=== PATIENT | male | born 1960 | race Caucasian/White ===

== ENCOUNTER → 2019-04-27 09:02 | Outpatient (CLI) | payer BC, SELFPAY ==
[2019-04-27 10:05] LABS: Absolute Lymphocyte Count 2.47 X10^3/uL (0.83-4.51); Basophil# 0.06 X10^3/uL; Basophil% 0.8 % (0-1); Eosinophil# 0.19 X10^3/uL; Eosinophils% 2.6 % (0-5); Hematocrit 49.2 % (40-54); Hemoglobin 15.8 g/dL (13.0-16.5); Lymphocyte # 2.47 X10^3/ul (4.0); Lymphocyte % 33.8 % (19-41); Mean Corp Hgb Conc 32.1 g/dL (32-36); Mean Corpuscular Hgb 26.6 pg (27.0-32.0); Mean Corpuscular Volume 82.8 fL (80-94); Mean Platelet Vol. 10.4 fl (6.2-12.0); Monocyte# 0.57 X10^3/uL; Monocyte% 7.8 % (0-10); NRBC Flagged by Analyzer 0 % (0-5); Neutrophil # 3.97 X10^3/uL (2.7-7.7); Neutrophil % 54.5 % (47-70); Platelet Count 234 K/mm3 (150-450); RBC Distribution Width CV 12.1 % (11.6-14.6); RBC Distribution Width SD 36.7 fl (35.1-43.9); Red Blood Count 5.94 M/mm3 (4.6-6.2); White Blood Count 7.3 K/mm3 (4.4-11.0)
[2019-04-27 10:27] LABS: Hemoglobin A1c 6.3 % (4.2-6.3)
[2019-04-27 10:40] LABS: ALB/GLOB Ratio 1.2 RATIO (0.9-2.4); AST(SGOT) 15 U/L (15-37); Alanine Aminotransfer ALT/SGPT 26 U/L (16-61); Albumin, Serum 4.6 g/dL (3.2-5.0); Alkaline Phosphatase 61 U/L (45-117); Anion Gap 4 (5-15); BUN 34 mg/dL (7-18); BUN/Creat Ratio 28.3 RATIO (10-20); Bilirubin, Direct 0.15 mg/dL (0.00-0.30); Calcium,Total 9.4 mg/dL (8.5-10.1); Chloride 101 mmol/L (98-107); Cholesterol 145 mg/dL (200); EST Glomerular Filtration Rate 66 mL/min (>60); Est Glom Filt Rate - Afr Amer 80 mL/min (>60); Globulin 3.8 g/dL (2.2-4.2); Glucose 130 mg/dL (74-106); High Density Lipoprotein 38 mg/dL; Magnesium 2.3 mg/dL (1.6-2.6); PSA,Total - Annual Screen 0.49 ng/mL (0.00-4.00); Protein, Total 8.4 g/dL (6.4-8.2); Sodium Level 137 mmol/L (136-145); Triglycerides 157 mg/dL; Very Low Density Lipoprotein 31 mg/dL (5-40)
[2019-04-30 09:36] LABS: Testosterone, Free 14.14 ng/dL (5.00-21.00)
[2019-04-30 16:07] LABS: Testosterone, % Free 4.22 % (1.50-4.20); Testosterone, Total 335 ng/dL (264-916)
== END ==
PROVIDERS: Family Provider Internal Medicine; PCP Internal Medicine; Referring Provider Internal Medicine; Visit Provider Internal Medicine
DX: E11.9 Type 2 diabetes mellitus without complications (principal); E78.00 Pure hypercholesterolemia, unspecified; E34.9 Endocrine disorder, unspecified; Z12.5 Encounter for screening for malignant neoplasm of prostate
CPT/HCPCS: 36415; 80053; 80061; 82248; 83036; 83735; 84153; 84402; 84403; 85025; G0103

== ENCOUNTER → 2019-05-28 08:17 | Outpatient (CLI) | payer BC, SELFPAY ==
[2019-05-28 10:31] LABS: Anion Gap 5 (5-15); BUN 34 mg/dL (7-18); BUN/Creat Ratio 27.2 RATIO (10-20); Calcium,Total 9.8 mg/dL (8.5-10.1); Chloride 103 mmol/L (98-107); Creatinine, Serum 1.25 mg/dL (0.70-1.30); EST Glomerular Filtration Rate 63 mL/min (>60); Est Glom Filt Rate - Afr Amer 77 mL/min (>60); Glucose 176 mg/dL (74-106); Potassium 3.6 mmol/L (3.5-5.1); Sodium Level 140 mmol/L (136-145)
[2019-05-28 10:33] LABS: Vitamin B12 725 pg/mL (211-911); Vitamin D,25 Hydroxy 21.2 ng/mL (29.95-100.01)
== END ==
PROVIDERS: Family Provider Internal Medicine; PCP Internal Medicine; Referring Provider Internal Medicine; Visit Provider Internal Medicine
DX: E55.9 Vitamin D deficiency, unspecified (principal); Z51.81 Encounter for therapeutic drug level monitoring
CPT/HCPCS: 36415; 80048; 82306; 82607

== ENCOUNTER → 2019-06-23 08:18 | Outpatient (CLI) | payer BC, SELFPAY ==
[2019-06-23 08:33] LABS: Bacteria 0 SEEN /hpf (None Seen); Mucous, Urine 0 SEEN /hpf (<or=2+); White Blood Cells 0 SEEN /hpf (0-5)
[2019-06-23 10:19] LABS: Color, Urine Yellow (Yellow); Glucose, Dipstick Normal (Normal); Ketone-Dipstick Negative (Negative); Leukocyte Esterase-Dipstick Negative /ul (Negative); Nitrite-Dipstick Negative (Negative); Occult Blood-Urine 10 /ul (Negative); Protein-Dipstick Negative (Negative); Urine Bilirubin Dipstick Negative (Negative); Urine Clarity Sl. Cloudy (Clear); Urine Urobilinogen Normal (Normal)
[2019-06-23 10:21] LABS: Anion Gap 6 (5-15); BUN 20 mg/dL (7-18); BUN/Creat Ratio 16.9 RATIO (10-20); Calcium,Total 9.5 mg/dL (8.5-10.1); Chloride 102 mmol/L (98-107); Creatinine, Serum 1.18 mg/dL (0.70-1.30); EST Glomerular Filtration Rate 68 mL/min (>60); Est Glom Filt Rate - Afr Amer 82 mL/min (>60); Glucose 132 mg/dL (74-106); Potassium 3.9 mmol/L (3.5-5.1); Sodium Level 139 mmol/L (136-145)
[2019-06-23 10:40] LABS: Red Blood Cells-Urine 0-5 SEEN /hpf (0-5); Squamous Epithelial Cells - UA 0-5 SEEN /hpf (0-5)
== END ==
PROVIDERS: Family Provider Internal Medicine; PCP Internal Medicine; Referring Provider Internal Medicine; Visit Provider Internal Medicine
DX: I10 Essential (primary) hypertension (principal)
CPT/HCPCS: 36415; 80048; 81001

== ENCOUNTER → 2019-11-19 07:01 | Outpatient (CLI) | payer BC, SELFPAY ==
[2019-11-19 09:55] LABS: Absolute Lymphocyte Count 2.62 X10^3/uL (0.83-4.51); Absolute Neutrophil Count 3.9 X10^3/uL (2.0-7.7); Basophil# 0.06 X10^3/uL; Basophil% 0.8 % (0-1); Eosinophil# 0.15 X10^3/uL; Eosinophils% 2.1 % (0-5); Hematocrit 47.6 % (40-54); Hemoglobin 15.5 g/dL (13.0-16.5); Lymphocyte # 2.62 X10^3/ul (4.0); Lymphocyte % 36.1 % (19-41); Mean Corp Hgb Conc 32.6 g/dL (32-36); Mean Corpuscular Volume 82.9 fL (80-94); Mean Platelet Vol. 10.4 fl (6.2-12.0); Monocyte# 0.55 X10^3/uL; Monocyte% 7.6 % (0-10); NRBC Flagged by Analyzer 0 % (0-5); Neutrophil # 3.85 X10^3/uL (2.7-7.7); Platelet Count 254 K/mm3 (150-450); RBC Distribution Width CV 13.1 % (11.6-14.6); RBC Distribution Width SD 38.1 fl (35.1-43.9); Red Blood Count 5.74 M/mm3 (4.6-6.2); White Blood Count 7.3 K/mm3 (4.4-11.0)
[2019-11-19 10:18] LABS: AST(SGOT) 17 U/L (15-37); Alanine Aminotransfer ALT/SGPT 29 U/L (16-61); Albumin, Serum 4.1 g/dL (3.2-5.0); Alkaline Phosphatase 58 U/L (45-117); Anion Gap 5 (5-15); BUN 29 mg/dL (7-18); BUN/Creat Ratio 25.9 RATIO (10-20); Calcium,Total 9.3 mg/dL (8.5-10.1); Chloride 101 mmol/L (98-107); Cholesterol 128 mg/dL (200); Creatinine, Serum 1.12 mg/dL (0.70-1.30); EST Glomerular Filtration Rate 72 mL/min (>60); Est Glom Filt Rate - Afr Amer 87 mL/min (>60); Glucose 138 mg/dL (74-106); High Density Lipoprotein 32 mg/dL; Magnesium 2.2 mg/dL (1.6-2.6); PSA,Total- Diagnostic 0.48 ng/mL (0.0-4.0); Potassium 3.8 mmol/L (3.5-5.1); Protein, Total 8.1 g/dL (6.4-8.2); Sodium Level 136 mmol/L (136-145); T4 Free Direct 0.99 ng/dL (0.76-1.46); Thyroid Stim Hormone (TSH) 2.59 uIU/mL (0.358-3.74); Triglycerides 142 mg/dL; Uric Acid 8.8 mg/dL (3.5-7.2); Very Low Density Lipoprotein 28 mg/dL (5-40)
[2019-11-19 10:29] LABS: Hemoglobin A1c 6.8 % (4.2-6.3)
[2019-11-23 09:07] LABS: Testosterone, Free 15.55 ng/dL (5.00-21.00)
[2019-11-23 19:59] LABS: Testosterone, % Free 3.38 % (1.50-4.20); Testosterone, Total 460 ng/dL (264-916)
== END ==
PROVIDERS: PCP Internal Medicine; Referring Provider Internal Medicine; Visit Provider Internal Medicine
DX: M10.9 Gout, unspecified (principal); E55.9 Vitamin D deficiency, unspecified; E34.9 Endocrine disorder, unspecified; I49.3 Ventricular premature depolarization; E11.9 Type 2 diabetes mellitus without complications; Z51.81 Encounter for therapeutic drug level monitoring
CPT/HCPCS: 36415; 80053; 80061; 82306; 83036; 83735; 84153; 84402; 84403; 84439; 84443; 84550; 85025

== ENCOUNTER → 2020-01-18 | Outpatient (CLI) | payer BC, SELFPAY | END | disposition home or self-care (01) | LOC: LABSPEC 01-19 07:35 | PROVIDERS: PCP Internal Medicine; Visit Provider Family Medicine Hospice and Palliative Medicine | DX: Z11.59 Encounter for screening for other viral diseases (principal) | CPT/HCPCS: 87635; G2023; U0003 ==

== ENCOUNTER → 2020-04-25 09:47 | Outpatient (CLI) | payer BC, SELFPAY ==
[2020-04-25 12:43] LABS: Absolute Lymphocyte Count 2.34 X10^3/uL (0.83-4.51); Absolute Neutrophil Count 3.4 X10^3/uL (2.0-7.7); Basophil# 0.05 X10^3/uL; Basophil% 0.8 % (0-1); Eosinophil# 0.12 X10^3/uL; Eosinophils% 1.9 % (0-5); Hematocrit 47.3 % (40-54); Lymphocyte # 2.34 X10^3/ul (4.0); Lymphocyte % 36.1 % (19-41); Mean Corp Hgb Conc 31.7 g/dL (32-36); Mean Corpuscular Hgb 26.5 pg (27.0-32.0); Mean Corpuscular Volume 83.6 fL (80-94); Mean Platelet Vol. 10.2 fl (6.2-12.0); Monocyte# 0.48 X10^3/uL; Monocyte% 7.4 % (0-10); NRBC Flagged by Analyzer 0 % (0-5); Neutrophil # 3.44 X10^3/uL (2.7-7.7); Platelet Count 289 K/mm3 (150-450); RBC Distribution Width CV 11.9 % (11.6-14.6); RBC Distribution Width SD 36.4 fl (35.1-43.9); Red Blood Count 5.66 M/mm3 (4.6-6.2); White Blood Count 6.5 K/mm3 (4.4-11.0)
[2020-04-25 13:06] LABS: Hemoglobin A1c 6.4 % (3.8-5.6)
[2020-04-25 13:12] LABS: AST(SGOT) 16 U/L (15-37); Alanine Aminotransfer ALT/SGPT 27 U/L (16-61); Albumin, Serum 4.1 g/dL (3.2-5.0); Alkaline Phosphatase 59 U/L (45-117); Anion Gap 5 (5-15); BUN 19 mg/dL (7-18); BUN/Creat Ratio 18.3 RATIO (10-20); Bilirubin, Direct 0.15 mg/dL (0.00-0.30); Calcium,Total 9.4 mg/dL (8.5-10.1); Chloride 104 mmol/L (98-107); Cholesterol 156 mg/dL (200); Creatinine, Serum 1.04 mg/dL (0.70-1.30); EST Glomerular Filtration Rate 78 mL/min (>60); Est Glom Filt Rate - Afr Amer 95 mL/min (>60); Globulin 4.2 g/dL (2.2-4.2); Glucose 123 mg/dL (74-106); High Density Lipoprotein 37 mg/dL; Potassium 3.8 mmol/L (3.5-5.1); Protein, Total 8.3 g/dL (6.4-8.2); Sodium Level 139 mmol/L (136-145); Triglycerides 139 mg/dL; Very Low Density Lipoprotein 28 mg/dL (5-40)
[2020-04-30 03:06] LABS: Testosterone, Free 19.38 ng/dL (5.00-21.00)
[2020-05-01 11:32] LABS: Testosterone, % Free 4.97 % (1.50-4.20); Testosterone, Total 390 ng/dL (264-916)
[2020-05-01 15:17] LABS: CPK Total, Creatine Kinase 189 U/L (39-308)
== END ==
PROVIDERS: PCP Internal Medicine; Referring Provider Internal Medicine; Visit Provider Internal Medicine
DX: E11.9 Type 2 diabetes mellitus without complications (principal); E34.9 Endocrine disorder, unspecified; E78.00 Pure hypercholesterolemia, unspecified; I10 Essential (primary) hypertension
CPT/HCPCS: 36415; 80048; 80061; 80076; 82550; 83036; 84402; 84403; 85025

== ENCOUNTER → 2020-09-07 14:43 | Outpatient (CLI) | payer BC, SELFPAY ==
[2020-09-07 17:42] LABS: Uric Acid 5.6 mg/dL (3.5-7.2)
== END ==
PROVIDERS: PCP Internal Medicine; Referring Provider Internal Medicine; Visit Provider Internal Medicine
DX: Z51.81 Encounter for therapeutic drug level monitoring (principal); Z12.5 Encounter for screening for malignant neoplasm of prostate; I49.3 Ventricular premature depolarization; E11.9 Type 2 diabetes mellitus without complications
CPT/HCPCS: 36415; 84550

== ENCOUNTER → 2020-12-14 11:34 | Outpatient (CLI) | payer BC, SELFPAY ==
[2020-12-14 15:06] LABS: Absolute Lymphocyte Count 2.16 X10^3/uL (0.83-4.51); Absolute Neutrophil Count 3.5 X10^3/uL (2.0-7.7); Basophil# 0.05 X10^3/uL; Basophil% 0.8 % (0-1); Eosinophils% 1.6 % (0-5); Hematocrit 47.4 % (40-54); Hemoglobin 15.2 g/dL (13.0-16.5); Lymphocyte # 2.16 X10^3/ul (0.83-4.51); Lymphocyte % 33.6 % (19-41); Mean Corp Hgb Conc 32.1 g/dL (32-36); Mean Corpuscular Hgb 26.8 pg (27.0-32.0); Mean Corpuscular Volume 83.5 fL (80-94); Mean Platelet Vol. 9.8 fl (6.2-12.0); Monocyte# 0.53 X10^3/uL; Monocyte% 8.2 % (0-10); NRBC Flagged by Analyzer 0 % (0-5); Neutrophil # 3.53 X10^3/uL (2.7-7.7); Neutrophil % 54.9 % (47-70); Platelet Count 344 K/mm3 (150-450); RBC Distribution Width CV 12.3 % (11.6-14.6); RBC Distribution Width SD 37.2 fl (35.1-43.9); Red Blood Count 5.68 M/mm3 (4.6-6.2); White Blood Count 6.4 K/mm3 (4.4-11.0)
[2020-12-14 15:20] LABS: ALB/GLOB Ratio 1.1 RATIO (0.9-2.4); AST(SGOT) 44 U/L (15-37); Alanine Aminotransfer ALT/SGPT 62 U/L (16-61); Albumin, Serum 4.2 g/dL (3.2-5.0); Alkaline Phosphatase 54 U/L (45-117); Anion Gap 4 (5-15); BUN 17 mg/dL (7-18); BUN/Creat Ratio 15.5 RATIO (10-20); Calcium,Total 9.1 mg/dL (8.5-10.1); Chloride 100 mmol/L (98-107); Cholesterol 119 mg/dL (200); EST Glomerular Filtration Rate 73 mL/min (>60); Est Glom Filt Rate - Afr Amer 88 mL/min (>60); Globulin 3.8 g/dL (2.2-4.2); Glucose 138 mg/dL (74-106); High Density Lipoprotein 37 mg/dL; PSA,Total - Annual Screen 5.03 ng/mL (0.00-4.00); Potassium 4.1 mmol/L (3.5-5.1); Sodium Level 137 mmol/L (136-145); Triglycerides 99 mg/dL; Uric Acid 7.2 mg/dL (3.5-7.2); Very Low Density Lipoprotein 20 mg/dL (5-40); Vitamin B12 438 pg/mL (211-911)
[2020-12-14 16:14] LABS: Hemoglobin A1c 6.4 % (3.8-5.6)
== END ==
PROVIDERS: PCP Internal Medicine; Referring Provider Internal Medicine; Visit Provider Internal Medicine
DX: Z51.81 Encounter for therapeutic drug level monitoring (principal); I49.3 Ventricular premature depolarization; Z12.5 Encounter for screening for malignant neoplasm of prostate; E11.9 Type 2 diabetes mellitus without complications
CPT/HCPCS: 36415; 80053; 80061; 82607; 83036; 83735; 84153; 84550; 85025; G0103

== ENCOUNTER → 2021-02-12 13:26 | Outpatient (CLI) | payer BC, SELFPAY ==
[2021-02-12 15:35] LABS: AST(SGOT) 16 U/L (15-37); Alanine Aminotransfer ALT/SGPT 28 U/L (16-61); Alkaline Phosphatase 57 U/L (45-117); Bilirubin, Direct 0.09 mg/dL (0.00-0.30); Globulin 3.8 g/dL (2.2-4.2); Protein, Total 7.8 g/dL (6.4-8.2); Uric Acid 7.2 mg/dL (3.5-7.2)
[2021-02-14 13:56] LABS: PSA, Free 0.12 ng/mL; PSA, Free % 10.9 % (.); PSA, Total Ultrasensitive 1.1 ng/mL (0.0-4.0)
== END ==
PROVIDERS: PCP Internal Medicine; Referring Provider Internal Medicine; Visit Provider Internal Medicine
DX: R97.20 Elevated prostate specific antigen [PSA] (principal); R79.89 Other specified abnormal findings of blood chemistry
CPT/HCPCS: 36415; 80076; 84153; 84154; 84550

== ENCOUNTER → 2021-03-22 09:20 | Outpatient (REF) | payer BC, SELFPAY ==
[2021-03-24 13:14] LABS: Probe Check PASS; Specimen Processing Control PASS
== END ==
LOC: OLS.HOSPIC 09:20
PROVIDERS: PCP Internal Medicine
DX: Z20.822 Contact with and (suspected) exposure to COVID-19 (principal)
CPT/HCPCS: 87635; U0005; U0003

== ENCOUNTER → 2021-05-28 12:53 | Outpatient (CLI) | payer BC, SELFPAY ==
[2021-05-28 14:54] LABS: Hematocrit 46.6 % (40-54); Hemoglobin 15.3 g/dL (13.0-16.5); Mean Corp Hgb Conc 32.8 g/dL (32-36); Mean Corpuscular Hgb 26.7 pg (27.0-32.0); Mean Corpuscular Volume 81.2 fL (80-94); Mean Platelet Vol. 10.1 fl (6.2-12.0); Platelet Count 253 K/mm3 (150-450); RBC Distribution Width CV 12.1 % (11.6-14.6); RBC Distribution Width SD 35.5 fl (35.1-43.9); Red Blood Count 5.74 M/mm3 (4.6-6.2); White Blood Count 6.4 K/mm3 (4.4-11.0)
[2021-05-28 15:13] LABS: Hemoglobin A1c 6.3 % (3.8-5.6)
[2021-05-28 15:24] LABS: AST(SGOT) 18 U/L (15-37); Alanine Aminotransfer ALT/SGPT 31 U/L (16-61); Albumin, Serum 4.4 g/dL (3.2-5.0); Alkaline Phosphatase 62 U/L (45-117); Anion Gap 8 (5-15); BUN 17 mg/dL (7-18); BUN/Creat Ratio 16.5 RATIO (10-20); Calcium,Total 9.5 mg/dL (8.5-10.1); Chloride 102 mmol/L (98-107); Cholesterol 123 mg/dL (200); Creatinine, Serum 1.03 mg/dL (0.70-1.30); EST Glomerular Filtration Rate 79 mL/min (>60); Est Glom Filt Rate - Afr Amer 95 mL/min (>60); Globulin 4.2 g/dL (2.2-4.2); Glucose 127 mg/dL (74-106); High Density Lipoprotein 35 mg/dL; Potassium 3.5 mmol/L (3.5-5.1); Protein, Total 8.6 g/dL (6.4-8.2); Sodium Level 138 mmol/L (136-145); Thyroid Stim Hormone (TSH) 1.48 uIU/mL (0.358-3.74); Triglycerides 114 mg/dL; Uric Acid 6.4 mg/dL (3.5-7.2); Very Low Density Lipoprotein 23 mg/dL (5-40)
== END ==
PROVIDERS: PCP Internal Medicine; Referring Provider Internal Medicine; Visit Provider Internal Medicine
DX: E78.00 Pure hypercholesterolemia, unspecified (principal); E11.69 Type 2 diabetes mellitus with other specified complication; E78.2 Mixed hyperlipidemia; D50.8 Other iron deficiency anemias; E03.8 Other specified hypothyroidism; E06.3 Autoimmune thyroiditis; M1A.0790 Idiopathic chronic gout, unspecified ankle and foot, without tophus (tophi)
CPT/HCPCS: 36415; 80053; 80061; 83036; 84443; 84550; 85027

== ENCOUNTER → 2021-07-13 | Outpatient (CLI) | payer BC, SELFPAY | END | disposition home or self-care (01) | PROVIDERS: PCP Internal Medicine; Visit Provider Family Medicine | DX: Z20.822 Contact with and (suspected) exposure to COVID-19 (principal) | CPT/HCPCS: 87635; U0005; U0003 ==

== ENCOUNTER → 2022-03-11 | Outpatient (CLI) | payer OTHER, SELFPAY ==
[2022-03-11 15:09] LABS: ALB/GLOB Ratio 1.1 RATIO (0.9-2.4); AST(SGOT) 18 U/L (15-37); Alanine Aminotransfer ALT/SGPT 30 U/L (16-61); Albumin, Serum 4.6 g/dL (3.2-5.0); Alkaline Phosphatase 55 U/L (45-117); Anion Gap 8 (5-15); BUN 20 mg/dL (7-18); BUN/Creat Ratio 18.7 RATIO (10-20); Calcium,Total 9.6 mg/dL (8.5-10.1); Chloride 103 mmol/L (98-107); Creatinine, Serum 1.07 mg/dL (0.70-1.30); EST Glomerular Filtration Rate 75 mL/min (>60); Est Glom Filt Rate - Afr Amer 91 mL/min (>60); Globulin 4.2 g/dL (2.2-4.2); Glucose 96 mg/dL (74-106); Potassium 3.7 mmol/L (3.5-5.1); Protein, Total 8.8 g/dL (6.4-8.2); Sodium Level 141 mmol/L (136-145)
[2022-03-11 15:14] LABS: Hemoglobin A1c 5.9 % (3.8-5.6)
[2022-03-11 15:28] LABS: Creatinine, Urine (random) < 13.00 mg/dL (NO RANGE EST.); Microalbumin,Random Urine 7.4 mg/L (NO RANGE EST.)
[2022-03-14 10:08] LABS: CHOLESTEROL TOTAL 161 mg/dL (100-199); HDL-C 41 mg/dL (>39); HDL-P TOTAL 27.4 umol/L (>=30.5); SMALL LDL-P 549 nmol/L (<=527); TRIGLYCERIDES 103 mg/dL (0-149)
[2022-03-14 17:31] LABS: INSULIN RESISTANCE SCORE 67 (<=45); LDL SIZE 20.6 nm (>20.5); LDL-C (NIH CALC) 101 mg/dL (0-99); LDL-P 1221 nmol/L (<1000)
== END | disposition home or self-care (01) ==
PROVIDERS: PCP Internal Medicine; Referring Provider Internal Medicine; Visit Provider Internal Medicine
DX: E78.00 Pure hypercholesterolemia, unspecified (principal); E11.9 Type 2 diabetes mellitus without complications; M10.9 Gout, unspecified
CPT/HCPCS: 36415; 80053; 80061; 82043; 82570; 83036; 83704; 84550

== ENCOUNTER → 2022-06-03 | Outpatient (CLI) | payer OTHER, SELFPAY ==
[2022-06-03 15:38] LABS: AST(SGOT) 19 U/L (15-37); Alanine Aminotransfer ALT/SGPT 30 U/L (16-61); Albumin, Serum 4.4 g/dL (3.2-5.0); Alkaline Phosphatase 53 U/L (45-117); Bilirubin, Direct 0.14 mg/dL (0.00-0.30); Cholesterol 129 mg/dL (200); Globulin 3.7 g/dL (2.2-4.2); High Density Lipoprotein 40 mg/dL; Protein, Total 8.1 g/dL (6.4-8.2); Triglycerides 78 mg/dL; Very Low Density Lipoprotein 16 mg/dL (5-40)
[2022-06-06 00:07] LABS: Free Kappa Light Chains 28.5 mg/L (3.3-19.4); Free Lambda Light Chains 18.9 mg/L (5.7-26.3); PROEL- A/G Ratio 1.2 (0.7-1.7); PROEL- Albumin 4.1 g/dL (2.9-4.4); PROEL- Alpha-1 Globulin 0.2 g/dL (0.0-0.4); PROEL- Alpha-2 Globulin 0.6 g/dL (0.4-1.0); PROEL- Beta Globulin 1.1 g/dL (0.7-1.3); PROEL- Gamma Globulin 1.5 g/dL (0.4-1.8); PROEL- Globulin, Total 3.4 g/dL (2.2-3.9); PROEL- TOTAL PROTEIN 7.5 g/dL (6.0-8.5)
== END | disposition home or self-care (01) ==
PROVIDERS: PCP Internal Medicine; Referring Provider Internal Medicine; Visit Provider Internal Medicine
DX: R79.89 Other specified abnormal findings of blood chemistry (principal); E78.00 Pure hypercholesterolemia, unspecified
CPT/HCPCS: 36415; 80061; 80076; 83883; 84165

== ENCOUNTER → 2022-09-03 | Outpatient (CLI) | payer OTHER, SELFPAY ==
[2022-09-03 12:26] LABS: Absolute Lymphocyte Count 1.82 X10^3/uL (0.83-4.51); Absolute Neutrophil Count 3.1 X10^3/uL (2.0-7.7); Basophil# 0.05 X10^3/uL; Basophil% 0.9 % (0-1); Eosinophil# 0.05 X10^3/uL; Eosinophils% 0.9 % (0-5); Hematocrit 51.1 % (40-54); Hemoglobin 16.3 g/dL (13.0-16.5); Lymphocyte # 1.82 X10^3/ul (0.83-4.51); Mean Corp Hgb Conc 31.9 g/dL (32-36); Mean Corpuscular Hgb 26.7 pg (27.0-32.0); Mean Corpuscular Volume 83.8 fL (80-94); Mean Platelet Vol. 9.9 fl (6.2-12.0); Monocyte# 0.44 X10^3/uL; NRBC Flagged by Analyzer 0 % (0-5); Neutrophil # 3.12 X10^3/uL (2.7-7.7); Neutrophil % 56.5 % (47-70); Platelet Count 279 K/mm3 (150-450); RBC Distribution Width CV 13.1 % (11.6-14.6); White Blood Count 5.5 K/mm3 (4.4-11.0)
[2022-09-03 12:32] LABS: ALB/GLOB Ratio 1.1 RATIO (0.9-2.4); AST(SGOT) 26 U/L (15-37); Alanine Aminotransfer ALT/SGPT 40 U/L (16-61); Albumin, Serum 4.2 g/dL (3.2-5.0); Alkaline Phosphatase 55 U/L (45-117); Anion Gap 8 (5-15); BUN 20 mg/dL (7-18); BUN/Creat Ratio 21.2 RATIO (10-20); Bilirubin, Direct 0.17 mg/dL (0.00-0.30); Calcium,Total 9.2 mg/dL (8.5-10.1); Chloride 103 mmol/L (98-107); Cholesterol 160 mg/dL (200); Creatinine, Serum 0.94 mg/dL (0.70-1.30); EST Glomerular Filtration Rate 87 mL/min (>60); Est Glom Filt Rate - Afr Amer 105 mL/min (>60); Globulin 3.8 g/dL (2.2-4.2); Glucose 110 mg/dL (74-106); High Density Lipoprotein 45 mg/dL; Potassium 3.8 mmol/L (3.5-5.1); Sodium Level 139 mmol/L (136-145); Triglycerides 101 mg/dL; Uric Acid 5.2 mg/dL (3.5-7.2); Very Low Density Lipoprotein 20 mg/dL (5-40)
[2022-09-03 12:50] LABS: Hemoglobin A1c 5.9 % (3.8-5.6)
[2022-09-04 17:07] LABS: Free Kappa Light Chains 24.8 mg/L (3.3-19.4); Free Lambda Light Chains 19.2 mg/L (5.7-26.3); Immunoglobulin A 250 mg/dL (90-386); Immunoglobulin G 1323 mg/dL (603-1613); Immunoglobulin M 114 mg/dL (20-172)
== END | disposition home or self-care (01) ==
LOC: MTLAB 10:52
PROVIDERS: PCP Internal Medicine; Referring Provider Internal Medicine; Visit Provider Internal Medicine
DX: R94.5 Abnormal results of liver function studies (principal); E11.9 Type 2 diabetes mellitus without complications; R77.9 Abnormality of plasma protein, unspecified; E78.00 Pure hypercholesterolemia, unspecified; M10.9 Gout, unspecified; Z12.5 Encounter for screening for malignant neoplasm of prostate
CPT/HCPCS: 36415; 80053; 80061; 82248; 82784; 83036; 83883; 84153; 84550; 85025; 86334; G0103

== ENCOUNTER → 2022-09-09 | Outpatient (CLI) | payer OTHER, SELFPAY ==
[2022-09-09 14:17] VITALS: BP 139/92; PULSE 67; RESP 16; TEMP 36.1; O2SAT 98; BMI 23.2
[2022-09-09] MEDS: Rabies Immune Globulin/PF 300 UNIT/ML, 5 ML VIAL 3000 UNIT IM (16:08)
[2022-09-09] MEDS: Rabies Vaccine,Human Diploid 2.5 UNITS Vial IM (16:08)
== END | disposition home or self-care (01) ==
LOC: MEDOUTP 13:52
PROVIDERS: PCP Internal Medicine; Referring Provider Internal Medicine; Visit Provider Internal Medicine
DX: Z23 Encounter for immunization (principal)
CPT/HCPCS: 90675; 96372; 90375

== ENCOUNTER → 2023-08-02 | Outpatient (CLI) | payer BC, SELFPAY ==
--- OUTSIDE RECORDS SUMMARY | 2023-08-02 09:48 | XMS RPT_ITS | CCD ---
Author Name Unknown Address [address] [place] [address] Organization [facility] Care Team Providers Care Die Cast Operator Name Role Phone Mel Esquivel Unavailable Venice Cordon Unavailable Rohini Dill Unavailable Unavailable Gravius, Sindhu Unavailable Unavailable Unavailable Unavailable Serge Castanoa Unavailable Unavailable Mel Esquivel K Primary Care Provider [phone] Lilia Vitale Unavailable Unavailable Unavailable Primary Care Provider Unavailabl e Oumou Hamiltonsea Unavailable Unavailable Thang Jimenez Unavailable Unavailable Zuleima Herrera Unavailable Unavailable ROBERTO RAO Attending Unavailable MAIRAROBERTO SHOEMAKER Primary Care Unavailable MAIRAROBERTO SHOEMAKER Admitting Unavailable MAIRAROBERTO SHOEMAKER Attending Unavailable MAIRAROBERTO SHOEMAKER Primary Care Unavailable MAIRAROBERTO TAVAREZ Admitting Unavailable Messenger, Lilia Unavailable Unavailable Tate, Sarah L Unavailable Unavailable Alvin DO Mel Unavailable Venice Cordon MD Unavailable [phone] Zuleima Herrera LPN Unavailable Unavailable Thang Jimenez LPN Unavailable Unavailable Rohini Dill Unavailable Unavailable Unavailable Unavailable Box, Antonio Unavailable oumou Lawler Unavailable Unavailable ERNA Garsia LPN Unavailable Unavailable ALVINMEL Primary Care Unavailable BOX, ANTONIO N Attending Unavailable ALVIN, MEL K Referring Unavailable ALVIN, MEL K Referring Unavailable ALVIN, MEL K Primary Care Unavailable BOX, ANTONIO N Attending Unavailable ALVIN, MEL K Primary Care Unavailable BOX, ANTONIO N Attending Unavailable WILLIAM CABALLERO Referring Unavailable Alvin DO, Mel Unavailable Venice Cordon MD Unavailable Valery Kna LPN Unavailable Unavailable Alfonso BLOSSOM Jumana Unavailable Unavailable Venice Cordon MD Unavailable Venice Cordon MD Unavailable Venice Cordon MD Referring Unavailable Venice Cordon MD Attending Unavailable Venice Cordon MD Consulting Unavailable WILLIAM CABALLERO Attending [facility]available [facility]available Allergies Allergy Classification Reported Allergen(s) Allergy Type Date of Onset Reaction(s) Facility Penicillins (antibiotic) (5 sources) Penicillins; Translations: [Penicillins] Drug Allergy [facility] Work Phone: Quinolones (antibiotic) (5 sources) Ciprofloxacin; Translations: [Cipro *FLUOROQUINOLONE S*] Drug Allergy [facility] Work Phone: Sulfonamides (antibiotic) (5 sources) Sulfonamides (Antibiotic); Translations: [Sulfa Drugs] Drug Allergy [facility] Work Phone: (20 sources) Ciprofloxacin; Translations: [Cipro *FLUOROQUINOLONE S*] Drug Allergy 9 [facility] Work Phone: (20 sources) Penicillins; Translations: [Penicillins] allergy to substance 5 [facility] Work Phone: (20 sources) Sulfonamides (Antibiotic); Translations: [Sulfa Drugs] allergy to substance [facility] Work Phone: (2 sources) Sulfonamides (Antibiotic) Propensity to adverse reactions to drug 5 [facility] [place] Medications Completed/Discontinued Medications Medication Drug Class(es) Dates Sig (Normalized) Sig (Original) allopurinol 100 mg oral tablet (20 sources) Xanthine Oxidase Inhibitor take 1 tablet by mouth once daily Allopurinol 100 MG Oral Tablet 1 tablet daily (100 MG) Active amLODIPine 5 mg oral tablet (20 sources) Dihydropyridine Calcium Channel Balbir Start: 12-11-2021 take 1 tablet by mouth once daily amLODIPine Besylate 5 MG Oral Tablet 1 (one) Tablet qd for 0 days Quantity: 30 {Tablet} Refills: 0 Ordered: 11-Dec-2021 Bravo DUNN, Venice Cordon MD, Venice Cordon MD, Venice Mix Start : 11-Dec-2021 Active Problems Active Problems Problem Classification Problem Date Documented Da te Episodic/Chronic Biliary tract disease (20 sources) Chronic cholecystitis; Translations: [Cholecystitis, chronic] Resolved: 04-16-2017 04-16-2017 Episodic Cardiac dysrhythmias (20 sources) Ventricular premature beats; Translations: [PVC (premature ventricular contraction)] 11-17-2019 Chronic Past or Other Problems Problem Classification Problem Date Documented Da te Episodic/Chronic Headache; including migraine (14 sources) Tension-type headache; Translations: [Tension headache] Resolved: 04-16-2017 04-16-2017 Episodic Other and unspecified benign neoplasm (13 sources) Papillary fibroelastoma; 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 Results Test Name Value Interpretation Reference Range Facil ity Vital Signs Date Time Vital Sign Value Performing Clinician Facility 03-11-2023 15:40-0400 Body height 182.88 cm Venice Cordon MD Work Phone: [facility] Work Phone: 03-11-2023 15:40-0400 Body mass index (BMI) [Ratio] 22.92 kg/m2 Venice Cordon MD Work Phone: [facility] Work Phone: 03-11-2023 15:40-0400 Body surface area Derived from formula 1.98 m2 Venice Cordon MD Work Phone: [facility] Work Phone: 03-11-2023 15:40-0400 Body temperature 97 [degF] Venice Cordon MD Work Phone: [facility] Work Phone: Encounters Encounter Date Encounter Type Care Provider Facility Start: 03-11-2023 Review Venice Ayala Work Phone: [facility] Start: 03-11-2023 End: 03-27-2023 Patient encounter procedure Venice Cordon MD Work Phone: [facility] Start: 03-11-2023 End: 03-27-2023 Patient encounter status Venice Cordon MD Work Phone: [facility] Start: 11-20-2022 ambulatory Venice Cordon MD [facility] Start: 09-10-2022 End: 09-10-2022 Office outpatient visit 25 minutes Venice Cordon MD Work Phone: [facility] Start: 09-10-2022 End: 09-10-2022 Patient encounter status Venice Cordon MD Work Phone: [facility] Work Phone: Procedures Date Procedure Procedure Detail Performing Clinician Start: 04-04-2021 PSA screening MEL ESQUIVEL Plan of Treatment Date Care Activity Detail Author Start: 11-01-2024 DTaP/Tdap/Td vaccine (2 - Td) DTaP/Tdap/Td vaccine (2 - Td) [place], [place] Start: 03-11-2023 Urine albumin quantitative MICROALBUMIN: CREATININE RATIO (37595) AND (93805) [facility] Work Phone: Start: 03-11-2023 Comprehensive metabolic panel METABOLIC PANEL, COMPREHENSIVE (36192) [facility] Work Phone: Start: 03-11-2023 Lipid panel LIPID PANEL (38595) [facility] Work Phone: Start: 03-11-2023 Blood count manual cell count each CBC with auto diff (03896) [facility] Work Phone: Start: 03-11-2023 Blood count manual cell count each CBC with auto diff (39912) [facility] Work Phone: Start: 03-11-2023 Comprehensive metabolic panel METABOLIC PANEL, COMPREHENSIVE (79348) [facility] Work Phone: Start: 03-11-2023 Lipid panel LIPID PANEL (00457) [facility] Work Phone: Start: 03-11-2023 Urine albumin quantitative MICROALBUMIN: CREATININE RATIO (44941) AND (05771) [facility] Work Phone: Start: 03-11-2023 Procedure Education Eprescribed prescriptions (G8553) [facility] Work Phone: Start: 09-10-2022 Procedure Education Eprescribed prescriptions (G8553) [facility] Work Phone: Start: 09-03-2022 Assay of blood/uric acid URIC ACID BLOOD (49495) [facility] Work Phone: Start: 09-03-2022 Assay of prostate specific antigen total PSA (PROSTATE SPECIFIC ANTIGEN) (41495) [facility]; [facility] Work Phone: Start: 09-03-2022 Blood count complete auto&auto difrntl wbc CBC W/AUTO DIFF WBC (07386) [facility]; [facility] Work Phone: Start: 09-03-2022 Comprehensive metabolic panel METABOLIC PANEL, COMPREHENSIVE (60844) [facility]; [facility] Work Phone: Start: 09-03-2022 Hemoglobin glycosylated a1c HGB A1C (53287) [facility]; [facility] Work Phone: Start: 09-03-2022 Hepatic function panel HEPATIC FUNCTION PANEL (81402) [facility]; [facility] Work Phone: Start: 09-03-2022 Lipid panel LIPID PANEL (56032) [facility] Work Phone: Start: 06-17-2022 Assay of gammaglobulin iga igd igg igm each IMMUNOFIXATION, SERUM (25444) [facility]; [facility] Work Phone: Start: 06-17-2022 Assay of nephelometry each analyte ananth Serum Free Light Chains (77676) [facility] Work Phone: Start: 06-10-2022 Assay of nephelometry each analyte ananth Serum Free Light Chains (99036) [facility]; [facility] Work Phone: Immunizations Immunization Date Immunization Notes Care Provider Ata art 10-12-2022 zoster vaccine, live Venice Ned harvey MD Work Phone: [facility] Work Phone: Payers Date Payer Category Payer Private Health Insurance [id number] 2019 Unknown [id number] 2018 Unknown BCBS [place] P PO xxxxxxxxxxxx 2018-Present [address] [place] [address] xxxxxxxxxxxx [id number] 2018 Unknown [id number] 2016 Unknown [id number] 2015 Unknown [id number] 2013 Unknown [id number] 1962 Unknown [id number] 1962 Unknown [id number] 1962 Unknown [id number] 1962 Unknown [id number] 1962 Unknown [id number] 1962 Unknown [id number] Unknown Unknown [id number] Unknown [id number] Social History Date Type Detail Facility Alcohol Use Unknown if ever smoked [facility] Work Phone: Clinical Notes Note Date & Type Note Facility [facility] Work Phone: Instructions* Name Dates Details How to Access Health Informa tion Online using Patient Portal and [email or web address] Apps Indication:Nonsmoker Start:22-Dec-2020 Instruction Type:Patient Education Patient Instructions Indication:Nonsmoker Start:22-Dec-2020 Instruction Type:Provider Instructions for Treatment How to access health informa tion online Indication:Nonsmoker Start:14-Jun-2020 Instruction Type:Patient Education How to access health informa tion online - Detail Indication:Nonsmoker Start:14-Jun-2020 Instruction Type:Patient Education Patient Instructions Indication:Nonsmoker Start:14-Jun-2020 Instruction Type:Provider Instructions for Treatment How to access health informa tion online Indication:Elevated blood pressure reading Start:05-May-2019 Instruction Type:Patient Education How to access health informa tion online - Detail Indication:Elevated blood pressure reading Start:05-May-2019 Instruction Type:Patient Education Patient Instructions Indication:Elevated blood pressure reading Start:05-May-2019 Instruction Type:Provider Instructions for Treatment How to access health informa tion online - Detail Indication:Hypercholesterolemia Start:06-Mar-2018 Instruction Type:Patient Education How to access health informa tion online Indication:Hypercholesterolemia Start:06-Mar-2018 Instruction Type:Patient Education Patient Instructions Indication:Hypercholesterolemia Start:06-Mar-2018 Instruction Type:Provider Instructions for Treatment How to access health informa tion online Indication:Nonsmoker Start:16-Apr-2017 Instruction Type:Patient Education How to access health informa tion online - Detail Indication:Nonsmoker Start:16-Apr-2017 Instruction Type:Patient Education Patient Instructions Indication:Nonsmoker Start:16-Apr-2017 Instruction Type:Provider Instructions for Treatment How to access health informa tion online Indication:Body mass index (BMI) 22.0-22.9, adult Start:04-Dec-2016 Instruction Type:Patient Education How to access health informa tion online - Detail Indication:Body mass index (BMI) 22.0-22.9, adult Start:04-Dec-2016 Instruction Type:Patient Education Patient Instructions Indication:Body mass index (BMI) 22.0-22.9, adult Start:04-Dec-2016 Instruction Type:Provider Instructions for Treatment How to access health informa tion online Indication:Uncontrolled type 2 diabetes mellitus Start:03-Jul-2016 Instruction Type:Patient Education How to access health informa tion online - Detail Indication:Uncontrolled type 2 diabetes mellitus Start:03-Jul-2016 Instruction Type:Patient Education Patient Instructions Indication:Uncontrolled type 2 diabetes mellitus Start:03-Jul-2016 Instruction Type:Provider Instructions for Treatment How to access health informa tion online Indication:Impaired fasting glucose Start:13-Nov-2015 Instruction Type:Patient Education How to access health informa tion online - Detail Indication:Impaired fasting glucose Start:13-Nov-2015 Instruction Type:Patient Education Patient Instructions Indication:Impaired fasting glucose Start:13-Nov-2015 Instruction Type:Provider Instructions for Treatment Patient Instructions Indication:Impaired fasting glucose Start:07-Sep-2013 Instruction Type:Provider Instructions for Treatment [facility] Work Phone: Instructions* Name Dates Details How to Access Health Informa tion Online using Patient Portal and [email or web address] Apps Indication:Nonsmoker Start:22-Dec-2020 Instruction Type:Patient Education Patient Instructions Indication:Nonsmoker Start:22-Dec-2020 Instruction Type:Provider Instructions for Treatment How to access health informa tion online Indication:Nonsmoker Start:14-Jun-2020 Instruction Type:Patient Education How to access health informa tion online - Detail Indication:Nonsmoker Start:14-Jun-2020 Instruction Type:Patient Education Patient Instructions Indication:Nonsmoker Start:14-Jun-2020 Instruction Type:Provider Instructions for Treatment How to access health informa tion online Indication:Elevated blood pressure reading Start:05-May-2019 Instruction Type:Patient Education How to access health informa tion online - Detail Indication:Elevated blood pressure reading Start:05-May-2019 Instruction Type:Patient Education Patient Instructions Indication:Elevated blood pressure reading Start:05-May-2019 Instruction Type:Provider Instructions for Treatment How to access health informa tion online - Detail Indication:Hypercholesterolemia Start:06-Mar-2018 Instruction Type:Patient Education How to access health informa tion online Indication:Hypercholesterolemia Start:06-Mar-2018 Instruction Type:Patient Education Patient Instructions Indication:Hypercholesterolemia Start:06-Mar-2018 Instruction Type:Provider Instructions for Treatment How to access health informa tion online Indication:Nonsmoker Start:16-Apr-2017 Instruction Type:Patient Education How to access health informa tion online - Detail Indication:Nonsmoker Start:16-Apr-2017 Instruction Type:Patient Education Patient Instructions Indication:Nonsmoker Start:16-Apr-2017 Instruction Type:Provider Instructions for Treatment How to access health informa tion online Indication:Body mass index (BMI) 22.0-22.9, adult Start:04-Dec-2016 Instruction Type:Patient Education How to access health informa tion online - Detail Indication:Body mass index (BMI) 22.0-22.9, adult Start:04-Dec-2016 Instruction Type:Patient Education Patient Instructions Indication:Body mass index (BMI) 22.0-22.9, adult Start:04-Dec-2016 Instruction Type:Provider Instructions for Treatment How to access health informa tion online Indication:Uncontrolled type 2 diabetes mellitus Start:03-Jul-2016 Instruction Type:Patient Education How to access health informa tion online - Detail Indication:Uncontrolled type 2 diabetes mellitus Start:03-Jul-2016 Instruction Type:Patient Education Patient Instructions Indication:Uncontrolled type 2 diabetes mellitus Start:03-Jul-2016 Instruction Type:Provider Instructions for Treatment How to access health informa tion online Indication:Impaired fasting glucose Start:13-Nov-2015 Instruction Type:Patient Education How to access health informa tion online - Detail Indication:Impaired fasting glucose Start:13-Nov-2015 Instruction Type:Patient Education Patient Instructions Indication:Impaired fasting glucose Start:13-Nov-2015 Instruction Type:Provider Instructions for Treatment Patient Instructions Indication:Impaired fasting glucose Start:07-Sep-2013 Instruction Type:Provider Instructions for Treatment [facility] Work Phone: Instructions* Name Dates Details How to Access Health Informa tion Online using Patient Portal and [email or web address] Apps Indication:Nonsmoker Start:22-Dec-2020 Instruction Type:Patient Education Patient Instructions Indication:Nonsmoker Start:22-Dec-2020 Instruction Type:Provider Instructions for Treatment How to access health informa tion online Indication:Nonsmoker Start:14-Jun-2020 Instruction Type:Patient Education How to access health informa tion online - Detail Indication:Nonsmoker Start:14-Jun-2020 Instruction Type:Patient Education Patient Instructions Indication:Nonsmoker Start:14-Jun-2020 Instruction Type:Provider Instructions for Treatment How to access health informa tion online Indication:Elevated blood pressure reading Start:05-May-2019 Instruction Type:Patient Education How to access health informa tion online - Detail Indication:Elevated blood pressure reading Start:05-May-2019 Instruction Type:Patient Education Patient Instructions Indication:Elevated blood pressure reading Start:05-May-2019 Instruction Type:Provider Instructions for Treatment How to access health informa tion online - Detail Indication:Hypercholesterolemia Start:06-Mar-2018 Instruction Type:Patient Education How to access health informa tion online Indication:Hypercholesterolemia Start:06-Mar-2018 Instruction Type:Patient Education Patient Instructions Indication:Hypercholesterolemia Start:06-Mar-2018 Instruction Type:Provider Instructions for Treatment How to access health informa tion online Indication:Nonsmoker Start:16-Apr-2017 Instruction Type:Patient Education How to access health informa tion online - Detail Indication:Nonsmoker Start:16-Apr-2017 Instruction Type:Patient Education Patient Instructions Indication:Nonsmoker Start:16-Apr-2017 Instruction Type:Provider Instructions for Treatment How to access health informa tion online Indication:Body mass index (BMI) 22.0-22.9, adult Start:04-Dec-2016 Instruction Type:Patient Education How to access health informa tion online - Detail Indication:Body mass index (BMI) 22.0-22.9, adult Start:04-Dec-2016 Instruction Type:Patient Education Patient Instructions Indication:Body mass index (BMI) 22.0-22.9, adult Start:04-Dec-2016 Instruction Type:Provider Instructions for Treatment How to access health informa tion online Indication:Uncontrolled type 2 diabetes mellitus Start:03-Jul-2016 Instruction Type:Patient Education How to access health informa tion online - Detail Indication:Uncontrolled type 2 diabetes mellitus Start:03-Jul-2016 Instruction Type:Patient Education Patient Instructions Indication:Uncontrolled type 2 diabetes mellitus Start:03-Jul-2016 Instruction Type:Provider Instructions for Treatment How to access health informa tion online Indication:Impaired fasting glucose Start:13-Nov-2015 Instruction Type:Patient Education How to access health informa tion online - Detail Indication:Impaired fasting glucose Start:13-Nov-2015 Instruction Type:Patient Education Patient Instructions Indication:Impaired fasting glucose Start:13-Nov-2015 Instruction Type:Provider Instructions for Treatment Patient Instructions Indication:Impaired fasting glucose Start:07-Sep-2013 Instruction Type:Provider Instructions for Treatment [facility]; [facility] Work Phone: Instructions* Name Dates Details How to Access Health Informa tion Online using Patient Portal and [employer] Apps Indication:Nonsmoker Start:22-Dec-2020 Instruction Type:Patient Education Patient Instructions Indication:Nonsmoker Start:22-Dec-2020 Instruction Type:Provider Instructions for Treatment How to access health informa tion online Indication:Nonsmoker Start:14-Jun-2020 Instruction Type:Patient Education How to access health informa tion online - Detail Indication:Nonsmoker Start:14-Jun-2020 Instruction Type:Patient Education Patient Instructions Indication:Nonsmoker Start:14-Jun-2020 Instruction Type:Provider Instructions for Treatment How to access health informa tion online Indication:Elevated blood pressure reading Start:05-May-2019 Instruction Type:Patient Education How to access health informa tion online - Detail Indication:Elevated blood pressure reading Start:05-May-2019 Instruction Type:Patient Education Patient Instructions Indication:Elevated blood pressure reading Start:05-May-2019 Instruction Type:Provider Instructions for Treatment How to access health informa tion online - Detail Indication:Hypercholesterolemia Start:06-Mar-2018 Instruction Type:Patient Education How to access health informa tion online Indication:Hypercholesterolemia Start:06-Mar-2018 Instruction Type:Patient Education Patient Instructions Indication:Hypercholesterolemia Start:06-Mar-2018 Instruction Type:Provider Instructions for Treatment How to access health informa tion online Indication:Nonsmoker Start:16-Apr-2017 Instruction Type:Patient Education How to access health informa tion online - Detail Indication:Nonsmoker Start:16-Apr-2017 Instruction Type:Patient Education Patient Instructions Indication:Nonsmoker Start:16-Apr-2017 Instruction Type:Provider Instructions for Treatment How to access health informa tion online Indication:Body mass index (BMI) 22.0-22.9, adult Start:04-Dec-2016 Instruction Type:Patient Education How to access health informa tion online - Detail Indication:Body mass index (BMI) 22.0-22.9, adult Start:04-Dec-2016 Instruction Type:Patient Education Patient Instructions Indication:Body mass index (BMI) 22.0-22.9, adult Start:04-Dec-2016 Instruction Type:Provider Instructions for Treatment How to access health informa tion online Indication:Uncontrolled type 2 diabetes mellitus Start:03-Jul-2016 Instruction Type:Patient Education How to access health informa tion online - Detail Indication:Uncontrolled type 2 diabetes mellitus Start:03-Jul-2016 Instruction Type:Patient Education Patient Instructions Indication:Uncontrolled type 2 diabetes mellitus Start:03-Jul-2016 Instruction Type:Provider Instructions for Treatment How to access health informa tion online Indication:Impaired fasting glucose Start:13-Nov-2015 Instruction Type:Patient Education How to access health informa tion online - Detail Indication:Impaired fasting glucose Start:13-Nov-2015 Instruction Type:Patient Education Patient Instructions Indication:Impaired fasting glucose Start:13-Nov-2015 Instruction Type:Provider Instructions for Treatment Patient Instructions Indication:Impaired fasting glucose Start:07-Sep-2013 Instruction Type:Provider Instructions for Treatment [facility] Work Phone: Instructions* Name Dates Details Patient Instructions Indication:Encounter for well adult exam with abnormal findings (Renamed from Encounter for general adult medical examination with abnormal findings) Start:11-Dec-2021 Instruction Type:Provider Instructions for Treatment How to Access Health Informa tion Online using Patient Portal and [email or web address] Apps Indication:Encounter for well adult exam with abnormal findings (Renamed from Encounter for general adult medical examination with abnormal findings) Start:11-Dec-2021 Instruction Type:Patient Education How to Access Health Informa tion Online using Patient Portal and [email or web address] Apps Indication:Nonsmoker Start:22-Dec-2020 Instruction Type:Patient Education Patient Instructions Indication:Nonsmoker Start:22-Dec-2020 Instruction Type:Provider Instructions for Treatment How to access health informa tion online Indication:Nonsmoker Start:14-Jun-2020 Instruction Type:Patient Education How to access health informa tion online - Detail Indication:Nonsmoker Start:14-Jun-2020 Instruction Type:Patient Education Patient Instructions Indication:Nonsmoker Start:14-Jun-2020 Instruction Type:Provider Instructions for Treatment How to access health informa tion online Indication:Elevated blood pressure reading Start:05-May-2019 Instruction Type:Patient Education How to access health informa tion online - Detail Indication:Elevated blood pressure reading Start:05-May-2019 Instruction Type:Patient Education Patient Instructions Indication:Elevated blood pressure reading Start:05-May-2019 Instruction Type:Provider Instructions for Treatment How to access health informa tion online - Detail Indication:Hypercholesterolemia Start:06-Mar-2018 Instruction Type:Patient Education How to access health informa tion online Indication:Hypercholesterolemia Start:06-Mar-2018 Instruction Type:Patient Education Patient Instructions Indication:Hypercholesterolemia Start:06-Mar-2018 Instruction Type:Provider Instructions for Treatment How to access health informa tion online Indication:Nonsmoker Start:16-Apr-2017 Instruction Type:Patient Education How to access health informa tion online - Detail Indication:Nonsmoker Start:16-Apr-2017 Instruction Type:Patient Education Patient Instructions Indication:Nonsmoker Start:16-Apr-2017 Instruction Type:Provider Instructions for Treatment How to access health informa tion online Indication:Body mass index (BMI) 22.0-22.9, adult Start:04-Dec-2016 Instruction Type:Patient Education How to access health informa tion online - Detail Indication:Body mass index (BMI) 22.0-22.9, adult Start:04-Dec-2016 Instruction Type:Patient Education Patient Instructions Indication:Body mass index (BMI) 22.0-22.9, adult Start:04-Dec-2016 Instruction Type:Provider Instructions for Treatment How to access health informa tion online Indication:Uncontrolled type 2 diabetes mellitus Start:03-Jul-2016 Instruction Type:Patient Education How to access health informa tion online - Detail Indication:Uncontrolled type 2 diabetes mellitus Start:03-Jul-2016 Instruction Type:Patient Education Patient Instructions Indication:Uncontrolled type 2 diabetes mellitus Start:03-Jul-2016 Instruction Type:Provider Instructions for Treatment How to access health informa tion online Indication:Impaired fasting glucose Start:13-Nov-2015 Instruction Type:Patient Education How to access health informa tion online - Detail Indication:Impaired fasting glucose Start:13-Nov-2015 Instruction Type:Patient Education Patient Instructions Indication:Impaired fasting glucose Start:13-Nov-2015 Instruction Type:Provider Instructions for Treatment Patient Instructions Indication:Impaired fasting glucose Start:07-Sep-2013 Instruction Type:Provider Instructions for Treatment [facility]; [facility] Work Phone: Instructions* Name Dates Details Patient Instructions Indication:Encounter for well adult exam with abnormal findings (Renamed from Encounter for general adult medical examination with abnormal findings) Start:11-Dec-2021 Instruction Type:Provider Instructions for Treatment How to Access Health Informa tion Online using Patient Portal and [employer] Apps Indication:Encounter for well adult exam with abnormal findings (Renamed from Encounter for general adult medical examination with abnormal findings) Start:11-Dec-2021 Instruction Type:Patient Education How to Access Health Informa tion Online using Patient Portal and [email or web address] Apps Indication:Nonsmoker Start:22-Dec-2020 Instruction Type:Patient Education Patient Instructions Indication:Nonsmoker Start:22-Dec-2020 Instruction Type:Provider Instructions for Treatment How to access health informa tion online Indication:Nonsmoker Start:14-Jun-2020 Instruction Type:Patient Education How to access health informa tion online - Detail Indication:Nonsmoker Start:14-Jun-2020 Instruction Type:Patient Education Patient Instructions Indication:Nonsmoker Start:14-Jun-2020 Instruction Type:Provider Instructions for Treatment How to access health informa tion online Indication:Elevated blood pressure reading Start:05-May-2019 Instruction Type:Patient Education How to access health informa tion online - Detail Indication:Elevated blood pressure reading Start:05-May-2019 Instruction Type:Patient Education Patient Instructions Indication:Elevated blood pressure reading Start:05-May-2019 Instruction Type:Provider Instructions for Treatment How to access health informa tion online - Detail Indication:Hypercholesterolemia Start:06-Mar-2018 Instruction Type:Patient Education How to access health informa tion online Indication:Hypercholesterolemia Start:06-Mar-2018 Instruction Type:Patient Education Patient Instructions Indication:Hypercholesterolemia Start:06-Mar-2018 Instruction Type:Provider Instructions for Treatment How to access health informa tion online Indication:Nonsmoker Start:16-Apr-2017 Instruction Type:Patient Education How to access health informa tion online - Detail Indication:Nonsmoker Start:16-Apr-2017 Instruction Type:Patient Education Patient Instructions Indication:Nonsmoker Start:16-Apr-2017 Instruction Type:Provider Instructions for Treatment How to access health informa tion online Indication:Body mass index (BMI) 22.0-22.9, adult Start:04-Dec-2016 Instruction Type:Patient Education How to access health informa tion online - Detail Indication:Body mass index (BMI) 22.0-22.9, adult Start:04-Dec-2016 Instruction Type:Patient Education Patient Instructions Indication:Body mass index (BMI) 22.0-22.9, adult Start:04-Dec-2016 Instruction Type:Provider Instructions for Treatment How to access health informa tion online Indication:Uncontrolled type 2 diabetes mellitus Start:03-Jul-2016 Instruction Type:Patient Education How to access health informa tion online - Detail Indication:Uncontrolled type 2 diabetes mellitus Start:03-Jul-2016 Instruction Type:Patient Education Patient Instructions Indication:Uncontrolled type 2 diabetes mellitus Start:03-Jul-2016 Instruction Type:Provider Instructions for Treatment How to access health informa tion online Indication:Impaired fasting glucose Start:13-Nov-2015 Instruction Type:Patient Education How to access health informa tion online - Detail Indication:Impaired fasting glucose Start:13-Nov-2015 Instruction Type:Patient Education Patient Instructions Indication:Impaired fasting glucose Start:13-Nov-2015 Instruction Type:Provider Instructions for Treatment Patient Instructions Indication:Impaired fasting glucose Start:07-Sep-2013 Instruction Type:Provider Instructions for Treatment [facility]; [facility] Work Phone: Instructions* Name Dates Details Patient Instructions Indication:Encounter for well adult exam with abnormal findings (Renamed from Encounter for general adult medical examination with abnormal findings) Start:11-Dec-2021 Instruction Type:Provider Instructions for Treatment How to Access Health Informa tion Online using Patient Portal and [email or web address] Apps Indication:Encounter for well adult exam with abnormal findings (Renamed from Encounter for general adult medical examination with abnormal findings) Start:11-Dec-2021 Instruction Type:Patient Education How to Access Health Informa tion Online using Patient Portal and [email or web address] Apps Indication:Nonsmoker Start:22-Dec-2020 Instruction Type:Patient Education Patient Instructions Indication:Nonsmoker Start:22-Dec-2020 Instruction Type:Provider Instructions for Treatment How to access health informa tion online Indication:Nonsmoker Start:14-Jun-2020 Instruction Type:Patient Education How to access health informa tion online - Detail Indication:Nonsmoker Start:14-Jun-2020 Instruction Type:Patient Education Patient Instructions Indication:Nonsmoker Start:14-Jun-2020 Instruction Type:Provider Instructions for Treatment How to access health informa tion online Indication:Elevated blood pressure reading Start:05-May-2019 Instruction Type:Patient Education How to access health informa tion online - Detail Indication:Elevated blood pressure reading Start:05-May-2019 Instruction Type:Patient Education Patient Instructions Indication:Elevated blood pressure reading Start:05-May-2019 Instruction Type:Provider Instructions for Treatment How to access health informa tion online - Detail Indication:Hypercholesterolemia Start:06-Mar-2018 Instruction Type:Patient Education How to access health informa tion online Indication:Hypercholesterolemia Start:06-Mar-2018 Instruction Type:Patient Education Patient Instructions Indication:Hypercholesterolemia Start:06-Mar-2018 Instruction Type:Provider Instructions for Treatment How to access health informa tion online Indication:Nonsmoker Start:16-Apr-2017 Instruction Type:Patient Education How to access health informa tion online - Detail Indication:Nonsmoker Start:16-Apr-2017 Instruction Type:Patient Education Patient Instructions Indication:Nonsmoker Start:16-Apr-2017 Instruction Type:Provider Instructions for Treatment How to access health informa tion online Indication:Body mass index (BMI) 22.0-22.9, adult Start:04-Dec-2016 Instruction Type:Patient Education How to access health informa tion online - Detail Indication:Body mass index (BMI) 22.0-22.9, adult Start:04-Dec-2016 Instruction Type:Patient Education Patient Instructions Indication:Body mass index (BMI) 22.0-22.9, adult Start:04-Dec-2016 Instruction Type:Provider Instructions for Treatment How to access health informa tion online Indication:Uncontrolled type 2 diabetes mellitus Start:03-Jul-2016 Instruction Type:Patient Education How to access health informa tion online - Detail Indication:Uncontrolled type 2 diabetes mellitus Start:03-Jul-2016 Instruction Type:Patient Education Patient Instructions Indication:Uncontrolled type 2 diabetes mellitus Start:03-Jul-2016 Instruction Type:Provider Instructions for Treatment How to access health informa tion online Indication:Impaired fasting glucose Start:13-Nov-2015 Instruction Type:Patient Education How to access health informa tion online - Detail Indication:Impaired fasting glucose Start:13-Nov-2015 Instruction Type:Patient Education Patient Instructions Indication:Impaired fasting glucose Start:13-Nov-2015 Instruction Type:Provider Instructions for Treatment Patient Instructions Indication:Impaired fasting glucose Start:07-Sep-2013 Instruction Type:Provider Instructions for Treatment [facility]; [facility] Work Phone: Instructions* Name Dates Details Patient Instructions Indication:Nonsmoker Start:12-Mar-2022 Instruction Type:Provider Instructions for Treatment How to Access Health Informa tion Online using Patient Portal and [employer] Apps Indication:Nonsmoker Start:12-Mar-2022 Instruction Type:Patient Education Patient Instructions Indication:Encounter for well adult exam with abnormal findings (Renamed from Encounter for general adult medical examination with abnormal findings) Start:11-Dec-2021 Instruction Type:Provider Instructions for Treatment How to Access Health Informa tion Online using Patient Portal and [email or web address] Apps Indication:Encounter for well adult exam with abnormal findings (Renamed from Encounter for general adult medical examination with abnormal findings) Start:11-Dec-2021 Instruction Type:Patient Education How to Access Health Informa tion Online using Patient Portal and [email or web address] Apps Indication:Nonsmoker Start:22-Dec-2020 Instruction Type:Patient Education Patient Instructions Indication:Nonsmoker Start:22-Dec-2020 Instruction Type:Provider Instructions for Treatment How to access health informa tion online Indication:Nonsmoker Start:14-Jun-2020 Instruction Type:Patient Education How to access health informa tion online - Detail Indication:Nonsmoker Start:14-Jun-2020 Instruction Type:Patient Education Patient Instructions Indication:Nonsmoker Start:14-Jun-2020 Instruction Type:Provider Instructions for Treatment How to access health informa tion online Indication:Elevated blood pressure reading Start:05-May-2019 Instruction Type:Patient Education How to access health informa tion online - Detail Indication:Elevated blood pressure reading Start:05-May-2019 Instruction Type:Patient Education Patient Instructions Indication:Elevated blood pressure reading Start:05-May-2019 Instruction Type:Provider Instructions for Treatment How to access health informa tion online - Detail Indication:Hypercholesterolemia Start:06-Mar-2018 Instruction Type:Patient Education How to access health informa tion online Indication:Hypercholesterolemia Start:06-Mar-2018 Instruction Type:Patient Education Patient Instructions Indication:Hypercholesterolemia Start:06-Mar-2018 Instruction Type:Provider Instructions for Treatment How to access health informa tion online Indication:Nonsmoker Start:16-Apr-2017 Instruction Type:Patient Education How to access health informa tion online - Detail Indication:Nonsmoker Start:16-Apr-2017 Instruction Type:Patient Education Patient Instructions Indication:Nonsmoker Start:16-Apr-2017 Instruction Type:Provider Instructions for Treatment How to access health informa tion online Indication:Body mass index (BMI) 22.0-22.9, adult Start:04-Dec-2016 Instruction Type:Patient Education How to access health informa tion online - Detail Indication:Body mass index (BMI) 22.0-22.9, adult Start:04-Dec-2016 Instruction Type:Patient Education Patient Instructions Indication:Body mass index (BMI) 22.0-22.9, adult Start:04-Dec-2016 Instruction Type:Provider Instructions for Treatment How to access health informa tion online Indication:Uncontrolled type 2 diabetes mellitus Start:03-Jul-2016 Instruction Type:Patient Education How to access health informa tion online - Detail Indication:Uncontrolled type 2 diabetes mellitus Start:03-Jul-2016 Instruction Type:Patient Education Patient Instructions Indication:Uncontrolled type 2 diabetes mellitus Start:03-Jul-2016 Instruction Type:Provider Instructions for Treatment How to access health informa tion online Indication:Impaired fasting glucose Start:13-Nov-2015 Instruction Type:Patient Education How to access health informa tion online - Detail Indication:Impaired fasting glucose Start:13-Nov-2015 Instruction Type:Patient Education Patient Instructions Indication:Impaired fasting glucose Start:13-Nov-2015 Instruction Type:Provider Instructions for Treatment Patient Instructions Indication:Impaired fasting glucose Start:07-Sep-2013 Instruction Type:Provider Instructions for Treatment [facility]; [facility] Work Phone: Instructions* Name Dates Details Patient Instructions Indication:Nonsmoker Start:12-Mar-2022 Instruction Type:Provider Instructions for Treatment How to Access Health Informa tion Online using Patient Portal and [email or web address] Apps Indication:Nonsmoker Start:12-Mar-2022 Instruction Type:Patient Education Patient Instructions Indication:Encounter for well adult exam with abnormal findings (Renamed from Encounter for general adult medical examination with abnormal findings) Start:11-Dec-2021 Instruction Type:Provider Instructions for Treatment How to Access Health Informa tion Online using Patient Portal and [email or web address] Apps Indication:Encounter for well adult exam with abnormal findings (Renamed from Encounter for general adult medical examination with abnormal findings) Start:11-Dec-2021 Instruction Type:Patient Education How to Access Health Informa tion Online using Patient Portal and [email or web address] Apps Indication:Nonsmoker Start:22-Dec-2020 Instruction Type:Patient Education Patient Instructions Indication:Nonsmoker Start:22-Dec-2020 Instruction Type:Provider Instructions for Treatment How to access health informa tion online Indication:Nonsmoker Start:14-Jun-2020 Instruction Type:Patient Education How to access health informa tion online - Detail Indication:Nonsmoker Start:14-Jun-2020 Instruction Type:Patient Education Patient Instructions Indication:Nonsmoker Start:14-Jun-2020 Instruction Type:Provider Instructions for Treatment How to access health informa tion online Indication:Elevated blood pressure reading Start:05-May-2019 Instruction Type:Patient Education How to access health informa tion online - Detail Indication:Elevated blood pressure reading Start:05-May-2019 Instruction Type:Patient Education Patient Instructions Indication:Elevated blood pressure reading Start:05-May-2019 Instruction Type:Provider Instructions for Treatment How to access health informa tion online - Detail Indication:Hypercholesterolemia Start:06-Mar-2018 Instruction Type:Patient Education How to access health informa tion online Indication:Hypercholesterolemia Start:06-Mar-2018 Instruction Type:Patient Education Patient Instructions Indication:Hypercholesterolemia Start:06-Mar-2018 Instruction Type:Provider Instructions for Treatment How to access health informa tion online Indication:Nonsmoker Start:16-Apr-2017 Instruction Type:Patient Education How to access health informa tion online - Detail Indication:Nonsmoker Start:16-Apr-2017 Instruction Type:Patient Education Patient Instructions Indication:Nonsmoker Start:16-Apr-2017 Instruction Type:Provider Instructions for Treatment How to access health informa tion online Indication:Body mass index (BMI) 22.0-22.9, adult Start:04-Dec-2016 Instruction Type:Patient Education How to access health informa tion online - Detail Indication:Body mass index (BMI) 22.0-22.9, adult Start:04-Dec-2016 Instruction Type:Patient Education Patient Instructions Indication:Body mass index (BMI) 22.0-22.9, adult Start:04-Dec-2016 Instruction Type:Provider Instructions for Treatment How to access health informa tion online Indication:Uncontrolled type 2 diabetes mellitus Start:03-Jul-2016 Instruction Type:Patient Education How to access health informa tion online - Detail Indication:Uncontrolled type 2 diabetes mellitus Start:03-Jul-2016 Instruction Type:Patient Education Patient Instructions Indication:Uncontrolled type 2 diabetes mellitus Start:03-Jul-2016 Instruction Type:Provider Instructions for Treatment How to access health informa tion online Indication:Impaired fasting glucose Start:13-Nov-2015 Instruction Type:Patient Education How to access health informa tion online - Detail Indication:Impaired fasting glucose Start:13-Nov-2015 Instruction Type:Patient Education Patient Instructions Indication:Impaired fasting glucose Start:13-Nov-2015 Instruction Type:Provider Instructions for Treatment Patient Instructions Indication:Impaired fasting glucose Start:07-Sep-2013 Instruction Type:Provider Instructions for Treatment [facility]; [facility] Work Phone: Instructions* Name Dates Details Patient Instructions Indication:Nonsmoker Start:12-Mar-2022 Instruction Type:Provider Instructions for Treatment How to Access Health Informa tion Online using Patient Portal and [email or web address] Apps Indication:Nonsmoker Start:12-Mar-2022 Instruction Type:Patient Education Patient Instructions Indication:Encounter for well adult exam with abnormal findings (Renamed from Encounter for general adult medical examination with abnormal findings) Start:11-Dec-2021 Instruction Type:Provider Instructions for Treatment How to Access Health Informa tion Online using Patient Portal and [email or web address] Apps Indication:Encounter for well adult exam with abnormal findings (Renamed from Encounter for general adult medical examination with abnormal findings) Start:11-Dec-2021 Instruction Type:Patient Education How to Access Health Informa tion Online using Patient Portal and [email or web address] Apps Indication:Nonsmoker Start:22-Dec-2020 Instruction Type:Patient Education Patient Instructions Indication:Nonsmoker Start:22-Dec-2020 Instruction Type:Provider Instructions for Treatment How to access health informa tion online Indication:Nonsmoker Start:14-Jun-2020 Instruction Type:Patient Education How to access health informa tion online - Detail Indication:Nonsmoker Start:14-Jun-2020 Instruction Type:Patient Education Patient Instructions Indication:Nonsmoker Start:14-Jun-2020 Instruction Type:Provider Instructions for Treatment How to access health informa tion online Indication:Elevated blood pressure reading Start:05-May-2019 Instruction Type:Patient Education How to access health informa tion online - Detail Indication:Elevated blood pressure reading Start:05-May-2019 Instruction Type:Patient Education Patient Instructions Indication:Elevated blood pressure reading Start:05-May-2019 Instruction Type:Provider Instructions for Treatment How to access health informa tion online - Detail Indication:Hypercholesterolemia Start:06-Mar-2018 Instruction Type:Patient Education How to access health informa tion online Indication:Hypercholesterolemia Start:06-Mar-2018 Instruction Type:Patient Education Patient Instructions Indication:Hypercholesterolemia Start:06-Mar-2018 Instruction Type:Provider Instructions for Treatment How to access health informa tion online Indication:Nonsmoker Start:16-Apr-2017 Instruction Type:Patient Education How to access health informa tion online - Detail Indication:Nonsmoker Start:16-Apr-2017 Instruction Type:Patient Education Patient Instructions Indication:Nonsmoker Start:16-Apr-2017 Instruction Type:Provider Instructions for Treatment How to access health informa tion online Indication:Body mass index (BMI) 22.0-22.9, adult Start:04-Dec-2016 Instruction Type:Patient Education How to access health informa tion online - Detail Indication:Body mass index (BMI) 22.0-22.9, adult Start:04-Dec-2016 Instruction Type:Patient Education Patient Instructions Indication:Body mass index (BMI) 22.0-22.9, adult Start:04-Dec-2016 Instruction Type:Provider Instructions for Treatment How to access health informa tion online Indication:Uncontrolled type 2 diabetes mellitus Start:03-Jul-2016 Instruction Type:Patient Education How to access health informa tion online - Detail Indication:Uncontrolled type 2 diabetes mellitus Start:03-Jul-2016 Instruction Type:Patient Education Patient Instructions Indication:Uncontrolled type 2 diabetes mellitus Start:03-Jul-2016 Instruction Type:Provider Instructions for Treatment How to access health informa tion online Indication:Impaired fasting glucose Start:13-Nov-2015 Instruction Type:Patient Education How to access health informa tion online - Detail Indication:Impaired fasting glucose Start:13-Nov-2015 Instruction Type:Patient Education Patient Instructions Indication:Impaired fasting glucose Start:13-Nov-2015 Instruction Type:Provider Instructions for Treatment Patient Instructions Indication:Impaired fasting glucose Start:07-Sep-2013 Instruction Type:Provider Instructions for Treatment [facility]; [facility] Work Phone: Instructions* Name Dates Details Patient Instructions Indication:Nonsmoker Start:12-Mar-2022 Instruction Type:Provider Instructions for Treatment How to Access Health Informa tion Online using Patient Portal and [email or web address] Apps Indication:Nonsmoker Start:12-Mar-2022 Instruction Type:Patient Education Patient Instructions Indication:Encounter for well adult exam with abnormal findings (Renamed from Encounter for general adult medical examination with abnormal findings) Start:11-Dec-2021 Instruction Type:Provider Instructions for Treatment How to Access Health Informa tion Online using Patient Portal and [email or web address] Apps Indication:Encounter for well adult exam with abnormal findings (Renamed from Encounter for general adult medical examination with abnormal findings) Start:11-Dec-2021 Instruction Type:Patient Education How to Access Health Informa tion Online using Patient Portal and [employer] Apps Indication:Nonsmoker Start:22-Dec-2020 Instruction Type:Patient Education Patient Instructions Indication:Nonsmoker Start:22-Dec-2020 Instruction Type:Provider Instructions for Treatment How to access health informa tion online Indication:Nonsmoker Start:14-Jun-2020 Instruction Type:Patient Education How to access health informa tion online - Detail Indication:Nonsmoker Start:14-Jun-2020 Instruction Type:Patient Education Patient Instructions Indication:Nonsmoker Start:14-Jun-2020 Instruction Type:Provider Instructions for Treatment How to access health informa tion online Indication:Elevated blood pressure reading Start:05-May-2019 Instruction Type:Patient Education How to access health informa tion online - Detail Indication:Elevated blood pressure reading Start:05-May-2019 Instruction Type:Patient Education Patient Instructions Indication:Elevated blood pressure reading Start:05-May-2019 Instruction Type:Provider Instructions for Treatment How to access health informa tion online - Detail Indication:Hypercholesterolemia Start:06-Mar-2018 Instruction Type:Patient Education How to access health informa tion online Indication:Hypercholesterolemia Start:06-Mar-2018 Instruction Type:Patient Education Patient Instructions Indication:Hypercholesterolemia Start:06-Mar-2018 Instruction Type:Provider Instructions for Treatment How to access health informa tion online Indication:Nonsmoker Start:16-Apr-2017 Instruction Type:Patient Education How to access health informa tion online - Detail Indication:Nonsmoker Start:16-Apr-2017 Instruction Type:Patient Education Patient Instructions Indication:Nonsmoker Start:16-Apr-2017 Instruction Type:Provider Instructions for Treatment How to access health informa tion online Indication:Body mass index (BMI) 22.0-22.9, adult Start:04-Dec-2016 Instruction Type:Patient Education How to access health informa tion online - Detail Indication:Body mass index (BMI) 22.0-22.9, adult Start:04-Dec-2016 Instruction Type:Patient Education Patient Instructions Indication:Body mass index (BMI) 22.0-22.9, adult Start:04-Dec-2016 Instruction Type:Provider Instructions for Treatment How to access health informa tion online Indication:Uncontrolled type 2 diabetes mellitus Start:03-Jul-2016 Instruction Type:Patient Education How to access health informa tion online - Detail Indication:Uncontrolled type 2 diabetes mellitus Start:03-Jul-2016 Instruction Type:Patient Education Patient Instructions Indication:Uncontrolled type 2 diabetes mellitus Start:03-Jul-2016 Instruction Type:Provider Instructions for Treatment How to access health informa tion online Indication:Impaired fasting glucose Start:13-Nov-2015 Instruction Type:Patient Education How to access health informa tion online - Detail Indication:Impaired fasting glucose Start:13-Nov-2015 Instruction Type:Patient Education Patient Instructions Indication:Impaired fasting glucose Start:13-Nov-2015 Instruction Type:Provider Instructions for Treatment Patient Instructions Indication:Impaired fasting glucose Start:07-Sep-2013 Instruction Type:Provider Instructions for Treatment [facility]; [facility] Work Phone: Instructions* Name Dates Details Patient Instructions Indication:Nonsmoker Start:12-Mar-2022 Instruction Type:Provider Instructions for Treatment How to Access Health Informa tion Online using Patient Portal and [employer] Apps Indication:Nonsmoker Start:12-Mar-2022 Instruction Type:Patient Education Patient Instructions Indication:Encounter for well adult exam with abnormal findings (Renamed from Encounter for general adult medical examination with abnormal findings) Start:11-Dec-2021 Instruction Type:Provider Instructions for Treatment How to Access Health Informa tion Online using Patient Portal and [employer] Apps Indication:Encounter for well adult exam with abnormal findings (Renamed from Encounter for general adult medical examination with abnormal findings) Start:11-Dec-2021 Instruction Type:Patient Education How to Access Health Informa tion Online using Patient Portal and [employer] Apps Indication:Nonsmoker Start:22-Dec-2020 Instruction Type:Patient Education Patient Instructions Indication:Nonsmoker Start:22-Dec-2020 Instruction Type:Provider Instructions for Treatment How to access health informa tion online Indication:Nonsmoker Start:14-Jun-2020 Instruction Type:Patient Education How to access health informa tion online - Detail Indication:Nonsmoker Start:14-Jun-2020 Instruction Type:Patient Education Patient Instructions Indication:Nonsmoker Start:14-Jun-2020 Instruction Type:Provider Instructions for Treatment How to access health informa tion online Indication:Elevated blood pressure reading Start:05-May-2019 Instruction Type:Patient Education How to access health informa tion online - Detail Indication:Elevated blood pressure reading Start:05-May-2019 Instruction Type:Patient Education Patient Instructions Indication:Elevated blood pressure reading Start:05-May-2019 Instruction Type:Provider Instructions for Treatment How to access health informa tion online - Detail Indication:Hypercholesterolemia Start:06-Mar-2018 Instruction Type:Patient Education How to access health informa tion online Indication:Hypercholesterolemia Start:06-Mar-2018 Instruction Type:Patient Education Patient Instructions Indication:Hypercholesterolemia Start:06-Mar-2018 Instruction Type:Provider Instructions for Treatment How to access health informa tion online Indication:Nonsmoker Start:16-Apr-2017 Instruction Type:Patient Education How to access health informa tion online - Detail Indication:Nonsmoker Start:16-Apr-2017 Instruction Type:Patient Education Patient Instructions Indication:Nonsmoker Start:16-Apr-2017 Instruction Type:Provider Instructions for Treatment How to access health informa tion online Indication:Body mass index (BMI) 22.0-22.9, adult Start:04-Dec-2016 Instruction Type:Patient Education How to access health informa tion online - Detail Indication:Body mass index (BMI) 22.0-22.9, adult Start:04-Dec-2016 Instruction Type:Patient Education Patient Instructions Indication:Body mass index (BMI) 22.0-22.9, adult Start:04-Dec-2016 Instruction Type:Provider Instructions for Treatment How to access health informa tion online Indication:Uncontrolled type 2 diabetes mellitus Start:03-Jul-2016 Instruction Type:Patient Education How to access health informa tion online - Detail Indication:Uncontrolled type 2 diabetes mellitus Start:03-Jul-2016 Instruction Type:Patient Education Patient Instructions Indication:Uncontrolled type 2 diabetes mellitus Start:03-Jul-2016 Instruction Type:Provider Instructions for Treatment How to access health informa tion online Indication:Impaired fasting glucose Start:13-Nov-2015 Instruction Type:Patient Education How to access health informa tion online - Detail Indication:Impaired fasting glucose Start:13-Nov-2015 Instruction Type:Patient Education Patient Instructions Indication:Impaired fasting glucose Start:13-Nov-2015 Instruction Type:Provider Instructions for Treatment Patient Instructions Indication:Impaired fasting glucose Start:07-Sep-2013 Instruction Type:Provider Instructions for Treatment [facility]; [facility] Work Phone: Instructions* Name Dates Details Patient Instructions Indication:BMI 22.0-22.9, adult Start:10-Sep-2022 Instruction Type:Provider Instructions for Treatment How to Access Health Informa tion Online using Patient Portal and [employer] Indication:BMI 22.0-22.9, adult Start:10-Sep-2022 Instruction Type:Patient Education Patient Instructions Indication:Nonsmoker Start:12-Mar-2022 Instruction Type:Provider Instructions for Treatment How to Access Health Informa tion Online using Patient Portal and [employer] Apps Indication:Nonsmoker Start:12-Mar-2022 Instruction Type:Patient Education Patient Instructions Indication:Encounter for well adult exam with abnormal findings (Renamed from Encounter for general adult medical examination with abnormal findings) Start:11-Dec-2021 Instruction Type:Provider Instructions for Treatment How to Access Health Informa tion Online using Patient Portal and [employer] Apps Indication:Encounter for well adult exam with abnormal findings (Renamed from Encounter for general adult medical examination with abnormal findings) Start:11-Dec-2021 Instruction Type:Patient Education How to Access Health Informa tion Online using Patient Portal and [employer] Apps Indication:Nonsmoker Start:22-Dec-2020 Instruction Type:Patient Education Patient Instructions Indication:Nonsmoker Start:22-Dec-2020 Instruction Type:Provider Instructions for Treatment How to access health informa tion online Indication:Nonsmoker Start:14-Jun-2020 Instruction Type:Patient Education How to access health informa tion online - Detail Indication:Nonsmoker Start:14-Jun-2020 Instruction Type:Patient Education Patient Instructions Indication:Nonsmoker Start:14-Jun-2020 Instruction Type:Provider Instructions for Treatment How to access health informa tion online Indication:Elevated blood pressure reading Start:05-May-2019 Instruction Type:Patient Education How to access health informa tion online - Detail Indication:Elevated blood pressure reading Start:05-May-2019 Instruction Type:Patient Education Patient Instructions Indication:Elevated blood pressure reading Start:05-May-2019 Instruction Type:Provider Instructions for Treatment How to access health informa tion online - Detail Indication:Hypercholesterolemia Start:06-Mar-2018 Instruction Type:Patient Education How to access health informa tion online Indication:Hypercholesterolemia Start:06-Mar-2018 Instruction Type:Patient Education Patient Instructions Indication:Hypercholesterolemia Start:06-Mar-2018 Instruction Type:Provider Instructions for Treatment How to access health informa tion online Indication:Nonsmoker Start:16-Apr-2017 Instruction Type:Patient Education How to access health informa tion online - Detail Indication:Nonsmoker Start:16-Apr-2017 Instruction Type:Patient Education Patient Instructions Indication:Nonsmoker Start:16-Apr-2017 Instruction Type:Provider Instructions for Treatment How to access health informa tion online Indication:Body mass index (BMI) 22.0-22.9, adult Start:04-Dec-2016 Instruction Type:Patient Education How to access health informa tion online - Detail Indication:Body mass index (BMI) 22.0-22.9, adult Start:04-Dec-2016 Instruction Type:Patient Education Patient Instructions Indication:Body mass index (BMI) 22.0-22.9, adult Start:04-Dec-2016 Instruction Type:Provider Instructions for Treatment How to access health informa tion online Indication:Uncontrolled type 2 diabetes mellitus Start:03-Jul-2016 Instruction Type:Patient Education How to access health informa tion online - Detail Indication:Uncontrolled type 2 diabetes mellitus Start:03-Jul-2016 Instruction Type:Patient Education Patient Instructions Indication:Uncontrolled type 2 diabetes mellitus Start:03-Jul-2016 Instruction Type:Provider Instructions for Treatment How to access health informa tion online Indication:Impaired fasting glucose Start:13-Nov-2015 Instruction Type:Patient Education How to access health informa tion online - Detail Indication:Impaired fasting glucose Start:13-Nov-2015 Instruction Type:Patient Education Patient Instructions Indication:Impaired fasting glucose Start:13-Nov-2015 Instruction Type:Provider Instructions for Treatment Patient Instructions Indication:Impaired fasting glucose Start:07-Sep-2013 Instruction Type:Provider Instructions for Treatment [facility]; [facility] Work Phone: Instructions* Name Dates Details Patient Instructions Indication:BMI 22.0-22.9, adult Start:10-Sep-2022 Instruction Type:Provider Instructions for Treatment How to Access Health Informa tion Online using Patient Portal and [employer] Apps Indication:BMI 22.0-22.9, adult Start:10-Sep-2022 Instruction Type:Patient Education Patient Instructions Indication:Nonsmoker Start:12-Mar-2022 Instruction Type:Provider Instructions for Treatment How to Access Health Informa tion Online using Patient Portal and [employer] Indication:Nonsmoker Start:12-Mar-2022 Instruction Type:Patient Education Patient Instructions Indication:Encounter for well adult exam with abnormal findings (Renamed from Encounter for general adult medical examination with abnormal findings) Start:11-Dec-2021 Instruction Type:Provider Instructions for Treatment How to Access Health Informa tion Online using Patient Portal and [employer] Apps Indication:Encounter for well adult exam with abnormal findings (Renamed from Encounter for general adult medical examination with abnormal findings) Start:11-Dec-2021 Instruction Type:Patient Education How to Access Health Informa tion Online using Patient Portal and [employer] Apps Indication:Nonsmoker Start:22-Dec-2020 Instruction Type:Patient Education Patient Instructions Indication:Nonsmoker Start:22-Dec-2020 Instruction Type:Provider Instructions for Treatment How to access health informa tion online Indication:Nonsmoker Start:14-Jun-2020 Instruction Type:Patient Education How to access health informa tion online - Detail Indication:Nonsmoker Start:14-Jun-2020 Instruction Type:Patient Education Patient Instructions Indication:Nonsmoker Start:14-Jun-2020 Instruction Type:Provider Instructions for Treatment How to access health informa tion online Indication:Elevated blood pressure reading Start:05-May-2019 Instruction Type:Patient Education How to access health informa tion online - Detail Indication:Elevated blood pressure reading Start:05-May-2019 Instruction Type:Patient Education Patient Instructions Indication:Elevated blood pressure reading Start:05-May-2019 Instruction Type:Provider Instructions for Treatment How to access health informa tion online - Detail Indication:Hypercholesterolemia Start:06-Mar-2018 Instruction Type:Patient Education How to access health informa tion online Indication:Hypercholesterolemia Start:06-Mar-2018 Instruction Type:Patient Education Patient Instructions Indication:Hypercholesterolemia Start:06-Mar-2018 Instruction Type:Provider Instructions for Treatment How to access health informa tion online Indication:Nonsmoker Start:16-Apr-2017 Instruction Type:Patient Education How to access health informa tion online - Detail Indication:Nonsmoker Start:16-Apr-2017 Instruction Type:Patient Education Patient Instructions Indication:Nonsmoker Start:16-Apr-2017 Instruction Type:Provider Instructions for Treatment How to access health informa tion online Indication:Body mass index (BMI) 22.0-22.9, adult Start:04-Dec-2016 Instruction Type:Patient Education How to access health informa tion online - Detail Indication:Body mass index (BMI) 22.0-22.9, adult Start:04-Dec-2016 Instruction Type:Patient Education Patient Instructions Indication:Body mass index (BMI) 22.0-22.9, adult Start:04-Dec-2016 Instruction Type:Provider Instructions for Treatment How to access health informa tion online Indication:Uncontrolled type 2 diabetes mellitus Start:03-Jul-2016 Instruction Type:Patient Education How to access health informa tion online - Detail Indication:Uncontrolled type 2 diabetes mellitus Start:03-Jul-2016 Instruction Type:Patient Education Patient Instructions Indication:Uncontrolled type 2 diabetes mellitus Start:03-Jul-2016 Instruction Type:Provider Instructions for Treatment How to access health informa tion online Indication:Impaired fasting glucose Start:13-Nov-2015 Instruction Type:Patient Education How to access health informa tion online - Detail Indication:Impaired fasting glucose Start:13-Nov-2015 Instruction Type:Patient Education Patient Instructions Indication:Impaired fasting glucose Start:13-Nov-2015 Instruction Type:Provider Instructions for Treatment Patient Instructions Indication:Impaired fasting glucose Start:07-Sep-2013 Instruction Type:Provider Instructions for Treatment [facility]; [facility] Work Phone: Instructions* Name Dates Details Patient Instructions Indication:Nonsmoker Start:11-Mar-2023 Instruction Type:Provider Instructions for Treatment How to Access Health Informa tion Online using Patient Portal and [employer] Apps Indication:Nonsmoker Start:11-Mar-2023 Instruction Type:Patient Education Patient Instructions Indication:BMI 22.0-22.9, adult Start:10-Sep-2022 Instruction Type:Provider Instructions for Treatment How to Access Health Informa tion Online using Patient Portal and [employer] Apps Indication:BMI 22.0-22.9, adult Start:10-Sep-2022 Instruction Type:Patient Education Patient Instructions Indication:Nonsmoker Start:12-Mar-2022 Instruction Type:Provider Instructions for Treatment How to Access Health Informa tion Online using Patient Portal and [employer] Apps Indication:Nonsmoker Start:12-Mar-2022 Instruction Type:Patient Education Patient Instructions Indication:Encounter for well adult exam with abnormal findings (Renamed from Encounter for general adult medical examination with abnormal findings) Start:11-Dec-2021 Instruction Type:Provider Instructions for Treatment How to Access Health Informa tion Online using Patient Portal and [employer] Apps Indication:Encounter for well adult exam with abnormal findings (Renamed from Encounter for general adult medical examination with abnormal findings) Start:11-Dec-2021 Instruction Type:Patient Education How to Access Health Informa tion Online using Patient Portal and [employer] Apps Indication:Nonsmoker Start:22-Dec-2020 Instruction Type:Patient Education Patient Instructions Indication:Nonsmoker Start:22-Dec-2020 Instruction Type:Provider Instructions for Treatment How to access health informa tion online Indication:Nonsmoker Start:14-Jun-2020 Instruction Type:Patient Education How to access health informa tion online - Detail Indication:Nonsmoker Start:14-Jun-2020 Instruction Type:Patient Education Patient Instructions Indication:Nonsmoker Start:14-Jun-2020 Instruction Type:Provider Instructions for Treatment How to access health informa tion online Indication:Elevated blood pressure reading Start:05-May-2019 Instruction Type:Patient Education How to access health informa tion online - Detail Indication:Elevated blood pressure reading Start:05-May-2019 Instruction Type:Patient Education Patient Instructions Indication:Elevated blood pressure reading Start:05-May-2019 Instruction Type:Provider Instructions for Treatment How to access health informa tion online - Detail Indication:Hypercholesterolemia Start:06-Mar-2018 Instruction Type:Patient Education How to access health informa tion online Indication:Hypercholesterolemia Start:06-Mar-2018 Instruction Type:Patient Education Patient Instructions Indication:Hypercholesterolemia Start:06-Mar-2018 Instruction Type:Provider Instructions for Treatment How to access health informa tion online Indication:Nonsmoker Start:16-Apr-2017 Instruction Type:Patient Education How to access health informa tion online - Detail Indication:Nonsmoker Start:16-Apr-2017 Instruction Type:Patient Education Patient Instructions Indication:Nonsmoker Start:16-Apr-2017 Instruction Type:Provider Instructions for Treatment How to access health informa tion online Indication:Body mass index (BMI) 22.0-22.9, adult Start:04-Dec-2016 Instruction Type:Patient Education How to access health informa tion online - Detail Indication:Body mass index (BMI) 22.0-22.9, adult Start:04-Dec-2016 Instruction Type:Patient Education Patient Instructions Indication:Body mass index (BMI) 22.0-22.9, adult Start:04-Dec-2016 Instruction Type:Provider Instructions for Treatment How to access health informa tion online Indication:Uncontrolled type 2 diabetes mellitus Start:03-Jul-2016 Instruction Type:Patient Education How to access health informa tion online - Detail Indication:Uncontrolled type 2 diabetes mellitus Start:03-Jul-2016 Instruction Type:Patient Education Patient Instructions Indication:Uncontrolled type 2 diabetes mellitus Start:03-Jul-2016 Instruction Type:Provider Instructions for Treatment How to access health informa tion online Indication:Impaired fasting glucose Start:13-Nov-2015 Instruction Type:Patient Education How to access health informa tion online - Detail Indication:Impaired fasting glucose Start:13-Nov-2015 Instruction Type:Patient Education Patient Instructions Indication:Impaired fasting glucose Start:13-Nov-2015 Instruction Type:Provider Instructions for Treatment Patient Instructions Indication:Impaired fasting glucose Start:07-Sep-2013 Instruction Type:Provider Instructions for Treatment [facility]; [facility] Work Phone: Instructions* Name Dates Details Patient Instructions Indication:Nonsmoker Start:11-Mar-2023 Instruction Type:Provider Instructions for Treatment How to Access Health Informa tion Online using Patient Portal and [employer] Indication:Nonsmoker Start:11-Mar-2023 Instruction Type:Patient Education Patient Instructions Indication:BMI 22.0-22.9, adult Start:10-Sep-2022 Instruction Type:Provider Instructions for Treatment How to Access Health Informa tion Online using Patient Portal and [employer] Apps Indication:BMI 22.0-22.9, adult Start:10-Sep-2022 Instruction Type:Patient Education Patient Instructions Indication:Nonsmoker Start:12-Mar-2022 Instruction Type:Provider Instructions for Treatment How to Access Health Informa tion Online using Patient Portal and [employer] Apps Indication:Nonsmoker Start:12-Mar-2022 Instruction Type:Patient Education Patient Instructions Indication:Encounter for well adult exam with abnormal findings (Renamed from Encounter for general adult medical examination with abnormal findings) Start:11-Dec-2021 Instruction Type:Provider Instructions for Treatment How to Access Health Informa tion Online using Patient Portal and [employer] Apps Indication:Encounter for well adult exam with abnormal findings (Renamed from Encounter for general adult medical examination with abnormal findings) Start:11-Dec-2021 Instruction Type:Patient Education How to Access Health Informa tion Online using Patient Portal and [employer] Apps Indication:Nonsmoker Start:22-Dec-2020 Instruction Type:Patient Education Patient Instructions Indication:Nonsmoker Start:22-Dec-2020 Instruction Type:Provider Instructions for Treatment How to access health informa tion online Indication:Nonsmoker Start:14-Jun-2020 Instruction Type:Patient Education How to access health informa tion online - Detail Indication:Nonsmoker Start:14-Jun-2020 Instruction Type:Patient Education Patient Instructions Indication:Nonsmoker Start:14-Jun-2020 Instruction Type:Provider Instructions for Treatment How to access health informa tion online Indication:Elevated blood pressure reading Start:05-May-2019 Instruction Type:Patient Education How to access health informa tion online - Detail Indication:Elevated blood pressure reading Start:05-May-2019 Instruction Type:Patient Education Patient Instructions Indication:Elevated blood pressure reading Start:05-May-2019 Instruction Type:Provider Instructions for Treatment How to access health informa tion online - Detail Indication:Hypercholesterolemia Start:06-Mar-2018 Instruction Type:Patient Education How to access health informa tion online Indication:Hypercholesterolemia Start:06-Mar-2018 Instruction Type:Patient Education Patient Instructions Indication:Hypercholesterolemia Start:06-Mar-2018 Instruction Type:Provider Instructions for Treatment How to access health informa tion online Indication:Nonsmoker Start:16-Apr-2017 Instruction Type:Patient Education How to access health informa tion online - Detail Indication:Nonsmoker Start:16-Apr-2017 Instruction Type:Patient Education Patient Instructions Indication:Nonsmoker Start:16-Apr-2017 Instruction Type:Provider Instructions for Treatment How to access health informa tion online Indication:Body mass index (BMI) 22.0-22.9, adult Start:04-Dec-2016 Instruction Type:Patient Education How to access health informa tion online - Detail Indication:Body mass index (BMI) 22.0-22.9, adult Start:04-Dec-2016 Instruction Type:Patient Education Patient Instructions Indication:Body mass index (BMI) 22.0-22.9, adult Start:04-Dec-2016 Instruction Type:Provider Instructions for Treatment How to access health informa tion online Indication:Uncontrolled type 2 diabetes mellitus Start:03-Jul-2016 Instruction Type:Patient Education How to access health informa tion online - Detail Indication:Uncontrolled type 2 diabetes mellitus Start:03-Jul-2016 Instruction Type:Patient Education Patient Instructions Indication:Uncontrolled type 2 diabetes mellitus Start:03-Jul-2016 Instruction Type:Provider Instructions for Treatment How to access health informa tion online Indication:Impaired fasting glucose Start:13-Nov-2015 Instruction Type:Patient Education How to access health informa tion online - Detail Indication:Impaired fasting glucose Start:13-Nov-2015 Instruction Type:Patient Education Patient Instructions Indication:Impaired fasting glucose Start:13-Nov-2015 Instruction Type:Provider Instructions for Treatment Patient Instructions Indication:Impaired fasting glucose Start:07-Sep-2013 Instruction Type:Provider Instructions for Treatment [facility]; [facility] Work Phone: Instructions* Name Dates Details Patient Instructions Indication:Nonsmoker Start:11-Mar-2023 Instruction Type:Provider Instructions for Treatment How to Access Health Informa tion Online using Patient Portal and 3rd [employer] Apps Indication:Nonsmoker Start:11-Mar-2023 Instruction Type:Patient Education Patient Instructions Indication:BMI 22.0-22.9, adult Start:10-Sep-2022 Instruction Type:Provider Instructions for Treatment How to Access Health Informa tion Online using Patient Portal and [employer]rd [employer] Apps Indication:BMI 22.0-22.9, adult Start:10-Sep-2022 Instruction Type:Patient Education Patient Instructions Indication:Nonsmoker Start:12-Mar-2022 Instruction Type:Provider Instructions for Treatment How to Access Health Informa tion Online using Patient Portal and [employer]rd [employer] Apps Indication:Nonsmoker Start:12-Mar-2022 Instruction Type:Patient Education Patient Instructions Indication:Encounter for well adult exam with abnormal findings (Renamed from Encounter for general adult medical examination with abnormal findings) Start:11-Dec-2021 Instruction Type:Provider Instructions for Treatment How to Access Health Informa tion Online using Patient Portal and [employer]rd [employer] Apps Indication:Encounter for well adult exam with abnormal findings (Renamed from Encounter for general adult medical examination with abnormal findings) Start:11-Dec-2021 Instruction Type:Patient Education How to Access Health Informa tion Online using Patient Portal and 3rd [employer] Apps Indication:Nonsmoker Start:22-Dec-2020 Instruction Type:Patient Education Patient Instructions Indication:Nonsmoker Start:22-Dec-2020 Instruction Type:Provider Instructions for Treatment How to access health informa tion online Indication:Nonsmoker Start:14-Jun-2020 Instruction Type:Patient Education How to access health informa tion online - Detail Indication:Nonsmoker Start:14-Jun-2020 Instruction Type:Patient Education Patient Instructions Indication:Nonsmoker Start:14-Jun-2020 Instruction Type:Provider Instructions for Treatment How to access health informa tion online Indication:Elevated blood pressure reading Start:05-May-2019 Instruction Type:Patient Education How to access health informa tion online - Detail Indication:Elevated blood pressure reading Start:05-May-2019 Instruction Type:Patient Education Patient Instructions Indication:Elevated blood pressure reading Start:05-May-2019 Instruction Type:Provider Instructions for Treatment How to access health informa tion online - Detail Indication:Hypercholesterolemia Start:06-Mar-2018 Instruction Type:Patient Education How to access health informa tion online Indication:Hypercholesterolemia Start:06-Mar-2018 Instruction Type:Patient Education Patient Instructions Indication:Hypercholesterolemia Start:06-Mar-2018 Instruction Type:Provider Instructions for Treatment How to access health informa tion online Indication:Nonsmoker Start:16-Apr-2017 Instruction Type:Patient Education How to access health informa tion online - Detail Indication:Nonsmoker Start:16-Apr-2017 Instruction Type:Patient Education Patient Instructions Indication:Nonsmoker Start:16-Apr-2017 Instruction Type:Provider Instructions for Treatment How to access health informa tion online Indication:Body mass index (BMI) 22.0-22.9, adult Start:04-Dec-2016 Instruction Type:Patient Education How to access health informa tion online - Detail Indication:Body mass index (BMI) 22.0-22.9, adult Start:04-Dec-2016 Instruction Type:Patient Education Patient Instructions Indication:Body mass index (BMI) 22.0-22.9, adult Start:04-Dec-2016 Instruction Type:Provider Instructions for Treatment How to access health informa tion online Indication:Uncontrolled type 2 diabetes mellitus Start:03-Jul-2016 Instruction Type:Patient Education How to access health informa tion online - Detail Indication:Uncontrolled type 2 diabetes mellitus Start:03-Jul-2016 Instruction Type:Patient Education Patient Instructions Indication:Uncontrolled type 2 diabetes mellitus Start:03-Jul-2016 Instruction Type:Provider Instructions for Treatment How to access health informa tion online Indication:Impaired fasting glucose Start:13-Nov-2015 Instruction Type:Patient Education How to access health informa tion online - Detail Indication:Impaired fasting glucose Start:13-Nov-2015 Instruction Type:Patient Education Patient Instructions Indication:Impaired fasting glucose Start:13-Nov-2015 Instruction Type:Provider Instructions for Treatment Patient Instructions Indication:Impaired fasting glucose Start:07-Sep-2013 Instruction Type:Provider Instructions for Treatment [facility] Work Phone: Family History Unknown Family Member Name Dates Details Brother 1 Comments:healthy Status:Active Father Comments:real--cancer, not k now well. Status:Active Maternal Grandfather Comments:DM Status:Active Mother Comments:alzheimer's, border line DM at 70 Status:Active Unknown Family Member Name Dates Details Brother 1 Comments:healthy Status:Active Father Comments:real--cancer, not k now well. Status:Active Maternal Grandfather Comments:DM Status:Active Mother Comments:alzheimer's, border line DM at 70 Status:Active Unknown Family Member Name Dates Details Brother 1 Comments:healthy Status:Active Father Comments:real--cancer, not k now well. Status:Active Maternal Grandfather Comments:DM Status:Active Mother Comments:alzheimer's, border line DM at 70 Status:Active Unknown Family Member Name Dates Details Brother 1 Comments:healthy Status:Active Father Comments:real--cancer, not k now well. Status:Active Maternal Grandfather Comments:DM Status:Active Mother Comments:alzheimer's, border line DM at 70 Status:Active Unknown Family Member Name Dates Details Brother 1 Comments:healthy Status:Active Father Comments:real--cancer, not k now well. Status:Active Maternal Grandfather Comments:DM Status:Active Mother Comments:alzheimer's, border line DM at 70 Status:Active Unknown Family Member Name Dates Details Brother 1 Comments:healthy Status:Active Father Comments:real--cancer, not k now well. Status:Active Maternal Grandfather Comments:DM Status:Active Mother Comments:alzheimer's, border line DM at 70 Status:Active Unknown Family Member Name Dates Details Brother 1 Comments:healthy Status:Active Father Comments:real--cancer, not k now well. Status:Active Maternal Grandfather Comments:DM Status:Active Mother Comments:alzheimer's, border line DM at 70 Status:Active Unknown Family Member Name Dates Details Brother 1 Comments:healthy Status:Active Father Comments:real--cancer, not k now well. Status:Active Maternal Grandfather Comments:DM Status:Active Mother Comments:alzheimer's, border line DM at 70 Status:Active Unknown Family Member Name Dates Details Brother 1 Comments:healthy Status:Active Father Comments:real--cancer, not k now well. Status:Active Maternal Grandfather Comments:DM Status:Active Mother Comments:alzheimer's, border line DM at 70 Status:Active Unknown Family Member Name Dates Details Brother 1 Comments:healthy Status:Active Father Comments:real--cancer, not k now well. Status:Active Maternal Grandfather Comments:DM Status:Active Mother Comments:alzheimer's, border line DM at 70 Status:Active Unknown Family Member Name Dates Details Brother 1 Comments:healthy Status:Active Father Comments:real--cancer, not k now well. Status:Active Maternal Grandfather Comments:DM Status:Active Mother Comments:alzheimer's, border line DM at 70 Status:Active Unknown Family Member Name Dates Details Brother 1 Comments:healthy Status:Active Father Comments:real--cancer, not k now well. Status:Active Maternal Grandfather Comments:DM Status:Active Mother Comments:alzheimer's, border line DM at 70 Status:Active Unknown Family Member Name Dates Details Brother 1 Comments:healthy Status:Active Father Comments:real--cancer, not k now well. Status:Active Maternal Grandfather Comments:DM Status:Active Mother Comments:alzheimer's, border line DM at 70 Status:Active Unknown Family Member Name Dates Details Brother 1 Comments:healthy Status:Active Father Comments:real--cancer, not k now well. Status:Active Maternal Grandfather Comments:DM Status:Active Mother Comments:alzheimer's, border line DM at 70 Status:Active Unknown Family Member Name Dates Details Brother 1 Comments:diabetes Status:Active Father Comments:real--cancer, not k now well. Status:Active Maternal Grandfather Comments:DM Status:Active Mother Comments:Alzheimer's, border line DM at 70, schizoaffective disorder Status:Active Unknown Family Member Name Dates Details Brother 1 Comments:diabetes Status:Active Father Comments:real--cancer, not k now well. Status:Active Maternal Grandfather Comments:DM urogenital cance r Status:Active Mother Comments:Alzheimer's, border line DM at 70, schizoaffective disorder Status:Active Son 1 Status:Active Son 2 Status:Active Unknown Family Member Name Dates Details Brother 1 Comments:diabetes Status:Active Father Comments:real--cancer, not k now well. Status:Active Maternal Grandfather Comments:DM urogenital cance r Status:Active Mother Comments:Alzheimer's, border line DM at 70, schizoaffective disorder Status:Active Son 1 Status:Active Son 2 Status:Active Unknown Family Member Name Dates Details Brother 1 Comments:diabetes Status:Active Father Comments:real--cancer, not k now well. Status:Active Maternal Grandfather Comments:DM urogenital cance r Status:Active Mother Comments:Alzheimer's, border line DM at 70, schizoaffective disorder Status:Active Son 1 Status:Active Son 2 Status:Active Unknown Family Member Name Dates Details Brother 1 Comments:diabetes Status:Active Father Comments:real--cancer, not k now well. Status:Active Maternal Grandfather Comments:DM urogenital cance r Status:Active Mother Comments:Alzheimer's, border line DM at 70, schizoaffective disorder Status:Active Son 1 Status:Active Son 2 Status:Active Unknown Family Member Name Dates Details Brother 1 Comments:diabetes Status:Active Father Comments:real--cancer, not k now well. Status:Active Maternal Grandfather Comments:DM urogenital cance r Status:Active Mother Comments:Alzheimer's, border line DM at 70, schizoaffective disorder Status:Active Son 1 Status:Active Son 2 Status:Active Unknown Family Member Name Dates Details Brother 1 Comments:diabetes Status:Active Father Comments:real--cancer, not k now well. Status:Active Maternal Grandfather Comments:DM urogenital cance r Status:Active Mother Comments:Alzheimer's, border line DM at 70, schizoaffective disorder Status:Active Son 1 Status:Active Son 2 Status:Active Unknown Family Member Name Dates Details Brother 1 Comments:diabetes Status:Active Father Comments:real--cancer, not k now well. Status:Active Maternal Grandfather Comments:DM urogenital cance r Status:Active Mother Comments:Alzheimer's, border line DM at 70, schizoaffective disorder Status:Active Son 1 Status:Active Son 2 Status:Active Unknown Family Member Name Dates Details Brother 1 Comments:diabetes Status:Active Father Comments:real--cancer, not k now well. Status:Active Maternal Grandfather Comments:DM urogenital cance r Status:Active Mother Comments:Alzheimer's, border line DM at 70, schizoaffective disorder Status:Active Son 1 Status:Active Son 2 Status:Active Unknown Family Member Name Dates Details Brother 1 Comments:diabetes Status:Active Father Comments:real--cancer, not k now well. Status:Active Maternal Grandfather Comments:DM urogenital cance r Status:Active Mother Comments:Alzheimer's, border line DM at 70, schizoaffective disorder Status:Active Son 1 Status:Active Son 2 Status:Active Unknown Family Member Name Dates Details Brother 1 Comments:diabetes Status:Active Father Comments:real--cancer, not k now well. Status:Active Maternal Grandfather Comments:DM urogenital cance r Status:Active Mother Comments:Alzheimer's, border line DM at 70, schizoaffective disorder Status:Active Son 1 Status:Active Son 2 Status:Active Unknown Family Member Name Dates Details Brother 1 Comments:diabetes Status:Active Father Comments:real--cancer, not k now well. Status:Active Maternal Grandfather Comments:DM urogenital cance r Status:Active Mother Comments:Alzheimer's, border line DM at 70, schizoaffective disorder Status:Active Son 1 Status:Active Son 2 Status:Active Unknown Family Member Name Dates Details Brother 1 Comments:diabetes Status:Active Father Comments:real--cancer, not k now well. Status:Active Maternal Grandfather Comments:DM urogenital cance r Status:Active Mother Comments:Alzheimer's, border line DM at 70, schizoaffective disorder Status:Active Son 1 Status:Active Son 2 Status:Active Instructions Name Dates Details Hypercholesterolemia : How t o access health information online - Detail Indication:Hypercholesterolemia Hypercholesterolemia : How t o access health information online Indication:Hypercholesterolemia Hypercholesterolemia : Patie nt Instructions Indication:Hypercholesterolemia Nonsmoker : How to access he alth information online Indication:Nonsmoker Nonsmoker : How to access he alth information online - Detail Indication:Nonsmoker Nonsmoker : Patient Instruct ions Indication:Nonsmoker Body mass index (BMI) 22.0-2 2.9, adult : How to access health information online Indication:Body mass index (BMI) 22.0-22.9, adult Body mass index (BMI) 22.0-2 2.9, adult : How to access health information online - Detail Indication:Body mass index (BMI) 22.0-22.9, adult Body mass index (BMI) 22.0-2 2.9, adult : Patient Instructions Indication:Body mass index (BMI) 22.0-22.9, adult Uncontrolled type 2 diabetes mellitus : How to access health information online Indication:Uncontrolled type 2 diabetes mellitus Uncontrolled type 2 diabetes mellitus : How to access health information online - Detail Indication:Uncontrolled type 2 diabetes mellitus Uncontrolled type 2 diabetes mellitus : Patient Instructions Indication:Uncontrolled type 2 diabetes mellitus Impaired fasting glucose : H ow to access health information online Indication:Impaired fasting glucose Impaired fasting glucose : H ow to access health information online - Detail Indication:Impaired fasting glucose Impaired fasting glucose : P atient Instructions Indication:Impaired fasting glucose Name Dates Details How to access health informa tion online Indication:Elevated blood pressure reading Start:05-May-2019 Instruction Type:Patient Education How to access health informa tion online - Detail Indication:Elevated blood pressure reading Start:05-May-2019 Instruction Type:Patient Education Patient Instructions Indication:Elevated blood pressure reading Start:05-May-2019 Instruction Type:Provider Instructions for Treatment How to access health informa tion online - Detail Indication:Hypercholesterolemia Start:06-Mar-2018 Instruction Type:Patient Education How to access health informa tion online Indication:Hypercholesterolemia Start:06-Mar-2018 Instruction Type:Patient Education Patient Instructions Indication:Hypercholesterolemia Start:06-Mar-2018 Instruction Type:Provider Instructions for Treatment How to access health informa tion online Indication:Nonsmoker Start:16-Apr-2017 Instruction Type:Patient Education How to access health informa tion online - Detail Indication:Nonsmoker Start:16-Apr-2017 Instruction Type:Patient Education Patient Instructions Indication:Nonsmoker Start:16-Apr-2017 Instruction Type:Provider Instructions for Treatment How to access health informa tion online Indication:Body mass index (BMI) 22.0-22.9, adult Start:04-Dec-2016 Instruction Type:Patient Education How to access health informa tion online - Detail Indication:Body mass index (BMI) 22.0-22.9, adult Start:04-Dec-2016 Instruction Type:Patient Education Patient Instructions Indication:Body mass index (BMI) 22.0-22.9, adult Start:04-Dec-2016 Instruction Type:Provider Instructions for Treatment How to access health informa tion online Indication:Uncontrolled type 2 diabetes mellitus Start:03-Jul-2016 Instruction Type:Patient Education How to access health informa tion online - Detail Indication:Uncontrolled type 2 diabetes mellitus Start:03-Jul-2016 Instruction Type:Patient Education Patient Instructions Indication:Uncontrolled type 2 diabetes mellitus Start:03-Jul-2016 Instruction Type:Provider Instructions for Treatment How to access health informa tion online Indication:Impaired fasting glucose Start:13-Nov-2015 Instruction Type:Patient Education How to access health informa tion online - Detail Indication:Impaired fasting glucose Start:13-Nov-2015 Instruction Type:Patient Education Patient Instructions Indication:Impaired fasting glucose Start:13-Nov-2015 Instruction Type:Provider Instructions for Treatment Patient Instructions Indication:Impaired fasting glucose Start:07-Sep-2013 Instruction Type:Provider Instructions for Treatment Name Dates Details How to access health informa tion online Indication:Elevated blood pressure reading Start:05-May-2019 Instruction Type:Patient Education How to access health informa tion online - Detail Indication:Elevated blood pressure reading Start:05-May-2019 Instruction Type:Patient Education Patient Instructions Indication:Elevated blood pressure reading Start:05-May-2019 Instruction Type:Provider Instructions for Treatment How to access health informa tion online - Detail Indication:Hypercholesterolemia Start:06-Mar-2018 Instruction Type:Patient Education How to access health informa tion online Indication:Hypercholesterolemia Start:06-Mar-2018 Instruction Type:Patient Education Patient Instructions Indication:Hypercholesterolemia Start:06-Mar-2018 Instruction Type:Provider Instructions for Treatment How to access health informa tion online Indication:Nonsmoker Start:16-Apr-2017 Instruction Type:Patient Education How to access health informa tion online - Detail Indication:Nonsmoker Start:16-Apr-2017 Instruction Type:Patient Education Patient Instructions Indication:Nonsmoker Start:16-Apr-2017 Instruction Type:Provider Instructions for Treatment How to access health informa tion online Indication:Body mass index (BMI) 22.0-22.9, adult Start:04-Dec-2016 Instruction Type:Patient Education How to access health informa tion online - Detail Indication:Body mass index (BMI) 22.0-22.9, adult Start:04-Dec-2016 Instruction Type:Patient Education Patient Instructions Indication:Body mass index (BMI) 22.0-22.9, adult Start:04-Dec-2016 Instruction Type:Provider Instructions for Treatment How to access health informa tion online Indication:Uncontrolled type 2 diabetes mellitus Start:03-Jul-2016 Instruction Type:Patient Education How to access health informa tion online - Detail Indication:Uncontrolled type 2 diabetes mellitus Start:03-Jul-2016 Instruction Type:Patient Education Patient Instructions Indication:Uncontrolled type 2 diabetes mellitus Start:03-Jul-2016 Instruction Type:Provider Instructions for Treatment How to access health informa tion online Indication:Impaired fasting glucose Start:13-Nov-2015 Instruction Type:Patient Education How to access health informa tion online - Detail Indication:Impaired fasting glucose Start:13-Nov-2015 Instruction Type:Patient Education Patient Instructions Indication:Impaired fasting glucose Start:13-Nov-2015 Instruction Type:Provider Instructions for Treatment Patient Instructions Indication:Impaired fasting glucose Start:07-Sep-2013 Instruction Type:Provider Instructions for Treatment Name Dates Details How to access health informa tion online Indication:Elevated blood pressure reading Start:05-May-2019 Instruction Type:Patient Education How to access health informa tion online - Detail Indication:Elevated blood pressure reading Start:05-May-2019 Instruction Type:Patient Education Patient Instructions Indication:Elevated blood pressure reading Start:05-May-2019 Instruction Type:Provider Instructions for Treatment How to access health informa tion online - Detail Indication:Hypercholesterolemia Start:06-Mar-2018 Instruction Type:Patient Education How to access health informa tion online Indication:Hypercholesterolemia Start:06-Mar-2018 Instruction Type:Patient Education Patient Instructions Indication:Hypercholesterolemia Start:06-Mar-2018 Instruction Type:Provider Instructions for Treatment How to access health informa tion online Indication:Nonsmoker Start:16-Apr-2017 Instruction Type:Patient Education How to access health informa tion online - Detail Indication:Nonsmoker Start:16-Apr-2017 Instruction Type:Patient Education Patient Instructions Indication:Nonsmoker Start:16-Apr-2017 Instruction Type:Provider Instructions for Treatment How to access health informa tion online Indication:Body mass index (BMI) 22.0-22.9, adult Start:04-Dec-2016 Instruction Type:Patient Education How to access health informa tion online - Detail Indication:Body mass index (BMI) 22.0-22.9, adult Start:04-Dec-2016 Instruction Type:Patient Education Patient Instructions Indication:Body mass index (BMI) 22.0-22.9, adult Start:04-Dec-2016 Instruction Type:Provider Instructions for Treatment How to access health informa tion online Indication:Uncontrolled type 2 diabetes mellitus Start:03-Jul-2016 Instruction Type:Patient Education How to access health informa tion online - Detail Indication:Uncontrolled type 2 diabetes mellitus Start:03-Jul-2016 Instruction Type:Patient Education Patient Instructions Indication:Uncontrolled type 2 diabetes mellitus Start:03-Jul-2016 Instruction Type:Provider Instructions for Treatment How to access health informa tion online Indication:Impaired fasting glucose Start:13-Nov-2015 Instruction Type:Patient Education How to access health informa tion online - Detail Indication:Impaired fasting glucose Start:13-Nov-2015 Instruction Type:Patient Education Patient Instructions Indication:Impaired fasting glucose Start:13-Nov-2015 Instruction Type:Provider Instructions for Treatment Patient Instructions Indication:Impaired fasting glucose Start:07-Sep-2013 Instruction Type:Provider Instructions for Treatment Name Dates Details How to access health informa tion online Indication:Elevated blood pressure reading Start:05-May-2019 Instruction Type:Patient Education How to access health informa tion online - Detail Indication:Elevated blood pressure reading Start:05-May-2019 Instruction Type:Patient Education Patient Instructions Indication:Elevated blood pressure reading Start:05-May-2019 Instruction Type:Provider Instructions for Treatment How to access health informa tion online - Detail Indication:Hypercholesterolemia Start:06-Mar-2018 Instruction Type:Patient Education How to access health informa tion online Indication:Hypercholesterolemia Start:06-Mar-2018 Instruction Type:Patient Education Patient Instructions Indication:Hypercholesterolemia Start:06-Mar-2018 Instruction Type:Provider Instructions for Treatment How to access health informa tion online Indication:Nonsmoker Start:16-Apr-2017 Instruction Type:Patient Education How to access health informa tion online - Detail Indication:Nonsmoker Start:16-Apr-2017 Instruction Type:Patient Education Patient Instructions Indication:Nonsmoker Start:16-Apr-2017 Instruction Type:Provider Instructions for Treatment How to access health informa tion online Indication:Body mass index (BMI) 22.0-22.9, adult Start:04-Dec-2016 Instruction Type:Patient Education How to access health informa tion online - Detail Indication:Body mass index (BMI) 22.0-22.9, adult Start:04-Dec-2016 Instruction Type:Patient Education Patient Instructions Indication:Body mass index (BMI) 22.0-22.9, adult Start:04-Dec-2016 Instruction Type:Provider Instructions for Treatment How to access health informa tion online Indication:Uncontrolled type 2 diabetes mellitus Start:03-Jul-2016 Instruction Type:Patient Education How to access health informa tion online - Detail Indication:Uncontrolled type 2 diabetes mellitus Start:03-Jul-2016 Instruction Type:Patient Education Patient Instructions Indication:Uncontrolled type 2 diabetes mellitus Start:03-Jul-2016 Instruction Type:Provider Instructions for Treatment How to access health informa tion online Indication:Impaired fasting glucose Start:13-Nov-2015 Instruction Type:Patient Education How to access health informa tion online - Detail Indication:Impaired fasting glucose Start:13-Nov-2015 Instruction Type:Patient Education Patient Instructions Indication:Impaired fasting glucose Start:13-Nov-2015 Instruction Type:Provider Instructions for Treatment Patient Instructions Indication:Impaired fasting glucose Start:07-Sep-2013 Instruction Type:Provider Instructions for Treatment Name Dates Details How to access health informa tion online Indication:Nonsmoker Start:14-Jun-2020 Instruction Type:Patient Education How to access health informa tion online - Detail Indication:Nonsmoker Start:14-Jun-2020 Instruction Type:Patient Education Patient Instructions Indication:Nonsmoker Start:14-Jun-2020 Instruction Type:Provider Instructions for Treatment How to access health informa tion online Indication:Elevated blood pressure reading Start:05-May-2019 Instruction Type:Patient Education How to access health informa tion online - Detail Indication:Elevated blood pressure reading Start:05-May-2019 Instruction Type:Patient Education Patient Instructions Indication:Elevated blood pressure reading Start:05-May-2019 Instruction Type:Provider Instructions for Treatment How to access health informa tion online - Detail Indication:Hypercholesterolemia Start:06-Mar-2018 Instruction Type:Patient Education How to access health informa tion online Indication:Hypercholesterolemia Start:06-Mar-2018 Instruction Type:Patient Education Patient Instructions Indication:Hypercholesterolemia Start:06-Mar-2018 Instruction Type:Provider Instructions for Treatment How to access health informa tion online Indication:Nonsmoker Start:16-Apr-2017 Instruction Type:Patient Education How to access health informa tion online - Detail Indication:Nonsmoker Start:16-Apr-2017 Instruction Type:Patient Education Patient Instructions Indication:Nonsmoker Start:16-Apr-2017 Instruction Type:Provider Instructions for Treatment How to access health informa tion online Indication:Body mass index (BMI) 22.0-22.9, adult Start:04-Dec-2016 Instruction Type:Patient Education How to access health informa tion online - Detail Indication:Body mass index (BMI) 22.0-22.9, adult Start:04-Dec-2016 Instruction Type:Patient Education Patient Instructions Indication:Body mass index (BMI) 22.0-22.9, adult Start:04-Dec-2016 Instruction Type:Provider Instructions for Treatment How to access health informa tion online Indication:Uncontrolled type 2 diabetes mellitus Start:03-Jul-2016 Instruction Type:Patient Education How to access health informa tion online - Detail Indication:Uncontrolled type 2 diabetes mellitus Start:03-Jul-2016 Instruction Type:Patient Education Patient Instructions Indication:Uncontrolled type 2 diabetes mellitus Start:03-Jul-2016 Instruction Type:Provider Instructions for Treatment How to access health informa tion online Indication:Impaired fasting glucose Start:13-Nov-2015 Instruction Type:Patient Education How to access health informa tion online - Detail Indication:Impaired fasting glucose Start:13-Nov-2015 Instruction Type:Patient Education Patient Instructions Indication:Impaired fasting glucose Start:13-Nov-2015 Instruction Type:Provider Instructions for Treatment Patient Instructions Indication:Impaired fasting glucose Start:07-Sep-2013 Instruction Type:Provider Instructions for Treatment Name Dates Details How to access health informa tion online Indication:Elevated blood pressure reading Start:05-May-2019 Instruction Type:Patient Education How to access health informa tion online - Detail Indication:Elevated blood pressure reading Start:05-May-2019 Instruction Type:Patient Education Patient Instructions Indication:Elevated blood pressure reading Start:05-May-2019 Instruction Type:Provider Instructions for Treatment How to access health informa tion online - Detail Indication:Hypercholesterolemia Start:06-Mar-2018 Instruction Type:Patient Education How to access health informa tion online Indication:Hypercholesterolemia Start:06-Mar-2018 Instruction Type:Patient Education Patient Instructions Indication:Hypercholesterolemia Start:06-Mar-2018 Instruction Type:Provider Instructions for Treatment How to access health informa tion online Indication:Nonsmoker Start:16-Apr-2017 Instruction Type:Patient Education How to access health informa tion online - Detail Indication:Nonsmoker Start:16-Apr-2017 Instruction Type:Patient Education Patient Instructions Indication:Nonsmoker Start:16-Apr-2017 Instruction Type:Provider Instructions for Treatment How to access health informa tion online Indication:Body mass index (BMI) 22.0-22.9, adult Start:04-Dec-2016 Instruction Type:Patient Education How to access health informa tion online - Detail Indication:Body mass index (BMI) 22.0-22.9, adult Start:04-Dec-2016 Instruction Type:Patient Education Patient Instructions Indication:Body mass index (BMI) 22.0-22.9, adult Start:04-Dec-2016 Instruction Type:Provider Instructions for Treatment How to access health informa tion online Indication:Uncontrolled type 2 diabetes mellitus Start:03-Jul-2016 Instruction Type:Patient Education How to access health informa tion online - Detail Indication:Uncontrolled type 2 diabetes mellitus Start:03-Jul-2016 Instruction Type:Patient Education Patient Instructions Indication:Uncontrolled type 2 diabetes mellitus Start:03-Jul-2016 Instruction Type:Provider Instructions for Treatment How to access health informa tion online Indication:Impaired fasting glucose Start:13-Nov-2015 Instruction Type:Patient Education How to access health informa tion online - Detail Indication:Impaired fasting glucose Start:13-Nov-2015 Instruction Type:Patient Education Patient Instructions Indication:Impaired fasting glucose Start:13-Nov-2015 Instruction Type:Provider Instructions for Treatment Patient Instructions Indication:Impaired fasting glucose Start:07-Sep-2013 Instruction Type:Provider Instructions for Treatment Name Dates Details How to access health informa tion online - Detail Indication:Hypercholesterolemia Start:06-Mar-2018 Instruction Type:Patient Education How to access health informa tion online Indication:Hypercholesterolemia Start:06-Mar-2018 Instruction Type:Patient Education Patient Instructions Indication:Hypercholesterolemia Start:06-Mar-2018 Instruction Type:Provider Instructions for Treatment How to access health informa tion online Indication:Nonsmoker Start:16-Apr-2017 Instruction Type:Patient Education How to access health informa tion online - Detail Indication:Nonsmoker Start:16-Apr-2017 Instruction Type:Patient Education Patient Instructions Indication:Nonsmoker Start:16-Apr-2017 Instruction Type:Provider Instructions for Treatment How to access health informa tion online Indication:Body mass index (BMI) 22.0-22.9, adult Start:04-Dec-2016 Instruction Type:Patient Education How to access health informa tion online - Detail Indication:Body mass index (BMI) 22.0-22.9, adult Start:04-Dec-2016 Instruction Type:Patient Education Patient Instructions Indication:Body mass index (BMI) 22.0-22.9, adult Start:04-Dec-2016 Instruction Type:Provider Instructions for Treatment How to access health informa tion online Indication:Uncontrolled type 2 diabetes mellitus Start:03-Jul-2016 Instruction Type:Patient Education How to access health informa tion online - Detail Indication:Uncontrolled type 2 diabetes mellitus Start:03-Jul-2016 Instruction Type:Patient Education Patient Instructions Indication:Uncontrolled type 2 diabetes mellitus Start:03-Jul-2016 Instruction Type:Provider Instructions for Treatment How to access health informa tion online Indication:Impaired fasting glucose Start:13-Nov-2015 Instruction Type:Patient Education How to access health informa tion online - Detail Indication:Impaired fasting glucose Start:13-Nov-2015 Instruction Type:Patient Education Patient Instructions Indication:Impaired fasting glucose Start:13-Nov-2015 Instruction Type:Provider Instructions for Treatment Patient Instructions Indication:Impaired fasting glucose Start:07-Sep-2013 Instruction Type:Provider Instructions for Treatment Name Dates Details How to access health informa tion online - Detail Indication:Hypercholesterolemia Start:06-Mar-2018 Instruction Type:Patient Education How to access health informa tion online Indication:Hypercholesterolemia Start:06-Mar-2018 Instruction Type:Patient Education Patient Instructions Indication:Hypercholesterolemia Start:06-Mar-2018 Instruction Type:Provider Instructions for Treatment How to access health informa tion online Indication:Nonsmoker Start:16-Apr-2017 Instruction Type:Patient Education How to access health informa tion online - Detail Indication:Nonsmoker Start:16-Apr-2017 Instruction Type:Patient Education Patient Instructions Indication:Nonsmoker Start:16-Apr-2017 Instruction Type:Provider Instructions for Treatment How to access health informa tion online Indication:Body mass index (BMI) 22.0-22.9, adult Start:04-Dec-2016 Instruction Type:Patient Education How to access health informa tion online - Detail Indication:Body mass index (BMI) 22.0-22.9, adult Start:04-Dec-2016 Instruction Type:Patient Education Patient Instructions Indication:Body mass index (BMI) 22.0-22.9, adult Start:04-Dec-2016 Instruction Type:Provider Instructions for Treatment How to access health informa tion online Indication:Uncontrolled type 2 diabetes mellitus Start:03-Jul-2016 Instruction Type:Patient Education How to access health informa tion online - Detail Indication:Uncontrolled type 2 diabetes mellitus Start:03-Jul-2016 Instruction Type:Patient Education Patient Instructions Indication:Uncontrolled type 2 diabetes mellitus Start:03-Jul-2016 Instruction Type:Provider Instructions for Treatment How to access health informa tion online Indication:Impaired fasting glucose Start:13-Nov-2015 Instruction Type:Patient Education How to access health informa tion online - Detail Indication:Impaired fasting glucose Start:13-Nov-2015 Instruction Type:Patient Education Patient Instructions Indication:Impaired fasting glucose Start:13-Nov-2015 Instruction Type:Provider Instructions for Treatment Patient Instructions Indication:Impaired fasting glucose Start:07-Sep-2013 Instruction Type:Provider Instructions for Treatment Advance Directives Documents on File Type Date Recorded Patient Production Graphic Designer Expl anation Advance Directives and Living Will Power of Case Briefer Name Dates Details Immunization Registry Mobile - Effective on 03/11/2023. Expiration date unspecified Effective:11-Mar-2023 Name Dates Details Immunization Registry Mobile - Effective on 03/11/2023. Expiration date unspecified Effective:11-Mar-2023 Summary Purpose Additional Source Comments (unrecognized sect ion and content) No Status Records FoundNo Status Records FoundNo Status Records FoundNo Status Records FoundNo Status Records FoundNo Status Records Found INFORMATION SOURCE (unrecogn ized section and content) DATE CREATED AUTHOR AUTHOR'S ORGANIZ ATION 01/04/2020 [facility] DATE CREATED AUTHOR AUTHOR'S ORGANIZ ATION 08/17/2020 [facility] DATE CREATED AUTHOR AUTHOR'S ORGANIZ ATION 08/07/2021 [facility] DATE CREATED AUTHOR AUTHOR'S ORGANIZ ATION 11/21/2022 [facility] DATE CREATED AUTHOR AUTHOR'S ORGANIZ ATION 12/23/2022 [facility] [employer] [facility] Source Comments (unrecognize d section and content) In the event this informatio n is protected by the Federal Confidentiality of Alcohol and Drug Abuse Patient Records regulations: The Federal rules restrict any use of the information to criminally investigate or prosecute any alcohol or drug abuse patient.[facility] FOR RECORDS PERTAINING TO PATIENTS WHO ARE OR HAVE BEEN ENROLLED IN A CHEMICAL DEPENDENCY/SUBSTANCEABUSE PROGRAM, SOME INFORMATION MAY BE OMITTED. This clinical summary was aggregated from multiple sources. Caution should be exercised in using it in the provision of clinical care. This summary normalizes information from multiple sources, and as a consequence, information in this document may materially change the coding, format and clinical context of patient data. In addition, data may be omitted in some cases. CLINICAL DECISIONS SHOULD BE BASED ON THE PRIMARY CLINICAL RECORDS. [facility] [employer] [facility]. provides no warranty or guarantee of the accuracy or completeness of information in this document.
[2023-08-02 10:20] LABS: Absolute Lymphocyte Count 1.69 X10^3/uL (0.83-4.51); Absolute Neutrophil Count 2.4 X10^3/uL (2.0-7.7); Basophil# 0.03 X10^3/uL; Basophil% 0.6 % (0-1); Eosinophil# 0.08 X10^3/uL; Eosinophils% 1.7 % (0-5); Hematocrit 50.7 % (40-54); Hemoglobin 16.7 g/dL (13.0-16.5); Lymphocyte # 1.69 X10^3/ul (0.83-4.51); Lymphocyte % 36.4 % (19-41); Mean Corp Hgb Conc 32.9 g/dL (32-36); Mean Corpuscular Hgb 27.1 pg (27.0-32.0); Mean Corpuscular Volume 82.3 fL (80-94); Mean Platelet Vol. 9.9 fl (6.2-12.0); Monocyte# 0.41 X10^3/uL; Monocyte% 8.8 % (0-10); NRBC Flagged by Analyzer 0 % (0-5); Neutrophil # 2.41 X10^3/uL (2.7-7.7); Neutrophil % 52.1 % (47-70); Platelet Count 220 K/mm3 (150-450); RBC Distribution Width CV 12.7 % (11.6-14.6); RBC Distribution Width SD 37.8 fl (35.1-43.9); Red Blood Count 6.16 M/mm3 (4.6-6.2); White Blood Count 4.6 K/mm3 (4.4-11.0)
[2023-08-02 10:52] LABS: Vitamin D,25 Hydroxy 47.1 ng/mL
[2023-08-02 10:56] LABS: Hemoglobin A1c 6.1 % (3.8-5.6)
[2023-08-02 11:11] LABS: ALB/GLOB Ratio 1.1 RATIO (0.9-2.4); AST(SGOT) 21 U/L (15-37); Alanine Aminotransfer ALT/SGPT 28 U/L (16-61); Albumin, Serum 4.3 g/dL (3.2-5.0); Alkaline Phosphatase 57 U/L (45-117); Anion Gap 6 (5-15); BUN 22 mg/dL (7-18); BUN/Creat Ratio 20.8 RATIO (10-20); Calcium,Total 9.1 mg/dL (8.5-10.1); Chloride 105 mmol/L (98-107); Cholesterol 145 mg/dL (200); Creatinine, Serum 1.06 mg/dL (0.70-1.30); EST Glomerular Filtration Rate 76 mL/min (>60); Est Glom Filt Rate - Afr Amer 91 mL/min (>60); Globulin 3.8 g/dL (2.2-4.2); Glucose 97 mg/dL (74-106); High Density Lipoprotein 39 mg/dL; Potassium 4.2 mmol/L (3.5-5.1); Protein, Total 8.1 g/dL (6.4-8.2); Sodium Level 139 mmol/L (136-145); Thyroid Stim Hormone (TSH) 1.87 uIU/mL (0.358-3.74); Triglycerides 85 mg/dL; Uric Acid 5.9 mg/dL (3.5-7.2); Very Low Density Lipoprotein 17 mg/dL (5-40)
== END | disposition home or self-care (01) ==
LOC: MTLAB 09:45 → LAB 09:47
PROVIDERS: PCP Internal Medicine; Referring Provider Internal Medicine; Visit Provider Internal Medicine
DX: E11.9 Type 2 diabetes mellitus without complications (principal); E55.9 Vitamin D deficiency, unspecified; R89.9 Unspecified abnormal finding in specimens from other organs, systems and tissues
CPT/HCPCS: 36415; 80053; 80061; 82306; 83036; 84443; 84550; 85025

== ENCOUNTER → 2023-10-24 | Outpatient (CLI) | payer BC, SELFPAY ==
[2023-10-24 11:08] LABS: AST(SGOT) 21 U/L (15-37); Alanine Aminotransfer ALT/SGPT 38 U/L (16-61); Albumin, Serum 4.1 g/dL (3.2-5.0); Alkaline Phosphatase 58 U/L (45-117); Bilirubin, Direct 0.15 mg/dL (0.00-0.30); Cholesterol 127 mg/dL (200); Globulin 3.6 g/dL (2.2-4.2); High Density Lipoprotein 39 mg/dL; Protein, Total 7.7 g/dL (6.4-8.2); Triglycerides 104 mg/dL; Very Low Density Lipoprotein 21 mg/dL (5-40)
== END | disposition home or self-care (01) ==
LOC: MTLAB 07:37
PROVIDERS: PCP Internal Medicine; Referring Provider Internal Medicine Endocrinology, Diabetes & Metabolism; Visit Provider Internal Medicine Endocrinology, Diabetes & Metabolism
DX: E78.2 Mixed hyperlipidemia (principal); E11.65 Type 2 diabetes mellitus with hyperglycemia
CPT/HCPCS: 36415; 80061; 80076

== ENCOUNTER → 2024-06-23 | Outpatient (CLI) | payer BC, SELFPAY ==
[2024-06-23 15:43] LABS: Hemoglobin A1c 6.1 % (3.8-5.6)
[2024-06-23 15:47] LABS: ALB/GLOB Ratio 1.2 RATIO (0.9-2.4); AST(SGOT) 37 U/L (15-37); Alanine Aminotransfer ALT/SGPT 57 U/L (16-61); Albumin, Serum 4.5 g/dL (3.2-5.0); Alkaline Phosphatase 60 U/L (45-117); Anion Gap 7 (5-15); BUN 15 mg/dL (7-18); BUN/Creat Ratio 16.3 RATIO (10-20); Bilirubin, Direct 0.16 mg/dL (0.00-0.30); Chloride 104 mmol/L (98-107); Cholesterol 149 mg/dL (200); Creatinine, Serum 0.92 mg/dL (0.70-1.30); EST Glomerular Filtration Rate 88 mL/min (>60); Est Glom Filt Rate - Afr Amer 107 mL/min (>60); Globulin 3.8 g/dL (2.2-4.2); Glucose 106 mg/dL (74-106); High Density Lipoprotein 45 mg/dL; Potassium 3.9 mmol/L (3.5-5.1); Protein, Total 8.3 g/dL (6.4-8.2); Sodium Level 140 mmol/L (136-145); Triglycerides 97 mg/dL; Very Low Density Lipoprotein 19 mg/dL (5-40)
== END | disposition home or self-care (01) ==
PROVIDERS: PCP Internal Medicine; Referring Provider Internal Medicine; Visit Provider Internal Medicine
DX: R79.89 Other specified abnormal findings of blood chemistry (principal); R94.5 Abnormal results of liver function studies
CPT/HCPCS: 36415; 80053; 80061; 82248; 83036

== ENCOUNTER → 2024-11-02 | Outpatient (CLI) | payer BC, SELFPAY ==
[2024-11-02 11:00] LABS: Microalbumin,Random Urine 26.2 mg/L (NO RANGE EST.); Microalbumin:Creatinine Ratio 372.2 mg/g CRE
[2024-11-02 11:07] LABS: ALB/GLOB Ratio 1.6 RATIO (0.9-2.4); AST(SGOT) 23 U/L (<=37); Alanine Aminotransfer ALT/SGPT 21 U/L (<=46); Albumin, Serum 4.5 g/dL (3.4-4.8); Alkaline Phosphatase 59 U/L (40-129); Anion Gap 13 (5-15); BUN 28 mg/dL (4-19); BUN/Creat Ratio 25.3 RATIO (10-20); Calcium,Total 9.4 mg/dL (7.6-11.0); Carbon Dioxide 24.6 mmol/L (21.0-32.0); Chloride 103 mmol/L (98-108); Cholesterol 128 mg/dL (<=200); EST Glomerular Filtration Rate 76 (>60); Globulin 2.8 g/dL (2.2-4.2); Glucose 150 mg/dL (70-99); High Density Lipoprotein 36 mg/dL; Low Density Lipoprotein Calc. 57 mg/dL; Potassium 3.9 mmol/L (3.3-5.1); Protein, Total 7.4 g/dL (5.9-8.4); Sodium Level 140 mmol/L (133-145); Total Bilirubin 0.43 mg/dL (0.00-1.30); Triglycerides 171 mg/dL; Very Low Density Lipoprotein 34 mg/dL (5-40); cholesterol:hdl ratio screen 3.52
== END | disposition home or self-care (01) ==
LOC: MTLAB 07:06
PROVIDERS: PCP Internal Medicine; Referring Provider Internal Medicine; Visit Provider Internal Medicine
DX: I10 Essential (primary) hypertension (principal); E11.9 Type 2 diabetes mellitus without complications; E78.00 Pure hypercholesterolemia, unspecified
CPT/HCPCS: 36415; 80053; 80061; 82043; 82570; 83036

== ENCOUNTER 2025-03-19 07:28 | Outpatient (CLI) | payer BC, SELFPAY ==
--- OUTSIDE RECORDS SUMMARY | 2025-03-19 07:42 | XMS RPT_ITS | CCD ---
Author Organization [facility] Care Team Providers Care Quality Coordinator Name Role Phone Mel Esquivel Unavailable Yoko Hammonds Unavailable Rohini Dill Unavailable Unavailable Gravius, Sindhu Unavailable Unavailable Unavailable Unavailable Leann Castano Unavailable Unavailable Mel Esquivel Primary Care Provider [phone] Lilai Vitale Unavailable Unavailable Unavailable Primary Care Provider Unavailabl e Alfonso, Jumana Unavailable Unavailable Thang Jimenez Unavailable Unavailable Zuleima Herrera Unavailable Unavailable Messenger, Lilia Unavailable Unavailable Long, Sarah L Unavailable Unavailable Mel Esquivel DO Unavailable Yoko Hammonds MD Unavailable Zuleima Herrera LPN Unavailable Unavailable Thang Jimenez LPN Unavailable Unavailable Rohini Dill Unavailable Unavailable Unavailable Unavailable See Brown Unavailable Bucky, oumou Unavailable Unavailable Ady ROSE, ERNA Unavailable Unavailable Alvin SLAUGHTER Mel Unavailable Yoko Hammonds MD Unavailable Valery Kan LPN Unavailable Unavailable Manchak BLOSSOM, Jumana Unavailable Unavailable Yoko Hammonds MD Unavailable Yoko Hammonds MD Unavailable Yoko Hammonds MD Referring Unavailable Yoko Hammonds MD Attending Unavailable Yoko Hammonds MD Consulting Unavailable Jean Claude ROSE, Porfirio Unavailable Unavailable Mel Esquivel DO Primary Care Provider [phone] Unavailable Primary Care Provider Unavailabl e YOKO HAMMONDS Referring Unavailable BONEZZI, YOKO Attending Unavailable BONEZZI, YOKO Primary Care Unavailable BONEZZI, YOKO Admitting Unavailable Mel Esquivel DO Primary Care Provider Yovanny DUNN, Richi Unavailable Duong DUNN, Carlos Fuentes Unavailable MEL ESQUIVEL Primary Care Unavailable BONEZZI, YOKO M Attending Unavailable BONEZZI, YOKO M Referring Unavailable Bonezzi , Dr. Millard Primary Care Provider Bravo DUNN, Dr. Millard Attending Provider [phone] Bravo DUNN, Dr. Millard Referring Provider Bonekurtis, Yoko Referring Unavailable Bonezzi, Yoko Attending Unavailable Bonezzi, Yoko Primary Care Unavailable Bonezzi, Yoko Referring Unavailable Bonezzi, Yoko Attending Unavailable Bonezzi, Yoko Primary Care Unavailable MEL ESQUIVEL Primary Care Unavailable ZULEIMA GAMBLE Attending Unavailable Allergies Allergy Classification Reported Allergen(s) Allergy Type Date of Onset Reaction(s) Facility Penicillins (antibiotic) (5 sources) Penicillins; Translations: [Penicillins] Drug Allergy [facility] Work Phone: Quinolones (antibiotic) (5 sources) Ciprofloxacin; Translations: [Cipro *FLUOROQUINOLONES *] Drug Allergy [facility] Work Phone: Sulfonamides (antibiotic) (5 sources) Sulfonamides (Antibiotic); Translations: [Sulfa Drugs] Drug Allergy [facility] Work Phone: (20 sources) Ciprofloxacin; Translations: [Cipro *FLUOROQUINOLONES *] Drug Allergy 06-17-20 16 [facility] Work Phone: (20 sources) Penicillins; Translations: [Penicillins] allergy to substance 05-16-20 15 [facility] Work Phone: (20 sources) Sulfonamides (Antibiotic); Translations: [Sulfa Drugs] allergy to substance [facility] Work Phone: (2 sources) Sulfonamides (Antibiotic) Propensity to adverse reactions to drug 05-16-20 [place], [place] (3 sources) Sulfonamides (Antibiotic) Allergy to substance 09-09-19 [facility] (10 sources) Sulfonamides (Antibiotic) Drug Intolerance 05-16-20 [facility] (1 source) ALLERGIES NOT ON FILE; Translations: [ALLERGIES NOT ON FILE] Propensity to adverse reactions (disorder) [place] [id number] Repository (1 source) Ciprofloxacin Drug Allergy 09-09-19 [facility] Repository (1 source) Sulfonamides (Antibiotic) Drug allergy (disorder) 09-09-19 [facility] Repository Medications Current Medications Medication Drug Class(es) Dates Sig (Normalized) Sig (Original) acetaZOLAMIDE 250 mg oral tablet (9 sources) Carbonic Anhydrase Inhibitor Start: 09-05-2021 take 0.5 tablet by mouth twice daily as needed acetaZOLAMIDE (Diamox) 250 MG tablet TAKE 1/2 TABLET BY MOUTH TWICE DAILY NEEDED FOR hundsfescht lasting longer THAN FOUR hours 09/05/2021 Active allopurinol 100 mg oral tablet (20 sources) Xanthine Oxidase Inhibitor Start: 09-09-2022 take 1 tablet by mouth once daily Allopurinol 100 mg Tablet Active 100 mg PO DAILY September 09, 2022 1:00am amLODIPine 5 mg oral tablet (20 sources) Dihydropyridine Calcium Channel Balbir Start: 12-11-2021 take 1 tablet by mouth once daily Amlodipine (Norvasc) 5 mg Tablet Active 5 mg PO DAILY September 09, 2022 1:00am Start: 07-20-2019 End: 11-29-2019 take 1 tablet by mouth once daily Norvasc 2.5 MG Oral Tablet 1 (one) Tablet qd for 90 days Quantity: 90 {Tablet} Refills: 1 Ordered: 29-Nov-2019 Sindhu Sexton CMA Start : 20-Jul-2019 End : 29-Nov-2019 Discontinued take 2 tablets by mo [facility] once daily amLODIPine (Norvasc) 5 MG tablet Take 10 mg by mouth daily. Active aspirin 81 mg delayed release oral tablet (20 sources) Platelet Aggregation Inhibitor, Nonsteroidal Anti-inflammatory Drug Start: 09-09-2022 take 1 tablet by mouth once daily Aspirin (Enteric Coated Aspirin) 81 mg Tablet,Delayed Release (Dr/Ec) Active 81 mg PO DAILY September 09, 2022 1:00am Start: 12-11-2021 take 1 tablet by triston th once daily Aspirin 325 MG Oral Tablet Delayed Release 1 Tablet qd for 0 days Quantity: 30 {Tablet} Refills: 0 Ordered: 11-Dec-2021 Bravo DUNN, Yoko Hammonds MD, Yoko Hammonds MD, Yoko Bazan Start : 11-Dec-2021 Active aspirin 325 MG T ab take 325 mg by mouth daily.. Active aspirin 81 MG ta blet Take 325 mg by mouth daily 0 Active Continuous Glucose Sensor (FreeStyle Demetrice 2 Sensor) misc (8 sources) Start: 01-04-2025 Continuous Glucose Sensor (FreeStyle Demetrice 2 Sensor) misc As directed 01/04/2025 Active empagliflozin 25 mg oral tablet (20 sources) Sodium-Glucose Cotransporter 2 Inhibitor Start: 12-11-2021 take 1 tablet by mouth once daily empagliflozin (Jardiance) 25 MG Indications: Type 2 diabetes mellitus with hyperglycemia, without long-term current use of insulin (HCC) Take 1 tablet (25 mg) by mouth daily. 90 tablet 3 12/31/2023 Active esomeprazole 40 mg delayed release oral capsule (20 sources) Proton Pump Inhibitor Start: 09-09-2022 take 1 capsule by mouth once daily Esomeprazole Magnesium 40 mg Capsule,Delayed Release(Dr/Ec) Active 40 mg PO DAILY September 09, 2022 1:00am Start: 06-27-2017 End: 08-06-2017 NexIUM 40 MG Oral Capsule De layed Release [address] bid for 365 days Quantity: 730 {Capsule} Refills: 0 Ordered: 06-Aug-2017 Lilia Vitale RN Start : 27-Jun-2017 End : 06-Aug-2017 Inactive glimepiride 1 mg oral tablet (20 sources) Sulfonylurea Start: 12-11-2021 take 1 tablet by mouth once daily Glimepiride 1 mg Tablet Active 1 mg PO DAILY September 09, 2022 1:00am lisinopril 40 mg oral tablet (20 sources) Angiotensin Converting Enzyme Inhibitor Start: 12-11-2021 take 1 tablet by mouth once daily lisinopril 40 MG tablet Take 40 mg by mouth daily. 04/10/2022 Active Start: 06-14-2020 End: 09-12-2020 take 1 tablet by mouth once daily Lisinopril 40 MG Oral Tablet 1 Tablet daily as directed for 90 days Quantity: 90 {Tablet} Refills: 0 Ordered: 14-Jun-2020 Mel Esquivel DO, DO, Kathleen Start : 14-Jun-2020 End : 12-Sep-2020 Inactive Start: 04-09-2019 End: 04-08-2020 take 1 tablet by mouth twice daily Lisinopril 20 MG Oral Tablet 1 Tablet bid for 365 days Quantity: 730 {Tablet} Refills: 0 Ordered: 09-Apr-2019 Mel Esquivel DO, DO, Kathleen Start : 09-Apr-2019 End : 08-Apr-2020 Inactive Start: 06-27-2017 End: 06-27-2018 take 1 tablet by mouth twice daily Lisinopril 20 MG Oral Tablet 1 Tablet bid for 365 days Quantity: 730 {Tablet} Refills: 0 Ordered: 27-Jun-2017 Mel Esquivel DO, DO, Kathleen Start : 27-Jun-2017 End : 27-Jun-2018 Inactive 24 hr metoprolol succinate 100 mg extended release oral capsule (20 sources) beta-Adrenergic Balbir Start: 09-09-2022 take 1 capsule by mouth once daily Metoprolol Succinate 100 mg Capsule,Sprinkle,Er 24hr Active 100 mg PO DAILY September 09, 2022 1:00am Start: 12-11-2021 take 1 tablet by triston th once daily metoprolol succinate XL (Toprol-XL) 100 MG 24 hr tablet Take 100 mg by mouth daily. 02/25/2022 Active Start: 06-14-2020 take 1 tablet by triston th twice daily Metoprolol Succinate ER 100 MG Oral Tablet Extended Release 24 Hour 1 Tablet bid for 30 days Quantity: 60 {Tablet} Refills: 2 Ordered: 14-Jun-2020 Mel Esquivel DO, DO, Kathleen Start : 14-Jun-2020 Active take 1 tablet by triston th every twenty-four hours Metoprolol Succinate ER 100 MG Oral Tablet Extended Release 24 Hour 1 daily (100 MG) Active metroNIDAZOLE 500 mg oral tablet (20 sources) Nitroimidazole Antimicrobial Start: 12-11-2021 metroNIDAZOLE (Flagyl) 500 MG tablet Take 500 mg by mouth. PRN 02/13/2022 Active End: 09-03-2010 take 1 tablet by mouth twice daily FLAGYL, 500MG (Oral Tablet) 1 bid for 0 days Refills: 0 Ordered: 03-Sep-2010 ERNA Garsia LPN End : 03-Sep-2010 Inactive Comments: for 1 week Comment on above: for 1 week Multiple Vitamins-Minerals ( CENTRUM MINIS ADULTS 50+ PO) (9 sources) Multiple Vitamin s-Minerals (CENTRUM MINIS ADULTS 50+ PO) Take by mouth. Active Multiple Vitamin s-Minerals (CENTRUM MINIS ADULTS 50+ PO) Take by mouth. 0 Active Multivitamin preparation (2 sources) Start: 09-09-2022 take 1 tablet by mouth once daily Multivitamin Active 1 TABLET PO DAILY September 09, 2022 1:00am Start: 09-09-2022 take 1 tablet by triston th once daily Multivitamin Active 1 TABLET PO DAILY September 09, 2022 12:00am Multivitamin Tablet (1 source) Start: 09-09-2022 Multivitamin T ablet Active 1 {tbl} PO DAILY September 09, 2022 1:00am pantoprazole 40 mg delayed release oral tablet (20 sources) Proton Pump Inhibitor Start: 08-06-2017 take 1 tablet by mouth in the morning pantoprazole (ProtoNix) 40 MG EC tablet Take 40 mg by mouth in the morning and 40 mg in the evening. 03/26/2019 Active take 1 tablet by mouth once hussain y pantoprazole (PROTONIX) 40 MG tablet Take 40 mg by mouth daily 0 Active rosuvastatin calcium 10 mg oral tablet (20 sources) HMG-CoA Reductase Inhibitor Start: 03-21-2022 take 1 tablet by mouth once daily Rosuvastatin (Crestor) 10 mg Tablet Active 10 mg PO DAILY September 09, 2022 1:00am Start: 12-11-2021 take 1 tablet by triston th once daily at bedtime Rosuvastatin Calcium 5 MG Oral Tablet 1 (one) Tablet qhs for 0 days Quantity: 30 {Tablet} Refills: 0 Ordered: 11-Dec-2021 Yoko Hammonds MD Start : 11-Dec-2021 Active Start: 04-09-2019 End: 05-09-2019 take 1 tablet by mouth once daily Crestor 5 MG Oral Tablet 1 (one) Tablet qd for 30 days Refills: 0 Ordered: 31-May-2019 Mel Esquivel DO Start : 09-Apr-2019 End : 09-May-2019 Inactive Comments: done by heart doc Start: 03-26-2019 rosuvastatin ( Crestor) 5 MG tablet Take 40 mg by mouth daily. 03/26/2019 Active Start: 03-26-2019 take 2 tablets by mo uth once daily rosuvastatin (Crestor) 5 MG tablet Take 10 mg by mouth daily. 0 03/26/2019 Active Comment on above: done by heart doc Completed/Discontinued Medications Medication Drug Class(es) Dates Sig (Normalized) Sig (Original) atorvastatin 40 mg oral tablet (20 sources) HMG-CoA Reductase Inhibitor Start: 12-04-2016 End: 12-04-2016 take 1 tablet by mouth once daily at bedtime Atorvastatin Calcium 40 MG Oral Tablet 1 (one) Tablet qhs for 60 days Quantity: 62 {Tablet} Refills: 5 Ordered: 04-Dec-2016 Bravo DUNN, Yoko Hammonds MD, Yoko Hammonds MD, Yoko Bazan Start : 04-Dec-2016 End : 04-Dec-2016 Inactive Comments: myalgias Comment on above: myalgias cefprozil 500 mg oral tablet (20 sources) Cephalosporin Antibacterial Start: 12-11-2021 take 1 tablet by mouth twice daily as needed Cefprozil 500 MG Oral Tablet 1 (one) Tablet bid prn diverticulitis flare for 0 days Quantity: 20 {Tablet} Refills: 0 Ordered: 11-Dec-2021 Bravo DUNN, Yoko Hammonds MD, Yoko Hammonds MD, Yoko Bazan Start : 11-Dec-2021 Active End: 09-03-2010 take 1 tablet by mouth twice daily CEFZIL, 500MG (Oral Tablet) 1 bid for 0 days Refills: 0 Ordered: 03-Sep-2010 ERNA Garisa LPN End : 03-Sep-2010 Discontinued Comments: This order discontinued per [facility]. Comment on above: This order discontin ued per [facility]. celecoxib 200 mg oral capsule (20 sources) Nonsteroidal Anti-inflammatory Drug Start: 12-09-19 15 End: 11-13-19 16 take 1 capsule by mouth once daily CELEBREX, 200MG (Oral Capsule) 1 Capsule qd for 0 days Quantity: 14 {Capsule} Refills: 0 Ordered: 13-Nov-2015 Sarah Ybarra RN Start : 08-Dec-2014 End : 13-Nov-2015 Inactive chlorthalidone 25 mg oral tablet (20 sources) Thiazide-like Diuretic Start: 07-20-19 20 End: 07-20-19 20 take 1 tablet by mouth once daily Chlorthalidone 25 MG Oral Tablet 1 (one) Tablet qd for 0 days Quantity: 30 {Tablet} Refills: 3 Ordered: 20-Jul-2019 Mel Esquivel DO Start : 20-Jul-2019 End : 20-Jul-2019 Inactive Comments: renal insufficiency Start: 05-05-2019 take 1 tablet by triston th once daily Chlorthalidone 25 MG Oral Tablet 1 (one) Tablet qd for 0 days Quantity: 30 {Tablet} Refills: 3 Ordered: 05-May-2019 Mel Esquivel DO, DO, Kathleen Start : 05-May-2019 Active Comment on above: renal insufficiency colchicine 0.6 mg oral capsule (16 sources) Start: 2 take 1 capsule by mouth once daily as needed Colchicine 0.6 MG Oral Capsule 1 (one) Capsule qd as directed prn for 0 days Quantity: 30 {Capsule} Refills: 0 Ordered: 11-Dec-2021 Bravo DUNN, Yoko Hammonds MD, Yoko Hammonds MD, Yoko Bazan Start : 11-Dec-2021 Active doxycycline hyclate 100 mg oral tablet (20 sources) Tetracycline-class Drug Start: End: 1 take 1 tablet by mouth twice daily Doxycycline Hyclate 100 MG Oral Tablet 1 (one) Tablet bid for 14 days Quantity: 28 {Tablet} Refills: 0 Ordered: 04-Jan-2021 Mel Esquivel DO Start : 04-Jan-2021 End : 18-Jan-2021 Inactive Start: 12-22-2020 take 1 tablet by triston th twice daily Doxycycline Hyclate 100 MG Oral Tablet 1 (one) Tablet bid for 14 days Quantity: 28 {Tablet} Refills: 0 Ordered: 22-Dec-2020 Mel Esquivel DO, DO, Kathleen Start : 22-Dec-2020 Active take 1 capsule by mo uth twice daily doxycycline hyclate 100 MG capsule Take 100 mg by mouth 2 times daily. Active EPINEPHrine 0.01 mg/ml / lidocaine hydrochloride 10 mg/ml injectable solution (10 sources) Antiarrhythmic, alpha-Adrenergic Agonist, beta-Adrenergic Agonist, Catecholamine, Amide Local Anesthetic Start: 03-01-2025 End: 03-01-2025 lidocaine-EPINEPHrine (Xylocaine W/EPI) 1 %-[id number] injection 2 mL Start: 03-01-2025 End: 03-01-2025 2 mL, Injection, Once, On 03/01/25 at 1130, For 1 dose FreeStyle Demetrice 14 Day Reade r Device (13 sources) Start: 12-11-2021 End: 03-12-2022 FreeStyle Demetrice 14 Day Reade r Device 1 (one) Device as directed qd monitoring for 0 days Quantity: 1 {Each} Refills: 0 Ordered: 12-Mar-2022 Bravo DUNN, Yoko Hammonds MD, Yoko Swanson MD Start : 11-Dec-2021 End : 12-Mar-2022 Inactive Start: 12-11-2021 End: 03-12-2022 FreeStyle Demetrice 14 Day Reade r Device 1 (one) Device as directed qd monitoring for 0 days Quantity: 1 {Each} Refills: 0 Ordered: 12-Mar-2022 Yoko Hammonds MD Start : 11-Dec-2021 End : 12-Mar-2022 Inactive Start: 12-11-2021 FreeStyle Libr e 14 Day [place] Device 1 (one) Device as directed qd monitoring for 0 days Quantity: 1 {Each} Refills: 0 Ordered: 11-Dec-2021 Yoko Hammonds MD Start : 11-Dec-2021 Active FreeStyle Demetrice 14 Day Senso r Miscellaneous (13 sources) Start: 12-11-2021 End: 03-12-2022 FreeStyle Demetrice 14 Day Senso r Miscellaneous 1` Actuation qd as directed for 0 days Quantity: 2 {Each} Refills: 0 Ordered: 12-Mar-2022 Yoko Hammonds MD, MD, Yoko Swanson MD Start : 11-Dec-2021 End : 12-Mar-2022 Inactive Start: 12-11-2021 End: 03-12-2022 FreeStyle Demetrice 14 Day Senso r Miscellaneous 1` Actuation qd as directed for 0 days Quantity: 2 {Each} Refills: 0 Ordered: 12-Mar-2022 Yoko Hammonds MD Start : 11-Dec-2021 End : 12-Mar-2022 Inactive Start: 12-11-2021 FreeStyle Libr e 14 Day Sensor Miscellaneous 1` Actuation qd as directed for 0 days Quantity: 2 {Each} Refills: 0 Ordered: 11-Dec-2021 Yoko Hammonds MD Start : 11-Dec-2021 Active hydroCHLOROthiazide 25 mg / triamterene 37.5 mg oral capsule (20 sources) Potassium-sparing Diuretic, Thiazide Diuretic Start: 05-05-2019 End: 05-05-2019 take 1 capsule by mouth once daily Triamterene-HCTZ 37.5-25 MG Oral Capsule 1 (one) Capsule qd for 90 days Quantity: 90 {Capsule} Refills: 1 Ordered: 05-May-2019 Mel Esquivel DO Start : 05-May-2019 End : 05-May-2019 Discontinued Comments: azotmeia Start: 04-09-2019 take 1 capsule by mo uth once daily Triamterene-HCTZ 37.5-25 MG Oral Capsule 1 (one) Capsule qd for 90 days Quantity: 90 {Capsule} Refills: 1 Ordered: 09-Apr-2019 Lilia Vitale LPN Start : 09-Apr-2019 Active Comment on above: azotmeia ibuprofen 400 mg oral tablet (20 sources) Nonsteroidal Anti-inflammatory Drug End: 09-03-19 11 take 1 tablet by mouth every eight hours as needed MOTRIN, 400MG (Oral Tablet) 1 q 8 hours prn for 0 days Refills: 0 Ordered: 03-Sep-2010 ERNA Garsia LPN End : 03-Sep-2010 Discontinued Comments: This order discontinued per [facility]. Comment on above: This order discontin ued per [facility]. indomethacin 25 mg oral capsule (16 sources) Nonsteroidal Anti-inflammatory Drug Start: 12-12-19 22 Indomethacin 25 MG Oral Capsule 1 or 2 Capsule q 8-12 hrs prn gout flare for 0 days Quantity: 30 {Capsule} Refills: 0 Ordered: 11-Dec-2021 Yoko Hammonds MD, MD, Dana M Bonezzi MD, Yoko Bazan Start : 11-Dec-2021 Active iopamidol (ISOVUE-370) 76 % injection 75 mL (1 source) Start: 12-15-19 End: 12-15-19 20 iopamidol (ISOVUE-370) 76 % injection 75 mL lansoprazole 15 mg delayed release oral capsule (20 sources) Proton Pump Inhibitor End: 09-03-19 11 take 1 capsule by mouth once daily PREVACID, 15MG (Oral Capsule Delayed Release) 1 qd for 0 days Refills: 0 Ordered: 03-Sep-2010 ERNA Garsia LPN End : 03-Sep-2010 Inactive 24 hr lovastatin 20 mg / niacin 500 mg extended release oral tablet (20 sources) HMG-CoA Reductase Inhibitor, Nicotinic Acid End: 08-23-19 09 ADVICOR, 500-20MG (PO Tab CR) for 0 days Refills: 0 Ordered: 23-Aug-2008 ERNA Garsia LPN End : 23-Aug-2008 Inactive End: 08-23-2008 ADVICOR, 500-20MG (PO Tab CR ) for 0 days Refills: 0 Ordered: 23-Aug-2008 ERNA Garsia LPN End : 23-Aug-2008 Inactive End: 08-23-2008 ADVICOR, 500-20MG (PO Tab CR ) for 0 days Refills: 0 Ordered: 23-Aug-2008 ERNA Garsia End : 23-Aug-2008 Inactive modified 24 hr metFORMIN hydrochloride 500 mg extended release oral tablet (20 sources) Biguanide Start: 06-14-2020 End: 07-14-2020 metFORMIN HCl ER (MOD) 500 MG Oral Tablet Extended Release 24 Hour 1 (one) Tablet 1 tablet in the evening, 2 tabelts in the morning for 30 days Refills: 0 Ordered: 14-Jun-2020 Mel Esquivel DO Start : 14-Jun-2020 End : 14-Jul-2020 Inactive Comments: dr Hairston Start: 06-27-2017 End: 06-27-2018 take 1 tablet by mouth every twenty-four hours MetFORMIN HCl ER (MOD) 500 MG Oral Tablet Extended Release 24 Hour 1 (one) Tablet ER 24HR bid for 365 days Quantity: 730 {Tablet} Refills: 0 Ordered: 27-Jun-2017 Mel Esquivel DO, DO, Kathleen Start : 27-Jun-2017 End : 27-Jun-2018 Inactive take 2 tablets by mo uth twice daily, then take 1 tablet by mouth once in the morning MetFORMIN HCl 500 MG (MOD) Tab SR 24 HR Take by mouth 2 times daily. 2 tabs q am and 1 tab q PM Active take 1 tablet by mouth twice jonny ly metFORMIN (GLUCOPHAGE-XR) 500 MG extended release tablet Take 500 mg by mouth 2 times daily 0 Active Comment on above: dr Hairston multivitamin oral tablet (7 sources) multivitamin ora l tablet Once a day. Active niacin 500 mg extended release oral capsule (20 sources) Nicotinic Acid take 1 mg by mouth once daily NIACIN CR, 500MG (Oral Capsule Extended Release) daily (500 MG) Inactive 24 hr niacin 500 mg / simvastatin 20 mg extended release oral tablet (20 sources) HMG-CoA Reductase Inhibitor, Nicotinic Acid Start: 10-08-19 14 End: 10-08-19 14 take 1 tablet by mouth once daily SIMCOR, 500-20MG (Oral Tablet Extended Release 24 Hour) 1 Tablet ER 24HR daily for 0 days Quantity: 3 {Tablet} Refills: 3 Ordered: 07-Oct-2013 Bravo DUNN, Yoko Hammonds MD, Yoko Swanson MD Start : 07-Oct-2013 End : 07-Oct-2013 Discontinued pravastatin sodium 40 mg oral tablet (20 sources) HMG-CoA Reductase Inhibitor Start: 06-27-20 17 End: 06-27-20 18 take 1 tablet by mouth once daily at bedtime Pravachol 40 MG Oral Tablet 1 (one) Tablet qhs for 365 days Quantity: 365 {Tablet} Refills: 0 Ordered: 27-Jun-2017 Mel Esquivel DO Start : 27-Jun-2017 End : 27-Jun-2018 Inactive 2 ml rabies immune globulin, human 150 unt/ml injection (7 sources) Start: 09-07-19 23 Imogam Rabies-HT (PF) 150 unit/mL intramuscular solution 1500 mL IM times one for 0 days Quantity: 1500 {Milliliter} Refills: 0 Ordered: 07-Sep-2022 Bravo DUNN, Yoko Hammonds MD, Yoko Swanson MD Start : 07-Sep-2022 Active Comments: does of 20 units per kg which pt is 75 kg making it 1500 units Comment on above: does of 20 units per kg which pt is 75 kg making it 1500 units ramipril 5 mg oral tablet (20 sources) Angiotensin Converting Enzyme Inhibitor Start: 01-26-20 10 take 1 tablet by mouth twice daily ALTACE, 5MG (Oral Tablet) 1 Tablet bid for 0 days Quantity: 180 {Tablet} Refills: 3 Ordered: 22-Mar-2010 ERNA Garsia LPN Start : 25-Jan-2010 Inactive rifAXIMin 200 mg oral tablet (20 sources) Rifamycin Antibacterial Start: 11-15-19 15 End: 11-18-19 15 take 1 tablet by mouth three times daily XIFAXAN, 200MG (Oral Tablet) 1 (one) Tablet tid for 3 days Quantity: 9 {Tablet} Refills: 0 Ordered: 14-Nov-2014 Jumana Hamilton CMA Start : 14-Nov-2014 End : 17-Nov-2014 Inactive simvastatin 20 mg oral tablet (20 sources) HMG-CoA Reductase Inhibitor Start: 11-13-19 16 End: 05-22-20 16 take 1 tablet by mouth once daily Simvastatin 20 MG Oral Tablet 1 (one) Tablet daily for 0 days Quantity: 30 {Tablet} Refills: 11 Ordered: 22-May-2016 Lilia Vitale RN Start : 13-Nov-2015 End : 22-May-2016 Inactive Technetium tc 99m sestamibi (SESTAMIBI) 7.2-38.5 millicurie (1 source) Start: 06-25-20 End: 06-25-20 24 7.2-38.5 millicurie, Intravenous, ONCE, 1 dose, On Fri06/25/24 at 0830 Technetium tc 99m sestamibi (SESTAMIBI) 7.2-49.5 millicurie (1 source) Start: 06-25-20 End: 06-25-20 24 7.2-49.5 millicurie, Intravenous, ONCE, 1 dose, On Fri06/25/24 at 1000 terbinafine 250 mg oral tablet (20 sources) Allylamine Antifungal End: 09-03-19 11 take 1 tablet by mouth once daily LAMISIL, 250MG (Oral Tablet) 1 qd for 0 days Refills: 0 Ordered: 03-Sep-2010 ERNA Garsia LPN End : 03-Sep-2010 Inactive Comments: for 3 months Comment on above: for 3 months 60 actuat testosterone 20.25 mg/actuat topical gel (20 sources) Androgen Start: 11-29-19 20 End: 12-12-19 22 AndroGel Pump 20.25 MG/ACT (1.62%) Transdermal Gel 1 (one) pumps qd for 90 days Refills: 3 Ordered: 11-Dec-2021 ERNA Garsia LPN Start : 29-Nov-2019 End : 11-Dec-2021 Inactive Comments: Mail order. Start: 08-20-2018 Testosterone 1 2.5 MG/ACT (1%) GEL Indications: Hypogonadism male Use 3 pumps daily. 6 Bottle 3 08/20/2018 Active Start: 12-04-2016 AndroGel Pump 20.25 MG/ACT (1.62%) Transdermal Gel 2 (two) pumps qd for 90 days Refills: 3 Ordered: 04-Dec-2016 Yoko Hammonds MD Start : 04-Dec-2016 Active Comments: Mail order. Comment on above: Mail order. 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 on [facility]. Dr Castillo MRI adenosine cardiac stress Conditions associated with dizziness or vertigo (20 sources) Meniere's disease; Translations: [Meniere's disease, unspecified ear] Resolved: 7 04-16-2017 Chronic Diabetes mellitus with complications (20 sources) Type II diabetes mellitus uncontrolled; Translations: [Uncontrolled type 2 diabetes mellitus] Resolved: 2 05-05-2019 Chronic Comment on above: new start [facility] Diabetes mellitus without complication (20 sources) Type 2 diabetes mellitus; Translations: [Type II diabetes mellitus, well controlled] Resolved: 2 08-10-2018 Chronic Comment on above: dr Radha KOEHLER 6 .2 09/28 and repeating soon new start of metform in in decemeber from radha yovanny KOEHLER 6 .2 09/28 and repeating soon-- does diet controlled dr Radha KOEHLER 6 .2 09/28 and repeating soon-- does diet controlledHaic 6.4 fall 2019 7.8 now see what emp agliflozin and amaryldr Radha MASON 6.2 09/28 and repeating soon-- does diet controlledHaic 6.4 fall 2019 doing better on amar yl and hga1c came down at goaldr Radha MASON 6.2 09/28 and repeating soon-- does diet controlledHaic 6.4 fall 2019 on jaridance and gli pizide. it did go up some with introduce back some carbs and sweets. changing dietdr Radha Hairston- he cannot increase statins without aching. not yet want to do repathae close to LDL goal. Diabetes mellitus without complication (20 sources) Impaired fasting glucose; Translations: [Impaired fasting glycaemia] Resolved: 6 07-03-2016 Episodic Comment on above: pt off all high GI. ? statin off niacin. eating better. weight good. try off statin and stillup. senia about metformin not want to do yet. he wants to to go another 120 days if keeps going up on metforminfamilial Diabetes mellitus without complication (20 sources) Diabetes mellitus without complication Disorders of lipid metabolism (20 sources) Hypercholesterolemia; Translations: [Hypercholesterolemia] Onset: 4 05-07-2018 Chronic Comment on above: willrecheck LDL will see if better like lower in past better willrecheck LDL will see if better like lower in past betterLDL was 90 see with better hga1c if better await NMRCTA done good 2009 Diverticulosis and diverticulitis (20 sources) Diverticular disease of colon; Translations: [Diverticulosis of both small and large intestine without bleeding] 03-06-2018 Chronic Esophageal disorders (20 sources) Michael's esophagus; Translations: [Michael's esophagus] 03-06-2018 Chronic Comment on above: EGD 11/16 showed mil d gastritis and h/o barretts but min that biospsy were clear this timesees at [facility] on PPI bid. EGD 2019 bx negative every 3 years.EGD 05/29 showed mild gastritis and h/o barretts but min that biospsy were clear this timesees at [facility] Essential hypertension (20 sources) Benign hypertension; Translations: [HTN (hypertension), benign] Onset: 5 05-05-2019 Chronic Gout and other crystal arthropathies (20 sources) Gout; Translations: [Gout] 11-17-2019 Chronic Comment on above: original level 8.8 now 5.0 in flare nee d to check at steady state.original level 8.8 right now no signs a nd symptoms uric acid goodoriginal level 8.8 Headache; including migraine (20 sources) Migraine; Translations: [Migraine] Resolved: 7 04-16-2017 Chronic Comment on above: felt for tension not migraine Headache; including migraine (20 sources) Headache; including migraine Hyperplasia of prostate (11 sources) Benign prostatic hyperplasia; Translations: [Benign prostatic hyperplasia without lower urinary tract symptoms] Onset: 5 05-16-2015 Chronic Immunizations and screening for infectious disease (20 sources) Exposure to Rabies virus; Translations: [Rabies exposure] 09-10-2022 Episodic Intestinal infection (20 sources) Traveler's diarrhea; Translations: [Travelers' diarrhea] Resolved: 6 07-03-2016 Episodic Nutritional deficiencies (20 sources) Vitamin D deficiency; Translations: [Vitamin D deficiency] 05-05-2019 Chronic Comment on above: better on vitam D Other aftercare (20 sources) Patient encounter status; Translations: [Therapeutic drug monitoring] Resolved: 2 06-14-2020 Episodic Other and unspecified benign neoplasm (20 sources) Benign neoplasm of heart; 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 richi norwood ( in [facility] now) Other and unspecified benign neoplasm (1 source) Benign neoplasm of trunk; Translations: [Benign neoplasm of other specified sites] 03-17-2025 Episodic Other circulatory disease (20 sources) Elevated blood pressure; Translations: [Elevated blood pressure reading] 05-07-2018 Episodic Comment on above: prehtn. 130/80. pt t reated wtih low dose acei to get lower Other connective tissue disease (20 sources) Pain in forearm; Translations: [Pain in forearm, unspecified laterality] Resolved: 7 04-16-2017 Episodic Other connective tissue disease (20 sources) Pain in toe; Translations: [Toe pain] Resolved: 2 08-09-2019 Episodic Other endocrine disorders (11 sources) Deficiency of testosterone biosynthesis; Translations: [Testicular hypofunction] Onset: 5 05-16-2015 Chronic Other endocrine disorders (20 sources) Endocrine disorder, unspecified; Translations: [Hypotestosteronism] Resolved: 3 05-07-2018 Episodic Comment on above: testosterone 298- 3 18 good nowtestosterone 298- 318 Other gastrointestinal disorders (20 sources) Irritable bowel syndrome; Translations: [Irritable bowel syndrome] 03-06-2018 Chronic Comment on above: still present but ma portia Other gastrointestinal disorders (20 sources) Personal history of other diseases of the digestive system; Translations: [History of diverticulitis] 03-06-2018 Episodic Other gastrointestinal disorders (20 sources) Heartburn; Translations: [SYMPTOMS INVOLVING DIGESTIVE SYSTEM; HEARTBURN] Resolved: 7 04-16-2017 Episodic Other hematologic conditions (20 sources) Increased serum protein level; Translations: [Elevated serum protein level] 03-12-2022 Episodic Other injuries and conditions due to external causes (20 sources) Other nonspecific findings on examination of urine; Translations: [Abnormal urine findings] Resolved: 7 04-16-2017 Episodic Other liver diseases (20 sources) Increased creatine kinase level; Translations: [Elevated CPK] Resolved: 7 04-16-2017 Episodic Comment on above: muslce aches from st atins intermittently Other lower respiratory disease (1 source) Dyspnea; Translations: [Shortness of breath] 06-25-2024 Episodic Other lower respiratory disease (2 sources) Shortness of breath; Translations: [Shortness of breath] Onset: 4 Episodic Other male genital disorders (20 sources) Prostate tender; Translations: [Tender prostate] Resolved: 2 12-22-2020 Episodic Other non-traumatic joint disorders (20 sources) Knee pain; Translations: [Knee pain] Resolved: 6 07-03-2016 Episodic Other non-traumatic joint disorders (20 sources) Pain in unspecified knee; Translations: [Knee pain] Resolved: 6 07-03-2016 Episodic Other nutritional; endocrine; and metabolic disorders (11 sources) Hypercalcemia; Translations: [Hypercalcemia] Onset: 5 05-16-2015 Chronic Other nutritional; endocrine; and metabolic disorders (20 sources) Cholesterol level - finding; Translations: [Low HDL (under 40)] 12-22-2020 Chronic Comment on above: genetic - walks 3-4 mi daily most of time Other nutritional; endocrine; and metabolic disorders (20 sources) Blood urate raised; Translations: [Elevated uric acid in blood] 12-22-2020 Episodic Comment on above: no gouty flare-- bef ore increase meds when normal in past --r/o inflmmatroy elevelation Other nutritional; endocrine; and metabolic disorders (20 sources) History of clinical finding in subject; Translations: [History of hypotestosteronemia] 12-11-2021 Episodic Comment on above: in past on low testo sterone. now good. Other screening for suspected conditions (not mental disorders or infectious disease) (13 sources) Hypotestosteronism; Translations: [Testosterone deficiency] 05-05-2019 Chronic Comment on above: testosterone 298- Other skin disorders (5 sources) Change in skin lesion; Translations: [Disorder of pigmentation, unspecified] 03-01-2025 Episodic Other upper respiratory disease (20 sources) Allergic rhinitis; Translations: [Allergic rhinitis] Resolved: 7 04-16-2017 Chronic Residual codes; unclassified (20 sources) Body mass index (BMI) 23.0-23.9, adult; Translations: [Body mass index (BMI) 22.0-22.9, adult] Resolved: 7 12-04-2016 Episodic Comment on above: 22.78 Residual codes; unclassified (20 sources) Non-smoker; Translations: [Nonsmoker] 06-14-2020 Episodic Spondylosis; intervertebral disc disorders; other back problems (20 sources) Degeneration of lumbar intervertebral disc; Translations: [Other intervertebral disc degeneration, lumbar region] Resolved: 7 04-16-2017 Chronic Unclassified (20 sources) WWV Resolved: 4 09-07-2013 Unclassified (20 sources) Hypertension 401.1 (Renamed from Hypertension (401.0)) Unclassified (20 sources) SYMPTOMS INVOLVING DIGESTIVE SYSTEM; HEARTBURN (787.1) Unclassified (20 sources) Cholecystitis, chronic (575.11) Unclassified (20 sources) Unclassified (20 sources) ABNORMAL BLOOD CHEMISTRY NEC (790.6) Unclassified (20 sources) Non-smoker; Translations: [Nonsmoker] 03-06-2018 Unclassified (20 sources) Screening status; Translations: [Screening PSA (prostate specific antigen)] 03-06-2018 Unclassified (20 sources) Testosterone deficiency (257.2) Unclassified (20 sources) Abnormal urine findings (791.9) Unclassified (20 sources) Degenerative Disc Disease - Lumbar (722.52) Unclassified (20 sources) Well Male Exam (V70.0) Unclassified (20 sources) Forearm Pain (719.43) Unclassified (20 sources) lucas Resolved: 7 04-16-2017 Comment on above: will take [employer] and [employer] call if not work. 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) History of diverticulitis Unclassified (20 sources) Diverticulosis of both small and large intestine without bleeding Unclassified (20 sources) Body mass index (BMI) 23.0-23.9, adult; Translations: [Body mass index 20-24 - normal] Resolved: 7 12-04-2016 Unclassified (20 sources) HTN (hypertension), benign Unclassified (20 sources) BMI 22.0-22.9, adult; Translations: [Body mass index 20-24 - normal] 06-14-2020 Unclassified (20 sources) PVC (premature ventricular contraction) Unclassified (2 sources) New Patient; Translations: [New Patient] Onset: 5 Past or Other Problems Problem Classification Problem Date Documented Date Episodic/Chronic Headache; including migraine (14 sources) Tension-type headache; Translations: [Tension headache] Resolved: 7 04-16-2017 Episodic Mood disorders (1 source) Mood disorders Onset: 1 04-04-2021 Other and unspecified benign neoplasm (13 sources) Papillary fibroelastoma; 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 Dr. richi norwood ( now at [facility]) echo 2019 due 5 year came down last two t imes Unclassified (20 sources) Patient encounter status; Translations: [Encounter for routine history and physical exam for male] Resolved: 7 03-06-2018 Comment on above: bd 4-15 good. on ppi . psa good 4-15, colonscopy 9-16 Unclassified (20 sources) rotator cuff strain 03-06-2018 Comment on above: 2006 Unclassified (20 sources) Elevated uric acid in blood Unclassified (11 sources) Low HDL (under 40) Unclassified (11 sources) Elevated liver function tests Unclassified (15 sources) Elevated PSA Unclassified (9 sources) Tender prostate Unclassified (4 sources) Encounter for hepatitis C virus screening test for high risk patient Unclassified (3 sources) Encounter for well adult exam with abnormal findings (Renamed from Encounter for general adult medical examination with abnormal findings) Unclassified (2 sources) History of hypotestosteronemia Unclassified (2 sources) Abnormal laboratory test Unclassified (2 sources) Abnormal echocardiogram Results Test Name Value Interpretation Reference Range Facility 36on 03-09-2025 36 ----- Message from Zuleima Gamble PA-C sent at 03/09/2025 1:32 PM EDT ----- Antonia Jeong, This is a friend of Dr. Ruvalcaba's who I performed a couple of biopsies for. Left low back biopsy resulted with high grade dysplastic compound nevus with need for surgical excision. Jordon has asked if you would take this case. Fay, Please work on scheduling this patient for excision biopsy proven high-grade dysplastic compound nevus of the left low back with layered versus complex closure under local anesthesia as an outpatient at [facility]. 1 hour. Outpatient. Zuleima Gamble PA-C [facility] 36 Called and spoke wit h patient regarding biopsy results. He had already reached out to our retired partner, Dr. Ruvalcaba, who advised excision with Dr. Gerard in April when he returns from travel. Results can be found below. Our office to coordinate surgery. Final Diagnosis A. SKIN, RIGHT SUPRACLAVICULAR, PUNCH: - CONSISTENT WITH PORTION OF SEBORRHEIC KERATOSIS B. SKIN, LEFT MID LOW BACK, PUNCH: - MODERATE TO SEVERELY (HIGH-GRADE) DYSPLASTIC COMPOUND NEVUS Comment: An excision is needed to ensure complete removal. Ancillary studies: SOX10: Positive PRAME: Positive Zuleima Gamble PA-C [facility] Office Visiton 03-01-2025 Follow-up visit [id number] Marcella Yanes 1960 M Date Provider Department Center 03/01/2025 61-ZULEIMA GAMBLE [facility] None No family history on file Level of Service:68112 [place] OFFICE/OUTPATIENT NEW LOW MDM 30 MINUTES Reason for Visit and Comments: New Patient [[id number]] [facility] Microalb:Creat Ratio,Random URon 12-31-2024 MALB:CREAT 37.2 mg/g CRE Normal [facility] Comment on above: Result Comment: AMENDED REPORT 12/31/24 0749 MALB:CREAT previously reported as: 372.2 mg/g CRE Performed By: #### L [id number], L502.0250, L500.4050, L500.4100 #### [facility] [address] [place], [address] Albumin DL <= 20 mg/L (U) [M ass/Vol]Ordered By: Yoko Hammonds on 11-02-2024 Urine Random Microalbumin 26.2 mg/L NO RANGE EST. [facility] Anion gap in Serum or Plasma Ordered By: Yoko Hammonds on 11-02-2024 Anion gap [Moles/Vol] 13 mmol/L 5-15 [facility] BUN/creatinine ratioOrdered By: Yoko Hammonds on 11-02-2024 Urea nitrogen/Creatinine [Mass ratio] 25.3 mg/mg High 10-20 [facility] Bilirubin, totalOrdered By: Yoko Hammonds on 11-02-2024 Bilirubin [Mass/Vol] 0.43 mg/dL 0.00-1.30 [facility] Calculated very low density lipoprotein (VLDL) cholesterol measurementOrdered By: Yoko Hammonds on 11-02-2024 VLDL Cholesterol 34 mg/dL 5-40 [facility] Carbon dioxide, total [Moles /volume] in Central venous bloodOrdered By: Yoko Hammonds on 11-02-2024 CO2 [Moles/Vol] 24.6 mmol/L 21.0-32.0 [facility] Chloride assayOrdered By: Royer Hammonds on 11-02-2024 Chloride [Moles/Vol] 103 mmol/L 98-108 [facility] Comprehensive Metabolic Prof ilon 11-02-2024 Albumin [Mass/Vol] 4.5 g/dL Normal 3.4-4.8 [facility] Comment on above: Performed By: #### L [id number], L502.0250, L500.4050, L500.4100 #### [facility] [address] [place], [address] Albumin/Globulin [Mass ratio] 1.6 {ratio} Normal 0.9-2.4 [facility] Comment on above: Performed By: #### L [id number], L502.0250, L500.4050, L500.4100 #### [facility] [address] [place], [address] ALK PHOS 59 U/L Normal 40-129 [facility] Comment on above: Performed By: #### L [id number], L502.0250, L500.4050, L500.4100 #### [facility] [address] [place], [address] ALT [Catalytic activity/Vol] 21 U/L Normal <=46 [facility] Comment on above: Performed By: #### L [id number], L502.0250, L500.4050, L500.4100 #### [facility] [address] [place], [address] AST [Catalytic activity/Vol] 23 U/L Normal <=37 [facility] Comment on above: Performed By: #### L [id number], [id number], L500.4050, L500.4100 #### [facility] [address] [place], [address] Bilirubin [Mass/Vol] 0.43 mg/dL Normal 0.00-1.30 [facility] Comment on above: Performed By: #### L [id number], L502.0250, L500.4050, L500.4100 #### [facility] [address] [place], [address] BUN/CRE 25.3 RATIO High 10-20 [facility] Comment on above: Performed By: #### L [id number], [id number], L500.4050, L500.4100 #### [facility] [address] [place], [address] Calcium [Mass/Vol] 9.4 mg/dL Normal 7.6-11.0 [facility] Comment on above: Performed By: #### L [id number], L502.0250, L500.4050, L500.4100 #### [facility] [address] [place], [address] Chloride [Moles/Vol] 103 mmol/L Normal 98-108 [facility] Comment on above: Performed By: #### L [id number], L502.0250, L500.4050, L500.4100 #### [facility] [address] [place], [address] CO2 [Moles/Vol] 24.6 mmol/L Normal 21.0-32.0 [facility] Comment on above: Performed By: #### L [id number], L502.0250, L500.4050, L500.4100 #### [facility] [address] [place], [address] Creatinine [Mass/Vol] 1.10 mg/dL Normal 0.70-1.20 [facility] Comment on above: Performed By: #### L [id number], L502.0250, L500.4050, L500.4100 #### [facility] [address] [place], [address] GAP 13 Normal 5-15 [facility] Comment on above: Performed By: #### L [id number], L502.0250, L500.4050, L500.4100 #### [facility] [address] [place], [address] GFR/1.73 sq M.predicted among non-blacks MDRD (S/P/Bld) [Vol rate/Area] 76 mL/min/{1.73_m2} Normal >60 [facility] Comment on above: Result Comment: mL/m in/1.73m2 CKD-EPI Creatinine Equation (2020) Performed By: #### L [id number], L502.0250, L500.4050, L500.4100 #### [facility] [address] [place], [address] Globulin (S) [Mass/Vol] 2.8 g/dL Normal 2.2-4.2 [facility] Comment on above: Performed By: #### L [id number], L502.0250, L500.4050, L500.4100 #### [facility] [address] [place], [address] Glucose [Mass/Vol] 150 mg/dL High 70-99 [facility] Comment on above: Performed By: #### L [id number], L502.0250, L500.4050, L500.4100 #### [facility] [address] [place], [address] Potassium [Moles/Vol] 3.9 mmol/L Normal 3.3-5.1 [facility] Comment on above: Performed By: #### L 501.9985, L502.0250, L500.4050, L500.4100 #### [facility] [address] [place], [address] Sodium [Moles/Vol] 140 mmol/L Normal 133-145 [facility] Comment on above: Performed By: #### L [id number], L502.0250, L500.4050, L500.4100 #### [facility] [address] [place], [address] T PROT 7.4 g/dL Normal 5.9-8.4 [facility] Comment on above: Performed By: #### L [id number], L502.0250, L500.4050, L500.4100 #### [facility] [address] [place], [address] Urea nitrogen [Mass/Vol] 28 mg/dL High 4-19 [facility] Comment on above: Performed By: #### L [id number], L502.0250, L500.4050, L500.4100 #### [facility] [address] [place], [address] Creatinine Unsp time (U) [Ma ss/Vol]Ordered By: Yoko Hammonds on 11-02-2024 Creatinine (U) [Mass/Vol] 70.40 mg/dL 39.00-259. 00 [facility] GFR/1.73 sq M.predicted santos g non-blacks MDRD (S/P/Bld) [Vol rate/Area]Ordered By: Yoko Hammonds on 11-02-2024 Estimated GFR (MDRD) Non-Af Amer 76 >60 [facility] Comment on above: mL/min/1.73m2 CKD-EP I Creatinine Equation (2020) Hemoglobin A1con 11-02-2024 HbA1c (Bld) [Mass fraction] 7.0 % High <=5.6 [facility] Comment on above: Result Comment: Norm al < 5.7 % Prediabetic 5.7 - 6.4 % Diabetic >or= 6.5 % Please note range changes. Performed By: #### L [id number], L502.0250, L500.4050, L500.4100 #### [facility] [address] [place], [address] Hemoglobin A1c percentageOrd ered By: Yoko Hammonds on 11-02-2024 HbA1c (Bld) [Mass fraction] 7.0 % High <5.7 [facility] Comment on above: Normal < 5.7 % Predi abetic 5.7 - 6.4 % Diabetic >or= 6.5 % Please note range changes. LDL calc ser/plasOrdered By: Yoko Hammonds on 11-02-2024 LDL Cholesterol, Calculated 57 mg/dL [facility] Comment on above: Qfjzpcqehq=938-238 m g/dL & Higher Utgy=630 mg/dL or greater Laboratory - Chemistry and C hemistry - challengeOrdered By: Yoko Hammonds on 11-02-2024 AST [Catalytic activity/Vol] 23 U/L <38 [facility] Lipid Profileon 11-02-2024 CHOL:HDL 3.52 Normal [facility] Comment on above: Performed By: #### L [id number], L502.0250, L500.4050, L500.4100 #### [facility] [address] [place], [address] Cholesterol [Mass/Vol] 128 mg/dL Normal <=200 [facility] Comment on above: Result Comment: Chol esterol level, Desirable <200 mg/dL Borderline high cholesterol 200-239 mg/dL High cholesterol >=240 mg/dL Recommendations of the NCEP Adult Treatment Panel for the following risk-cutoff thresholds for the [place] population. Performed By: #### L [id number], L502.0250, L500.4050, L500.4100 #### [facility] [address] [place], [address] Cholesterol in HDL [Mass/Vol] 36 mg/dL Low [facility] Comment on above: Result Comment: Melanie onal Cholesterol Education Program (NCEP) guidelines: <40 mg/dL: Low HDL-cholesterol (major risk factor for CHD) >= 60 mg/dL: High HDL-cholesterol (negative risk factor for CHD) HDL-cholesterol is affected by a number of factors, e.g. smoking, exercise, hormones, sex and age. Performed By: #### L [id number], L502.0250, L500.4050, L500.4100 #### [facility] [address] [place], [address] Cholesterol in LDL [Mass/Vol] 57 mg/dL Normal [facility] Comment on above: Result Comment: Bord kspbwi=654-955 mg/dL Higher Kxxn=044 mg/dL or greater Performed By: #### L [id number], L502.0250, L500.4050, L500.4100 #### [facility] [address] [place], [address] Cholesterol in VLDL [Mass/Vol] 34 mg/dL Normal 5-40 [facility] Comment on above: Performed By: #### L [id number], L502.0250, L500.4050, L500.4100 #### [facility] [address] [place], [address] Triglyceride [Mass/Vol] 171 mg/dL Normal [facility] Comment on above: Result Comment: The drugs N-Acetylcysteine and Metamizole may falsely depress this assay. Normal range: <150 mg/dL Borderline High: 150-199 mg/dL High: 200-499 mg/dL Very High: >500 mg/dL Performed By: #### L 501.9985, L502.0250, L500.4050, L500.4100 #### [facility] [address] [place], [address] Microalbumin/creat ratio urO rdered By: Yoko Hammonds on 11-02-2024 Urine Microalbumin/Creatinine Ratio 372.2 mg/g CRE [facility] Potassium (Unsp spec) [Mass/ Vol]Ordered By: Yoko Hammonds on 11-02-2024 Potassium [Moles/Vol] 3.9 mmol/L 3.3-5.1 [facility] Screening total cholesterol/ high density lipoprotein (HDL) cholesterol ratioOrdered By: Yoko Hammonds on 11-02-2024 Cholesterol.total/Choles terol in HDL [Mass ratio] 3.52 {ratio} [facility] Serum creatinine measurement (mass/volume)Ordered By: Yoko Hammonds on 11-02-2024 Creatinine [Mass/Vol] 1.10 mg/dL 0.70-1.20 [facility] Serum globulin measurementOr dered By: Yoko Hammonds on 11-02-2024 Globulin (S) [Mass/Vol] 2.8 g/dL 2.2-4.2 [facility] Serum glucose measurement (m ass/volume)Ordered By: Yoko Hammonds on 11-02-2024 Glucose [Mass/Vol] 150 mg/dL High 70-99 [facility] Serum or plasma alanine fraga otransferase (ALT) measurementOrdered By: Yoko Hammonds on 11-02-2024 ALT [Catalytic activity/Vol] 21 U/L <47 [facility] Serum or plasma albumin anna urement (mass/volume)Ordered By: Yoko Hammonds on 11-02-2024 Albumin [Mass/Vol] 4.5 g/dL 3.4-4.8 [facility] Serum or plasma albumin/glob ulin mass ratioOrdered By: Yoko Hammonds on 11-02-2024 Albumin/Globulin [Mass ratio] 1.6 {ratio} 0.9-2.4 [facility] Serum or plasma alkaline shaneka sphatase measurementOrdered By: Yoko Hammonds 11-02-2024 ALP [Catalytic activity/Vol] 59 U/L 40-129 [facility] Serum or plasma calcium anna urement (mass/volume)Ordered By: Yoko Hammonds 11-02-2024 Calcium [Mass/Vol] 9.4 mg/dL 7.6-11.0 [facility] Serum or plasma cholesterol in HDL measurement (mass/volume)Ordered By: Yoko Hammonds on 11-02-2024 Cholesterol in HDL [Mass/Vol] 36 mg/dL Low >40 [facility] Comment on above: National Cholesterol Education Program (NCEP) guidelines:<40 mg/dL: Low HDL-cholesterol (major risk factor for CHD)>= 60 mg/dL: High HDL-cholesterol (negative risk factor for CHD)HDL-cholesterol is affected by a number of factors, e.g. smoking, exercise, hormones, sex and age. Serum or plasma cholesterol measurement (mass/volume)Ordered By: Yoko Hammonds on 11-02-2024 Cholesterol [Mass/Vol] 128 mg/dL <201 [facility] Comment on above: Cholesterol level, D esirable <200 mg/dLBorderline high cholesterol 200-239 mg/dLHigh cholesterol >=240 mg/dLRecommendations of the NCEP Adult Treatment Panel for the following risk-cutoff thresholds for the [place] population. Serum or plasma urea nitroge n measurement (mass/volume)Ordered By: Yoko Hammonds on 11-02-2024 Urea nitrogen [Mass/Vol] 28 mg/dL High 4-19 [facility] Sodium levelOrdered By: Yoko Hammonds on 11-02-2024 Sodium [Moles/Vol] 140 mmol/L 133-145 [facility] Total proteinOrdered By: Fernie Hammonds on 11-02-2024 Protein [Mass/Vol] 7.4 g/dL 5.9-8.4 [facility] Triglycerides measurementOrd ered By: Yoko Hammonds on 11-02-2024 Triglyceride [Mass/Vol] 171 mg/dL <199 [facility] Comment on above: The drugs N-Acetylcy steine and Metamizole may falsely depress this assay. Normal range: <150 mg/dLBorderline High: 150-199 mg/dLHigh: 200-499 mg/dLVery High: >500 mg/dL NUC MYOCARD PERF STRESS MIBI EXERCISEon 06-25-2024 NUC MYOCARD PERF STRESS MIBI EXERCISE Overall: This exercise stress nuclear perfusion scan is NORMAL and negative for ischemia. Nuclear portion of the exam: No evidence of ischemia. No evidence of infarction. Normal left ventricular systolic function (LVEF 70%). TID is normal at 0.80. ECG portion of the exam: Baseline ECG: Normal sinus rhythm with [address] depressions in inferior leads. He exercised for 13:00 minutes on the Miguel protocol. He reached 119% age-predicted maximum heart rate. He achieved 15.3 METs, which represents excellent exercise capacity (191% predicted for age). Hypertensive at baseline (164/88), normal blood pressure response to exercise. Chronotropic index is normal at 1.45. He denied chest pain. There were no diagnostic ST segment changes to indicate ischemia. Rare PVC couplets at peak stress. CT portion of the scan: CT images were obtained for attenuation correction purposes only. Diagnostic quality of the images is limited. No obvious coronary calcification (CAC) is seen, although the study is not optimized for CAC detection or quantification. Table formatting from the original result was not included. Images from the original result were not included. Facility [facility] Patient Information Patient Name Marcella Yanes Legal Sex Male Indication for Exam Priority: Routine Dx: SOB (shortness of breath) [R06.02 (ICD-10-CM)] Comments: Outside Order Nuclear Stress Test Treadmill SOB (shortness of breath) R06.02 Dyspnea, heart failure suspected, Ischemia not excluded Done at [facility] Order Question Reason for Exam shortness of breath Interpretation Summary Result History is available. Overall: This exercise stress nuclear perfusion scan is NORMAL and negative for ischemia. Nuclear portion of the exam: No evidence of ischemia. No evidence of infarction. Normal left ventricular systolic function (LVEF 70%). TID is normal at 0.80. ECG portion of the exam: Baseline ECG: Normal sinus rhythm with [address] depressions in inferior leads. He exercised for 13:00 minutes on the Miguel protocol. He reached 119% age-predicted maximum heart rate. He achieved 15.3 METs, which represents excellent exercise capacity (191% predicted for age). Hypertensive at baseline (164/88), normal blood pressure response to exercise. Chronotropic index is normal at 1.45. He denied chest pain. There were no diagnostic ST segment changes to indicate ischemia. Rare PVC couplets at peak stress. CT portion of the scan: CT images were obtained for attenuation correction purposes only. Diagnostic quality of the images is limited. No obvious coronary calcification (CAC) is seen, although the study is not optimized for CAC detection or quantification. Stress Findings ECG Baseline ECG is normal with normal sinus rhythm. QRS duration is normal (80-100ms). No stress ECG changes for ischemia. There was no ST segment deviation noted during stress. Arrhythmias during stress: rare premature ventricular contractions.Stress QRS duration is normal (80-100ms). Recovery ECG returned to baseline. There were no arrhythmias during recovery. Recovery QRS duration is normal (80-100ms). Negative ECG stress test with adequate stress. Stress Findings A stress test was performed using the Miguel protocol, with the patient reaching stage 5. The patient reported no symptoms prior to the stress test. The patient reported no symptoms during the stress test. The patient's response to exercise was adequate for diagnosis. Blood pressure demonstrated a normal response to exercise. Heart rate demonstrated a normal response to exercise. Overall, the patient's exercise capacity was normal. The test was stopped due to fatigue. Isotope circulation time was greater than or equal to 1.5 minutes. Reading Providers Reading Role Read Date Katharine Brock MD Fellow - Reading 06/25/2024 Edwin Pierson MD Fellow - Reading 06/25/2024 Maite Rodriguez MD ECG [place], SPECT [place], Test Professor Of Geography 06/25/2024 Stress Measurements Baseline Vitals-Supine Baseline HR 82 bpm Baseline SBP 169 mmHg Baseline DBP 97 mmHg Baseline Vitals-Standing Baseline HR 88 bpm Baseline SBP 146 mmHg Baseline DBP 84 mmHg Peak Stress Vitals Peak HR 187 bpm Peak SBP 206 mmHg Peak DBP 80 mmHg Rate Pressure Product 38,522 Exercise Data APHRMAX 159 bpm % APHRMAX 118 % Exercise duration (min) 13 min Estimated workload 15.3 METS Nuclear Stress Findings Isotope Admin The isotope used for nuclear imaging was technetium sestamibi.No radiopharmaceutical dose was extravasated. Nuclear Study Quality Overall image quality is good. Diaphragmatic attenuation artifact was visualized. Nuclear Stress Gating Stress perfusion cavity size was 58 mL. Resting perfusion cavity size was 73 mL. The stress/rest perfusion ratio is 0.79. There is no evidence of transient ischem (more content not included)... Normal [facility] SPECT Heart perfusion at res t and W stress and W radionuclide IVOrdered By: Maite Rodriguez on 06-25-2024 % APHRMAX 118 % [facility] Work Phone: APHRMAX 159 bpm [facility] Work Phone: Baseline DBP 97 mmHg [facility] Work Phone: Baseline DBP 84 mmHg [facility] Work Phone: Baseline HR 82 bpm [facility] Work Phone: Baseline HR 88 bpm [facility] Work Phone: Baseline SBP 169 mmHg [facility] Work Phone: Baseline SBP 146 mmHg [facility] Work Phone: Body surface area Derived from formula 1.96 m2 [facility] Work Phone: Estimated workload 15.3 [facility]S [facility] Work [facility]: Exercise duration (min) 13 min [facility] Work Phone: NM ED vol idx 39.70 mL/m2 [facility] Work Phone: NM ES vol idx 11.70 mL/m2 [facility] Work Phone: Nuc Stress EF 70.00 % [facility] Work Phone: Peak DBP 80 mmHg [facility] Work Phone: Peak HR 187 bpm [facility] Work Phone: Peak SBP 206 mmHg [facility] Work Phone: Rate Pressure Product [id number] [facility] Work Phone: [facility] Work Phone: SPECT Heart perfusion at res t and W stress and W radionuclide Amelia 06-25-2024 Overall: This exerci se stress nuclear perfusion scan is NORMAL and negative for ischemia. Nuclear portion of the exam: No evidence of ischemia. No evidence of infarction. Normal left ventricular systolic function (LVEF 70%). TID is normal at 0.80. ECG portion of the exam: Baseline ECG: Normal sinus rhythm with [address] depressions in inferior leads. He exercised for 13:00 minutes on the Miguel protocol. He reached 119% age-predicted maximum heart rate. He achieved 15.3 METs, which represents excellent exercise capacity (191% predicted for age). Hypertensive at baseline (164/88), normal blood pressure response to exercise. Chronotropic index is normal at 1.45. He denied chest pain. There were no diagnostic ST segment changes to indicate ischemia. Rare PVC couplets at peak stress. CT portion of the scan: CT images were obtained for attenuation correction purposes only. Diagnostic quality of the images is limited. No obvious coronary calcification (CAC) is seen, although the study is not optimized for CAC detection or quantification. Study Details Exercise nuclear stress test performed using 1-day rest/stress protocol. Resting Single-Photon Emission Computed Tomography (SPECT) three axis myocardial perfusion images of the heart were acquired with an acquisition time of 08:47 EST. Post-stress Single-Photon Emission Computed Tomography (SPECT) three axis myocardial perfusion images of the heart were acquired with an acquisition time of 10:11 EST. Gated SPECT images obtained. Frame rate: 8 frames/sec. Stress SPECT CT images were obtained. Imaging system used: [facility]. Stress Findings A stress test was performed using the Miguel protocol, with the patient reaching stage 5. The patient reported no symptoms prior to the stress test. The patient reported no symptoms during the stress test. The patient's response to exercise was adequate for diagnosis. Blood pressure demonstrated a normal response to exercise. Heart rate demonstrated a normal response to exercise. Overall, the patient's exercise capacity was normal. The test was stopped due to fatigue. Isotope circulation time was greater than or equal to 1.5 minutes. ECG Baseline ECG is normal with normal sinus rhythm. QRS duration is normal (80-100ms). No stress ECG changes for ischemia. There was no ST segment deviation noted during stress. Arrhythmias during stress: rare premature ventricular contractions.Stress QRS duration is normal (80-100ms). Recovery ECG returned to baseline. There were no arrhythmias during recovery. Recovery QRS duration is normal (80-100ms). Negative ECG stress test with adequate stress. Nuclear Study Quality Overall image quality is good. Diaphragmatic attenuation artifact was visualized. Isotope Admin The isotope used for nuclear imaging was technetium sestamibi.No radiopharmaceutical dose was extravasated. Nuclear Stress Gating Stress perfusion cavity size was 58 mL. Resting perfusion cavity size was 73 mL. The stress/rest perfusion ratio is 0.79. There is no evidence of transient ischemic dilation (TID). Ejection fraction is 70.00%. End diastolic index is 39.70 mL/m2. End systolic index is 11.70 mL/m2. Left ventricular cavity size is normal. Lung to heart ratio is normal determined by sestamibi (less than 0.44). The lung to heart ratio is 0.25. Perfusion Scoring Stress Summed Score: 0 Percent Normal: 0.00% The left ventricular perfusion is normal. Perfusion Scoring Resting Summed Score: 0 Percent Normal: 0.00% The left ventricular perfusion is normal. Perfusion Scoring Attenuation Correction Summed Score: 0 Percent Normal: 0.00% The left ventricular perfusion is normal. [facility] Radiology Study observation (narrative) [facility] Bilirubin, Directon 06-23-20 24 Bilirubin.direct [Mass/Vol] 0.16 mg/dL Normal 0.00-0.30 [facility] Comment on above: Performed By: #### L 500.4050, L501.4700, L500.4100, L501.9985 #### [facility] [address] [place], [address] CV CAROTID STUDYon 4 CV CAROTID STUDY [address] [address] Patient: MARCELLA YANES Phone#: : 1960 Age: 63 Gender: M Pt. Type: Out Account: [id number] Location: Ordering: YOKO HAMMONDS Exam Date: 06/23/2024/14:43 Family Phys: Charge Code: [id number] Physician: Sublette Order #: [id number] Dose#: PROCEDURE: CAROTID FLOW STUDY COMPARISON: None. INDICATIONS: DIZZINESS TECHNIQUE: Color duplex Doppler ultrasound and pulsed Doppler analysis were performed to evaluate the cervical carotid arteries and vertebral flow. All measurements for carotid artery narrowing or stenosis were obtained using the ipsilateral distal internal carotid artery as the reference value. CORNER BLOCK CUTTER: TRUE RANDOLPH Jerod RDCS PT HISTORY: Vertigo/dizziness RIGHT IMAGING FINDINGS: CCA: Intimal wall thickening is present. ICA: Mild heterogenous plaque without hemodynamically significant stenosis.Bulb area. ECA: Intimal wall thickening is present. Vertebral A: Antegrade flow Comments: Category: II. Less than 50% stenosis. ICA PSV less than 180cm/s. Plaque and/or intimal thickening present. LEFT IMAGING FINDINGS: CCA: Intimal wall thickening is present. ICA: Intimal wall thickening present. ECA: Intimal wall thickening is present. Vertebral A: Antegrade flow. Comments: Category: II Less than 50% stenosis. ICA PSV less than 180cm/s. Plaque and/or intimal thickening present. RIGHT VELOCITY RECORDINGS Prox CCA: 92.32 cm/s Prox CCA EDV: 12.65 cm/s Mid CCA: 79.71 cm/s Mid CCA EDV: 19.25 cm/s Distal CCA: 75.06 cm/s Distal CCA EDV: 16.46 cm/s ECA: 121.38 cm/s ECA EDV: 15.15 cm/s Prox ICA: 53.67 cm/s Prox ICA EDV: 19.25 cm/s Continued Report - Page 2 of 2 Patient: MARCELLA YANES Phone#: : 1960 Age: 63 Gender: M Pt. Type: Out Account: [id number] Location: Ordering: YOKO HAMMONDS Exam Date: 06/23/2024/14:43 Family Phys: Charge Code: [id number] Physician: Sublette Order #: [id number] Dose#: Mid ICA: 62.97 cm/s Mid ICA EDV: 22.97 cm/s Distal ICA: 68.57 cm/s Distal ICA EDV: 23.73 cm/s Vertebral Artery: 71.34 cm/s Vertebral Artery EDV: 22.04 cm/s Subclavian Artery: 146.41 cm/s LEFT VELOCITY RECORDINGS Prox CCA: 113.59 cm/s Prox CCA EDV: 20.79 cm/s Mid CCA: 88.36 cm/s Mid CCA EDV: 20.87 cm/s Distal CCA: 77.85 cm/s Distal CCA EDV: 25.76 cm/s ECA: 104.31 cm/s ECA EDV: 16.67 cm/s Prox ICA: 64.83 cm/s Prox ICA EDV: 23.90 cm/s Mid ICA: 81.57 cm/s Mid ICA EDV: 35.99 cm/s Distal ICA: 73.20 cm/s Distal ICA EDV: 30.41 cm/s Vertebral Artery: 48.09 cm/s Vertebral Artery EDV: 10.88 cm/s Subclavian Artery: 186.20 cm/s CONCLUSION: 1. Mild irregular mixed plaque is present. 2. There is no evidence of hemodynamically significant stenosis. Dictated by: Hazel Baeza MD on 06/23/2024 at 16:50 Approved by: Hazel Baeza MD on 06/23/2024 at 16:51 Normal [facility] Comprehensive Metabolic Prof ilon 06-23-2024 Albumin [Mass/Vol] 4.5 g/dL Normal 3.2-5.0 [facility] Comment on above: Performed By: #### L 500.4050, L501.4700, L500.4100, L501.9985 #### [facility] [address] [place], [address] Albumin/Globulin [Mass ratio] 1.2 {ratio} Normal 0.9-2.4 [facility] Comment on above: Performed By: #### L 500.4050, L501.4700, L500.4100, L501.9985 #### [facility] [address] [place], [address] ALK P 60 U/L Normal 45-117 [facility] Comment on above: Performed By: #### L 500.4050, L501.4700, L500.4100, L501.9985 #### [facility] [address] [place], [address] ALT [Catalytic activity/Vol] 57 U/L Normal 16-61 [facility] Comment on above: Performed By: #### L 500.4050, L501.4700, L500.4100, L501.9985 #### [facility] [address] [place], [address] AST [Catalytic activity/Vol] 37 U/L Normal 15-37 [facility] Comment on above: Performed By: #### L 500.4050, L501.4700, L500.4100, L501.9985 #### [facility] [address] [place], [address] Bilirubin [Mass/Vol] 0.70 mg/dL Normal 0.20-1.00 [facility] Comment on above: Result Comment: For patients on eltrombopag therapy, use of Dimension [place] TBIL is not recommended. Performed By: #### L 500.4050, L501.4700, L500.4100, L501.9985 #### [facility] [address] [place], [address] BUN/CRE 16.3 RATIO Normal 10-20 [facility] Comment on above: Performed By: #### L 500.4050, L501.4700, L500.4100, L501.9985 #### [facility] [address] [place], [address] CA,Total 10.0 mg/dL Normal 8.5-10.1 [facility] Comment on above: Performed By: #### L 500.4050, L501.4700, L500.4100, L501.9985 #### [facility] [address] [place], [address] Chloride [Moles/Vol] 104 mmol/L Normal 98-107 [facility] Comment on above: Performed By: #### L 500.4050, L501.4700, L500.4100, L501.9985 #### [facility] [address] [place], [address] CO2 [Moles/Vol] 30.0 mmol/L Normal 21.0-32.0 [facility] Comment on above: Performed By: #### L 500.4050, L501.4700, L500.4100, L501.9985 #### [facility] [address] [place], [address] Creatinine [Mass/Vol] 0.92 mg/dL Normal 0.70-1.30 [facility] Comment on above: Result Comment: The validity of the calculated GFR GFRAA in patients over 70 years has not been determined. Clinical correlation is essential. Performed By: #### L 500.4050, L501.4700, L500.4100, L501.9985 #### [facility] [address] [place], [address] EST GFR - AA 107 mL/min Normal >60 [facility] Comment on above: Result Comment: Afri can [place] GFR Calc Performed By: #### L 500.4050, L501.4700, L500.4100, L501.9985 #### [facility] [address] [place], [address] GAP 7 Normal 5-15 [facility] Comment on above: Performed By: #### L 500.4050, L501.4700, L500.4100, L501.9985 #### [facility] [address] [place], [address] GFR/1.73 sq M.predicted among non-blacks MDRD (S/P/Bld) [Vol rate/Area] 88 mL/min/{1.73_m2} Normal >60 [facility] Comment on above: Result Comment: Non- GFR Calc Performed By: #### L 500.4050, L501.4700, L500.4100, L501.9985 #### [facility] [address] [place], [address] Globulin (S) [Mass/Vol] 3.8 g/dL Normal 2.2-4.2 [facility] Comment on above: Performed By: #### L 500.4050, L501.4700, L500.4100, L501.9985 #### [facility] [address] [place], [address] Glucose [Mass/Vol] 106 mg/dL Normal 74-106 [facility] Comment on above: Result Comment: Fast ing Glucose result from 100 to 125 mg/dL suggests IMPAIRED HOMEOSTASIS per A.D.A. criteria. Performed By: #### L 500.4050, L501.4700, L500.4100, L501.9985 #### [facility] [address] [place] [facility] [place], [address] Potassium [Moles/Vol] 3.9 mmol/L Normal 3.5-5.1 [facility] Comment on above: Performed By: #### L 500.4050, L501.4700, L500.4100, L501.9985 #### [facility] [address] [place], [address] Sodium [Moles/Vol] 140 mmol/L Normal 136-145 [facility] Comment on above: Performed By: #### L 500.4050, L501.4700, L500.4100, L501.9985 #### [facility] [address] [place], [address] T PROT 8.3 g/dL High 6.4-8.2 [facility] Comment on above: Performed By: #### L 500.4050, L501.4700, L500.4100, L501.9985 #### [facility] [address] [place], [address] Urea nitrogen [Mass/Vol] 15 mg/dL Normal 7-18 [facility] Comment on above: Performed By: #### L 500.4050, L501.4700, L500.4100, L501.9985 #### [facility] [address] [place], [address] Hemoglobin A1con 06-23-2024 HbA1c (Bld) [Mass fraction] 6.1 % High 3.8-5.6 [facility] Comment on above: Result Comment: Norm al < 5.7 % Prediabetic 5.7 - 6.4 % Diabetic >or= 6.5 % Please note range changes. Performed By: #### L 500.4050, L501.4700, L500.4100, L501.9985 #### [facility] [address] [place], [address] Lipid Profileon 06-23-2024 Cholesterol [Mass/Vol] 149 mg/dL Normal 200 [facility] Comment on above: Result Comment: <200 mg/dL Desirable 200-240 mg/dL Borderline >240 mg/dL High Risk Performed By: #### L 500.4050, L501.4700, L500.4100, L501.9985 #### [facility] [address] [place], [address] Cholesterol in HDL [Mass/Vol] 45 mg/dL Normal [facility] Comment on above: Result Comment: The drugs N-Acetylcysteine and Metamizole may falsely depress this assay. Reference Range HDL <40 mg/dL Low HDL Cholesterol HDL >or= 60 mg/dL High HDL Cholesterol Performed By: #### L 500.4050, L501.4700, L500.4100, L501.9985 #### [facility] [address] [place], [address] Cholesterol in LDL [Mass/Vol] 85 mg/dL Normal 0-130 [facility] Comment on above: Performed By: #### L 500.4050, L501.4700, L500.4100, L501.9985 #### [facility] [address] [place], [address] Cholesterol in VLDL [Mass/Vol] 19 mg/dL Normal 5-40 [facility] Comment on above: Performed By: #### L 500.4050, L501.4700, L500.4100, L501.9985 #### [facility] [address] [place], [address] Triglyceride [Mass/Vol] 97 mg/dL Normal [facility] Comment on above: Result Comment: The drugs N-Acetylcysteine and Metamizole may falsely depress this assay. Serum Triglycerides Reference Interval Normal <150 mg/dL Borderline high 150 - 199 mg/dL High 200 - 499 mg/dL Very High > or = 500 mg/dL Performed By: #### L 500.4050, L501.4700, L500.4100, L501.9985 #### [facility] [place], [address] CT CARDIAC SCORING WO IV CON TRASTon 04-28-2024 CT CARDIAC SCORING WO IV CONTRAST Interpreted By: Antwan Keller, STUDY: CT CARDIAC SCORING WO IV CONTRAST; 04/28/2024 4:54 pm INDICATION: Signs/Symptoms:HYPERCH OLESTEROLEMIA. ,E78.00 Pure hypercholesterolemia, unspecified COMPARISON: None. ACCESSION NUMBER(S): [id number] ORDERING CLINICIAN: YOKO HAMMONDS TECHNIQUE: Using prospective ECG gating, CT scan of the coronary arteries was performed without intravenous contrast. Coronary calcium scoring was performed according to the method of Agatston. FINDINGS: The score and distribution of calcium in the coronary arteries is as follows: LM 0 LAD 47.65 LCx 0 RCA 0 Total 47.65 The visualized mid/lower ascending thoracic aorta measures 3.4 cm in diameter. The heart is normal in size. No pericardial effusion is present. No gross evidence of mediastinal or hilar lymphadenopathy or masses is identified. The visualized segments of the lungs are normally expanded. The visualized subdiaphragmatic structures appear intact. IMPRESSION: 1. Coronary artery calcium score of 47.65*. *Coronary artery calcium scoring may be helpful in predicting the risk for future coronary heart disease events. According to the [employer] [employer] Clinical Expert Consensus Task Force, such testing provides important prognostic information in patients with more than one coronary heart disease risk factor. The coronary artery calcium score correlates with the annual risk of a non-fatal myocardial infarction or coronary heart disease . Coronary artery score Annual Risk 0-99 0.4% 100-399 1.3% >400 2.4% These three breakpoints correspond to lower, intermediate and high risk states for future coronary events. Such information should be used, along with appropriate clinical judgment, to make decisions regarding the intensity of risk factor management strategies to treat blood lipids and to modify other non-lipid coronary risk factors. Reference: Arch Cape P et al. Circulation. 2007; 115:402-426 MACRO: None Signed by: Antwan Keller 05/03/2024 1:52 PM Dictation workstation: [id number] [facility] Basophil percentageOrdered B y: Richi Hairston on 10-24-2023 Bilirubin [Mass/Vol] 0.50 mg/dL 0.20-1.00 [facility] Comment on above: For patients on eltr ombopag therapy, use of Dimension [place] TBIL is not recommended. Cholesterol [Mass/Vol] 127 mg/dL <200 [facility] Comment on above: <200 mg/dL Desirable 200-240 mg/dL Borderline >240 mg/dL High Risk Protein [Mass/Vol] 7.7 g/dL 6.4-8.2 [facility] Triglyceride [Mass/Vol] 104 mg/dL <199 [facility] Comment on above: The drugs N-Acetylcy steine and Metamizole may falsely depress this assay.Serum Triglycerides Reference Interval Normal <150 mg/dL Borderline high 150 - 199 mg/dL High 200 - 499 mg/dL Very High > or = 500 mg/dL Direct bilirubinOrdered By: Richi Hairston on 10-24-2023 Bilirubin.direct [Mass/Vol] 0.15 mg/dL 0.00-0.30 [facility] - Chemistry and C hemistry - challengeOrdered By: Richi Hairston on 10-24-2023 ALP [Catalytic activity/Vol] 58 U/L 45-117 [facility] ALT [Catalytic activity/Vol] 38 U/L 16-61 [facility] Cholesterol in HDL [Mass/Vol] 39 mg/dL >40 [facility] Comment on above: The drugs N-Acetylcy steine and Metamizole may falsely depress this assay. Reference Range HDL <40 mg/dL Low HDL Cholesterol HDL >or= 60 mg/dL High HDL Cholesterol Cholesterol in LDL [Mass/Vol] 67 mg/dL 0-130 [facility] Globulin (S) [Mass/Vol] 3.6 g/dL 2.2-4.2 [facility] No Panel InformationOrdered By: Richi Hairston on 10-24-2023 VLDL Cholesterol 21 mg/dL 5-40 [facility] Thin prep Papanicolaou smear with manual screeningOrdered By: Richi Hairston on 10-24-2023 Thin prep Papanicolaou smear with manual screening 4.1 g/dL 3.2-5.0 [facility] Thin prep Papanicolaou smear with manual screening 21 U/L 15-37 [facility] Absolute lymphocyte countOrd ered By: Yoko Hammonds on 08-02-2023 Lymphocytes Auto (Unsp spec) [#/Vol] 1.69 10*3/uL 0.83-4.51 [facility] Automated lymphocyte count a s percentage of total leukocytesOrdered By: Yoko Hammonds on 08-02-2023 Lymphocytes/100 WBC Auto (Unsp spec) 36.4 % 19-41 [facility] Basophil percentageOrdered B y: Yoko Hammonds on 08-02-2023 Basophils/100 WBC (Bld) 0.6 % 0-1 [facility] Bilirubin [Mass/Vol] 0.70 mg/dL 0.20-1.00 [facility] Comment on above: For patients on eltr ombopag therapy, use of Dimension [place] TBIL is not recommended. Chloride [Moles/Vol] 105 mmol/L 98-107 [facility] Cholesterol [Mass/Vol] 145 mg/dL <200 [facility] Comment on above: <200 mg/dL Desirable 200-240 mg/dL Borderline >240 mg/dL High Risk Eosinophils/100 WBC (Bld) 1.7 % 0-5 [facility] Glucose [Mass/Vol] 97 mg/dL 74-106 [facility] Hemoglobin (Bld) [Mass/Vol] 16.7 g/dL 13.0-16.5 [facility] Monocytes/100 WBC (Bld) 8.8 % 0-10 [facility] Neutrophils (Bld) [#/Vol] 2.4 10*3/uL 2.0-7.7 [facility] Neutrophils/100 WBC (Bld) 52.1 % 47-70 [facility] Potassium [Moles/Vol] 4.2 mmol/L 3.5-5.1 [facility] Protein [Mass/Vol] 8.1 g/dL 6.4-8.2 [facility] Sodium [Moles/Vol] 139 mmol/L 136-145 [facility] Triglyceride [Mass/Vol] 85 mg/dL <199 [facility] Comment on above: The drugs N-Acetylcy steine and Metamizole may falsely depress this assay.Serum Triglycerides Reference Interval Normal <150 mg/dL Borderline high 150 - 199 mg/dL High 200 - 499 mg/dL Very High > or = 500 mg/dL WBC (Bld) [#/Vol] 4.6 10*3/uL 4.4-11.0 [facility] Determination of erythrocyte mean corpuscular volume (MCV)Ordered By: Yoko Hammonds on 08-02-2023 MCV (RBC) [Entitic vol] 82.3 fL 80-94 [facility] Erythrocyte distribution wid th ratioOrdered By: [facility] Centermiguel angel on 08-02-2023 Erythrocyte distribution width (RBC) [Ratio] 12.7 % 11.6-14.6 [facility] Erythrocyte distribution wid th standard deviationOrdered By: [facility] Centermiguel angel on 08-02-2023 Erythrocyte distribution width (RBC) [Entitic vol] 37.8 fL 35.1-43.9 [facility] Hematocrit Auto (Bld) [Volum e fraction]Ordered By: [facility] on 08-02-2023 Hematocrit (Bld) [Volume fraction] 50.7 % 40-54 [facility] Immature granulocytes/100 WB C Auto (Bld)Ordered By: [facility] on 08-02-2023 Immature granulocytes/100 WBC (Bld) 0.400 % 0.0-0.9 [facility] Comment on above: IG% - Immature Granu locytes (promyelocytes, myelocytes and metamyelocytes) > 1% indicates that a LEFT SHIFT is Present. Laboratory - Chemistry and C hemistry - challengeOrdered By: [facility] on 08-02-2023 Albumin/Globulin [Mass ratio] 1.1 {ratio} 0.9-2.4 [facility] ALP [Catalytic activity/Vol] 57 U/L 45-117 [facility] ALT [Catalytic activity/Vol] 28 U/L 16-61 [facility] Cholesterol in HDL (Body fld) [Mass/Vol] 39 mg/dL >40 [facility] Comment on above: The drugs N-Acetylcy steine and Metamizole may falsely depress this assay. Reference Range HDL <40 mg/dL Low HDL Cholesterol HDL >or= 60 mg/dL High HDL Cholesterol Cholesterol in LDL (Body fld) [Moles/Vol] 89 mg/dL 0-130 [facility] Cholesterol in VLDL Calc [Moles/Vol] 17 mg/dL 5-40 [facility] CO2 [Moles/Vol] 28.0 mmol/L 21.0-32.0 [facility] Globulin (S) [Mass/Vol] 3.8 g/dL 2.2-4.2 [facility] Urea nitrogen/Creatinine [Mass ratio] 20.8 mg/mg 10-20 [facility] - Hematology and Cell countsOrdered By: Yoko Hammonds on 08-02-2023 MCH (RBC) [Entitic mass] 27.1 pg 27.0-32.0 [facility] MCHC (RBC) [Mass/Vol] 32.9 g/dL 32-36 [facility] Nucleated RBC/100 WBC (Bld) [Ratio] 0 % 0-5 [facility] Platelets (Bld) [#/Vol] 220 10*3/uL 150-450 [facility] No Panel InformationOrdered By: Yoko Hammonds on 08-02-2023 Estimated GFR (MDRD) Amer 91 mL/min >60 [facility] Comment on above: GFR Calc Estimated GFR (MDRD) Non-Af Amer 76 mL/min >60 [facility] Comment on above: Non- GFR Calc Vitamin D 25-Hydroxy 47.1 ng/mL [facility] Comment on above: Vitamin D 25(OH) Sta tus Range Deficiency <20 ng/mL (50nmol/L) Insufficiency 20 - 30 ng/mL (50 - 75 nmol/L) Sufficiency 30 - 100 ng/mL (75 - 250 nmol/L) Toxicity >100 ng/mL (>250 nmol/L) Platelet mean volume Robert-Ec ker (Bld) [Entitic vol]Ordered By: Yoko Hammonds on 08-02-2023 Platelet mean volume (Bld) [Entitic vol] 9.9 fL 6.2-12.0 [facility] RBC Auto (Bld) [#/Vol]Ordere d By: Yoko Hammonds on 08-02-2023 RBC (Bld) [#/Vol] 6.16 10*6/uL 4.6-6.2 [facility] Serum or plasma calcium anna urement (mass/volume)Ordered By: Yoko Hammonds on 08-02-2023 Calcium [Mass/Vol] 9.1 mg/dL 8.5-10.1 [facility] Serum or plasma creatinine m easurement (mass/volume)Ordered By: Yoko Hammonds on 08-02-2023 Creatinine [Mass/Vol] 1.06 mg/dL 0.70-1.30 [facility] Comment on above: The validity of the calculated GFR & GFRAA in patients over 70 years has not been determined. Clinical correlation is essential. Serum or plasma thyroid stim ulating hormone (TSH) measurement (units/volume)Ordered By: [facility] on 08-02-2023 TSH Qn 1.87 uIU/mL 0.358-3.74 [facility] Serum or plasma urea nitroge n measurement (mass/volume)Ordered By: Yoko Hammonds on 08-02-2023 Urea nitrogen [Mass/Vol] 22 mg/dL 7-18 [facility] Serum or plasma uric acid me asurement (mass/volume)Ordered By: Yoko Hammonds on 08-02-2023 Urate [Mass/Vol] 5.9 mg/dL 3.5-7.2 [facility] Comment on above: The drugs N-Acetylcy steine and Metamizole may falsely depress this assay. Thin prep Papanicolaou smear with manual screeningOrdered By: Yoko Hammonds on 08-02-2023 Thin prep Papanicolaou smear with manual screening 4.3 g/dL 3.2-5.0 [facility] Thin prep Papanicolaou smear with manual screening 21 U/L 15-37 [facility] Thin prep Papanicolaou smear with manual screening 6 5-15 [facility] Whole blood hemoglobin A1c/t otal hemoglobin ratio (mass fraction)Ordered By: Yoko Hammonds on 08-02-2023 HbA1c (Bld) [Mass fraction] 6.1 % 3.8-5.6 [facility] Comment on above: Normal < 5.7 % Predi abetic 5.7 - 6.4 % Diabetic >or= 6.5 % Please note range changes. CBC W/AUTO DIFF WBC (79433)O rdered By: School Supervisor on 02-25-2023 Basophils (Bld) [#/Vol] 0.1 10*3/uL Normal 0.0-0.2 [facility]; [facility] Work Phone: Comment on above: PATIENT WAS FASTINGP ERFORMED BY: MARTINA Adrianna Menchaca[address]Dublin [place] [id number] Basophils/100 WBC (Bld) 1 % Normal C omprehensive [facility]; [facility] Work Phone: Comment on above: PATIENT WAS FASTINGP ERFORMED BY: MARTINA [facility] [id number] [address]Dublin [place] [id number] Eosinophils (Bld) [#/Vol] 0.1 10*3/uL Normal 0.0-0.4 [facility]; [facility] Work Phone: Comment on above: PATIENT WAS FASTINGP ERFORMED BY: MARTINA [facility] [id number] [address]Dublin [place] [id number] Eosinophils/100 WBC (Bld) 2 % Normal [facility]; [facility] Work Phone: Comment on above: PATIENT WAS FASTINGP ERFORMED BY: MARTINA [facility] [id number] [address]Dublin [place] [id number] Erythrocyte distribution width (RBC) [Ratio] 12.6 % Normal 11.6-15.4 [facility]; [facility] Work Phone: Comment on above: PATIENT WAS FASTINGP ERFORMED BY: MARTINA [facility] [id number] [address] RoadKindred Hospital - [place] [id number] Hematocrit (Bld) [Volume fraction] 50.0 % Normal 37.5-51.0 [facility]; [facility] Work Phone: Comment on above: PATIENT WAS FASTINGP ERFORMED BY: MARTINA [facility] [id number] [address]Dublin [place] [id number] Hemoglobin (Bld) [Mass/Vol] 16.6 g/dL Normal 13.0-17.7 [facility]; [facility] Work Phone: Comment on above: PATIENT WAS FASTINGP ERFORMED BY: MARTINA [facility] [id number] [facility] [id number] Immature granulocytes (Bld) [#/Vol] 0.0 10*3/uL Normal 0.0-0.1 [facility]; [facility] Work Phone: Comment on above: PATIENT WAS FASTINGP ERFORMED BY: Ashtyn Ahelru1942 [facility] [id number] Immature granulocytes/100 WBC (Bld) 0 % Normal [facility]; [facility] Work Phone: Comment on above: PATIENT WAS FASTINGP ERFORMED BY: [facility] [id number] [facility] [id number] Lymphocytes (Bld) [#/Vol] 1.9 10*3/uL Normal 0.7-3.1 [facility]; [facility] Work Phone: Comment on above: PATIENT WAS FASTINGP ERFORMED BY: [facility] [id number] [facility] [id number] Lymphocytes/100 WBC (Bld) 33 % Normal [facility]; [facility] Work Phone: Comment on above: PATIENT WAS FASTINGP ERFORMED BY: Ashtyn [id number] [facility] [id number] MCH (RBC) [Entitic mass] 26.9 pg Normal 26.6-33.0 [facility]; [facility] Work Phone: Comment on above: PATIENT WAS FASTINGP ERFORMED BY: [facility] [id number] [facility] [id number] MCHC (RBC) [Mass/Vol] 33.2 g/dL Normal 31.5-35.7 [facility] prehensive [facility]; [facility] Work Phone: Comment on above: PATIENT WAS FASTINGP ERFORMED BY: [facility] [id number] [facility] [id number] MCV (RBC) [Entitic vol] 81 fL Normal 79-97 C [facility]; [facility] Work Phone: Comment on above: PATIENT WAS FASTINGP ERFORMED BY: CB [facility] [id number] [address]Dublin [place] [id number] Monocytes (Bld) [#/Vol] 0.5 10*3/uL Normal 0.1-0.9 [facility]; [facility] Work Phone: Comment on above: PATIENT WAS FASTINGP ERFORMED BY: CB [facility] [id number] [address]Dublin [place] [id number] Monocytes/100 WBC (Bld) 9 % Normal [facility]; [facility] Work Phone: Comment on above: PATIENT WAS FASTINGP ERFORMED BY: CB [facility] [id number] [address]Dublin [place] [id number] Neutrophils (Bld) [#/Vol] 3.1 10*3/uL Normal 1.4-7.0 [facility]; [facility] Work Phone: Comment on above: PATIENT WAS FASTINGP ERFORMED BY: CB [facility] [id number] [address]Dublin [place] [id number] Neutrophils/100 WBC (Bld) 55 % Normal [facility]; [facility] Work Phone: Comment on above: PATIENT WAS FASTINGP ERFORMED BY: CB [facility] [id number] [address]Dublin [place] [id number] Platelets (Bld) [#/Vol] 230 10*3/uL Normal 150-450 [facility]; [facility] Work Phone: Comment on above: PATIENT WAS FASTINGP ERFORMED BY: CB [facility] [id number] [address]Dublin [place] [id number] RBC (Bld) [#/Vol] 6.18 10*6/uL Abnormal 4.14-5.80 Compr ehensive [facility]; [facility] Work Phone: Comment on above: PATIENT WAS FASTINGP ERFORMED BY: CB [facility] [id number] [address]Dublin [place] [id number] WBC (Bld) [#/Vol] 5.8 10*3/uL Normal 3.4-10.8 Compre hensive [facility]; [facility] Work Phone: Comment on above: PATIENT WAS FASTINGP ERFORMED BY: MARTINA [facility] [id number] [address]Dublin [place] [id number] HGB A1C ([id number])Ordered By: S ystem Supervisor [employer] on 02-25-2023 HbA1c (Bld) [Mass fraction] 6.6 % Abnormal 4.8-5.6 [facility]; [facility] Work Phone: Comment on above: . Prediabetes: 5.7 - 6.4 Diabetes: >6.4 Glycemic control for adults with diabetes: <7.0 PATIENT WAS FASTINGP ERFORMED BY: MARTINA [facility] Cettmy0498 [address]Dublin [place] [id number] LIPID PANEL ([id number])Ordered B y: School Supervisor on 02-25-2023 Cholesterol [Mass/Vol] 153 mg/dL Normal 100-199 [facility]; [facility] Work Phone: Comment on above: PATIENT WAS FASTINGP ERFORMED BY: MARTINA [facility] [id number] [address]Dublin [place] [id number] Cholesterol in HDL [Mass/Vol] 41 mg/dL Normal [facility]; [facility] Work Phone: Comment on above: PATIENT WAS FASTINGP ERFORMED BY: MARTINA [facility] [id number] [address]Dublin [place] [id number] Triglyceride [Mass/Vol] 138 mg/dL Normal 0-[address] [facility]; [facility] Work Phone: Comment on above: PATIENT WAS FASTINGP ERFORMED BY: MARTINA [facility] [id number] [address] RoadDublin [place] [id number] LIPID PANEL (68835) 24 mg/dL Normal 5-40 Compr ens[facility]; [facility] Work Phone: Comment on above: PATIENT WAS FASTINGP ERFORMED BY: MARTINA [facility] [id number] [address]Dublin [place] [id number] LIPID PANEL (99854) 88 mg/dL Normal 0-99 Compr ens[facility]; [facility] Work Phone: Comment on above: PATIENT WAS FASTINGP ERFORMED BY: CB [facility] [id number] [address]Dublin [place] [id number] LIPID PANEL (50681) 2.1 {ratio} Normal 0.0-3.6 [facility]; [facility] Work Phone: Comment on above: LDL/HDL Ratio Men Wo men 1/2 Avg.Risk 1.0 1.5 Avg.Risk 3.6 3.2 2X Avg.Risk 6.2 5.0 3X Avg.Risk 8.0 6.1 PATIENT WAS FASTINGP ERFORMED BY: CB [facility] [id number] [address]Dublin [place] [id number] METABOLIC PANEL, COMPREHENSI VE (92990)Ordered By: School Supervisor on 02-25-2023 Albumin [Mass/Vol] 4.9 g/dL Normal 3.8-4.9 [facility]; [facility] Work Phone: Comment on above: PATIENT WAS FASTINGP ERFORMED BY: CB [facility] [id number] [address]Dublin [place] [id number] Albumin/Globulin [Mass ratio] 1.9 {ratio} Normal 1.2-2.2 [facility]; [facility] Work Phone: Comment on above: PATIENT WAS FASTINGP ERFORMED BY: CB [facility] [id number] [address]Dublin [place] [id number] ALP [Catalytic activity/Vol] 55 U/L Normal 44-121 [facility]; [facility] Work Phone: Comment on above: PATIENT WAS FASTINGP ERFORMED BY: CB [facility] [id number] [address] RoadDublin [place] [id number] ALT [Catalytic activity/Vol] 22 U/L Normal 0-44 [facility]; [facility] Work Phone: Comment on above: PATIENT WAS FASTINGP ERFORMED BY: CB [facility] [id number] [address] RoadDublin [place] [id number] AST [Catalytic activity/Vol] 23 U/L Normal 0-40 [facility]; [facility] Work Phone: Comment on above: PATIENT WAS FASTINGP ERFORMED BY: [facility] [id number] [address]Dublin [place] [id number] Bilirubin [Mass/Vol] 0.8 mg/dL Normal 0.0-1.2 Comp rehensive [facility]; [facility] Work Phone: Comment on above: PATIENT WAS FASTINGP ERFORMED BY: CB [facility] [id number] [address]Dublin [place] [id number] Calcium [Mass/Vol] 10.0 mg/dL Normal 8.6-10.2 [facility]; [facility] Work Phone: Comment on above: PATIENT WAS FASTINGP ERFORMED BY: CB [facility] [id number] [address]Dublin [place] [id number] Chloride [Moles/Vol] 99 mmol/L Normal 96-106 [facility] rehensive [facility] Medicine; [facility] Work Phone: Comment on above: PATIENT WAS FASTINGP ERFORMED BY: [facility] [id number] [address]Dublin [place] [id number] CO2 [Moles/Vol] 25 mmol/L Normal 20-29 Comprehen [facility]; [facility] Work Phone: Comment on above: PATIENT WAS FASTINGP ERFORMED BY: [facility] [id number] [address]Dublin [place] [id number] Creatinine [Mass/Vol] 1.01 mg/dL Normal 0.76-1.27 [facility] prehensive Internal Medicine; [facility] Work Phone: Comment on above: PATIENT WAS FASTINGP ERFORMED BY: [facility] [id number] [address]Dublin [place] [id number] GFR/1.73 sq M.predicted among non-blacks MDRD (S/P/Bld) [Vol rate/Area] 85 mL/min/{1.73_m2} Normal Comprehensiv e [facility]; [facility] Work Phone: Comment on above: PATIENT WAS FASTINGP ERFORMED BY: [facility] [id number] [address]Dublin [place] [id number] Globulin (S) [Mass/Vol] 2.6 g/dL Normal 1.5-4.[address] [facility]; [facility] Work Phone: Comment on above: PATIENT WAS FASTINGP ERFORMED BY: [facility] Rhcqoa7901 [facility] [id number] Glucose [Mass/Vol] 96 mg/dL Normal 70-99 [facility]; [facility] Work Phone: Comment on above: PATIENT WAS FASTINGP ERFORMED BY: [facility]6370 [facility] [id number] Potassium [Moles/Vol] 4.2 mmol/L Normal 3.5-5.2 [facility]; [facility] Work Phone: Comment on above: PATIENT WAS FASTINGP ERFORMED BY: [place] [id number] [facility] [id number] Protein [Mass/Vol] 7.5 g/dL Normal 6.0-8.5 [facility]; [facility] Work Phone: Comment on above: PATIENT WAS FASTINGP ERFORMED BY: [facility] [id number] [facility] [id number] Sodium [Moles/Vol] 140 mmol/L Normal 134-144 [facility]; [facility] Work Phone: Comment on above: PATIENT WAS FASTINGP ERFORMED BY: [facility]6370 [facility] [id number] Urea nitrogen [Mass/Vol] 17 mg/dL Normal 8-27 [facility]; [facility] Work Phone: Comment on above: PATIENT WAS FASTINGP ERFORMED BY: [facility]6370 [facility] [id number] Urea nitrogen/Creatinine [Mass ratio] 17 mg/mg Normal 10-24 [facility]; [facility] Work Phone: Comment on above: PATIENT WAS FASTINGP ERFORMED BY: PeopleJam6370 [facility] [id number] PSA (PROSTATE SPECIFIC ANTIG EN) ([id number])Ordered By: School Supervisor on 02-25-2023 Prostate specific Ag [Mass/Vol] 0.5 ng/mL Normal 0.0-4.0 [facility]; [facility] Work Phone: Comment on above: Jenny ECLIA methodol ogy. .According to the [employer] [employer], Serum PSA shoulddecrease and remain at undetectable levels after radicalprostatectomy. The AUA defines biochemical recurrence as an initialPSA value 0.2 ng/mL or greater followed by a subsequent confirmatoryPSA value 0.2 ng/mL or greater.Values obtained with different assay methods or kits cannot be usedinterchangeably. Results cannot be interpreted as absolute evidenceof the presence or absence of malignant disease. PATIENT WAS FASTINGP ERFORMED BY: PeopleJam[address] [facility] [id number] URIC ACID BLOOD ([id number])Order ed By: School Supervisor on 02-25-2023 Urate [Mass/Vol] 5.2 mg/dL Normal 3.8-8.4 Comprehe nsive Internal Medicine; [facility] Work Phone: Comment on above: Therapeutic target f or gout patients: <6.0 PATIENT WAS FASTINGP ERFORMED BY: PeopleJam6370 [facility] [id number] Absolute lymphocyte countOrd ered By: Dr. Hammonds on 09-03-2022 Lymphocytes Auto (Unsp spec) [#/Vol] 1.82 10*3/uL 0.83-4.51 [facility] Basophil percentageOrdered B y: Dr. Hammonds on 09-03-2022 Basophils/100 WBC (Bld) 0.9 % 0-1 [facility] Bilirubin [Mass/Vol] 0.60 mg/dL 0.20-1.00 [facility] Comment on above: For patients on eltr ombopag therapy, use of Dimension [place] TBIL is not recommended. Chloride [Moles/Vol] 103 mmol/L 98-107 [facility] Cholesterol [Mass/Vol] 160 mg/dL <200 [facility] Comment on above: <200 mg/dL Desirable 200-240 mg/dL Borderline >240 mg/dL High Risk Eosinophils/100 WBC (Bld) 0.9 % 0-5 [facility] Glucose [Mass/Vol] 110 mg/dL 74-106 [facility] Comment on above: Fasting Glucose resu lt from 100 to 125 mg/dL suggests IMPAIRED HOMEOSTASIS per A.D.A. criteria. Neutrophils (Bld) [#/Vol] 3.1 10*3/uL 2.0-7.7 [facility] Neutrophils/100 WBC (Bld) 56.5 % 47-70 [facility] Potassium [Moles/Vol] 3.8 mmol/L 3.5-5.1 [facility] Protein [Mass/Vol] 8.0 g/dL 6.4-8.2 [facility] Sodium [Moles/Vol] 139 mmol/L 136-145 [facility] Triglyceride [Mass/Vol] 101 mg/dL <199 [facility] Comment on above: The drugs N-Acetylcy steine and Metamizole may falsely depress this assay.Serum Triglycerides Reference Interval Normal <150 mg/dL Borderline high 150 - 199 mg/dL High 200 - 499 mg/dL Very High > or = 500 mg/dL WBC (Bld) [#/Vol] 5.5 10*3/uL 4.4-11.0 [facility] Blood erythrocytes count (nu mber/volume)Ordered By: Dr. Hammonds on 09-03-2022 RBC (Bld) [#/Vol] 6.10 10*6/uL 4.6-6.2 [facility] Blood hemoglobin measurement (mass/volume)Ordered By: Dr. Hammonds on 09-03-2022 Hemoglobin (Bld) [Mass/Vol] 16.3 g/dL 13.0-16.5 [facility] Blood lymphocytes/100 leukoc ytesOrdered By: Dr. Hammonds on 09-03-2022 Lymphocytes/100 WBC (Bld) 33.0 % 19-41 [facility] Blood monocytes/100 leukocyt esOrdered By: Dr. Hammonds on 09-03-2022 Monocytes/100 WBC (Bld) 8.0 % 0-10 [facility] Blood platelet mean volumeOr dered By: Dr. Hammonds on 09-03-2022 Platelet mean volume (Bld) [Entitic vol] 9.9 fL 6.2-12.0 [facility] Determination of erythrocyte mean corpuscular volume (MCV)Ordered By: Dr. Hammonds on 09-03-2022 MCV (RBC) [Entitic vol] 83.8 fL 80-94 [facility] Direct bilirubinOrdered By: Dr. Hammonds on 09-03-2022 Bilirubin.direct [Mass/Vol] 0.17 mg/dL 0.00-0.30 [facility] Hematocrit Auto (Bld) [Volum e fraction]Ordered By: Dr. Hammonds on 09-03-2022 Hematocrit (Bld) [Volume fraction] 51.1 % 40-54 [facility] Laboratory - Chemistry and C hemistry - challengeOrdered By: Dr. Hammonds on 09-03-2022 ALP [Catalytic activity/Vol] 55 U/L 45-117 [facility] ALT [Catalytic activity/Vol] 40 U/L 16-61 [facility] CO2 [Moles/Vol] 28.0 mmol/L 21.0-32.0 [facility] Globulin (S) [Mass/Vol] 3.8 g/dL 2.2-4.2 [facility] Urea nitrogen/Creatinine [Mass ratio] 21.2 mg/mg 10-20 [facility] Laboratory - Hematology and Cell countsOrdered By: Dr. Hammonds on 09-03-2022 Erythrocyte distribution width (RBC) [Entitic vol] 39.0 fL 35.1-43.9 [facility] Erythrocyte distribution width (RBC) [Ratio] 13.1 % 11.6-14.6 [facility] Immature granulocytes/100 WBC (Bld) 0.700 % 0.0-0.9 [facility] Comment on above: IG% - Immature Granu locytes (promyelocytes, myelocytes and metamyelocytes) > 1% indicates that a LEFT SHIFT is Present. MCH (RBC) [Entitic mass] 26.7 pg 27.0-32.0 [facility] Nucleated RBC/100 WBC (Bld) [Ratio] 0 % 0-5 [facility] Auto (RBC) [Mass/Vol]Or dered By: Dr. Hammonds on 09-03-2022 MCHC (RBC) [Mass/Vol] 31.9 g/dL 32-36 [facility] No Panel InformationOrdered By: Dr. Hammonds on 09-03-2022 Estimated GFR (MDRD) Amer 105 mL/min >60 [facility] Comment on above: GFR Calc Estimated GFR (MDRD) Non-Af Amer 87 mL/min >60 [facility] Comment on above: Non- GFR Calc Free Lambda Light Chains, Quant 19.2 mg/L 5.7-26.3 [facility] Prostate Specific Antigen Screen 0.90 ng/mL 0.00-4.00 [facility] Comment on above: This test was perfor med using the TPSA assay method for theClassOwl chemistry system. Values obtained with differentassay methods cannot be used interchangably.When changing PSA assays in the course of monitoring apatient, additional sequential testing should be carriedout to confirm baseline values. Serum Immunofixation Comment . [facility] Comment on above: No monoclonality det ected. Platelets bldOrdered By: Dr. Hammonds on 09-03-2022 Platelets (Bld) [#/Vol] 279 10*3/uL 150-450 [facility] Serum immunoglobulin kappa l ight chains/immunoglobulin lambda light chains mass ratioOrdered By: Dr. Hammonds on 09-03-2022 Immunoglobulin light chains.kappa/Immunoglobu alfredo light chains.lambda (S) [Mass ratio] 1.29 0.26-1.65 [facility] Comment on above: Performed at: [employer] [address] [id number] Director: Gregory Asencio PhD, Phone: [phone] Serum or plasma IgA measurem ent (mass/volume)Ordered By: Dr. Hammonds on 09-03-2022 IgA [Mass/Vol] 250 mg/dL 90-386 [facility] Serum or plasma IgG measurem ent (mass/volume)Ordered By: Dr. Hammonds on 09-03-2022 IgG [Mass/Vol] 1323 mg/dL 603-1613 [facility] Serum or plasma IgM measurem ent (mass/volume)Ordered By: Dr. Hammonds on 09-03-2022 IgM [Mass/Vol] 114 mg/dL 20-172 [facility] Serum or plasma albumin anna urement (mass/volume)Ordered By: Dr. Hammonds on 09-03-2022 Albumin [Mass/Vol] 4.2 g/dL 3.2-5.0 [facility] Serum or plasma albumin/glob ulin mass ratioOrdered By: Dr. Hammonds on 09-03-2022 Albumin/Globulin [Mass ratio] 1.1 {ratio} 0.9-2.4 [facility] Serum or plasma calcium anna urement (mass/volume)Ordered By: Dr. Hammonds on 09-03-2022 Calcium [Mass/Vol] 9.2 mg/dL 8.5-10.1 [facility] Serum or plasma cholesterol in HDL measurement (mass/volume)Ordered By: Dr. Hammonds on 09-03-2022 Cholesterol in HDL [Mass/Vol] 45 mg/dL >40 [facility] Comment on above: The drugs N-Acetylcy steine and Metamizole may falsely depress this assay. Reference Range HDL <40 mg/dL Low HDL Cholesterol HDL >or= 60 mg/dL High HDL Cholesterol Serum or plasma cholesterol in VLDL measurement (mass/volume)Ordered By: Dr. Hammonds on 09-03-2022 Cholesterol in VLDL [Mass/Vol] 20 mg/dL 5-40 [facility] Serum or plasma creatinine m easurement (mass/volume)Ordered By: Dr. Hammonds on 09-03-2022 Creatinine [Mass/Vol] 0.94 mg/dL 0.70-1.30 [facility] Comment on above: The validity of the calculated GFR & GFRAA in patients over 70 years has not been determined. Clinical correlation is essential. Serum or plasma immunoglobul in kappa light chains measurement (mass/volume)Ordered By: Dr. Hammonds on 09-03-2022 Immunoglobulin light chains.kappa [Mass/Vol] 24.8 mg/L 3.3-19.4 [facility] Serum or plasma low density lipoprotein (LDL) cholesterol measurement (mass/volume)Ordered By: Dr. Hammonds on 09-03-2022 Cholesterol in LDL [Mass/Vol] 95 mg/dL 0-130 [facility] Serum or plasma urea nitroge n measurement (mass/volume)Ordered By: Dr. Hammonds on 09-03-2022 Urea nitrogen [Mass/Vol] 20 mg/dL 7-18 [facility] Serum or plasma uric acid me asurement (mass/volume)Ordered By: Dr. Hammonds on 09-03-2022 Urate [Mass/Vol] 5.2 mg/dL 3.5-7.2 [facility] Comment on above: The drugs N-Acetylcy steine and Metamizole may falsely depress this assay. Thin prep Papanicolaou smear with manual screeningOrdered By: Dr. Hammonds on 09-03-2022 Thin prep Papanicolaou smear with manual screening 26 U/L 15-37 [facility] Thin prep Papanicolaou smear with manual screening 8 5-15 [facility] Whole blood hemoglobin A1c/t otal hemoglobin ratio (mass fraction)Ordered By: Dr. Hammonds on 09-03-2022 HbA1c (Bld) [Mass fraction] 5.9 % 3.8-5.6 [facility] Comment on above: Normal < 5.7 % Predi abetic 5.7 - 6.4 % Diabetic >or= 6.5 % Please note range changes. Basophil percentageOrdered B y: Dr. Hammonds on 06-03-2022 Bilirubin [Mass/Vol] 0.60 mg/dL 0.20-1.00 [facility] Comment on above: For patients on eltr ombopag therapy, use of Dimension [place] TBIL is not recommended. Cholesterol [Mass/Vol] 129 mg/dL <200 [facility] Comment on above: <200 mg/dL Desirable 200-240 mg/dL Borderline >240 mg/dL High Risk Protein [Mass/Vol] 8.1 g/dL 6.4-8.2 [facility] Triglyceride [Mass/Vol] 78 mg/dL <199 [facility] Comment on above: The drugs N-Acetylcy steine and Metamizole may falsely depress this assay.Serum Triglycerides Reference Interval Normal <150 mg/dL Borderline high 150 - 199 mg/dL High 200 - 499 mg/dL Very High > or = 500 mg/dL Direct bilirubinOrdered By: Dr. Hammonds on 06-03-2022 Bilirubin.direct [Mass/Vol] 0.14 mg/dL 0.00-0.30 [facility] Laboratory - Chemistry and C hemistry - challengeOrdered By: Dr. Hammonds on 06-03-2022 Albumin [Mass/Vol] 4.1 g/dL 2.9-4.4 [facility] ALP [Catalytic activity/Vol] 53 U/L 45-117 [facility] ALT [Catalytic activity/Vol] 30 U/L 16-61 [facility] Globulin (S) [Mass/Vol] 3.7 g/dL 2.2-4.2 [facility] No Panel InformationOrdered By: Dr. Hammonds on 06-03-2022 Addendum Document Comment . [facility] Comment on above: The SPE pattern appe ars unremarkable. Evidence ofmonoclonal protein is not apparent. Lxqew-1-Vukpukuht 0.2 g/dL 0.0-0.4 [facility] Eaban-2-Okfcdtubx 0.6 g/dL 0.4-1.0 [facility] Free Lambda Light Chains, Quant 18.9 mg/L 5.7-26.3 [facility] Gamma Globulins 1.5 g/dL 0.4-1.8 [facility] Protein Fractions Elph [Inte rp]Ordered By: Dr. Hammonds on 06-03-2022 Protein Fractions [Interp] Comment . [facility] Comment on above: Protein electrophore sis scan will follow via computer,mail, or freight broker agent delivery. Serum albumin to globulin ra cierra by protein electrophoresisOrdered By: Dr. Hammonds on 06-03-2022 Albumin/Globulin Elph [Mass ratio] 1.2 0.7-1.7 [facility] Serum globulin measurement ( mass/volume)Ordered By: Dr. Hammonds on 06-03-2022 Globulin (S) [Mass/Vol] 3.4 g/dL 2.2-3.9 [facility] Serum immunoglobulin kappa l ight chains/immunoglobulin lambda light chains mass ratioOrdered By: Dr. Hammonds on 06-03-2022 Immunoglobulin light chains.kappa/Immunoglobu alfredo light chains.lambda (S) [Mass ratio] 1.51 0.26-1.65 [facility] Comment on above: Performed at: [address] [id number] Director: Gregory Asencio PhD, Phone: [phone] Serum or plasma albumin anna urement (mass/volume)Ordered By: Dr. Hammonds on 06-03-2022 Albumin [Mass/Vol] 4.4 g/dL 3.2-5.0 [facility] Serum or plasma beta globuli n measurement by electrophoresis (mass/volume)Ordered By: Dr. Hammonds on 06-03-2022 Beta globulin Elph [Mass/Vol] 1.1 g/dL 0.7-1.3 [facility] Serum or plasma cholesterol in HDL measurement (mass/volume)Ordered By: Dr. Hammonds on 06-03-2022 Cholesterol in HDL [Mass/Vol] 40 mg/dL >40 [facility] Comment on above: The drugs N-Acetylcy steine and Metamizole may falsely depress this assay. Reference Range HDL <40 mg/dL Low HDL Cholesterol HDL >or= 60 mg/dL High HDL Cholesterol Serum or plasma cholesterol in VLDL measurement (mass/volume)Ordered By: Dr. Hammonds on 06-03-2022 Cholesterol in VLDL [Mass/Vol] 16 mg/dL 5-40 [facility] Serum or plasma immunoglobul in kappa light chains measurement (mass/volume)Ordered By: Dr. Hammonds on 06-03-2022 Immunoglobulin light chains.kappa [Mass/Vol] 28.5 mg/L 3.3-19.4 [facility] Serum or plasma low density lipoprotein (LDL) cholesterol measurement (mass/volume)Ordered By: Dr. Hammonds on 06-03-2022 Cholesterol in LDL [Mass/Vol] 73 mg/dL 0-130 [facility] Thin prep Papanicolaou smear with manual screeningOrdered By: Dr. Hammonds on 06-03-2022 Thin prep Papanicolaou smear with manual screening 19 U/L 15-37 [facility] Thin prep Papanicolaou smear with manual screening See comment [facility] Comment on above: Not Observed Total protein bloodOrdered B y: Dr. Hammonds on 06-03-2022 Protein [Mass/Vol] 7.5 g/dL 6.0-8.5 [facility] Basophil percentageon 2021 Basophil percentage 103 mg/dL 0-149 [facility] Work [facility]: Bilirubin [Mass/Vol] 0.70 mg/dL 0.20-1.00 [facility] Work Phone: Comment on above: For patients on eltr ombopag therapy, use of Dimension [place] TBIL is not recommended. Chloride [Moles/Vol] 103 mmol/L 98-107 [facility] Work Phone: Glucose [Mass/Vol] 96 mg/dL 74-106 [facility] Work Phone: Potassium [Moles/Vol] 3.7 mmol/L 3.5-5.1 [facility] Work Phone: Protein [Mass/Vol] 8.8 g/dL 6.4-8.2 [facility] Work Phone: Sodium [Moles/Vol] 141 mmol/L 136-145 [facility] Work Phone: Laboratory - Chemistry and C hemistry - challengeon 03-11-2022 ALP [Catalytic activity/Vol] 55 U/L 45-117 [facility] Work Phone: ALT [Catalytic activity/Vol] 30 U/L 16-61 [facility] Work Phone: CO2 [Moles/Vol] 30.0 mmol/L 21.0-32.0 [facility] Work Phone: Globulin (S) [Mass/Vol] 4.2 g/dL 2.2-4.2 [facility] Work Phone: Urea nitrogen/Creatinine [Mass ratio] 18.7 mg/mg 10-20 [facility] Work Phone: No Panel Informationon 03-11 Estimated GFR (MDRD) Amer 91 mL/min >60 [facility] Work Phone: Comment on above: GFR Calc Estimated GFR (MDRD) Non-Af Amer 75 mL/min >60 [facility] Work Phone: Comment on above: Non- GFR Calc Insulin Resistance/Diabetes Risk 67 <=45 [facility] Work Phone: Comment on above: INSULIN RESISTANCE Maria Del Rosario CIFUENTES <--Insulin Sensitive Insulin Resistant--> Percentile in Reference PopulationInsulin Resistance ScoreLP-IR Score Low 25th 50th 75th High <27 27 45 63 >63LP-IR Score is inaccurate if patient is non-fasting.The LP-IR score is a laboratory developed index that hasbeen associated with insulin resistance and diabetes riskand should be used as one component of a physician'sclinical assessment.Performed at: [employer] [id number] Director: Su Hillman MD, Phone: [phone] LDL Cholesterol Particle Number [id number] nmol/L <1000 [facility] Work Phone: Comment on above: Low < 1000 Moderate 1000 - 1299 Borderline-High 1300 - 1599 High 1600 - 2000 Very High > 2000 LDL Cholesterol Particle Size 20.6 nm >20.5 [facility] Work Phone: Comment on above: INTERPRETATIVE INFORMATION PARTICLE CONCENTRATION AND SIZE <--Lower CVD Risk Higher CVD Risk--> LDL AND HDL PARTICLES Percentile in Reference Population HDL-P (total) High 75th 50th 25th Low >34.9 34.9 30.5 26.7 <26.7 Small LDL-P Low 25th 50th 75th High <117 117 527 839 >839 LDL Size <-Large (Pattern A)-> <-Small (Pattern B)-> 23.0 20.6 20.5 19.0 Sma ll LDL-P and LDL Size are associated with CVD risk, butnot after LDL-P is taken into account. LDL Cholesterol, Calculated 101 mg/dL 0-99 [facility] Work Phone: Comment on above: Optimal < 100 Above optimal 100 - 129 Borderline 130 - 159 High 160 - 189 Very high > 189 Small LDL Particle Number [id number] nmol/L <=527 [facility] Work Phone: Urine Microalbumin/Creatinine Ratio TNP [facility] Work Phone: Comment on above: Test not performed Serum or plasma albumin anna urement (mass/volume)on 03-11-2022 Albumin [Mass/Vol] 4.6 g/dL 3.2-5.0 [facility] Work Phone: Serum or plasma albumin/glob ulin mass ratioon 03-11-2022 Albumin/Globulin [Mass ratio] 1.1 {ratio} 0.9-2.4 [facility] Work Phone: Serum or plasma calcium anna urement (mass/volume)on 03-11-2022 Calcium [Mass/Vol] 9.6 mg/dL 8.5-10.1 [facility] Work Phone: Serum or plasma cholesterol in HDL measurement (mass/volume)on 03-11-2022 Cholesterol in HDL [Mass/Vol] 41 mg/dL >39 [facility] Work Phone: Serum or plasma cholesterol measurement (mass/volume)on 03-11-2022 Cholesterol [Mass/Vol] 161 mg/dL 100-199 [facility] Work Phone: Serum or plasma creatinine m easurement (mass/volume)on 03-11-2022 Creatinine [Mass/Vol] 1.07 mg/dL 0.70-1.30 [facility] Work Phone: Comment on above: The validity of the calculated GFR & GFRAA in patients over 70 years has not been determined. Clinical correlation is essential. Serum or plasma urea nitroge n measurement (mass/volume)on 03-11-2022 Urea nitrogen [Mass/Vol] 20 mg/dL 7-18 [facility] Work Phone: Serum or plasma uric acid me asurement (mass/volume)on 03-11-2022 Urate [Mass/Vol] 5.0 mg/dL 3.5-7.2 [facility] Work Phone: Comment on above: The drugs N-Acetylcy steine and Metamizole may falsely depress this assay. Thin prep Papanicolaou smear with manual screeningon 03-11-2022 Thin prep Papanicolaou smear with manual screening 18 U/L 15-37 [facility] Work Phone: Thin prep Papanicolaou smear with manual screening 8 5-15 [facility] Work Phone: Thin prep Papanicolaou smear with manual screening 7.4 mg/L NO RANGE EST. [facility] Work Phone: Thin prep Papanicolaou smear with manual screening 27.4 umol/L >=30.5 [facility] Work Phone: Urine creatinine measurement (mass/volume)on 03-11-2022 Creatinine (U) [Mass/Vol] mg/dL NO RANGE EST. [facility] Work Phone: Whole blood hemoglobin A1c/t otal hemoglobin ratio (mass fraction)on 03-11-2022 HbA1c (Bld) [Mass fraction] 5.9 % 3.8-5.6 [facility] Work Phone: Comment on above: Normal < 5.7 % Predi abetic 5.7 - 6.4 % Diabetic >or= 6.5 % Please note range changes. CALCIFIDIOL (67055) VIT D 25 Ordered By: School Supervisor on 11-01-2021 25-hydroxyvitamin D [Mass/Vol] 31.1 ng/mL Normal 30.0-100.0 [facility]; [facility] Work Phone: Comment on above: Vitamin D deficiency has been defined by the [place] ofMedicine and an Endocrine Society practice guideline as alevel of serum 25-OH vitamin D less than 20 ng/mL (1,2).The Endocrine Society went on to further define vitamin Dinsufficiency as a level between 21 and 29 ng/mL (2).1. IOM ([place] of Medicine). 2010. Dietary reference intakes for calcium and D. [place]: The National Academies Press.2. Dixon MF, Noa MCCORMACK, Agustín YEPEZ, et al. Evaluation, treatment, and prevention of vitamin D deficiency: an Endocrine Society clinical practice guideline. JCEM. 2010; 96(7):1911-30. PATIENT WAS FASTINGP ERFORMED BY: [employer] [facility]rp Obilay[address] [place] [id number] BY: [employer] [address] [id number] CBC WITH MANUAL DIFF ([id number]) Ordered By: School Supervisor on 11-01-2021 Basophils (Bld) [#/Vol] 0.1 10*3/uL Normal 0.0-0.2 [facility]; [facility] Work Phone: Comment on above: PATIENT WAS FASTINGP ERFORMED BY: [employer] [facility] Zybmaw[address] [facility] [place] [id number] BY: [employer] [address] [id number] Information: NURSE DRAW Basophils/100 WBC (Bld) 1 % Normal [facility]; [facility] Work Phone: Comment on above: PATIENT WAS FASTINGP ERFORMED BY: [facility] [id number] Mederos RoadDublin [place] [id number] BY: [employer] [id number] Information: NURSE DRAW Eosinophils (Bld) [#/Vol] 0.1 10*3/uL Normal 0.0-0.4 [facility]; [facility] Work Phone: Comment on above: PATIENT WAS FASTINGP ERFORMED BY: [employer] Omvkuh50[address] Med[address] RoadDublin [place] [id number] BY: [address] [id number] Information: NURSE DRAW Eosinophils/100 WBC (Bld) 2 % Normal [facility]; [facility] Work Phone: Comment on above: PATIENT WAS FASTINGP ERFORMED BY: MARTINA Heredialin6370 [facility] [id number] BY: [address] [id number] Information: NURSE DRAW Erythrocyte distribution width (RBC) [Ratio] 12.4 % Normal 11.6-15.4 [facility]; [facility] Work Phone: Comment on above: PATIENT WAS FASTINGP ERFORMED BY: MARTINA Heredialin6370 [facility] [id number] BY: [address] [id number] Information: NURSE DRAW Hematocrit (Bld) [Volume fraction] 49.6 % Normal 37.5-51.0 [facility]; [facility] Work Phone: Comment on above: PATIENT WAS FASTINGP ERFORMED BY: MARTINA Heredialin6370 [facility] [id number] BY: [address] [id number] Information: NURSE DRAW Hemoglobin (Bld) [Mass/Vol] 16.3 g/dL Normal 13.0-17.7 [facility]; [facility] Work Phone: Comment on above: PATIENT WAS FASTINGP ERFORMED BY: MARTINA [employer] Qaymvs0065 [facility] [id number] BY: [address] [id number] Information: NURSE DRAW Immature granulocytes (Bld) [#/Vol] 0.0 10*3/uL Normal 0.0-0.1 [facility]; [facility] Work Phone: Comment on above: PATIENT WAS FASTINGP ERFORMED BY: [place] [id number] [facility] [id number] BY: [address] [id number] Information: NURSE DRAW Immature granulocytes/100 WBC (Bld) 1 % Normal [facility]; [facility] Work Phone: Comment on above: PATIENT WAS FASTINGP ERFORMED BY: MARTINA LabcoLaura Ville [id number] [facility] [id number] BY: [address] [id number] Information: NURSE DRAW Lymphocytes (Bld) [#/Vol] 2.2 10*3/uL Normal 0.7-3.1 [facility]; [facility] Work Phone: Comment on above: PATIENT WAS FASTINGP ERFORMED BY: [place] [id number] [facility] [id number] BY: [address] [id number] Information: NURSE DRAW Lymphocytes/100 WBC (Bld) 38 % Normal [facility]; [facility] Work Phone: Comment on above: PATIENT WAS FASTINGP ERFORMED BY: MARTINA LabShannon Ville [id number] [facility] [id number] BY: [address] [id number] Information: NURSE DRAW MCH (RBC) [Entitic mass] 25.8 pg Abnormal 26.6-33.0 [facility]; [facility] Work Phone: Comment on above: PATIENT WAS FASTINGP ERFORMED BY: MARTINA LabShannon Ville [id number] [facility] [id number] BY: [address] [id number] Information: NURSE DRAW MCHC (RBC) [Mass/Vol] 32.9 g/dL Normal 31.5-35.7 [facility] prehensive [facility]; [facility] Work Phone: Comment on above: PATIENT WAS FASTINGP ERFORMED BY: [facility] [id number] [facility] [id number] BY: [address] [id number] Information: NURSE DRAW MCV (RBC) [Entitic vol] 79 fL Normal 79-97 [facility]; [facility] Work Phone: Comment on above: PATIENT WAS FASTINGP ERFORMED BY: [facility] Rgeame1384 [facility] [id number] BY: [address] [id number] Information: NURSE DRAW Monocytes (Bld) [#/Vol] 0.4 10*3/uL Normal 0.1-0.9 [facility]; [facility] Medicine Work Phone: Comment on above: PATIENT WAS FASTINGP ERFORMED BY: [facility] Heppbb2561 [facility] [id number] BY: Lab[address] [id number] Information: NURSE DRAW Monocytes/100 WBC (Bld) 7 % Normal C omprehensive Internal Medicine; [facility] Work Phone: Comment on above: PATIENT WAS FASTINGP ERFORMED BY: [facility] Kbvjcx6391 [facility] [id number] BY: [facility]co[address] [id number] Information: NURSE DRAW Neutrophils (Bld) [#/Vol] 3.0 10*3/uL Normal 1.4-7.0 [facility]; [facility] Work Phone: Comment on above: PATIENT WAS FASTINGP ERFORMED BY: [facility] Rbhpfm1618 [facility] [id number] BY: [address] [id number] Information: NURSE DRAW Neutrophils/100 WBC (Bld) 51 % Normal [facility]; [facility] Work Phone: Comment on above: PATIENT WAS FASTINGP ERFORMED BY: [employer] [facility] Tmyscy1531 [facility] [id number] BY: [address] [id number] Information: NURSE DRAW Platelets (Bld) [#/Vol] 261 10*3/uL Normal 150-450 [facility]; [facility] Work Phone: Comment on above: PATIENT WAS FASTINGP ERFORMED BY: [employer] [facility] Ouyfdu9072 [facility] [id number] BY: [address] [id number] Information: NURSE DRAW RBC (Bld) [#/Vol] 6.32 10*6/uL Abnormal 4.14-5.80 [facility] [[email or web address]] Internal Medicine; [facility] Work Phone: Comment on above: PATIENT WAS FASTINGP ERFORMED BY: LabEndoStimrp Klfapr2623 [facility] [id number] BY: Str[employer] [id number] Information: NURSE DRAW WBC (Bld) [#/Vol] 5.9 10*3/uL Normal 3.4-10.8 [facility] Internal Medicine; [facility] Work Phone: Comment on above: PATIENT WAS FASTINGP ERFORMED BY: LabEndoStimrp Aymoqx7265 [facility] [id number] BY: [address] [id number] Information: NURSE DRAW HEPATITIS C ANTIBODY (66805) Ordered By: School Supervisor on 11-01-2021 HCV Ab Signal/Cutoff IA [Rel units/Vol] 0.1 {s/co_ratio} Normal 0.0-0.9 [facility]; [facility] Work Phone: Comment on above: Negative: < 0.8 Inde terminate: 0.8 - 0.9 Positive: > 0.9 . The CDC recommends that a positive HCV antibody result be followed up with a HCV Nucleic Acid Amplification test (056036). PATIENT WAS FASTINGP ERFORMED BY: CB [facility] Rgwadq2203 [facility] [id number] BY: [address] [id number] Metabolic Panel, Comprehensi ve (31729)Ordered By: School Supervisor on 11-01-2021 Albumin [Mass/Vol] 5.0 g/dL Abnormal 3.8-4.9 [facility] Internal Medicine; [facility] Work Phone: Comment on above: PATIENT WAS FASTINGP ERFORMED BY: [facility] Metzuf0715 [facility] [id number] BY: [address] [id number] Albumin/Globulin [Mass ratio] 1.7 {ratio} Normal 1.2-2.2 [facility]; [facility] Work Phone: Comment on above: PATIENT WAS FASTINGP ERFORMED BY: [facility] Gwkcqj3138 [facility] [id number] BY: [address] [id number] ALP [Catalytic activity/Vol] 64 U/L Normal 44-121 [facility]; [facility] Work Phone: Comment on above: PATIENT WAS FASTINGP ERFORMED BY: LabEndoStim Gmnmqr2282 [facility] [id number] BY: [address] [id number] ALT [Catalytic activity/Vol] 17 U/L Normal 0-44 [facility]; [facility] Work Phone: Comment on above: PATIENT WAS FASTINGP ERFORMED BY: [facility] Vlgift0752 [facility] [id number] BY: BN [facility] [id number] AST [Catalytic activity/Vol] 18 U/L Normal 0-40 [facility]; [facility] Work Phone: Comment on above: PATIENT WAS FASTINGP ERFORMED BY: CB [facility] Zyjqyp5615 [facility] [place] [facility] [place] [id number] BY: [facility] [id number] Bilirubin [Mass/Vol] 0.6 mg/dL Normal 0.0-1.2 Comp rehensive Internal Medicine; [facility] Work Phone: Comment on above: PATIENT WAS FASTINGP ERFORMED BY: [facility] Lnwuvi1141 [facility] [id number] BY: [facility] [id number] Calcium [Mass/Vol] 10.0 mg/dL Normal 8.7-10.2 [facility] Internal Medicine; [facility] Work Phone: Comment on above: PATIENT WAS FASTINGP ERFORMED BY: [facility] Ugbeaf0886 [facility] [id number] BY: [address] [id number] Chloride [Moles/Vol] 97 mmol/L Normal 96-106 [facility]; [facility] Work Phone: Comment on above: PATIENT WAS FASTINGP ERFORMED BY: [facility] Vwqodu4138 [facility] [id number] BY: [facility] [address] [id number] CO2 [Moles/Vol] 24 mmol/L Normal 20-29 [facility] Internal Medicine; [facility] Work Phone: Comment on above: PATIENT WAS FASTINGP ERFORMED BY: CB [facility] Zmliuv7720 [facility] [id number] BY: [address] [id number] Creatinine [Mass/Vol] 1.08 mg/dL Normal 0.76-1.27 [facility] prehensive Internal Medicine; [facility] Work Phone: Comment on above: PATIENT WAS FASTINGP ERFORMED BY: MARTINA [facility] Orvytf1316 [facility] [id number] BY: [employer] [address] [id number] GFR/1.73 sq M.predicted among non-blacks MDRD (S/P/Bld) [Vol rate/Area] 79 mL/min/{1.73_m2} Normal Comprehensiv e Internal Medicine; [facility] Work Phone: Comment on above: PATIENT WAS FASTINGP ERFORMED BY: MARTINA LabEndoStimrp Erubrc0011 [facility] [id number] BY: [employer] [address] [id number] Globulin (S) [Mass/Vol] 2.9 g/dL Normal 1.5-4.5 [facility]; [facility] Work Phone: Comment on above: PATIENT WAS FASTINGP ERFORMED BY: MARTINA [facility] Vgwkut0008 [facility] [id number] BY: [employer] [address] [id number] Glucose [Mass/Vol] 130 mg/dL Abnormal 65-99 [facility] Internal Medicine; [facility] Work Phone: Comment on above: PATIENT WAS FASTINGP ERFORMED BY: [employer] [facility] Lifwus0893 [facility] [id number] BY: [employer] [address] [id number] Potassium [Moles/Vol] 3.9 mmol/L Normal 3.5-5.2 [facility] prehensive Internal Medicine; [facility] Work Phone: Comment on above: PATIENT WAS FASTINGP ERFORMED BY: [facility] Vugcuv3410 [facility] [id number] BY: [address] [id number] Protein [Mass/Vol] 7.9 g/dL Normal 6.0-8.5 [facility] Internal Medicine; [facility] Work Phone: Comment on above: PATIENT WAS FASTINGP ERFORMED BY: [facility] Hzhkma6621 [facility] [id number] BY: [address] [id number] Sodium [Moles/Vol] 138 mmol/L Normal 134-144 [facility] Internal Medicine; [facility] Work Phone: Comment on above: PATIENT WAS FASTINGP ERFORMED BY: LabEndoStimrp Fwzype0594 [facility] [id number] BY: [address] [id number] Urea nitrogen [Mass/Vol] 13 mg/dL Normal 6-24 [facility]; [facility] Work Phone: Comment on above: PATIENT WAS FASTINGP ERFORMED BY: [facility] Phoplb5140 [facility] [id number] BY: [address] [id number] Urea nitrogen/Creatinine [Mass ratio] 12 mg/mg Normal 9-20 [facility]; [facility] Work Phone: Comment on above: PATIENT WAS FASTINGP ERFORMED BY: LabEndoStimrp Kqxtph5181 [facility] [id number] BY: [address] [id number] PSA (Prostate Specific Antig en), Diagnostic (96146)Ordered By: School Supervisor on 11-01-2021 Prostate specific Ag [Mass/Vol] 0.6 ng/mL Normal 0.0-4.0 [facility]; [facility] Work Phone: Comment on above: Jenny ECLIA methodol ogy. .According to the [place] [employer], Serum PSA shoulddecrease and remain at undetectable levels after radicalprostatectomy. The AUA defines biochemical recurrence as an initialPSA value 0.2 ng/mL or greater followed by a subsequent confirmatoryPSA value 0.2 ng/mL or greater.Values obtained with different assay methods or kits cannot be usedinterchangeably. Results cannot be interpreted as absolute evidenceof the presence or absence of malignant disease. PATIENT WAS FASTINGP ERFORMED BY: Bambeco70 [facility] [id number] BY: [employer] [address] [id number] TESTOSTERONE FREE (12118)Ord ered By: School Supervisor on 11-01-2021 Testosterone Free [Mass/Vol] 12.2 pg/mL Normal 7.2-24.0 [facility]; [facility] Work Phone: Comment on above: PATIENT WAS FASTINGP ERFORMED BY: Bambeco70 [facility] [id number] BY: [employer] [address] [id number] TSH (THYROID STIMULATING HOR BEN) (63576)Ordered By: School Supervisor on 11-01-2021 TSH Qn 2.310 {uIU/mL} Normal 0.450-4.50 0 [facility]; [facility] Work Phone: Comment on above: PATIENT WAS FASTINGP ERFORMED BY: Bambeco70 [facility] [id number] BY: [employer] [address] [id number] URINALYSIS (28513)Ordered By : School Supervisor on 11-01-2021 Appearance (U) Clear Normal Comprehens chaparrita Internal Medicine; [facility] Work Phone: Comment on above: PATIENT WAS FASTINGP ERFORMED BY: PeopleJam6370 [facility] [id number] BY: [employer] [address] [id number] Bilirubin Ql (U) Negative Normal Comprehe nsive Internal Medicine; [facility] Work Phone: Comment on above: PATIENT WAS FASTINGP ERFORMED BY: MARTINA [facility] Uzibpq4322 Mederos RoadDublin [place] [id number] BY: [address] [id number] Color (U) Yellow Normal [facility]; [facility] Work Phone: Comment on above: PATIENT WAS FASTINGP ERFORMED BY: MARTINA [facility] Mtsspu5079 [facility] RoadDublin [place] [id number] BY: [address] [id number] Glucose Ql (U) 2+ Abnormal Comprehens chaparrita Internal Medicine; [facility] Work Phone: Comment on above: PATIENT WAS FASTINGP ERFORMED BY: MARTINA [facility] Nmjkry1808 [facility] RoadDublin [place] [id number] BY: [address] [id number] Hemoglobin Ql (U) Trace Abnormal Compreh ensive Internal Medicine; [facility] Work Phone: Comment on above: PATIENT WAS FASTINGP ERFORMED BY: MARTINA [facility] Jrisve4807 Mederos RoadDublin [place] [id number] BY: [address] [id number] Ketones Ql (U) Negative Normal Comprehens chaparrita Internal Medicine; [facility] Work Phone: Comment on above: PATIENT WAS FASTINGP ERFORMED BY: MARTINA [facility] Kdtwvp4414 Mederos RoadDublin [place] [id number] BY: [address] [id number] Leukocyte esterase Test strip Ql (U) Negative Normal [facility]; [facility] Work Phone: Comment on above: PATIENT WAS FASTINGP ERFORMED BY: MARTINA [facility] Cbtcjb5260 Med[address] RoadDublin [place] [id number] BY: [address] [id number] Microscopic observation LM Nom (Urine sed) See below: Normal [facility]; [facility] Work Phone: Comment on above: Microscopic was ranjit cated and was performed. PATIENT WAS FASTINGP ERFORMED BY: MARTINA [facility]6370 [facility] [id number] BY: [address] [id number] Nitrite Ql (U) Negative Normal Comprehens chaparrita Internal Medicine; [facility] Work Phone: Comment on above: PATIENT WAS FASTINGP ERFORMED BY: MARTINA [place] [id number] [facility] [id number] BY: [address] [id number] pH (U) 6.0 [pH] Normal 5.0-7.5 [facility]; [facility] Work Phone: Comment on above: PATIENT WAS FASTINGP ERFORMED BY: MARTINA [facility]6370 [facility] [id number] BY: [address] [id number] Protein Ql (U) Trace Normal Comprehens chaparrita Internal Medicine; [facility] Work Phone: Comment on above: PATIENT WAS FASTINGP ERFORMED BY: [facility]6370 [facility] [id number] BY: [address] [id number] Specific gravity (U) [Rel density] 1.009 1 Normal 1.005-1.03 0 [facility]; [facility] Work Phone: Comment on above: PATIENT WAS FASTINGP ERFORMED BY: LabShannon [place] [id number] [facility] [id number] BY: [address] [place] [id number] Urobilinogen (U) [Mass/Vol] 0.2 mg/dL Normal 0.2-1.0 [facility]; [facility] Work Phone: Comment on above: PATIENT WAS FASTINGP ERFORMED BY: MARTINA [facility] Sphyen9603 [facility] [id number] BY: BN [facility] Xllsvxujdz9288 [facility] [id number] MRI Abdomen w/o Contraston 0 12-30-2019 MRI Abdomen w/o Contrast Patient Name: MARCELLA YANES MRI Exam Date/Time 12/29/2019 16:52:27 EDT Exam MRI Abdomen w/o Contrast Ordering Physician CARLOS BERMAN Accession Number [id number] CPT4 Codes 82979 () Reason For Exam weight loss, abnormal ct Report MRI OF THE ABDOMEN WITH MRCP: CLINICAL INDICATION: Weight loss, abnormal lesion in the gallbladder fossa on CT. TECHNIQUE: Transaxial and coronal T1 and T2 breath hold along with transaxial and coronal gradient echo sequences were performed through the abdomen. Thick section multi-angle and thin section multi-slice MRCP sequences were performed through the abdomen as well. Maximum intensity projection 3-D images were created with the latter data set on an independent workstation. COMPARISON: CT dated 12/15/2019 FINDINGS: Gallbladder: Status post cholecystectomy. Biliary tree: Intrahepatic and extrahepatic biliary tree demonstrates normal caliber. Common hepatic duct luminal caliber:0.4 cm. Common bile duct luminal caliber: 0.3 cm. Within the gallbladder fossa, there is a small fluid intensity collection corresponding to the abnormality noted on the prior CT. This measures 1.5 x 0.5 cm, previously measuring 2.1 x 1.5 cm. This appears to be contiguous with the cystic duct stump. No filling defects identified. Normal tapered configuration of the distal end of the common bile duct. Pancreatic duct: Normal caliber. Liver: Normal size and contour. No focal lesion. Pancreas: No mass or peripancreatic fluid identified. Spleen: Normal. Adrenals:Normal Kidneys: No contour abnormality or hydronephrosis. 2.2 cm left renal cyst again seen, with multiple additional punctate left renal cysts. There is a single punctate right renal cyst. Aorta: Normal caliber. Visualized Osseous structures: Unremarkable. IMPRESSION: Status post cholecystectomy, with a fluid intensity lesion in the gallbladder fossa which is contiguous with the cystic duct, consistent with a dilated cystic duct remnant. Report Dictated on Final Dictated: 12/30/2019 3:28 pm Dictating Physician: MD MONTEIRO NICHOLAS Signed Date and Time: 12/30/2019 3:39 pm Signed by: MD MONTEIRO NICHOLAS Transcribed Date and Time: 12/30/2019 3:28 Normal [facility] CT Abdomen Pelvis W Contrast on 12-15-2019 Patient Name: MARCELLA YANES ---CT--- Exam Date/Time 12/15/2019 08:18:[address] Abdomen/Pelvis w/ IV Contrast (IV Onl Ordering Physician CARLOS BERMAN Accession Number [id number] CPT4 Codes 83629 (CT Abdomen/Pelvis w/ IV Contrast (IV Onl), Q9967 (CT ISOVUE 370MG/ML&[id number]&M L&1) Reason For Exam ABNORMAL WEIGHT LOSS Report CT ABDOMEN AND PELVIS WITH CONTRAST EXAM DATE AND TIME: 12/15/2019 8:18 AM EDT INDICATION: 59 years Male with weight loss, elevated CEA COMPARISON: None TECHNIQUE: Transaxial sequence through the abdomen and pelvis with 3 mm reconstruction with dynamic intravenous infusion of 75 mL of 370 mg% contrast media. Coronal and sagittal reconstructions included. Dose reduction was employed with automated exposure control. FINDINGS: Chest base: Normal. Liver: Normal size and contour. 3 mm hypodensity in the anterior aspect of segment 2, too small to characterize but likely represents a cyst. Biliary tree: Mild common duct dilation, likely due to prior cholecystectomy. A small fluid density collection is seen in the gallbladder fossa measuring 2.1 x 1.5 cm (series 2 image 40), which is adjacent to the surgical clips. Spleen: Normal. Adrenals: Normal. Pancreas: Normal. Kidneys: Symmetric contrast enhancement without hydronephrosis. Small left renal cyst. No enhancing renal lesions. No radiopaque renal calculi. Free fluid: None. Retroperitoneal/mesent zachery lymphadenopathy: None. Bowel: Normal caliber. No evidence of bowel wall thickening or definite colonic mass. Diverticuli are noted throughout the ascending, descending and sigmoid colon. No stenotic lesion, mucosal thickening or adjacent fat stranding is noted to suggest diverticulitis. The appendix is not identified consistent with history of prior appendectomy. Aorta: Normal caliber. Abdominal wall: Normal. Pelvic organs/viscera: No mass identified. Pelvic lymphadenopathy: None. Osseous structures: Degenerative change of the visualized spine is noted. 2 mm of retrolisthesis at L5-S1. IMPRESSION: 1. No bowel wall thickening or definite colonic mass. Consider correlation with direct visualization if there is persistent concern. 2. Colonic diverticulosis. 3. Mild extrahepatic biliary dilation likely due to prior cholecystectomy. A fluid density collection is present in the gallbladder fossa adjacent to the cholecystectomy clips; given history of surgery this could be related to a seroma or an ectatic cystic duct remnant. If further evaluation of this is clinically indicated, an MRCP could be obtained. 4. Chronic osseous findings. Report Dictated on --- Final --- Dictating Physician: MD MONTEIRO NICHOLAS Signed Date and Time: 12/15/2019 8:43 am Signed by: MD MONTEIRO NICHOLAS Transcribed Date and Time: 12/15/2019 8:44 [place], [place], [facility] Incoming Radiology Results From [facility] - 12/15/2019 8:44 AM EDT Patient Name: MARCELLA YANES ---CT--- Exam Date/Time 12/15/2019 08:18:[address] Abdomen/Pelvis w/ IV Contrast (IV Onl Ordering Physician CARLOS BERMAN Accession Number [id number] CPT4 Codes 03454 (CT Abdomen/Pelvis w/ IV Contrast (IV Onl), Q9967 (CT ISOVUE 370MG/ML&[id number]&M L&1) Reason For Exam ABNORMAL WEIGHT LOSS Report CT ABDOMEN AND PELVIS WITH CONTRAST EXAM DATE AND TIME: 12/15/2019 8:18 AM EDT INDICATION: 59 years Male with weight loss, elevated CEA COMPARISON: None TECHNIQUE: Transaxial sequence through the abdomen and pelvis with 3 mm reconstruction with dynamic intravenous infusion of 75 mL of 370 mg% contrast media. Coronal and sagittal reconstructions included. Dose reduction was employed with automated exposure control. FINDINGS: Chest base: Normal. Liver: Normal size and contour. 3 mm hypodensity in the anterior aspect of segment 2, too small to characterize but likely represents a cyst. Biliary tree: Mild common duct dilation, likely due to prior cholecystectomy. A small fluid density collection is seen in the gallbladder fossa measuring 2.1 x 1.5 cm (series 2 image 40), which is adjacent to the surgical clips. Spleen: Normal. Adrenals: Normal. Pancreas: Normal. Kidneys: Symmetric contrast enhancement without hydronephrosis. Small left renal cyst. No enhancing renal lesions. No radiopaque renal calculi. Free fluid: None. Retroperitoneal/mesent zachery lymphadenopathy: None. Bowel: Normal caliber. No evidence of bowel wall thickening or definite colonic mass. Diverticuli are noted throughout the ascending, descending and sigmoid colon. No stenotic lesion, mucosal thickening or adjacent fat stranding is noted to suggest diverticulitis. The appendix is not identified consistent with history of prior appendectomy. Aorta: Normal caliber. Abdominal wall: Normal. Pelvic organs/viscera: No mass identified. Pelvic lymphadenopathy: None. Osseous structures: Degenerative change of the visualized spine is noted. 2 mm of retrolisthesis at L5-S1. IMPRESSION: 1. No bowel wall thickening or definite colonic mass. Consider correlation with direct visualization if there is persistent concern. 2. Colonic diverticulosis. 3. Mild extrahepatic biliary dilation likely due to prior cholecystectomy. A fluid density collection is present in the gallbladder fossa adjacent to the cholecystectomy clips; given history of surgery this could be related to a seroma or an ectatic cystic duct remnant. If further evaluation of this is clinically indicated, an MRCP could be obtained. 4. Chronic osseous findings. Report Dictated on --- Final --- Dictating Physician: MD MONTEIRO NICHOLAS Signed Date and Time: 12/15/2019 8:43 am Signed by: MD MONTEIRO NICHOLAS Transcribed Date and Time: 12/15/2019 8:44 [place], [place] CT Abdomen/Pelvis w/ Contras ton 12-15-2019 CT Abdomen/Pelvis w/ Contrast Patient Name: MARCELLA YANES CT Exam Date/Time 12/15/2019 08:18:[address] Abdomen/Pelvis w/ IV Contrast (IV Onl Ordering Physician CARLOS BERMAN Accession Number [id number] CPT4 Codes 19308 (CT Abdomen/Pelvis w/ IV Contrast (IV Onl), Q9967 (CT ISOVUE 370MG/[id number] andMLand1) Reason For Exam ABNORMAL WEIGHT LOSS Report CT ABDOMEN AND PELVIS WITH CONTRAST EXAM DATE AND TIME: 12/15/2019 8:18 AM EDT INDICATION: 59 years Male with weight loss, elevated CEA COMPARISON: None TECHNIQUE: Transaxial sequence through the abdomen and pelvis with 3 mm reconstruction with dynamic intravenous infusion of 75 mL of 370 mg% contrast media. Coronal and sagittal reconstructions included. Dose reduction was employed with automated exposure control. FINDINGS: Chest base: Normal. Liver: Normal size and contour. 3 mm hypodensity in the anterior aspect of segment 2, too small to characterize but likely represents a cyst. Biliary tree: Mild common duct dilation, likely due to prior cholecystectomy. A small fluid density collection is seen in the gallbladder fossa measuring 2.1 x 1.5 cm (series 2 image 40), which is adjacent to the surgical clips. Spleen: Normal. Adrenals: Normal. Pancreas: Normal. Kidneys: Symmetric contrast enhancement without hydronephrosis. Small left renal cyst. No enhancing renal lesions. No radiopaque renal calculi. Free fluid: None. Retroperitoneal/mesent zachery lymphadenopathy: None. Bowel: Normal caliber. No evidence of bowel wall thickening or definite colonic mass. Diverticuli are noted throughout the ascending, descending and sigmoid colon. No stenotic lesion, mucosal thickening or adjacent fat stranding is noted to suggest diverticulitis. The appendix is not identified consistent with history of prior appendectomy. Aorta: Normal caliber. Abdominal wall: Normal. Pelvic organs/viscera: No mass identified. Pelvic lymphadenopathy: None. Osseous structures: Degenerative change of the visualized spine is noted. 2 mm of retrolisthesis at L5-S1. IMPRESSION: 1. No bowel wall thickening or definite colonic mass. Consider correlation with direct visualization if there is persistent concern. 2. Colonic diverticulosis. 3. Mild extrahepatic biliary dilation likely due to prior cholecystectomy. A fluid density collection is present in the gallbladder fossa adjacent to the cholecystectomy clips; given history of surgery this could be related to a seroma or an ectatic cystic duct remnant. If further evaluation of this is clinically indicated, an MRCP could be obtained. 4. Chronic osseous findings. Report Dictated on Final Dictating Physician: MD MONTEIRO NICHOLAS Signed Date and Time: 12/15/2019 8:43 am Signed by: MD MONTEIRO NICHOLAS Transcribed Date and Time: 12/15/2019 8:44 Normal [facility] HGB A1C ([id number])Ordered By: S ystem Supervisor Type Photography on 08-10-2018 HbA1c (Bld) [Mass fraction] 6.1 % Abnormal 4.8-5.6 [facility] Work Phone: Comment on above: . Prediabetes: 5.7 - 6.4 Diabetes: >6.4 Glycemic control for adults with diabetes: <7.0 A courtesy copy of t his report has been sent [phone].PATIENT NOT FASTINGPERFORMED BY: MARTINA LabCoSt. Joseph's Regional Medical [id number] [facility] [id number] Information: FX [phone] CBCOrdered By: System Manage r on 08-24-2012 Erythrocyte distribution width Ratio (RBC) 12.6 % Normal 11.6-14.6 [facility] Work Phone: Hematocrit Volume Fraction (Bld) 45.7 % Normal 40-54 [facility] Work Phone: Hemoglobin mass conc (Bld) 15.3 g/dL Normal 13.0-16.5 [facility] Work Phone: MCH Entitic mass (RBC) 27.5 pg Normal 27.0-32.0 Co m[facility] Work Phone: MCHC mass conc (RBC) 33.5 g/dL Normal 32-36 Comp rehensive [facility] Medicine Work Phone: MCV Entitic volume (RBC) 82.2 fL Normal 80-94 [facility] Work Phone: Platelet mean volume Entitic volume (Bld) 10.0 fL Normal 6.2-12.0 Comprehensi ve Internal Medicine Work Phone: Platelets #/vol (Bld) 239 10*3/uL Normal 150-450 [facility] Work Phone: RBC #/vol (Bld) 5.56 {M/mm3} Normal 4.6-6.2 Compreh ensive [facility] Work Phone: WBC #/vol (Bld) 5.5 {k/mm3} Normal 4.4-11.0 Comprehe nsive [facility] Medicine Work Phone: CBC 38.0 fL Normal 35.1-43.9 [facility] Work Phone: PSAOrdered By: System KIT digital r on 08-24-2012 Prostate specific Ag mass conc 0.64 ng/mL Normal 0.00-4.00 [facility] Work Phone: TESOrdered By: Analytics Engines r on 08-24-2012 ALLYSSA 390 ng/mL Normal 241-827 [facility] Work Phone: Comment on above: CHANGE Effective Jul FSHLHOrdered By: System IDverge on 05-21-2012 FSHLH 2.7 m[iU]/mL Normal Comprehensiv e [facility] Work Phone: Comment on above: NORMAL REFERENCE RAN GES FEMALE FOLLICULAR 1.9 - 26.2 mIU/mL MID-CYCLE PEAK 22.8 - 76.1 mIU/mL LUTEAL 0.6 - 16.6 mIU/mL POST-MENOPAUSAL ON MHT 1.1 - 52.4 mIU/mL NOT ON MHT 8.6 - 61.8 mIU/mL MALE 1.2 - 10.6 mIU/mL FSHLH 3.2 m[iU]/mL Normal Com[facility] e [facility] Work Phone: Comment on above: NORMAL REFERENCE RAN GES FEMALE FOLLICULAR 2.3 - 12.6 mIU/mL MID-CYCLE PEAK 5.2 - 17.5 mIU/mL LUTEAL 1.7 - 12.9 mIU/mL POST-MENOPAUSAL ON MHT 5.9 - 72.8 mIU/mL NOT ON MHT 12.7 - 132.2 mlU/mL MALE 0.7 - 10.8 mIU/mL PROLOrdered By: System Manag er on 05-21-2012 Prolactin mass conc 9.1 ng/mL Normal Compr ehensive Internal Medicine Work Phone: Comment on above: NORMAL REFERENCE RAN GES FEMALE NON- 2.2 - 30.3 ng/mL 8.1 - 347.6 ng/mL POST-MENOPAUSAL 0.7 - 31.5 ng/mL MALE 2.5 - 17.4 ng/mL TESOrdered By: System Manage r on 05-21-2012 ALLYSSA 357 ng/dL Normal [id number] [facility] Work Phone: Comment on above: RESULT FROM 05/21/12 FASTING SPECIMEN PREVIOUS RESULT FROM05/18/12 NONFASTING SPECIMEN. AMENDED REPORT 06/02/12 0307 TESTOSTER [id number] previously reported as: TEST RESULT LIMITSTestosterone, Serum 222 ng/dL L 348 1197 TESTING PERFORMED AT [facility]. ORIGINAL REPORT ON FILE IN LAB CONTAINS ADDITIONAL TEST SITE INFORMATION. ADD ON TESTOSTERONE TESTOFOrdered By: System Man ager on 05-21-2012 TESTOF 13.7 pg/mL Normal 6.8-21.5 [facility] Work Phone: Comment on above: Performed at: [facility] [id number] Director: Jacob Apple MD, Phone: [phone] ADD ON TESTOSTERONE U5AOrgolkm By: System Manage r on 05-20-2012 Hemoglobin A1c/Hemoglobin.total mass fraction (Bld) 6.0 % Normal 4.2-6.3 [facility] e [facility] Work Phone: BIDOrdered By: System Manage r on 05-20-2012 BID 0.13 mg/dL Normal 0.00-0.30 [facility] Work Phone: CMPOrdered By: System Manage r on 05-20-2012 Albumin mass conc 4.6 g/dL Normal 3.4-5.0 Compreh ensive [facility] Work Phone: ALP enzyme act/vol 41 U/L Abnormal 50-136 [facility] Work Phone: Anion gap molar conc 8 mmol/L Normal 5-15 Comp rehensive [facility] Medicine Work Phone: AST enzyme act/vol 17 U/L Normal 15-37 [facility] Work Phone: Bilirubin mass conc 0.40 mg/dL Normal 0.00-1.00 [facility] Work Phone: Calcium mass conc 9.6 mg/dL Normal 8.5-10.1 Compreh ensive Internal Medicine Work Phone: Chloride molar conc 102 mmol/L Normal 98-107 [facility] Work Phone: CO2 molar conc 30.0 mmol/L Normal 21.0-32.0 [facility] Work Phone: Creatinine mass conc 1.0 mg/dL Normal 0.8-1.3 [facility]: GFR/1.73 sq M predicted among blacks MDRD vol rate/area (S/P/Bld) 102 mL/min/{1.73_m2} Normal Compreh ensive [facility] Medicine Work Phone: GFR/1.73 sq M.predicted MDRD vol rate/area 84 mL/min/{1.73_m2} Normal [facility] Work Phone: Glucose mass conc 91 mg/dL Normal 70-110 Compreh bannerive [facility] Work Phone: Potassium molar conc 4.2 mmol/L Normal 3.5-5.1 [facility] Work Phone: Protein mass conc 8.0 g/dL Normal 6.4-8.2 Compreh ensive [facility] Work Phone: Sodium molar conc 140 mmol/L Normal 136-145 Compreh ensive [facility] Work Phone: Urea nitrogen mass conc 15 mg/dL Normal 7-18 C omprehensive [facility] Work Phone: Urea nitrogen/Creatinine mass ratio 15.0 {RATIO} Normal 10-20 [facility] Work Phone: LIPIDOrdered By: System IDverge on 05-20-2012 Cholesterol in HDL mass conc 36 mg/dL Abnormal [facility] Work Phone: Comment on above: Reference Range HDL <40 mg/dL Low HDL Cholesterol HDL >or= 60 mg/dL High HDL Cholesterol Cholesterol in LDL mass conc 75 mg/dL Normal 0-130 [facility] Work Phone: Cholesterol in VLDL mass conc 23 mg/dL Normal 5-40 [facility] Work Phone: Cholesterol mass conc 134 mg/dL Normal Com prehensive [facility] Medicine Work Phone: Comment on above: <200 mg/dL Desirable 200-240 mg/dL Borderline >240 mg/dL High Risk Triglyceride mass conc 115 mg/dL Normal Co mprehensive [facility] Work Phone: Comment on above: Serum Triglycerides Reference Interval Normal <150 mg/dL Borderline high 150 - 199 mg/dL High 200 - 499 mg/dL Very High > or = 500 mg/dL LIVEROrdered By: System IDverge on 05-20-2012 ALT enzyme act/vol 33 U/L Normal 12-78 Compre hensive [facility] Work Phone: [id number] By: System KIT digital r on 05-20-2012 T4 free mass conc 0.95 ng/dL Normal 0.76-1.46 Compreh ensive [facility] Work Phone: TSHOrdered By: System KIT digital r on 05-20-2012 Thyrotropin Qn 1.17 {uIU/mL} Normal 0.358-3.74 Compreh ensive [facility] Work Phone: FRUCTOSA [id number] By: Arnulfo ystem Supervisor Type Photography on 07-05-2011 FRUCTOSA [id number] umol/L Normal 0-285 Comprehen [facility] Internal Medicine Work Phone: Comment on above: Published reference interval for apparently healthysubjects between age 20 and 60 is 205 - 285 umol/L and in apoorly controlled diabetic population is 228 - 563 umol/Lwith a mean of 396 umol/L.Performed at: [facility] [address] [id number] Director: Rimma Ghosh MD, Phone: [phone] GLUOrdered By: System KIT digital r on 07-05-2011 Glucose mass conc 117 mg/dL Abnormal 70-110 Compreh ensive Internal Medicine Work Phone: Comment on above: Fasting Glucose resu lt from 110 to <126 mg/dL suggests IMPAIRED HOMEOSTASIS per A.D.A. criteria. FASTING GLUCOSE GLUPOrdered By: System Kaiser er on 07-05-2011 GLUP 48 mg/dL Abnormal [facility] Work Phone: Comment on above: Glucose result less than 50 mg/dL suggests HYPOGLYCEMIA. GLU,2HPPG 75gm GLUC PPG GLUP from [id number]. CORTISOLOrdered By: Delroy bustamante on 06-25-2011 CORTISOL 8.11 ug/dL Normal 3.09-22.40 [facility] Work Phone: Comment on above: Adult (AM) 4.30 - 22 .40 ug/dL Adult (PM) 3.09 - 16.66 ug/dL HGB [id number] By: Delroy cuenca on 06-25-2011 Hemoglobin A1c/Hemoglobin.total mass fraction (Bld) 6.0 % Normal 4.2-6.3 Comprehensiv e [facility] Work Phone: BMPOrdered By: System KIT digital r on 06-21-2011 Anion gap molar conc 8 mmol/L Normal 5-15 Comp rehensive [facility] Medicine Work Phone: Calcium mass conc 9.0 mg/dL Normal 8.5-10.1 Compreh ensive [facility] Work Phone: Chloride molar conc 100 mmol/L Normal 98-107 Compr ehensive [facility] Medicine Work Phone: CO2 molar conc 30.0 mmol/L Normal 21.0-32.0 Comprehen sive [facility] Medicine Work Phone: Creatinine mass conc 1.2 mg/dL Normal 0.8-1.3 Comp rehensive [facility] Work Phone: GFR/1.73 sq M predicted among blacks MDRD vol rate/area (S/P/Bld) 84 mL/min/{1.73_m2} Normal Comprehe nsive Internal Medicine Work Phone: GFR/1.73 sq M.predicted MDRD vol rate/area 69 mL/min/{1.73_m2} Normal Comprehen sive [facility] Work Phone: Glucose mass conc 130 mg/dL Abnormal 70-110 Compreh ensive [facility] Work Phone: Comment on above: Fasting Glucose resu lt greater than or equal to 126 mg/dL suggests DIABETES MELLITUS per A.D.A. criteria. Potassium molar conc 3.5 mmol/L Normal 3.5-5.1 Comp rehensive [facility] Work Phone: Sodium molar conc 138 mmol/L Normal 136-145 Compreh ensive [facility] Work Phone: Urea nitrogen mass conc 13 mg/dL Normal 7-18 [facility] Work Phone: Urea nitrogen/Creatinine mass ratio 10.8 {RATIO} Normal 10-20 [facility] Work Phone: LIPIDOrdered By: Delroy hernández on 06-21-2011 Cholesterol in HDL mass conc 27 mg/dL Abnormal [facility] Work Phone: Comment on above: Reference Range HDL <40 mg/dL Low HDL Cholesterol HDL >or= 60 mg/dL High HDL Cholesterol Cholesterol in LDL mass conc 71 mg/dL Normal 0-130 [facility] Work Phone: Cholesterol in VLDL mass conc 20 mg/dL Normal 5-40 [facility] Work Phone: Cholesterol mass conc 118 mg/dL Normal Com prehensive [facility] Work Phone: Comment on above: <200 mg/dL Desirable 200-240 mg/dL Borderline >240 mg/dL High Risk Triglyceride mass conc 98 mg/dL Normal Co mprehensive [facility] Work Phone: Comment on above: Serum Triglycerides Reference Interval Normal <150 mg/dL Borderline high 150 - 199 mg/dL High 200 - 499 mg/dL Very High > or = 500 mg/dL BMPOrdered By: System Manage r on 08-30-2010 Anion gap molar conc 5 mmol/L Normal 5-15 Comp rehensive [facility] Work Phone: Calcium mass conc 9.8 mg/dL Normal 8.5-10.1 Compreh ensive [facility] Work Phone: Chloride molar conc 104 mmol/L Normal 98-107 Compr ehensive [facility] Medicine Work Phone: CO2 molar conc 29.0 mmol/L Normal 21.0-32.0 Comprehen sive Internal Medicine Work Phone: Creatinine mass conc 1.1 mg/dL Normal 0.8-1.3 Comp rehensive [facility] Medicine Work Phone: GFR/1.73 sq M predicted among blacks MDRD vol rate/area (S/P/Bld) 92 mL/min/{1.73_m2} Normal Comprehe nsive Internal Medicine Work Phone: GFR/1.73 sq M.predicted MDRD vol rate/area 76 mL/min/{1.73_m2} Normal Comprehen sive [facility] Medicine Work Phone: Glucose mass conc 109 mg/dL Normal 70-110 Compreh ensive [facility] Work Phone: Potassium molar conc 4.6 mmol/L Normal 3.5-5.1 Comp rehensive [facility] Work Phone: Sodium molar conc 138 mmol/L Normal 136-145 Compreh ensive [facility] Work Phone: Urea nitrogen mass conc 25 mg/dL Abnormal 7-18 [facility] Work Phone: Urea nitrogen/Creatinine mass ratio 22.7 {RATIO} Abnormal 10-20 [facility] Work Phone: LIPIDOrdered By: Delroy hernández on 08-30-2010 Cholesterol in HDL mass conc 32 mg/dL Abnormal [facility] Work Phone: Comment on above: Reference Range HDL <40 mg/dL Low HDL Cholesterol HDL >or= 60 mg/dL High HDL Cholesterol Cholesterol in LDL mass conc 112 mg/dL Normal 0-130 [facility] Work Phone: Cholesterol in VLDL mass conc 24 mg/dL Normal 5-40 [facility] Work Phone: Cholesterol mass conc 168 mg/dL Normal Com prehensive [facility] Work Phone: Comment on above: <200 mg/dL Desirable 200-240 mg/dL Borderline >240 mg/dL High Risk Triglyceride mass conc 122 mg/dL Normal Co m[facility] Work Phone: Comment on above: Serum Triglycerides Reference Interval Normal <150 mg/dL Borderline high 150 - 199 mg/dL High 200 - 499 mg/dL Very High > or = 500 mg/dL LIVEROrdered By: Delroy hernández on 08-30-2010 Albumin mass conc 4.7 g/dL Normal 3.4-5.0 Compreh ensive Internal Medicine Work Phone: ALP enzyme act/vol 62 U/L Normal 50-136 [facility] Work Phone: ALT enzyme act/vol 40 U/L Normal 12-78 [facility] Internal Medicine Work Phone: AST enzyme act/vol 21 U/L Normal 15-37 [facility] Work Phone: Bilirubin mass conc 0.50 mg/dL Normal 0.00-1.00 [facility] Work Phone: Bilirubin.direct mass conc 0.15 mg/dL Normal 0.00-0.30 [facility] Internal Medicine Work Phone: Protein mass conc 8.8 g/dL Abnormal 6.4-8.2 Compreh ensive Internal Medicine Work Phone: MGOrdered By: School Supervisor on 08-30-2010 Magnesium mass conc 2.2 mg/dL Normal 1.5-2.2 [facility] [[email or web address] Internal Medicine Work Phone: LIVEROrdered By: Delroy Noamary hernández on 04-25-2010 Albumin mass conc 4.2 g/dL Normal 3.4-5.0 [facility] Internal Medicine Work Phone: ALP enzyme act/vol 64 U/L Normal 50-136 [facility] Internal Medicine Work Phone: ALT enzyme act/vol 30 U/L Normal 12-78 [facility] Work Phone: AST enzyme act/vol 17 U/L Normal 15-37 [facility] Internal [facility] Work Phone: Bilirubin mass conc 0.30 mg/dL Normal 0.00-1.00 [facility] [[email or web address] Internal Medicine Work Phone: Bilirubin.direct mass conc 0.07 mg/dL Normal 0.00-0.30 [facility] Internal Medicine Work Phone: Protein mass conc 8.0 g/dL Normal 6.4-8.2 [facility] Internal Medicine Work Phone: Cardiacon 03-12-2010 Cholesterol [Mass/Vol] OPERATIVE PROCEDU RE: Excision of intra-abdominal mass; laparoscopic cholecystectomy CLINICAL INFORMATION: Chronic cholecystitis [facility] Otheron 03-12-2010 CONVERTED FINAL DIAGNOSIS FINAL DIAGNOSIS: A) INTRAABDOMINAL MASS, EXCISION - FAT NECROSIS. B) GALLBLADDER, RESECTION - CHRONIC CHOLECYSTITIS. SPECIMEN: (A) GALLBLADDER (B) ABDOMEN [facility] CONVERTED GROSS DESCRIPTION GROSS DESCRIPTION: Intra-abdominal mass - FS A) Received in a container labeled intra-abdominal mass. Received are portions of lobulated, pink-yellow soft tissue measuring 5 x 3 x 1.4 cm in aggregate. On cut section, the changes are consistent with fat necrosis. A portion is submitted for frozen section. Additional sample submitted in three cassettes. Gallbladder B) Received in a container labeled gallbladder. Received is an unopened gallbladder measuring 6 x 4 x 4 cm. The surface is wrinkled, pink-navarro. Specimen is opened and the lumen contains approximately 1 cc of greenish-yellow bile. The mucosa is velvety to finely granular, orange. The thickness of the wall averages 0.1 cm. Washing Machine Mechanic sample of the gallbladder submitted in a single cassette. [facility]:SDS:m MICROSCOPIC DESCRIPTION: Slides reviewed. SDS/gpl [facility] CONVERTED INTRAOP DIAGNOSIS INTRAOPERATIVE CONSULTATION: Frozen Section Diagnosis A: Fat necrosis, reactive change. [facility] CONVERTED ORDERING PROVIDER Ordering Provider: LYUDMILA SAMPSON [facility] Thyroidon 03-12-2010 TSH Qn Done By: FRANCA SORTO M.D., PATHOLOGIST [facility] TSH Qn FRANCA SORTO M.D., PATHOLOGIST (Electronic signature on file) Final Signed Out: 03/12/2010 13:32 [facility] ALK POrdered By: System Noa edgar on 02-04-2010 ALP enzyme act/vol 61 U/L Normal 50-136 [facility] Work Phone: ALTOrdered By: System Manage r on 02-04-2010 ALT enzyme act/vol 30 U/L Normal 12-78 [facility] Work Phone: AMYOrdered By: System Manage r on 02-04-2010 PAU 52 U/L Normal 25-115 [facility] Work Phone: ASTOrdered By: System Manage r on 02-04-2010 AST enzyme act/vol 21 U/L Normal 15-37 [facility] Work Phone: BMPOrdered By: System Manage r on 02-04-2010 Anion gap molar conc 6 mmol/L Normal 5-15 Comp rehensive Internal Medicine Work Phone: Calcium mass conc 9.2 mg/dL Normal 8.5-10.1 Compreh ensive Internal Medicine Work Phone: Chloride molar conc 102 mmol/L Normal 98-107 Compr ehensive Internal Medicine Work Phone: CO2 molar conc 31.0 mmol/L Normal 21.0-32.0 Comprehen sive Internal Medicine Work Phone: Creatinine mass conc 1.1 mg/dL Normal 0.8-1.3 [facility] Work Phone: GFR/1.73 sq M predicted among blacks MDRD vol rate/area (S/P/Bld) 92 mL/min/{1.73_m2} Normal Comprehe nsive Internal Medicine Work Phone: GFR/1.73 sq M.predicted MDRD vol rate/area 76 mL/min/{1.73_m2} Normal Comprehen sive [facility] Medicine Work Phone: Glucose mass conc 96 mg/dL Normal 70-110 Compreh ensive [facility] Medicine Work Phone: Potassium molar conc 4.0 mmol/L Normal 3.5-5.1 Comp rehensive [facility] Medicine Work Phone: Sodium molar conc 139 mmol/L Normal 136-145 Compreh ensive Internal Medicine Work Phone: Urea nitrogen mass conc 18 mg/dL Normal 7-18 [facility] Work Phone: Urea nitrogen/Creatinine mass ratio 16.4 {RATIO} Normal 10-20 [facility] Work Phone: CBCD,SMEAR DIFFOrdered By: S ystem Supervisor Type Photography on 02-04-2010 Band form neutrophils/100 WBC (Bld) 2 % Normal 0-5 [facility] Work Phone: Eosinophils/100 WBC (Bld) 3 % Normal 0-5 [facility] Work Phone: Erythrocyte distribution width Ratio (RBC) 12.8 % Normal 11.6-14.6 [facility] Work Phone: Hematocrit Volume Fraction (Bld) 46.2 % Normal 40-54 [facility] Work Phone: Hemoglobin mass conc (Bld) 15.6 g/dL Normal 14.0-18.0 [facility] Work Phone: Lymphocytes/100 WBC (Bld) 22 % Normal 19-41 [facility] Work Phone: MCH Entitic mass (RBC) 27.7 pg Normal 27.0-32.0 [facility] m[facility] Work Phone: MCHC mass conc (RBC) 33.7 g/dL Normal 32-36 Comp rehensive Internal Medicine Work Phone: MCV Entitic volume (RBC) 82.1 fL Normal 80-94 [facility] Work Phone: Monocytes/100 WBC (Bld) 10 % Normal 0-10 [facility] Work Phone: Neutrophils #/vol (Bld) 7.1 3/uL Normal 2.0-7.7 [facility] Work Phone: Platelets #/vol (Bld) 223 10*3/uL Normal 150-450 [facility] Work Phone: Platelets #/vol (Bld) SeeNote Normal Com prehensive Internal Medicine Work Phone: Comment on above: Result: ADEQUATE RBC #/vol (Bld) 5.62 {M/mm3} Normal 4.6-6.2 Compreh ensive Internal Medicine Work Phone: WBC #/vol (Bld) 10.0 10*3/uL Normal 4.4-11.0 Compreh ensive Internal Medicine Work Phone: CBCD,SMEAR DIFF 63 % Normal 47-70 Comprehen [facility] Internal Medicine Work Phone: CBCD,SMEAR DIFF 100 1 Normal Comprehen [facility] Internal Medicine Work Phone: CBCD,SMEAR DIFF SeeNote Normal Comprehen [facility] Internal Medicine Work Phone: Comment on above: Result: NORM C+C D BILIOrdered By: System Man ager on 02-04-2010 Bilirubin.direct mass conc 0.13 mg/dL Normal 0.00-0.30 [facility] Work Phone: LIPASEOrdered By: System Man ager on 02-04-2010 LIPASE 86 U/L Normal 70-290 [facility] Work Phone: Comment on above: Please note:LIPASE r evised reference range effective 09. T BILIOrdered By: System Man ager on 02-04-2010 Bilirubin mass conc 0.50 mg/dL Normal 0.00-1.00 Compr ensive Internal Medicine Work Phone: CBCD,SMEAR DIFFOrdered By: S ystem Supervisor Type Photography on 11-14-2009 Eosinophils/100 WBC (Bld) 4 % Normal 0-5 [facility] Work Phone: Erythrocyte distribution width Ratio (RBC) 12.9 % Normal 11.6-14.6 [facility] Work Phone: Hematocrit Volume Fraction (Bld) 46.0 % Normal 40-54 [facility] Work Phone: Hemoglobin mass conc (Bld) 15.9 g/dL Normal 14.0-18.0 [facility] Work Phone: Lymphocytes/100 WBC (Bld) 38 % Normal 19-41 [facility] Work Phone: MCH Entitic mass (RBC) 28.0 pg Normal 27.0-32.0 [facility] camp[facility] Work Phone: MCHC mass conc (RBC) 34.6 g/dL Normal 32-36 [facility] Work Phone: MCV Entitic volume (RBC) 81.0 fL Normal 80-94 [facility] Work Phone: Monocytes/100 WBC (Bld) 8 % Normal 0-10 [facility] Work Phone: Neutrophils #/vol (Bld) 3.2 3/uL Normal 2.0-7.7 [facility] Work Phone: Platelets #/vol (Bld) SeeNote Normal Com prehensive Internal Medicine Work Phone: Comment on above: Result: ADEQUATE Platelets #/vol (Bld) 234 10*3/uL Normal 150-450 [facility] Work Phone: RBC #/vol (Bld) 5.68 {M/mm3} Normal 4.6-6.2 Compreh ensive Internal Medicine Work Phone: WBC #/vol (Bld) 5.9 10*3/uL Normal 4.4-11.0 Comprehe nsive Internal Medicine Work Phone: CBCD,SMEAR DIFF SeeNote Normal Comprehen sive Internal Medicine Work Phone: Comment on above: Result: NORM C+C Result: NEGATIVE CBCD,SMEAR DIFF 50 % Normal 47-70 [facility] Internal Medicine Work Phone: CBCD,SMEAR DIFF 100 1 Normal [facility] Internal Medicine Work Phone: COMP METABOLICOrdered By: Alfonso stem Supervisor Type Photography on 11-14-2009 Albumin mass conc 4.5 g/dL Normal 3.4-5.0 [facility] Internal Medicine Work Phone: Albumin/Globulin mass ratio 1.4 {RATIO} Normal 0.9-2.4 [facility] Internal Medicine Work Phone: ALP enzyme act/vol 50 U/L Normal 50-136 [facility] Internal Medicine Work Phone: ALT enzyme act/vol 34 U/L Normal 12-78 [facility] Internal Medicine Work Phone: Anion gap molar conc 9 mmol/L Normal 5-15 [facility] Internal [facility] Work Phone: AST enzyme act/vol 15 U/L Normal 15-37 [facility] [facility] Work Phone: Bilirubin mass conc 0.60 mg/dL Normal 0.00-1.00 [facility] [[email or web address] Internal Medicine Work Phone: Calcium mass conc 9.0 mg/dL Normal 8.5-10.1 [facility] Internal Medicine Work Phone: Chloride molar conc 101 mmol/L Normal 98-107 [facility] [[email or web address] Internal Medicine Work Phone: CO2 molar conc 30.0 mmol/L Normal 21.0-32.0 [facility] Internal Medicine Work Phone: Creatinine mass conc 1.0 mg/dL Normal 0.8-1.3 [facility] Internal Medicine Work Phone: GFR/1.73 sq M predicted among blacks MDRD vol rate/area (S/P/Bld) 103 mL/min/{1.73_m2} Normal Compreh [facility] Internal Medicine Work Phone: GFR/1.73 sq M.predicted MDRD vol rate/area 85 mL/min/{1.73_m2} [facility] Work Phone: Globulin mass conc (S) 3.3 g/dL Normal 2.7-4.2 [facility] Work Phone: Glucose mass conc 109 mg/dL Normal 70-110 Compreh ensive Internal Medicine Work Phone: Potassium molar conc 3.8 mmol/L Normal 3.5-5.1 Comp rehensive Internal Medicine Work Phone: Protein mass conc 7.8 g/dL Normal 6.4-8.2 Compreh ensive Internal Medicine Work Phone: Sodium molar conc 140 mmol/L Normal 136-145 Compreh ensive Internal Medicine Work Phone: Urea nitrogen mass conc 14 mg/dL Normal 7-18 [facility] Work Phone: Urea nitrogen/Creatinine mass ratio 14.0 {RATIO} Normal 10-20 [facility] Work Phone: COMPLETE UAOrdered By: Shannon bazan Supervisor Type Photography on 11-14-2009 Bacteria LM.HPF #/area (Urine sed) 0 SEEN Normal [facility] Work Phone: Clarity Nom (U) CLEAR Normal Comprehen sive Internal Medicine Work Phone: Color Nom (U) STRAW Normal Comprehensi ve Internal Medicine Work Phone: Glucose mass conc SeeNote Normal Compreh ensive Internal Medicine Work Phone: Comment on above: Result: NEGATIVE Protein mass conc SeeNote Normal Compreh ensive Internal Medicine Work Phone: Comment on above: Result: NEGATIVE RBC #/vol (U) 0 SEEN Normal 0-5 Comprehensi ve Internal Medicine Work Phone: WBC #/vol (Bld) SeeNote Normal 0-5 Comprehen sive Internal Medicine Work Phone: Comment on above: Result: 0-5 SEEN COMPLETE UA 6.5 1 Normal 5.0-8.0 [facility] Work Phone: COMPLETE UA 0.2 EU/dl Normal 0.2 - 1.0 [facility] Work Phone: COMPLETE UA 0 SEEN Normal [facility] Work Phone: COMPLETE UA <=1.005 Normal 1.002-1.03 0 [facility] Work Phone: HGB [id number] By: Delroy cuenca on 11-14-2009 Hemoglobin A1c/Hemoglobin.total mass fraction (Bld) 5.4 % Normal 4.0-6.3 Comprehensiv e Internal Medicine Work Phone: Comment on above: The methodology of H Novadiol A1C has changed to [place] significant changes in patient results are expected.The reference range remains the same. ADD ON A1C 11/17 TO BL OOD DRAWN 11/14 LIPIDOrdered By: Delroy hernández on 11-14-2009 Cholesterol in HDL mass conc 34 mg/dL Abnormal [facility] Work Phone: Comment on above: Reference RangeHDL < 40 mg/dL Low HDL CholesterolHDL >or= 60 mg/dL High HDL Cholesterol Cholesterol in LDL mass conc 88 mg/dL Normal 0-130 [facility] Work Phone: Cholesterol in VLDL mass conc 24 mg/dL Normal 5-40 [facility] Work Phone: Cholesterol mass conc 146 mg/dL Normal Com prehensive Internal Medicine Work Phone: Comment on above: <200 mg/dL Desirable 200-240 mg/dL Borderline>240 mg/dL High Risk Triglyceride mass conc 118 mg/dL Normal [facility] Internal Medicine Work Phone: Comment on above: Serum Triglycerides Reference IntervalNormal <150 mg/dLBorderline high 150 - 199 mg/dLHigh 200 - 499 mg/dLVery High > or = 500 mg/dL MICROALBOrdered By: Delroy bustamante on 11-14-2009 Creatinine mass conc 15.2 mg/dL Normal Comp rehensive Internal Medicine Work Phone: Creatinine mass conc Normal Comp rehensive Internal Medicine Work Phone: MICROALB < 5.0 Normal [facility] Work Phone: PSA, SCREENOrdered By: Shannon Trujillo on 11-14-2009 Prostate specific Ag mass conc 0.5 ng/mL Normal 0.0-4.0 [facility] Work Phone: TSHOrdered By: System Manage r on 11-14-2009 Thyrotropin Qn 1.75 {uIU/mL} Normal 0.358-3.74 Compreh ensive Internal Medicine Work Phone: BMPOrdered By: System Manage r on 05-16-2009 Anion gap molar conc 6 mmol/L Normal 5-15 Comp rehens[facility] Internal Medicine Work Phone: Calcium mass conc 8.9 mg/dL Normal 8.5-10.1 Compreh ensive Internal Medicine Work Phone: Chloride molar conc 105 mmol/L Normal 98-107 Compr ehensive Internal Medicine Work Phone: CO2 molar conc 30.0 mmol/L Normal 21.0-32.0 Comprehen sive Internal Medicine Work Phone: Creatinine mass conc 0.9 mg/dL Normal 0.8-1.3 [facility]hens[facility] Internal Medicine Work Phone: GFR/1.73 sq M predicted among blacks MDRD vol rate/area (S/P/Bld) 118 mL/min/{1.73_m2} Normal Compreh ensive Internal Medicine Work Phone: GFR/1.73 sq M.predicted MDRD vol rate/area 97 mL/min/{1.73_m2} Normal Comprehen [facility] Internal Medicine Work Phone: Glucose mass conc 104 mg/dL Normal 70-110 Compreh ensive Internal Medicine Work Phone: Potassium molar conc 4.5 mmol/L Normal 3.5-5.1 [facility] Internal Medicine Work Phone: Sodium molar conc 141 mmol/L Normal 136-145 Compreh ensive Internal Medicine Work Phone: Urea nitrogen mass conc 13 mg/dL Normal 7-18 [facility] Work Phone: Urea nitrogen/Creatinine mass ratio 14.4 {RATIO} Normal 10-20 [facility] Work Phone: CBCDOrdered By: System Manag er on 05-16-2009 Basophils/100 WBC (Bld) 0.3 % Normal 0-1 [facility] Work Phone: Eosinophils/100 WBC (Bld) 1.6 % Normal 0-5 [facility] Work Phone: Erythrocyte distribution width Ratio (RBC) 12.9 % Normal 11.6-14.6 [facility] Work Phone: Hematocrit Volume Fraction (Bld) 45.9 % Normal 40-54 [facility] Work Phone: Hemoglobin mass conc (Bld) 15.0 g/dL Normal 14.0-18.0 [facility] Work Phone: Lymphocytes/100 WBC (Bld) 27.2 % Normal 19-41 [facility] Internal Medicine Work Phone: MCH Entitic mass (RBC) 27.3 pg Normal 27.0-32.0 [facility] Work Phone: MCHC mass conc (RBC) 32.6 g/dL Normal 32-36 Comp [facility] Internal Medicine Work Phone: MCV Entitic volume (RBC) 83.5 fL Normal 80-94 [facility] Work Phone: Monocytes/100 WBC (Bld) 7.6 % Normal 0-10 [facility] Work Phone: Neutrophils #/vol (Bld) 4.6 3/uL Normal 2.0-7.7 [facility] Internal [facility] Work Phone: Neutrophils/100 WBC (Bld) 63.3 % Normal 47-70 [facility] Work Phone: Platelet mean volume Entitic volume (Bld) 8.2 fL Normal 6.5-12.0 Comprehensi Internal Medicine Work Phone: Platelets #/vol (Bld) 206 10*3/uL Normal 150-450 [facility] Work Phone: RBC #/vol (Bld) 5.50 {M/mm3} Normal 4.6-6.2 Compreh ensive Internal Medicine Work Phone: WBC #/vol (Bld) 7.2 10*3/uL Normal 4.4-11.0 Comprehe nsive Internal Medicine Work Phone: LIPIDOrdered By: Delroy hernández on 05-16-2009 Cholesterol in HDL mass conc 35 mg/dL Normal [facility] Work Phone: Comment on above: Reference Range HDL <40 mg/dL Low HDL Cholesterol HDL >or= 60 mg/dL High HDL Cholesterol Cholesterol in LDL mass conc 84 mg/dL Normal 0-130 [facility] Work Phone: Cholesterol in VLDL mass conc 21 mg/dL Normal 5-40 [facility] Work Phone: Cholesterol mass conc 140 mg/dL Normal Com prehensive Internal Medicine Work Phone: Comment on above: <200 mg/dL Desirable 200-240 mg/dL Borderline >240 mg/dL High Risk Triglyceride mass conc 106 mg/dL Normal Co [facility] Internal Medicine Work Phone: Comment on above: Serum Triglycerides Reference Interval Normal <150 mg/dL Borderline high 150 - 199 mg/dL High 200 - 499 mg/dL Very High > or = 500 mg/dL LIVEROrdered By: Delroy hernández on 05-16-2009 Albumin mass conc 4.0 g/dL Normal 3.4-5.0 [facility] Internal [facility] Work Phone: ALP enzyme act/vol 46 U/L Abnormal 50-136 [facility] Internal Medicine Work Phone: ALT enzyme act/vol 27 U/L Abnormal 30-65 [facility] Internal Medicine Work Phone: AST enzyme act/vol 15 U/L Normal 15-37 [facility] Internal Medicine Work Phone: Bilirubin mass conc 0.50 mg/dL Normal 0.00-1.00 [facility] [[email or web address]] Internal Medicine Work Phone: Bilirubin.direct mass conc 0.12 mg/dL Normal 0.00-0.30 [facility] Internal Medicine Work Phone: Protein mass conc 7.8 g/dL Normal 6.4-8.2 Compreh ensive Internal Medicine Work Phone: BMPOrdered By: System Manage r on 08-23-2008 Anion gap molar conc 4 mmol/L Abnormal 5-15 Comp rehensive Internal Medicine Work Phone: Calcium mass conc 8.9 mg/dL Normal 8.5-10.1 Compreh ensive Internal Medicine Work Phone: Chloride molar conc 102 mmol/L Normal 98-107 Compr ehensive Internal Medicine Work Phone: CO2 molar conc 32.3 mmol/L Abnormal 21.0-32.0 Comprehen sive Internal Medicine Work Phone: Creatinine mass conc 1.2 mg/dL Normal 0.8-1.3 Comp rehensive Internal Medicine Work Phone: GFR/1.73 sq M predicted among blacks MDRD vol rate/area (S/P/Bld) 85 mL/min/{1.73_m2} Normal Comprehe nsive Internal Medicine Work Phone: Comment on above: ESTIMATED GLOMERULAR FILTRATION RATE The National Kidney Foundation (NKF) guidelines forChronic kidney disease (CKD) recommends all laboratoriesestimate the level of glomerular filtration rate (GFR)in patients from age 18 - 70 years of age.The eGFR for patient's is the eGFRmultiplied by 1.212. [facility] Laboratory uses the abbreviated Modification of Diet inRenal Disease (MDRD) study equation to calculate the eGFR.The Estimated GFR equation is not applicable for patients<18 years of age or patients >70 years of age.The following conditions may alter the eGFR calculationresult: extremes in body size, severe malnutrition orobesity, skeletal muscle disease, paraplegia, quadriplegia,vegetarian diet, , certain drug therapy and rapidlychanging kidney function. Association of GFR and Staging of Kidney Disease*GFR (mL/min) With Kidney Disease W/O Kidney Disease>/= 90 Stage One Vggqep41 - 89 Stage Two Suspect Decreased GFR30 - 59 Stage Three Stage Three15 - 29 Stage Four Stage Four< 15 or Dialysis Stage Five Stage Five *Each stage assumes the associated GFR level has been ineffect for at least three months.Additional studies & clinical assessments are indicated toconclude diagnosis of Chronic Kidney Disease (CKD). GFR/1.73 sq M.predicted MDRD vol rate/area 70 mL/min/{1.73_m2} Normal Comprehen sive Internal Medicine Work Phone: Glucose mass conc 112 mg/dL Abnormal 70-110 Compreh ensive Internal Medicine Work Phone: Comment on above: Fasting Glucose resu lt from 110 to <126 mg/dL suggests IMPAIRED HOMEOSTASIS per A.D.A. criteria. Potassium molar conc 4.0 mmol/L Normal 3.5-5.1 Comp rehensive Internal Medicine Work Phone: Sodium molar conc 138 mmol/L Normal 136-145 Compreh ensive Internal Medicine Work Phone: Urea nitrogen mass conc 14 mg/dL Normal 7-18 [facility] Work Phone: Urea nitrogen/Creatinine mass ratio 11.7 {RATIO} Normal 10-20 [facility] Work Phone: CBCDOrdered By: System Manag er on 08-23-2008 Basophils/100 WBC (Bld) 0.4 % Normal 0-1 [facility] Work Phone: Eosinophils/100 WBC (Bld) 3.0 % Normal 0-5 [facility] Work Phone: Erythrocyte distribution width Ratio (RBC) 12.4 % Normal 11.6-14.6 [facility] Work Phone: Hematocrit Volume Fraction (Bld) 45.2 % Normal 40-54 [facility] Work Phone: Hemoglobin mass conc (Bld) 15.7 g/dL Normal 14.0-18.0 [facility] Work Phone: Lymphocytes/100 WBC (Bld) 33.0 % Normal 19-41 [facility] Work Phone: MCH Entitic mass (RBC) 27.7 pg Normal 27.0-32.0 [facility] Internal Medicine Work Phone: MCHC mass conc (RBC) 34.8 g/dL Normal 32-36 Comp rehensive Internal Medicine Work Phone: MCV Entitic volume (RBC) 79.6 fL Abnormal 80-94 [facility] Work Phone: Monocytes/100 WBC (Bld) 8.5 % Normal 0-10 [facility] Work Phone: Neutrophils/100 WBC (Bld) 55.1 % Normal 47-70 [facility] Work Phone: Platelet mean volume Entitic volume (Bld) 7.8 fL Normal 6.5-12.0 Comprehensi ve Internal Medicine Work Phone: Platelets #/vol (Bld) 262 10*3/uL Normal 150-450 [facility] Internal Medicine Work Phone: RBC #/vol (Bld) 5.68 {M/mm3} Normal 4.6-6.2 Compreh ensive Internal Medicine Work Phone: WBC #/vol (Bld) 6.4 10*3/uL Normal 4.4-11.0 Comprehe nsive Internal Medicine Work Phone: HgA1C , Office ([id number])Ordere d By: Yoko Hammonds on 08-23-2008 Hemoglobin A1c/Hemoglobin.total mass fraction (Bld) 5.5 % Normal 4.6 - 7.1 Comprehensiv e Internal Medicine Work Phone: LIPIDOrdered By: Delroy hernández on 08-23-2008 Cholesterol in HDL mass conc 33 mg/dL Abnormal [facility] Work Phone: Comment on above: Reference Range HDL <40 mg/dL Low HDL Cholesterol HDL >or= 60 mg/dL High HDL Cholesterol Cholesterol in LDL mass conc 76 mg/dL Normal 0-130 [facility] Work Phone: Cholesterol in VLDL mass conc 32 mg/dL Normal 5-40 [facility] Work Phone: Cholesterol mass conc 141 mg/dL Normal Com prehensive Internal Medicine Work Phone: Comment on above: <200 mg/dL Desirable 200-240 mg/dL Borderline >240 mg/dL High Risk Triglyceride mass conc 162 mg/dL Normal [facility] Internal Medicine Work Phone: Comment on above: Serum Triglycerides Reference Interval Normal <150 mg/dL Borderline high 150 - 199 mg/dL High 200 - 499 mg/dL Very High > or = 500 mg/dL LIVEROrdered By: System Noa edgar on 08-23-2008 Albumin mass conc 4.2 g/dL Normal 3.4-5.[address] [facility] Internal Medicine Work Phone: ALP enzyme act/vol 53 U/L Normal 50-136 [facility] Work Phone: ALT enzyme act/vol 37 U/L Normal 30-65 [facility] Internal Medicine Work Phone: AST enzyme act/vol 18 U/L Normal 15-37 [facility] Internal Medicine Work Phone: Bilirubin mass conc 0.38 mg/dL Normal 0.00-1.00 [facility] [[email or web address] Internal Medicine Work Phone: Bilirubin.direct mass conc 0.09 mg/dL Normal 0.00-0.30 [facility] Internal Medicine Work Phone: Protein mass conc 7.8 g/dL Normal 6.4-8.[address] [facility] Internal Medicine Work Phone: MGOrdered By: School Supervisor on 08-23-2008 Magnesium mass conc 2.0 mg/dL Normal 1.5-2.2 [email or web address] Internal Medicine Work Phone: PHOSOrdered By: System Manag er on 08-23-2008 PHOS 3.2 mg/dL Normal 2.5-4.9 [facility] Internal Medicine Work Phone: T4 THYROXINOrdered By: Systconcepcion m Supervisor Type Photography on 08-23-2008 T4 THYROXIN 6.6 ug/dL Normal 4.5-12.1 [facility] Work Phone: TSHOrdered By: System Manage r on 08-23-2008 Thyrotropin Qn 1.38 {uIU/mL} Normal 0.34-4.[address] [facility] Internal Medicine Work Phone: CORONALS,SAG,MULTI,OBL,3-D R ECOrdered By: School Supervisor on 12-25-2007 CORONALS,SAG,MULTI,OBL,3 -D REC See Note Normal [facility] Medicine Work Phone: Comment on above: Exam Number: [id number] CT SCAN OF CERVICAL SPINE HISTORYNeck pain. TECHNIQUEScans were obtained at 1.25-mm intervals from the skull base throughT1. FINDINGSSagittal reconstructions demonstrate early disk space narrowing atC5-C6. There is no evidence of fracture. There is no malalignment ofvertebral bodies. Soft tissue detail is limited on CT. There is noobvious soft tissue abnormality identified within the spinal canal. At C4-C5, there is slight narrowing of the right neural foramen. Remaining neural foramina appears to be within normal limits. There is early anterior spurring at C4, C5, and C6. IMPRESSIONThere are early degenerative changes. There is minimal narrowing ofthe right neural foramen at C4-C5. Reported By: ARTI LEWIS M.D. Exam Number: [id number] CT SCAN OF LUMBAR SPINE HISTORYAcute leg paresthesias. FINDINGSScans were obtained at 1.25-mm intervals from T12 through S1. Sagittal and coronal reconstructions were obtained. Thereconstructions demonstrate virtually absence of the normal disk spaceat L5-S1. There is minimal retrolisthesis of L5 on S1. There is gasin the L5-S1 disk space and also in the spinal canal. The gas iscompatible with degenerating cartilage. There is disk bulge at L5-S1,and there is mild narrowing of neural foramina at L5-S1. Scans obtained from T12 to L4 are within normal limits. There is diskbulge seen at L4-L5. There is minimal gas seen in the rightsacroiliac joint compatible with cartilagineous degeneration. IMPRESSION1. There is almost complete absence of the normal disk at L5-S1. This is associated with gas seen in the intervertebral disk space andin the spinal canal compatible with degenerating cartilage. There ismild narrowing of neural foramina at this level. 2. There is disk bulge at L4-L5 and L5-S1. Reported By: ARTI LEWIS M.D. Exam Number: [id number] CT SCAN OF CERVICAL SPINE HISTORYNeck pain. TECHNIQUEScans were obtained at 1.25-mm intervals from the skull base throughT1. FINDINGSSagittal reconstructions demonstrate early disk space narrowing atC5-C6. There is no evidence of fracture. There is no malalignment ofvertebral bodies. Soft tissue detail is limited on CT. There is noobvious soft tissue abnormality identified within the spinal canal. At C4-C5, there is slight narrowing of the right neural foramen. Remaining neural foramina appears to be within normal limits. There is early anterior spurring at C4, C5, and C6. IMPRESSIONThere are early degenerative changes. There is minimal narrowing ofthe right neural foramen at C4-C5. Reported By: ARTI LEWIS M.D. CBCD,SMEAR DIFFOrdered By: Arnulfo [facility] Supervisor Type Photography on 12-10-2006 Eosinophils/100 WBC (Bld) 1 % Normal 0-5 [facility] Work Phone: Erythrocyte distribution width Ratio (RBC) 12.9 % Normal 11.6-14.6 [facility] Work Phone: Hematocrit Volume Fraction (Bld) 45.3 % Normal 40-54 [facility] Work Phone: Hemoglobin mass conc (Bld) 15.4 g/dL Normal 14.0-18.0 [facility] Work Phone: Lymphocytes/100 WBC (Bld) 41 % Normal 19-41 [facility] Work Phone: MCH Entitic mass (RBC) 27.5 pg Normal 27.0-32.0 [facility] Internal Medicine Work Phone: MCHC mass conc (RBC) 34.0 g/dL Normal 32-36 Comp rehensive Internal Medicine Work Phone: MCV Entitic volume (RBC) 80.7 fL Normal 80-94 [facility] Work Phone: Monocytes/100 WBC (Bld) 5 % Normal 0-10 [facility] Internal Medicine Work Phone: Platelets #/vol (Bld) SeeNote Normal Com prehensive Internal Medicine Work Phone: Comment on above: Result: ADEQUATE Platelets #/vol (Bld) 253 10*3/uL Normal 150-450 [facility] Work Phone: RBC #/vol (Bld) 5.61 {M/mm3} Normal 4.6-6.2 [facility] Internal Medicine Work Phone: WBC #/vol (Bld) 5.8 10*3/uL Normal 4.4-11.0 [facility] Internal Medicine Work Phone: CBCD,SMEAR DIFF 53 % Normal 47-70 [facility] Internal Medicine Work Phone: CBCD,SMEAR DIFF 100 1 Normal [facility] Internal Medicine Work Phone: COMP METABOLICOrdered By: Alfonso stem Supervisor Type Photography on 12-10-2006 Albumin mass conc 4.5 g/dL Normal 3.4-5.0 [facility] Internal Medicine Work Phone: Albumin/Globulin mass ratio 1.3 {RATIO} Normal 0.9-2.4 [facility] Internal Medicine Work Phone: ALP enzyme act/vol 49 U/L Abnormal 50-136 [facility] Internal Medicine Work Phone: ALT enzyme act/vol 42 [iU]/L Normal 30-65 [facility] Internal Medicine Work Phone: Anion gap molar conc 6 mmol/L Normal 5-15 [facility] Internal [facility] Work Phone: AST enzyme act/vol 24 U/L Normal 15-37 [facility] Internal Medicine Work Phone: Bilirubin mass conc 0.49 mg/dL Normal 0.00-1.00 [email or web address] Internal Medicine Work Phone: Calcium mass conc 8.9 mg/dL Normal 8.5-10.1 [facility] Internal Medicine Work Phone: Chloride molar conc 107 mmol/L Normal 98-107 [email or web address] Internal Medicine Work Phone: CO2 molar conc 31.4 mmol/L Abnormal 22.0-29.0 [facility] Internal Medicine Work Phone: Creatinine mass conc 0.9 mg/dL Normal 0.8-1.3 [facility] Internal [facility] Work Phone: Globulin mass conc (S) 3.4 g/dL Normal 2.3-3.5 [facility] Internal Medicine Work Phone: Glucose mass conc 101 mg/dL Normal 70-110 Compreh ensive Internal Medicine Work Phone: Potassium molar conc 4.1 mmol/L Normal 3.5-5.1 Comp rehensive Internal Medicine Work Phone: Protein mass conc 7.9 g/dL Normal 6.4-8.2 Compreh ensive Internal Medicine Work Phone: Sodium molar conc 144 mmol/L Normal 136-145 Compreh ensive Internal Medicine Work Phone: Urea nitrogen mass conc 11 mg/dL Normal 7-18 [facility] Work Phone: Urea nitrogen/Creatinine mass ratio 12.2 {RATIO} Normal 10-20 [facility] Work Phone: COMPLETE UAOrdered By: Shannon bazan Supervisor Type Photography on 12-10-2006 Bacteria LM.HPF #/area (Urine sed) 0 SEEN Normal [facility] Work Phone: Clarity Nom (U) CLEAR Normal Comprehen sive Internal Medicine Work Phone: Color Nom (U) YELLOW Normal Comprehensi ve Internal Medicine Work Phone: Glucose mass conc SeeNote Normal Compreh ensive Internal Medicine Work Phone: Comment on above: Result: NEGATIVE Protein mass conc SeeNote Normal Compreh ensive Internal Medicine Work Phone: Comment on above: Result: NEGATIVE RBC #/vol (U) SeeNote Normal 0-5 Comprehensi ve Internal Medicine Work Phone: Comment on above: Result: 0-5 SEEN WBC #/vol (Bld) 0 SEEN Normal 0-5 Comprehen sive Internal Medicine Work Phone: COMPLETE UA SeeNote Normal [facility] Work Phone: Comment on above: Result: NEGATIVE Result: TRACE-INTACT Result: NORM C&C COMPLETE UA 5.5 1 Normal 5.0-8.0 [facility] Work Phone: COMPLETE UA >=1.030 Normal 1.002-1.03 0 [facility] Work Phone: COMPLETE UA 0 SEEN Normal [facility] Work Phone: COMPLETE UA 0.2 EU/dl Normal 0.2 - 1.0 [facility] Work Phone: D BILIOrdered By: System mPortal natalyar on 12-10-2006 Bilirubin.direct mass conc 0.08 mg/dL Normal 0.00-0.30 [facility] Work Phone: LIPIDOrdered By: System Noa edgar on 12-10-2006 Cholesterol in HDL mass conc 31 mg/dL Abnormal [facility] Work Phone: Comment on above: Reference Range HDL <40 mg/dL Low HDL Cholesterol HDL >or= 60 mg/dL High HDL Cholesterol Cholesterol in LDL mass conc 66 mg/dL Normal 0-130 [facility] Work Phone: Cholesterol in VLDL mass conc 19 mg/dL Normal 5-40 [facility] Work Phone: Cholesterol mass conc 116 mg/dL Normal Com prehensive Internal Medicine Work Phone: Comment on above: <200 mg/dL Desirable 200-240 mg/dL Borderline >240 mg/dL High Risk Triglyceride mass conc 96 mg/dL Normal [facility] Work Phone: Comment on above: Serum Triglycerides Reference Interval Normal <150 mg/dL Borderline high 150 - 199 mg/dL High 200 - 499 mg/dL Very High > or = 500 mg/dL TSHOrdered By: System Manage r on 12-10-2006 Thyrotropin Qn 0.91 {uIU/mL} Normal 0.34-4.82 Compreh ensive Internal Medicine Work Phone: Vital Signs Date Time Vital Sign Value Performing Clinician Facility 03-17-2025 13:44-0400 Body height 182.9 cm Jean-Paul Gerard MD Work Phone: [facility] [employer] 03-17-2025 13:44-0400 Body mass index (BMI) [Ratio] 22.38 kg/m2 Jean-Paul Gerard MD Work Phone: [facility] 03-17-2025 13:44-0400 Body weight 74.84 kg Jean-Paul Gerard MD Work Phone: [facility] [employer] 03-17-2025 13:44-0400 Diastolic blood pressure 78 mm[Hg] Jean-Paul Gerard MD Work Phone: [facility] [employer] 03-17-2025 13:44-0400 Heart rate 78 /min Jean-Paul Gerard MD Work Phone: [facility] [employer] 03-17-2025 13:44-0400 Systolic blood pressure 123 mm[Hg] Jean-Paul Gerard MD Work Phone: [facility] [employer] 03-01-2025 10:24-0400 Body height 182.9 cm Zuleima Gamble PA-C Work Phone: [facility] [employer] 03-01-2025 10:24-0400 Body mass index (BMI) [Ratio] 22.24 kg/m2 Zuleima Gamble PA-C Work Phone: [facility] [employer] 03-01-2025 10:24-0400 Body weight 74.39 kg Zuleima Gamble PA-C Work Phone: [facility] [employer] 03-01-2025 10:24-0400 Diastolic blood pressure 85 mm[Hg] Zuleima Gamble PA-C Work Phone: [facility] [employer] 03-01-2025 10:24-0400 Heart rate 71 /min Zuleima Gamble PA-C Work Phone: [facility] [employer] 03-01-2025 10:24-0400 Systolic blood pressure 131 mm[Hg] Zuleima Gamble PA-C Work Phone: [facility] [employer] 06-25-2024 09:50-0500 Body height 182.9 cm Yoko Hammonds MD Work Phone: [facility] 06-25-2024 09:50-0500 Body mass index (BMI) [Ratio] 22.38 kg/m2 Yoko Hammonds MD Work Phone: [facility] 06-25-2024 09:50-0500 Body weight 74.84 kg Yoko Hammonds MD Work Phone: [facility] 08-05-2023 15:14-0500 Body height 182.9 cm Richi Hairston MD Work Phone: [facility] [employer] 08-05-2023 15:14-0500 Body mass index (BMI) [Ratio] 22.65 kg/m2 Richi Hairston MD Work Phone: [facility] [employer] 08-05-2023 15:14-0500 Body weight 75.75 kg Richi Hairston MD Work Phone: [facility] [employer] 08-05-2023 15:14-0500 Diastolic blood pressure 88 mm[Hg] Richi Hairston MD Work Phone: [facility] [employer] 08-05-2023 15:14-0500 Heart rate 77 /min Richi Hairston MD Work Phone: [facility] [employer] 08-05-2023 15:14-0500 Systolic blood pressure 132 mm[Hg] Richi Hairston MD Work Phone: [facility] [employer] 03-11-2023 15:40-0400 Body height 182.88 cm Yoko Hammonds MD Work Phone: [facility] Work Phone: 03-11-2023 15:40-0400 Body mass index (BMI) [Ratio] 22.92 kg/m2 Yoko Hammonds MD Work Phone: [facility] Work Phone: 03-11-2023 15:40-0400 Body surface area Derived from formula 1.98 m2 Yoko Hammonds MD Work Phone: [facility] Work Phone: 03-11-2023 15:40-0400 Body temperature 97 [degF] Yoko Hammonds MD Work Phone: [facility]; [facility] Work Phone: Comment on above: Method: Oral 03-11-2023 15:40-0400 Body weight 76.66 kg Yoko Hammonds MD Work Phone: [facility]; [facility] Work Phone: 03-11-2023 15:40-0400 Diastolic blood pressure 74 mm[Hg] Yoko Hammonds MD Work Phone: [facility]; [facility] Work Phone: Comment on above: Patient Position: Sitting; Cuff Location : Left Arm; Cuff Size: Standard 03-11-2023 15:40-0400 Heart rate 67 /min Yoko Hammonds MD Work Phone: [facility]; [facility] Work Phone: Comment on above: Pattern: Regular 03-11-2023 15:40-0400 Respiratory rate 18 /min Yoko Hammonds MD Work Phone: [facility]; [facility] Work Phone: Comment on above: Pattern: Unlabored 03-11-2023 15:40-0400 SaO2% (BldA) [Mass fraction] 95 % Yoko Hammonds MD Work Phone: [facility]; [facility] Work Phone: Comment on above: Room air 03-11-2023 15:40-0400 Systolic blood pressure 122 mm[Hg] Yoko Hammonds MD Work Phone: [facility]; [facility] Work Phone: Comment on above: Patient Position: Sitting; Cuff Location : Left Arm; Cuff Size: Standard 09-10-2022 13:51-0500 Body height 182.88 cm Yoko Hammonds MD Work Phone: [facility]; [facility] Work Phone: 09-10-2022 13:51-0500 Body mass index (BMI) [Ratio] 22.65 kg/m2 Yoko Hammonds MD Work Phone: [facility]; [facility] Work Phone: 09-10-2022 13:51-0500 Body surface area Derived from formula 1.97 m2 Yoko Hammonds MD Work Phone: [facility]; [facility] Work Phone: 09-10-2022 13:51-0500 Body temperature 96.9 [degF] Yoko Hammonds MD Work Phone: [facility]; [facility] Work Phone: 09-10-2022 13:51-0500 Body weight 75.75 kg Yoko Hammonds MD Work Phone: [facility]; [facility] Work Phone: 09-10-2022 13:51-0500 Diastolic blood pressure 68 mm[Hg] Yoko Hammonds MD Work Phone: [facility]; [facility] Work Phone: Comment on above: Patient Position: Sitting; Cuff Location : Left Arm; Cuff Size: Standard 09-10-2022 13:51-0500 Heart rate 68 /min Yoko Hammonds MD Work Phone: [facility]; [facility] Work Phone: Comment on above: Pattern: Regular 09-10-2022 13:51-0500 Respiratory rate 16 /min Yoko Hammonds MD Work Phone: [facility]; [facility] Work Phone: Comment on above: Pattern: Unlabored 09-10-2022 13:51-0500 SaO2% (BldA) [Mass fraction] 98 % Yoko Hammonds MD Work Phone: [facility]; [facility] Work Phone: Comment on above: Room air 09-10-2022 13:51-0500 Systolic blood pressure 114 mm[Hg] Yoko Hammonds MD Work Phone: [facility]; [facility] Work Phone: Comment on above: Patient Position: Sitting; Cuff Location : Left Arm; Cuff Size: Standard 09-09-2022 14:17-0500 Body height 182.88 cm [facility] 09-09-2022 14:17-0500 Body mass index (BMI) [Ratio] 23.2 kg/m2 [facility] 09-09-2022 14:17-0500 Body temperature 97 [degF] [facility] 09-09-2022 14:17-0500 Body weight 77.74 kg [facility] 09-09-2022 14:17-0500 Diastolic blood pressure 92 mm[Hg] [facility] 09-09-2022 14:17-0500 Heart rate 67 /min [facility] 09-09-2022 14:17-0500 Respiratory rate 16 /min [facility] 09-09-2022 14:17-0500 SaO2% (BldA) [Mass fraction] 98 % [facility] 09-09-2022 14:17-0500 Systolic blood pressure 139 mm[Hg] [facility] 03-12-2022 15:05-0400 Body height 182.88 cm Thang Jimenez LPN [facility] Work Phone: 03-12-2022 15:05-0400 Body mass index (BMI) [Ratio] 22.17 kg/m2 Thang Jimenez LPN [facility]; [facility] Work Phone: 03-12-2022 15:05-0400 Body surface area Derived from formula 1.96 m2 Thang Jimenez LPN [facility]; [facility] Work Phone: 03-12-2022 15:05-0400 Body temperature 97.6 [degF] Thang Jimenez LPN [facility]; [facility] Work Phone: Comment on above: Method: Infrared 03-12-2022 15:05-0400 Body weight 74.16 kg Thang Jimenez LPN [facility]; [facility] Work Phone: 03-12-2022 15:05-0400 Diastolic blood pressure 66 mm[Hg] Thang Jimenez LPN [facility]; [facility] Work Phone: Comment on above: Patient Position: Sitting; Cuff Location : Left Arm; Cuff Size: Standard 03-12-2022 15:05-0400 Heart rate 71 /min Thang Jimenez LPN [facility]; [facility] Work Phone: Comment on above: Pattern: Regular 03-12-2022 15:05-0400 Respiratory rate 16 /min Thang Jimenez LPN [facility]; [facility] Work Phone: Comment on above: Pattern: Unlabored 03-12-2022 15:05-0400 SaO2% (BldA) [Mass fraction] 96 % Thang Jimenez LPN [facility]; [facility] Work Phone: Comment on above: Room air 03-12-2022 15:05-0400 Systolic blood pressure 116 mm[Hg] Thang Jimenez LPN [facility]; [facility] Work Phone: Comment on above: Patient Position: Sitting; Cuff Location : Left Arm; Cuff Size: Standard 12-11-2021 15:24-0400 Body height 182.88 cm ERNA Garsia LPN [facility]; [facility] Work Phone: 12-11-2021 15:24-0400 Body mass index (BMI) [Ratio] 22.24 kg/m2 ERNA Garsia LPN [facility]; [facility] Work Phone: 12-11-2021 15:24-0400 Body surface area Derived from formula 1.96 m2 ERNA Garsia LPN [facility]; [facility] Work Phone: 12-11-2021 15:24-0400 Body temperature 97.9 [degF] ERNA Garsia LPN [facility]; [facility] Work Phone: Comment on above: Method: Temporal 12-11-2021 15:24-0400 Body weight 74.39 kg ERNA Garsia LPN [facility]; [facility] Work Phone: 12-11-2021 15:24-0400 Diastolic blood pressure 74 mm[Hg] ERNA Garsia LPN [facility]; [facility] Work Phone: Comment on above: Patient Position: Sitting; Cuff Location : Left Arm; Cuff Size: Standard 12-11-2021 15:24-0400 Heart rate 68 /min ERNA Garsia OWNER/OPERATOR [facility]; [facility] Work Phone: Comment on above: Pattern: Regular 12-11-2021 15:24-0400 Respiratory rate 18 /min ERNA Garsia OWNER/OPERATOR [facility]; [facility] Work Phone: Comment on above: Pattern: Unlabored 12-11-2021 15:24-0400 SaO2% (BldA) [Mass fraction] 98 % ERNA Garsia [facility]; [facility] Work Phone: Comment on above: Room air 12-11-2021 15:24-0400 Systolic blood pressure 114 mm[Hg] ERNA Garsia [facility] Work Phone: Comment on above: Patient Position: Sitting; Cuff Location : Left Arm; Cuff Size: Standard 12-22-2020 11:06-0400 Body height 182.88 cm [facility] Work Phone: 12-22-2020 11:06-0400 Body mass index (BMI) [Ratio] 22.11 kg/m2 [facility] Work Phone: 12-22-2020 11:06-0400 Body surface area Derived from formula 1.95 m2 [facility] Work Phone: 12-22-2020 11:06-0400 Body temperature 97.4 [degF] [facility] Work Phone: Comment on above: Method: Thermal Scan 12-22-2020 11:06-0400 Body weight 73.94 kg [facility] Work Phone: 12-22-2020 11:06-0400 Diastolic blood pressure 78 mm[Hg] [facility] Work Phone: Comment on above: Patient Position: Sitting; Cuff Location : Left Arm; Cuff Size: Standard 12-22-2020 11:06-0400 Heart rate 62 /min [facility] Work Phone: Comment on above: Pattern: Regular 12-22-2020 11:06-0400 Respiratory rate 16 /min [facility] Work Phone: Comment on above: Pattern: Unlabored 12-22-2020 11:06-0400 SaO2% (BldA) [Mass fraction] 96 % [facility] Work Phone: Comment on above: Room air 12-22-2020 11:06-0400 Systolic blood pressure 120 mm[Hg] [facility] Work Phone: Comment on above: Patient Position: Sitting; Cuff Location : Left Arm; Cuff Size: Standard 06-14-2020 13:58-0500 BMI (Body Mass Index) 22.51 kg/m2 [facility] Work Phone: Comment on above: 141/86 auto 06-14-2020 13:58-0500 Body weight 75.3 kg [facility] Work Phone: Comment on above: 141/86 auto 06-14-2020 13:58-0500 BP Diastolic 82 mm[Hg] [facility] Work Phone: Comment on above: Patient Position: Sitting; Cuff Location : Left Arm; Cuff Size: Standard 141/86 auto 06-14-2020 13:58-0500 BP Systolic 132 mm[Hg] [facility] Work Phone: Comment on above: Patient Position: Sitting; Cuff Location : Left Arm; Cuff Size: Standard 141/86 auto 06-14-2020 13:58-0500 BSA (Body Surface Area) 1.97 m2 [facility] Work Phone: Comment on above: 141/86 auto 06-14-2020 13:58-0500 Height 182.88 cm [facility] Work Phone: Comment on above: 141/86 auto 06-14-2020 13:58-0500 Pulse (Heart Rate) 74 /min Zuleima Herrera [employer] [employer] [facility] Work Phone: Comment on above: Pattern: Regular 141/86 auto 05-05-2019 13:32-0400 BMI (Body Mass Index) 22.51 kg/m2 Leann Slarb OWNER/OPERATOR [facility] Work Phone: 05-05-2019 13:32-0400 Body weight 75.3 kg Leann Tiorb OWNER/OPERATOR [facility] Work Phone: 05-05-2019 13:32-0400 BP Diastolic 72 mm[Hg] Leann Slarb OWNER/OPERATOR [facility] Work Phone: Comment on above: Patient Position: Sitting; Cuff Location : Left Arm; Cuff Size: Standard 05-05-2019 13:32-0400 BP Systolic 118 mm[Hg] Leann Slarb OWNER/OPERATOR [facility] Work Phone: Comment on above: Patient Position: Sitting; Cuff Location : Left Arm; Cuff Size: Standard 05-05-2019 13:32-0400 BSA (Body Surface Area) 1.97 m2 Leann Slarb OWNER/OPERATOR [facility] Work Phone: 05-05-2019 13:32-0400 Height 182.88 cm Leann Slarb OWNER/OPERATOR [facility] Work Phone: 05-05-2019 13:32-0400 Pulse (Heart Rate) 84 /min Leann Tiorb OWNER[employer]OPERATOR [facility] Work Phone: Comment on above: Pattern: Regular 05-05-2019 13:32-0400 Pulse Oximetry 95 % Mel Esquivel [facility] Work Phone: Comment on above: Room air 05-05-2019 13:32-0400 Respiratory Rate 17 /min Leann Slarb OWNER/OPERATOR [facility] Work Phone: Comment on above: Pattern: Unlabored 05-05-2019 13:32-0400 SaO2% (BldA) [Mass fraction] 95 % Leann Slarb OWNER/OPERATOR [facility]; [facility] Work Phone: Comment on above: Room air 03-06-2018 14:22-0400 BMI (Body Mass Index) 22.92 kg/m2 [facility] Work Phone: 03-06-2018 14:22-0400 Body Temperature 96.9 [degF] Rohini Dill [facility] Work Phone: Comment on above: Method: Oral 03-06-2018 [id number]:220400 Body weight 76.66 kg Rohini Dill [facility] Work Phone: 03-06-2018 14:22-0400 BP Diastolic 72 mm[Hg] Rohini Dill [facility] Work Phone: Comment on above: Patient Position: Sitting; Cuff Location : Left Arm; Cuff Size: Standard 03-06-2018 14:22-0400 BP Systolic 118 mm[Hg] Rohini Dill [facility] Work Phone: Comment on above: Patient Position: Sitting; Cuff Location : Left Arm; Cuff Size: Standard 03-06-2018 14:22-0400 BSA (Body Surface Area) 1.98 m2 Rohini Dill [facility] Work Phone: 03-06-2018 14:22-0400 Height 182.88 cm Rohini Dill [facility] Work Phone: 03-06-2018 14:22-0400 Pulse (Heart Rate) 79 /min Rohini Dill [facility] Work Phone: Comment on above: Pattern: Regular 03-06-2018 14:22-0400 Pulse Oximetry 98 % Mel Alvin [facility] Work Phone: Comment on above: Room air 03-06-2018 14:22-0400 Respiratory Rate 18 /min Rohini Dill [facility] Work Phone: Comment on above: Pattern: Unlabored 03-06-2018 14:22-0400 SaO2% (BldA) [Mass fraction] 98 % Rohini Fuentes [facility]; [facility] Work Phone: Comment on above: Room air 03-06-2018 14:22-0400 Weight 76.66 kg Mel Esquivel [facility] Work Phone: 04-16-2017 15:15-0400 BMI (Body Mass Index) 22.78 kg/m2 ERNA Garsia LPN [facility] Work Phone: 04-16-2017 15:15-0400 Body Temperature 97.6 [degF] ERNA Garsia OWNER/OPERATOR [facility] Work Phone: Comment on above: Method: Temporal 04-16-2017 15:15-0400 Body weight 76.2 kg ERNA Garsia LPN [facility] Work Phone: 04-16-2017 15:15-0400 BP Diastolic 78 mm[Hg] ERNA Garsia OWNER/OPERATOR [facility] Work Phone: Comment on above: Patient Position: Sitting; Cuff Location : Left Arm; Cuff Size: Standard 04-16-2017 15:15-0400 BP Systolic 114 mm[Hg] ERNA Garsia LPN [facility] Work Phone: Comment on above: Patient Position: Sitting; Cuff Location : Left Arm; Cuff Size: Standard 04-16-2017 15:15-0400 BSA (Body Surface Area) 1.98 m2 ERNA Garsia LPN [facility] Work Phone: 04-16-2017 15:15-0400 Height 182.88 cm ERNA Garsia OWNER/OPERATOR [facility] Work Phone: 04-16-2017 15:15-0400 Pulse (Heart Rate) 82 /min ERNA Garsia OWNER/OPERATOR [facility] Work Phone: Comment on above: Pattern: Regular 04-16-2017 15:15-0400 Pulse Oximetry 97 % Mel Esquivel [facility] Work Phone: Comment on above: Room air 04-16-2017 15:15-0400 Respiratory Rate 20 /min ERNA Garsia OWNER/OPERATOR [facility] Work Phone: Comment on above: Pattern: Unlabored 04-16-2017 15:15-0400 SaO2% (BldA) [Mass fraction] 97 % ERNA Garsia LPN [facility]; [facility] Work Phone: Comment on above: Room air 04-16-2017 15:15-0400 Weight 76.2 kg Mel Esquivel [facility] Work Phone: 12-04-2016 15:18-0400 BMI (Body Mass Index) 22.65 kg/m2 ERNA Garsia LPN [facility] Work Phone: 12-04-2016 15:18-0400 Body Temperature 97.6 [degF] ERNA Garsia LPN [facility] Work Phone: Comment on above: Method: Temporal 12-04-2016 15:18-0400 Body weight 75.75 kg ERNA Garsia LPN [facility] Work Phone: 12-04-2016 15:18-0400 BP Diastolic 78 mm[Hg] ERNA Garsia LPN [facility] Work Phone: Comment on above: Patient Position: Sitting; Cuff Location : Left Arm; Cuff Size: Large 12-04-2016 15:18-0400 BP Systolic 110 mm[Hg] ERNA Garsia LPN [facility] Work Phone: Comment on above: Patient Position: Sitting; Cuff Location : Left Arm; Cuff Size: Large 12-04-2016 15:18-0400 BSA (Body Surface Area) 1.97 m2 ERNA Garsia LPN [facility] Work Phone: 12-04-2016 15:18-0400 Height 182.88 cm ERNA Garsia LPN [facility] Work Phone: 12-04-2016 15:18-0400 Pulse (Heart Rate) 80 /min ERNA Garsia LPN [facility] Work Phone: Comment on above: Pattern: Regular 12-04-2016 15:18-0400 Pulse Oximetry 97 % Mel Esquivel [facility] Work Phone: Comment on above: Room air 12-04-2016 15:18-0400 Respiratory Rate 20 /min ERNA Garsia LPN [facility] Work Phone: Comment on above: Pattern: Unlabored 12-04-2016 15:18-0400 SaO2% (BldA) [Mass fraction] 97 % ERNA Garsia LPN [facility]; [facility] Work Phone: Comment on above: Room air 12-04-2016 15:18-0400 Weight 75.75 kg Mel Esquivel [facility] Work Phone: 07-03-2016 15:28-0500 BMI (Body Mass Index) 22.65 kg/m2 Rohinilucero Dill [facility] Internal [facility] Work Phone: 07-03-2016 15:28-0500 Body Temperature 97.4 [degF] Rohinilucero Dill [facility] Work Phone: Comment on above: Method: Tympanic 07-03-2016 15:28-0500 Body weight 75.75 kg Rohini [facility] Internal Medicine Work Phone: 07-03-2016 15:28-0500 BP Diastolic 78 mm[Hg] Rohini [facility] Work Phone: Comment on above: Patient Position: Sitting; Cuff Location : Left Arm; Cuff Size: Standard 07-03-2016 15:28-0500 BP Systolic 118 mm[Hg] Rohini [facility] Work Phone: Comment on above: Patient Position: Sitting; Cuff Location : Left Arm; Cuff Size: Standard 07-03-2016 15:28-0500 [facility] (Body [facility]) 1.97 [facility]2 [facility] Work [facility]: 07-03-2016 15:28-0500 [facility]88 [facility] Work Phone: 07-03-2016 15:28-0500 Pulse (Heart Rate) 89 /min Rohini [facility] Internal [facility] Work Phone: Comment on above: Pattern: Regular 07-03-2016 15:28-0500 Pulse Oximetry 97 % Mel Esquivel [facility] Work Phone: Comment on above: Room air 07-03-2016 15:28-0500 Respiratory Rate 18 /min Rohini Dill [facility] Work Phone: Comment on above: Pattern: Unlabored 07-03-2016 15:28-0500 SaO2% (BldA) [Mass fraction] 97 % Rohini Dill [facility]; [facility] Work Phone: Comment on above: Room air 07-03-2016 15:28-0500 Weight 75.75 kg Mel Esquivel [facility] Work Phone: 11-13-2015 15:08-0400 BMI (Body Mass Index) 23.06 kg/m2 Sarah Ybarra RN [facility] Internal [facility] Work Phone: 11-13-2015 15:08-0400 Body Temperature 97.6 [degF] Sarah Ybarra RN [facility] Work Phone: Comment on above: Method: Temporal 11-13-2015 15:08-0400 Body weight 77.11 kg Sarah Ybarra RN [facility] Work Phone: 11-13-2015 15:08-0400 BP Diastolic 74 mm[Hg] Sarah Ybarra RN [facility] Work Phone: Comment on above: Patient Position: Sitting; Cuff Location : Left Arm; Cuff Size: Standard 11-13-2015 15:08-0400 BP Systolic 120 mm[Hg] Sarah Ybarra RN [facility] Work Phone: Comment on above: Patient Position: Sitting; Cuff Location : Left Arm; Cuff Size: Standard 11-13-2015 15:08-0400 BSA (Body Surface Area) 1.99 m2 Sarah Ybarra RN [facility] Work Phone: 11-13-2015 15:08-0400 Height 182.88 cm Sarah Ybarra RN [facility] Work Phone: 11-13-2015 15:08-0400 Pulse (Heart Rate) 75 /min Sarah Ybarra RN [facility] Work Phone: Comment on above: Pattern: Regular 11-13-2015 15:08-0400 Pulse Oximetry 98 % Mel Esquivel [facility] Work Phone: Comment on above: Room air 11-13-2015 15:08-0400 Respiratory Rate 16 /min Sarah Ybarra RN [facility] Work Phone: Comment on above: Pattern: Unlabored 11-13-2015 15:08-0400 SaO2% (BldA) [Mass fraction] 98 % Sarah Ybarra RN [facility]; [facility] Work Phone: Comment on above: Room air 11-13-2015 15:08-0400 Weight 77.11 kg Mel Esquivel [facility] Work Phone: 11-01-2014 12:08-0400 BMI (Body Mass Index) 23.33 kg/m2 Sarah Ybarra RN [facility] Internal Medicine Work Phone: 11-01-2014 12:08-0400 Body Temperature 98.1 [degF] Sarah Ybarra RN [facility] Work Phone: Comment on above: Method: Temporal 11-01-2014 12:08-0400 Body weight 78.02 kg Sarah Ybarra RN [facility] Work Phone: 11-01-2014 12:08-0400 BP Diastolic 68 mm[Hg] Sarah Ybarra RN [facility] Work Phone: Comment on above: Patient Position: Sitting; Cuff Location : Left Arm; Cuff Size: Standard 11-01-2014 12:08-0400 BP Systolic 110 mm[Hg] Sarah Ybarra RN [facility] Work Phone: Comment on above: Patient Position: Sitting; Cuff Location : Left Arm; Cuff Size: Standard 11-01-2014 12:08-0400 BSA (Body Surface Area) 2 m2 Sarah Ybarra RN [facility] Work Phone: 11-01-2014 12:08-0400 Height 182.88 cm Sarah Ybarra RN [facility] Work Phone: 11-01-2014 12:08-0400 Pulse (Heart Rate) 74 /min Sarah Ybarra RN [facility] Work Phone: Comment on above: Pattern: Regular 11-01-2014 12:08-0400 Pulse Oximetry 97 % Mel Esquivel [facility] Medicine Work Phone: Comment on above: Room air 11-01-2014 12:08-0400 Respiratory Rate 17 /min Sarah Ybarra RN [facility] Work Phone: Comment on above: Pattern: Unlabored 11-01-2014 12:08-0400 SaO2% (BldA) [Mass fraction] 97 % Sarah Ybarra RN [facility]; [facility] Work Phone: Comment on above: Room air 11-01-2014 12:08-0400 Weight 78.02 kg Mel Esquivel [facility] Work Phone: 09-07-2013 15:31-0500 BMI (Body Mass Index) 23.46 kg/m2 Sarah Ybarra RN [facility] Work Phone: 09-07-2013 15:31-0500 Body Temperature 98.1 [degF] Sarah Ybarra RN [facility] Work Phone: Comment on above: Method: Temporal 09-07-2013 15:31-0500 Body weight 78.47 kg Sarah Ybarra RN [facility] Work Phone: 09-07-2013 15:31-0500 BP Diastolic 78 mm[Hg] Sarah Ybarra RN [facility] Work Phone: Comment on above: Patient Position: Sitting; Cuff Location : Left Arm; Cuff Size: Standard 09-07-2013 15:31-0500 BP Systolic 118 mm[Hg] Sarah Ybarra RN [facility] Work Phone: Comment on above: Patient Position: Sitting; Cuff Location : Left Arm; Cuff Size: Standard 09-07-2013 15:31-0500 BSA (Body Surface Area) 2 m2 Sarah Ybarra RN [facility] Work Phone: 09-07-2013 15:31-0500 Height 182.88 cm Sarah Ybarra RN [facility] Work Phone: 09-07-2013 15:31-0500 Pulse (Heart Rate) 71 /min Sarah Ybarra RN [facility] Work Phone: Comment on above: Pattern: Regular 09-07-2013 15:31-0500 Pulse Oximetry 97 % Mel Parkeron [facility] Work Phone: Comment on above: Room air 09-07-2013 15:31-0500 Respiratory Rate 18 /min Sarah Ybarra RN [facility] Work Phone: Comment on above: Pattern: Unlabored 09-07-2013 15:31-0500 SaO2% (BldA) [Mass fraction] 97 % Sarah Ybarra RN [facility]; [facility] Work Phone: Comment on above: Room air 09-07-2013 15:31-0500 Weight 78.47 kg Mel Parkeron [facility] Work Phone: 05-19-2012 17:01-0500 BMI (Body Mass Index) 23.19 kg/m2 Sarah Ybarra RN [facility] Work Phone: 05-19-2012 17:01-0500 Body Temperature 97.4 [degF] Sarah Ybarra RN [facility] Work Phone: Comment on above: Method: Temporal 05-19-2012 17:01-0500 Body weight 77.57 kg Sarah Ybarra RN [facility] Work Phone: 05-19-2012 17:01-0500 BP Diastolic 76 mm[Hg] Sarah Ybarra RN [facility] Work Phone: Comment on above: Patient Position: Sitting; Cuff Location : Left Arm; Cuff Size: Standard 05-19-2012 17:01-0500 BP Systolic 122 mm[Hg] Sarah Ybarra RN [facility] Work Phone: Comment on above: Patient Position: Sitting; Cuff Location : Left Arm; Cuff Size: Standard 05-19-2012 17:01-0500 BSA (Body Surface Area) 1.99 m2 Sarah Ybarra RN [facility] Work Phone: 05-19-2012 17:01-0500 Height 182.88 cm Sarah Ybarra RN [facility] Work Phone: 05-19-2012 17:01-0500 Pulse (Heart Rate) 64 /min Sarah Ybarra RN [facility] Work Phone: Comment on above: Pattern: Regular 05-19-2012 17:01-0500 Respiratory Rate 18 /min Sarah Ybarra RN [facility] Work Phone: Comment on above: Pattern: Unlabored 05-19-2012 17:01-0500 Weight 77.57 kg Mel Esquivel [facility] Work Phone: 07-23-2011 11:29-0500 BMI (Body Mass Index) 23.19 kg/m2 Sarah Ybarra RN [facility] Work Phone: 07-23-2011 11:29-0500 Body Temperature 97.7 [degF] Sarah Ybarra RN [facility] Work Phone: Comment on above: Method: Oral 07-23-2011 11:29-0500 Body weight 77.57 kg Sarah Ybarra RN [facility] Work Phone: 07-23-2011 11:29-0500 BP Diastolic 72 mm[Hg] Sarah Ybarra RN [facility] Work Phone: Comment on above: Patient Position: Sitting; Cuff Location : Left Arm; Cuff Size: Standard 07-23-2011 11:29-0500 BP Systolic 124 mm[Hg] Sarah Ybarra RN [facility] Work Phone: Comment on above: Patient Position: Sitting; Cuff Location : Left Arm; Cuff Size: Standard 07-23-2011 11:29-0500 BSA (Body Surface Area) 1.99 m2 Sarah Ybarra RN [facility] Work Phone: 07-23-2011 11:29-0500 Height 182.88 cm Sarah Ybarra RN [facility] Work Phone: 07-23-2011 11:29-0500 Pulse (Heart Rate) 68 /min Sarah Ybarra RN [facility] Work Phone: Comment on above: Pattern: Regular 07-23-2011 11:29-0500 Respiratory Rate 16 /min Sarah Ybarra RN [facility] Work Phone: Comment on above: Pattern: Unlabored 07-23-2011 11:29-0500 Weight 77.57 kg Mel Esquivel [facility] Work Phone: 09-03-2010 14:22-0500 Body Temperature 97.9 [degF] ERNA Garsia ROSE [facility] Work Phone: Comment on above: Method: Oral 09-03-2010 14:22-0500 Body weight 79.83 kg ERNA Garsia [facility] Work Phone: 09-03-2010 14:22-0500 BP Diastolic 78 mm[Hg] ERNA Garsia [facility] Work Phone: Comment on above: Patient Position: Sitting; Cuff Location : Left Arm; Cuff Size: Standard 09-03-2010 14:22-0500 BP Systolic 114 mm[Hg] ERNA Garsia ROSE [facility] Work Phone: Comment on above: Patient Position: Sitting; Cuff Location : Left Arm; Cuff Size: Standard 09-03-2010 14:22-0500 Pulse (Heart Rate) 68 /min ERNA Garsia [facility] Work Phone: Comment on above: Pattern: Regular 09-03-2010 14:22-0500 Respiratory Rate 18 /min RENA Garsia ROSE [facility] Work Phone: Comment on above: Pattern: Unlabored 09-03-2010 14:22-0500 Weight 79.83 kg Mel Esquivel [facility] Work Phone: 02-09-2010 11:08-0400 Body weight 78.93 kg ERNA Garsia [facility] Work Phone: 02-09-2010 11:08-0400 BP Diastolic 78 mm[Hg] ERNA Garsia RO[facility] Work Phone: Comment on above: Patient Position: Sitting; Cuff Location : Left Arm; Cuff Size: Standard 02-09-2010 11:08-0400 BP Systolic 114 mm[Hg] ERNA Garsia OWNER/OPERATOR [facility] Work Phone: Comment on above: Patient Position: Sitting; Cuff Location : Left Arm; Cuff Size: Standard 02-09-2010 11:08-0400 Pulse (Heart Rate) 70 /min ERNA Garsia OWNER/OPERATOR [facility] Work Phone: Comment on above: Pattern: Regular 02-09-2010 11:08-0400 Respiratory Rate 18 /min ERNA Garsia OWNER/OPERATOR [facility] Work Phone: Comment on above: Pattern: Unlabored 02-09-2010 11:08-0400 Weight 78.93 kg Mel Esquivel [facility] Work Phone: 11-14-2009 08:16-0400 BP Diastolic 90 mm[Hg] Yoko Hammonds MD Work Phone: [facility] Work Phone: Comment on above: Patient Position: Sitting 11-14-2009 08:16-0400 BP Systolic 128 mm[Hg] Yoko Hammonds MD Work Phone: [facility] Work Phone: Comment on above: Patient Position: Sitting 11-14-2009 07:24-0400 Body weight 79.38 kg Yoko Hammonds MD Work Phone: [facility] Work Phone: 11-14-2009 07:24-0400 BP Diastolic 90 mm[Hg] Yoko Hammonds MD Work Phone: [facility] Work Phone: Comment on above: Patient Position: Sitting; Cuff Location : Left Arm; Cuff Size: Standard 11-14-2009 07:24-0400 BP Systolic 138 mm[Hg] Yoko Hammonds MD Work Phone: [facility] Work Phone: Comment on above: Patient Position: Sitting; Cuff Location : Left Arm; Cuff Size: Standard 11-14-2009 07:24-0400 Pulse (Heart Rate) 70 /min Yoko Hammonds MD Work Phone: [facility] Work Phone: Comment on above: Pattern: Regular 11-14-2009 07:24-0400 Respiratory Rate 18 /min Yoko Hammonds MD Work Phone: [facility] Work Phone: Comment on above: Pattern: Unlabored 11-14-2009 07:24-0400 Weight 79.38 kg Mel Esquivel [facility] Work Phone: 05-05-2009 10:02-0400 Body weight 79.83 kg ERNA Garsia [facility] Work Phone: 05-05-2009 10:02-0400 BP Diastolic 74 mm[Hg] ERNA Garsia ROSE [facility] Work Phone: Comment on above: Patient Position: Sitting; Cuff Location : Left Arm; Cuff Size: Standard 05-05-2009 10:02-0400 BP Systolic 110 mm[Hg] ERNA Garsia ROSE [facility] Work Phone: Comment on above: Patient Position: Sitting; Cuff Location : Left Arm; Cuff Size: Standard 05-05-2009 10:02-0400 Head Circumference 0 cm Mel Esquivel [facility] Work Phone: 05-05-2009 10:02-0400 Head Occipital-frontal circumference 0 cm ERNAMICHAELLE Garsia LPN [facility]; [facility] Work Phone: 05-05-2009 10:02-0400 Height 0 cm ERNA Garsia RO[facility] Work Phone: 05-05-2009 10:02-0400 Pulse (Heart Rate) 70 /min ERNAMICHAELLE Garsia LPN [facility] Work Phone: Comment on above: Pattern: Regular 05-05-2009 10:02-0400 Respiratory Rate 16 /min ERNAMICHAELLE Garsia LPN [facility] Work Phone: Comment on above: Pattern: Unlabored 05-05-2009 10:02-0400 Weight 79.83 kg Mel Esquivel [facility] Work Phone: 08-23-2008 11:48-0500 Body weight 80.29 kg ERNA Garsia LPN [facility] Work Phone: 08-23-2008 11:48-0500 BP Diastolic 78 mm[Hg] ERNA Garsia LPN [facility] Work Phone: Comment on above: Patient Position: Sitting; Cuff Location : Left Arm; Cuff Size: Standard 08-23-2008 11:48-0500 BP Systolic 110 mm[Hg] ERNA Garsia LPN [facility] Work Phone: Comment on above: Patient Position: Sitting; Cuff Location : Left Arm; Cuff Size: Standard 08-23-2008 11:48-0500 Head Circumference 0 cm Mel Esquivel [facility] Work Phone: 08-23-2008 11:48-0500 Head Occipital-frontal circumference 0 cm ERNA Garsia LPN [facility]; [facility] Work Phone: 08-23-2008 11:48-0500 Height 0 cm ERNA Garsia LPN [facility] Work Phone: 08-23-2008 11:48-0500 Pulse (Heart Rate) 68 /min ERNA Garsia LPN [facility] Work Phone: Comment on above: Pattern: Regular 08-23-2008 11:48-0500 Respiratory Rate 16 /min ERNA Gasria LPN [facility] Work Phone: Comment on above: Pattern: Unlabored 08-23-2008 11:48-0500 Weight 80.29 kg Mel Esquivel [facility] Work Phone: 02-24-2007 07:53-0400 Body Temperature 97.6 [degF] ERNA Garsia LPN [facility] Work Phone: Comment on above: Method: Oral 02-24-2007 07:53-0400 Body weight 80.74 kg ERNA Garsia LPN [facility] Work Phone: 02-24-2007 07:53-0400 BP Diastolic 78 mm[Hg] ERNA Garsia LPN [facility] Work Phone: Comment on above: Patient Position: Sitting; Cuff Location : Left Arm; Cuff Size: Standard 02-24-2007 07:53-0400 BP Systolic 104 mm[Hg] ERNA Garsia LPN [facility] Work Phone: Comment on above: Patient Position: Sitting; Cuff Location : Left Arm; Cuff Size: Standard 02-24-2007 07:53-0400 Head Circumference 0 cm Mel Esquivel [facility] Work Phone: 02-24-2007 07:53-0400 Head Occipital-frontal circumference 0 cm ERNA Garsia LPN [facility]; [facility] Work Phone: 02-24-2007 07:53-0400 Height 0 cm ERNA Garsia LPN [facility] Work Phone: 02-24-2007 07:53-0400 Pulse (Heart Rate) 70 /min ERNA Garsia LPN [facility] Work Phone: Comment on above: Pattern: Regular 02-24-2007 07:53-0400 Respiratory Rate 20 /min ERNA Garsia LPN [facility] Work Phone: Comment on above: Pattern: Unlabored 02-24-2007 07:53-0400 Weight 80.74 kg Mel Esquivel [facility] Work Phone: Encounters Encounter Date Encounter Type Care Provider Facility Start: 03-17-2025 End: 03-17-2025 Office outpatient new 30 minutes Jean-Paul Gerard MD Work Phone: [facility] Comment on above: Benign neoplasm of t runk (Primary Dx) Start: 03-09-2025 End: 03-09-2025 Admission to same day surgery center Zuleima Gamble PA-C Work Phone: [facility] Start: 03-09-2025 End: 03-09-2025 ambulatory Zuleima Gamble PA-C Work Phone: [facility] Start: 03-09-2025 End: 03-09-2025 Follow-up encounter Zuleima Gamble PA-C Work Phone: [facility] Comment on above: Tissue exam Start: 03-01-2025 End: 03-01-2025 Office outpatient new 30 minutes Zuleima Gamble PA-C Work Phone: [facility] Comment on above: Change in multiple p igmented skin lesions (Primary Dx) Start: 03-01-2025 End: 03-01-2025 ambulatory MEL ALVIN [facility] Start: 11-02-2024 End: 11-02-[address] Yoko Hammonds MD Work Phone: [facility] Work Phone: Start: 11-02-2024 End: 11-02-[address] Yoko Hammonds MD -Laboratory, [place] Work Phone: Start: 11-02-2024 End: 11-02-[facility] Start: 06-25-2024 ambulatory MEL ESQUIVEL [facility] Start: 06-25-2024 End: 06-25-2024 Subsequent hospital visit by physician Yoko Hammonds MD Work Phone: [facility] Comment on above: Arrived Start: 06-23-2024 End: 06-23-2024 [facility] Start: 06-23-2024 End: 06-23-[facility] Start: 04-28-2024 End: 04-28-2024 Subsequent hospital visit by physician Dave Lopez [facility] Comment on above: Pure hypercholestero lemia, unspecified Start: 04-28-2024 End: 04-28-2024 ambulatory [facility] Start: 10-24-2023 End: 10-24-2023 ambulatory [facility] Work Phone: Start: 10-24-2023 End: 10-24-2023 Patient encounter procedure [facility], [place] Work Phone: Start: 08-05-2023 End: 08-05-2023 Office outpatient visit 25 minutes Richi Hairston MD Work Phone: [facility] Comment on above: Type 2 diabetes selene itus with hyperglycemia, without long-term current use of insulin (HCC) (Primary Dx); Mixed hyperlipidemia; Primary hypertension Start: 08-02-2023 End: 08-02-2023 Patient encounter procedure [facility] Work Phone: Start: 03-11-2023 Review Yoko Ayala Work Phone: [facility] Start: 03-11-2023 End: 03-27-2023 Patient encounter procedure Yoko Hammonds MD Work Phone: [facility] Start: 03-11-2023 End: 03-27-2023 Patient encounter status Yoko Hammonds MD Work Phone: [facility] Start: 11-20-2022 ambulatory Yoko Hammonds MD [facility] Start: 09-10-2022 End: 09-10-2022 Office outpatient visit 25 minutes Yoko Hammonds MD Work Phone: [facility] Start: 09-10-2022 End: 09-10-2022 Patient encounter status Yoko Hammonds MD Work Phone: [facility]; [facility] Work Phone: Comment on above: 11-01-21 VIP physic al: PSA 2-23want recheck 6months because of high in past colonscopy summer 2019 negative (hyperplastic) Start: 09-09-2022 End: 09-09-2022 ambulatory [facility] Work Phone: Start: 09-09-2022 End: 09-09-2022 Patient encounter procedure [facility] Start: 09-07-2022 End: 12-11-2022 Prescription Refill Yoko Hammonds MD Work Phone: [facility] Start: 09-07-2022 Review Yoko Ayala Work Phone: [facility] Start: 09-03-2022 End: 09-03-2022 Patient encounter procedure [facility] Start: 09-03-2022 End: 09-03-2022 Lab Order Yoko Hammonds MD Work Phone: [facility] Start: 06-17-2022 End: 06-18-2022 Lab Order Yoko Hammonds MD Work Phone: [facility] Start: 06-10-2022 End: 06-10-2022 Phone Encounter Mel Alvin DO Work Phone: [facility] Start: 06-03-2022 End: 06-03-2022 Lab Order Mel Alvin DO Work Phone: [facility] Start: 06-03-2022 End: 06-03-2022 ambulatory [facility] Work Phone: Start: 06-03-2022 End: 06-03-2022 Patient encounter procedure [facility] Start: 03-21-2022 End: 03-21-2022 Annotation/Addendum Mel Alvin DO Work Phone: [facility] Start: 03-12-2022 End: 03-24-2022 Office outpatient visit 25 minutes Mel Esquivel DO Work Phone: [facility] Start: 03-12-2022 End: 03-24-2022 Patient encounter status Yoko Hammonds MD Work Phone: [facility]; [facility] Work Phone: Comment on above: 11-01-21 JAVI physic al: PSA 11-01-21 colonscopy summer 2019 negative (hyperplastic) Start: 03-11-2022 End: 03-11-2022 ambulatory [facility] Work Phone: Start: 03-11-2022 End: 08-29-2022 Patient encounter procedure [facility] Start: 12-11-2021 End: 12-12-2021 Office outpatient visit 25 minutes Mel Alvin DO Work Phone: [facility] Start: 12-11-2021 End: 12-12-2021 Patient encounter status ERNA Garsia LPN [facility]; [facility] Work Phone: Comment on above: 11-01-21 VIP physic al: PSA 11-01-21 Start: 12-11-2021 Review Mel Fearo n DO Work Phone: [facility] Start: 11-08-2021 Review Mel Fearo n DO Work Phone: [facility] Start: 10-26-2021 End: 10-26-2021 Lab Order Mel Alvin DO Work Phone: [facility] Start: 10-24-2021 End: 10-24-2021 Lab Order Mel Alvin DO Work Phone: [facility] Start: 05-28-2021 End: 05-28-2021 Lab Order Mel Alvin DO Work Phone: [facility] Start: 12-22-2020 End: 12-22-2020 Annotation/Addendum Mel Alvin DO Work Phone: [facility] Start: 12-22-2020 End: 12-22-2020 Office outpatient visit 25 minutes Mel Alvin DO Work Phone: [facility] Start: 06-14-2020 End: 06-14-2020 Office outpatient visit 25 minutes Mel Alvin [facility] Start: 05-01-2020 End: 05-01-2020 Phone Encounter Mel Alvin [facility] Start: 04-25-2020 End: 04-25-2020 Lab Order Mel Alvin [facility] Start: 12-29-2019 End: 12-29-2019 Subsequent hospital visit by physician Carlos Berman Work Phone: [facility] Comment on above: Arrived Start: 12-15-2019 End: 12-15-2019 Subsequent hospital visit by physician Carlos Berman Work Phone: [facility] Comment on above: Arrived Start: 11-29-2019 End: 11-29-2019 Office outpatient visit 5 minutes Mel Alvin [facility] Start: 11-17-2019 End: 11-17-2019 Office outpatient visit 5 minutes Mel Alvin [facility] Start: 08-09-2019 End: 08-09-2019 Phone Encounter Mel Alvin [facility] Start: 07-20-2019 End: 07-20-2019 Phone Encounter Mel Alvin [facility] Start: 06-23-2019 End: 06-23-2019 Lab Order Mel Alvin [facility] Start: 06-22-2019 End: 06-22-2019 Phone Encounter Mel Alvin [facility] Start: 05-05-2019 End: 05-05-2019 Office outpatient visit 25 minutes Mel Esquivel [facility] Start: 04-23-2019 End: 04-23-2019 Phone Encounter Mel Parkeron [facility] Start: 04-09-2019 End: 04-09-2019 Phone Encounter Mel Parkeron [facility] Start: 08-10-2018 End: 08-10-2018 Phone Encounter Mel Alvin [facility] Start: 05-07-2018 End: 05-07-2018 Phone Encounter Mel Alvin [facility] Start: 03-06-2018 End: 03-06-2018 Office outpatient visit 10 minutes Mel Esquivel [facility] Start: 09-17-2017 End: 09-17-2017 Phone Encounter Mel Alvin [facility] Start: 08-06-2017 End: 08-06-2017 Phone Encounter Mel Alvin [facility] Start: 04-16-2017 End: 04-16-2017 Office outpatient visit 25 minutes Mel Esquivel [facility] Start: 12-04-2016 End: 12-04-2016 Office outpatient visit 25 minutes Mel Alvin [facility] Start: 07-19-2016 End: 07-19-2016 Phone Encounter Mel Alvin [facility] Start: 07-03-2016 End: 07-03-2016 Office outpatient visit 25 minutes Melvan Parkeron [facility] Start: 05-22-2016 End: 05-22-2016 Phone Encounter Mel Esquivel [facility] Start: 11-13-2015 End: 11-13-2015 Office outpatient new 20 minutes Melvan Esquivel [facility] Start: 12-02-2014 End: 12-02-2014 Phone Encounter Mel Esquivel [facility] Start: 11-14-2014 End: 11-14-2014 Phone Encounter Mel Esquivel [facility] Start: 11-01-2014 End: 11-03-2014 Office outpatient visit 5 minutes Mel Esquivel [facility] Start: 11-01-2014 End: 11-03-2014 Patient encounter status Mel Esquivel DO Work Phone: [facility] Start: 10-19-2014 End: 10-19-2014 Phone Encounter Mel Esquivel [facility] Start: 10-19-2014 End: 10-19-2014 Phone Encounter Mel Esquivel [facility] Start: 09-30-2014 End: 09-30-2014 Phone Encounter Mel Esquivel [facility] Start: 09-29-2014 End: 09-29-2014 Office outpatient visit 15 minutes Mel Esquivel [facility] Start: 10-07-2013 End: 10-08-2013 Phone Encounter Mel Esquivel [facility] Start: 09-07-2013 End: 09-07-2013 Patient encounter procedure Mel Esquivel [facility] Start: 09-07-2013 End: 09-07-2013 Patient encounter status Mel Esquivel DO Work Phone: [facility] Start: 07-22-2012 End: 07-22-2012 Phone Encounter Mel [facility] Start: 05-19-2012 End: 05-19-2012 Patient encounter procedure Mel Alvin [facility] Start: 03-12-2012 End: 03-12-2012 Historical Summary Mel Alvin [facility] Start: 07-23-2011 End: 07-23-2011 Patient encounter procedure Mel Alvin [facility] Start: 06-26-2011 End: 06-26-2011 Phone Encounter Melfermin Esquivel [facility] Start: 06-21-2011 End: 06-21-2011 Annotation/Addendum Mel Eqsuivel [facility] Start: 06-21-2011 End: 06-21-2011 Lab Order Mel Esquivel [facility] Start: 09-03-2010 End: 09-03-2010 Patient encounter procedure Mel Esquivel [facility] Start: 06-21-2010 End: 06-21-2010 Phone Encounter Mel [facility]quivel [facility] Start: 03-22-2010 End: 03-22-2010 Phone Encounter Mel [facility]quivel [facility] Start: 03-09-2010 End: 03-09-2010 Patient encounter procedure Lyudmila Sampson Work Phone: [facility] Start: 03-09-2010 Results Only Lyudmila Lowenolaarnulfo Work Phone: [facility] Start: 02-09-2010 End: 02-09-2010 Patient encounter procedure Mel Esquivel [facility] Start: 12-13-2009 End: 12-13-2009 Phone Encounter Mel Esquivel [facility] Start: 11-14-2009 End: 11-14-2009 Patient encounter procedure Mel Esquivel [facility] Start: 05-05-2009 End: 05-05-2009 Patient encounter procedure Mel Esquivel [facility] Start: 01-27-2009 End: 01-27-2009 Historical Summary Mel Esquivel [facility] Start: 01-02-2009 End: 01-02-2009 Historical Summary Mel [facility]quivel [facility] Start: 09-02-2008 End: 09-02-2008 Phone Encounter Mel Esquivel [facility] Start: 08-23-2008 End: 08-23-2008 Patient encounter procedure Mel Esquivel [facility] Start: 08-23-2008 End: 08-23-2008 Phone Encounter Mel [facility]quivel [facility] Start: 12-27-2007 End: 12-27-2007 Patient encounter procedure Mel Esquivel [facility] Start: 12-23-2007 End: 12-23-2007 Historical Summary Mel Esquivel [facility] Start: 02-24-2007 End: 02-24-2007 Patient encounter procedure Melvan Parkeron [facility] Start: 03-25-2006 End: 03-25-2006 Historical Summary Mel Esquivel [facility] Patient encounter status Yoko Hammonds MD Work Phone: [facility]; [facility] Work Phone: Comment on above: 11-01-21 [facility] physic [facility]: PSA 11-01-21 colonscopy summer 2019 negative (hyperplastic) Patient encounter status Yoko Hammonds MD Work Phone: [facility]; [facility] Work Phone: Comment on above: 03-05 [facility] physical: PSA 03-05 want recheck 6months because of high in past colonscopy summer 2019 negative (hyperplastic) pt aware of the invitae and galleri and [facility] Work Phone: Comment on above: bd 4-15 good. on ppi . psa good 4-15, colonscopy 9-16 [facility] Work Phone: Comment on above: bd 4-15 good. on ppi . psa good 4-15, colonscopy 9-16 Physical examination ERNA Garsia [facility]; [facility] Work Phone: Comment on above: bd 4-15 good. on ppi . psa good 4-15, colonscopy 9-16 Physical examination Thang Jimenez [facility] prehensive Internal Medicine; [facility] Work Phone: Comment on above: bd 4-15 good. on ppi . psa good 4-15, colonscopy 9-16 Physical examination [facility]; [facility] Work Phone: Comment on above: bd 4-15 good. on ppi . psa good 4-15, colonscopy 9-16 Physical examination Porfirio Silverio [facility] prehensive Internal Medicine; [facility] Work Phone: Comment on above: bd 4-15 good. on ppi . psa good 4-15, colonscopy 9-16 Procedures Date Procedure Procedure Detail Performing Clinician Start: 12-13-2024 Myocardial spect [facility] studies Yoko Hammonds MD Work Phone: Start: 10-24-2023 Lipid 1996 panel - S jazlyn or Plasma Dave 1 Start: 08-05-2023 Lipid 1996 panel - S jazlyn or Plasma Richi Hairston MD Work Phone: Start: 01-12-2020 End: 01-12-2020 Screening colonoscopy ERNA Garsia OWNER/OPERATOR Start: 12-15-2019 CT ABDOMEN PELVIS W CONTRAST Carlos Berman Work Phone: Start: 03-09-2010 CONVERTED SURGICAL PATHOLOGY Lyudmila Sampson Work Phone: Appendectomy ERNAMICHAELLE Garsia OWNER/OPERATOR Appendectomy Thang Jimenez LP N Appendectomy Valery Loreta L PN Appendectomy Porfirio Paisley LP N Cholecystectomy Rohini [place] y Comment on above: February 2010 Cholecystectomy Leann Slarb Comment on above: February 2010 Cholecystectomy Zuleima Herrera Comment on above: February 2010 Cholecystectomy Zuleima Herrera OWNER/OPERATOR Comment on above: February 2010 Cholecystectomy ERNA Qiu ll OWNER/OPERATOR Comment on above: February 2010 Cholecystectomy Thang Jimenez OWNER/OPERATOR Comment on above: February 2010 Cholecystectomy Valery Coffma n OWNER/OPERATOR Comment on above: February 2010 Cholecystectomy Porfirio Paisley OWNER/OPERATOR Comment on above: February 2010 Laboratory test resu lt abnormal Abnormal laboratory test Yook Hammonds MD Work Phone: Comment on above: CEA borderline rosa m p negative including scope and MRCP Laboratory test resu lt abnormal Abnormal laboratory test Yoko Hammonds MD Work Phone: Comment on above: CEA borderline rosa m p negative including scope and MRCP Laboratory test resu lt abnormal Abnormal laboratory test Mel Esquivel DO Work Phone: Laboratory test resu lt abnormal Abnormal laboratory test Yoko Hammonds MD Work Phone: Comment on above: CEA borderline rosa m p negative including scope and MRCP Laboratory test resu lt abnormal Abnormal laboratory test Yoko Hammonds MD Work Phone: Comment on above: CEA borderline rosa m p negative including scope and MRCP Laparoscopy surg rpr initial inguinal hernia ERNAMICHAELLE Garsia OWNER/OPERATOR Laparoscopy surg rpr initial inguinal hernia Thang Jimenez OWNER/OPERATOR Laparoscopy surg rpr initial inguinal hernia Valery Loreta OWNER/OPERATOR Laparoscopy surg rpr initial inguinal hernia Porfirio Jean Claude OWNER/OPERATOR Medial collateral li gament tear Rohini Dill Comment on above: right 2006 Medial collateral li gament tear Leann Castano Comment on above: right 2006 Medial collateral li gament tear Zuleima Herrera Comment on above: right 2006 Medial collateral li gament tear Zuleima Herrera OWNER/OPERATOR Comment on above: right 2006 Medial collateral li gament tear ERNA Garsia OWNER/OPERATOR Comment on above: right 2006 Medial collateral li gament tear Thang Jimenez OWNER/OPERATOR Comment on above: right 2006 Medial collateral li gament tear Valery Loreta OWNER/OPERATOR Comment on above: right 2006 Medial collateral li gament tear Porfirio Jean Claude OWNER/OPERATOR Comment on above: right 2006 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 ERNA Garsia OWNER/OPERATOR 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 Thang Jimenez OWNER/OPERATOR 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 Valery Loreta OWNER/OPERATOR 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 Porfirio Paisley OWNER/OPERATOR Septoplasty/submucou s resecj w/wo cartilage grf ERNA Garsia OWNER/OPERATOR Septoplasty/submucou s resecj w/wo cartilage grf Thang Jimenez OWNER/OPERATOR Septoplasty/submucou s resecj w/wo cartilage grf Valery Loreta OWNER/OPERATOR Septoplasty/submucou s resecj w/wo cartilage grf Porfirio Paisley OWNER/OPERATOR Sinusotomy frontal transorbital unilateral ERNA Garsia OWNER/OPERATOR Sinusotomy frontal transorbital unilateral Thang Jimenez OWNER/OPERATOR Sinusotomy frontal transorbital unilateral Valery Kan OWNER/OPERATOR Sinusotomy frontal transorbital unilateral Porfirio Paisley OWNER/OPERATOR Tonsillectomy ERNA Garsia OWNER/OPERATOR Comment on above: and adenoidectomy Tonsillectomy Thang Jimenez L PN Comment on above: and adenoidectomy Tonsillectomy Valery Loreta OWNER/OPERATOR Comment on above: and adenoidectomy Tonsillectomy Porfirio Jean Claude L PN Comment on above: and adenoidectomy upper endoscopy, bio psy 06/17/2016 Rohini Dill upper endoscopy, bio psy 06/17/2016 Leann Castano upper endoscopy, bio psy 06/17/2016 Zuleima Herrera upper endoscopy, bio psy 06/17/2016 Zuleima Herrera OWNER/OPERATOR upper endoscopy, bio psy 06/17/2016 ERNA Garsia OWNER/OPERATOR upper endoscopy, bio psy 06/17/2016 Thang Tony OWNER/OPERATOR upper endoscopy, bio psy 06/17/2016 Valery Kan OWNER/OPERATOR upper endoscopy, bio psy 06/17/2016 Porfirio Paisley OWNER/OPERATOR Vasectomy Rohini Fuentes Vasectomy Leann Slarb Vasectomy Zuleima Cross Vasectomy planned Zuleima Air Twist Operator ss OWNER/OPERATOR Vasectomy planned Zuleima Air Twist Operator ss OWNER/OPERATOR Vasectomy planned ERNA [place] sell OWNER/OPERATOR Vasectomy planned Thang Wang is OWNER/OPERATOR Vasectomy planned Valery [place] man OWNER/OPERATOR Vasectomy planned Porfirio Pry or OWNER/OPERATOR Plan of Treatment Date Care Activity Detail Author Start: 10-23-2028 Lipid panel Lipid Panel [facility] Start: 05-12-2025 End: 05-12-2025 Patient encounter procedure 05/12/2025 8:00 AM EDT Office Visit [facility] [address] [place] [phone] Jean-Paul Gerard MD [address] [place], [place] [id number] [facility] Start: 04-14-2025 End: 04-14-2025 Patient encounter procedure 04/14/2025 3:00 PM EDT Procedure Visit [facility] [address] [place] [phone] Jean-Paul Gerard MD [address] [place], [place] [id number] [facility] Start: 03-14-2025 COVID-19 Vaccine ( season) COVID-19 Vaccine ( season) [facility] Start: 03-14-2025 Influenza vaccination Influenza Vaccine (#1) [facility] Start: 12-02-2024 Glaucoma screening Diabetes: Retinopathy Screening [facility] Start: 11-01-2024 DTaP/Tdap/Td vaccine (2 - Td) DTaP/Tdap/Td vaccine (2 - Td) [place], [place] Start: 11-01-2024 DTaP/Tdap/Td Vaccines (2 - Td or Tdap) DTaP/Tdap/Td Vaccines (2 - Td or Tdap) [facility] Start: 11-01-2024 Tetanus vaccination TETANUS [facility] Start: 10-23-2024 Lipid panel Lipid Panel [facility] Start: 08-05-2024 Lipid panel Lipid Panel [facility] Start: 08-02-2024 Hemoglobin A1c measurement Diabetes: Hemoglobin A1C [facility] Start: 04-13-2024 End: 04-13-2024 Patient encounter procedure 04/13/2024 3:40 PM EDT Office Visit [facility] Endocr[facility] [address] [place] [phone] Richi Hairston MD [address] [place], [place] [phone] [facility] Start: 03-14-2024 COVID-19 Vaccine () COVID-19 Vaccine () [facility] Start: 11-04-2023 End: 08-05-2024 Comprehensive metabolic 1998 panel - Serum or Plasma Comprehensive metabolic panel Lab Routine Type 2 diabetes mellitus with hyperglycemia, without long-term current use of insulin (HCC) Expected: 11/04/2023 (Approximate), Expires: 08/05/2024 [facility] Comment on above: Expected: 11/04/2023 (Approximate), Expi res: 08/05/2024 Start: 11-04-2023 End: 08-05-2024 Hemoglobin A1c measurement Hemoglobin A1c Lab Routine Type 2 diabetes mellitus with hyperglycemia, without long-term current use of insulin (HCC) Expected: 11/04/2023 (Approximate), Expires: 08/05/2024 [facility] Comment on above: Expected: 11/04/2023 (Approximate), Expi res: 08/05/2024 Start: 11-04-2023 End: 08-05-2024 Lipid 1996 panel - Serum or Plasma Lipid panel Lab Routine Mixed hyperlipidemia Expected: 11/04/2023 (Approximate), Expires: 08/05/2024 [facility] Work Phone: Comment on above: Expected: 11/04/2023 (Approximate), Expi res: 08/05/2024 Start: 09-23-2023 End: 08-05-2024 Hepatic function 2000 panel - Serum or Plasma Hepatic function panel Lab Routine Type 2 diabetes mellitus with hyperglycemia, without long-term current use of insulin (HCC) Expected: 09/23/2023 (Approximate), Expires: 08/05/2024 [facility] Comment on above: Expected: 09/23/2023 (Approximate), Expi res: 08/05/2024 Start: 09-23-2023 End: 08-05-2024 Lipid 1996 panel - Serum or Plasma Lipid panel Lab Routine Mixed hyperlipidemia Expected: 09/23/2023 (Approximate), Expires: 08/05/2024 [facility] Comment on above: Expected: 09/23/2023 (Approximate), Expi res: 08/05/2024 Start: 04-17-2023 Glaucoma screening Diabetes: Retinopathy Screening [facility] Start: 03-14-2023 COVID-19 Vaccine () COVID-19 Vaccine () [facility] Start: 03-14-2023 Influenza vaccination Influenza Vaccine (#1) [facility] Start: 03-11-2023 Urine albumin quantitative MICROALBUMIN: CREATININE RATIO (40018) AND (50944) [facility]; [facility] Work Phone: Start: 03-11-2023 Comprehensive metabolic panel METABOLIC PANEL, COMPREHENSIVE (48504) [facility]; [facility] Work Phone: Start: 03-11-2023 Lipid panel LIPID PANEL (89517) [facility]; [facility] Work Phone: Start: 03-11-2023 Blood count manual cell count each CBC with auto diff (33779) [facility]; [facility] Work Phone: Start: 03-11-2023 Blood count manual cell count each CBC with auto diff (48105) [facility]; [facility] Work Phone: Start: 03-11-2023 Comprehensive metabolic panel METABOLIC PANEL, COMPREHENSIVE (68850) [facility]; [facility] Work Phone: Start: 03-11-2023 Lipid panel LIPID PANEL (75053) [facility]; [facility] Work Phone: Start: 03-11-2023 Urine albumin quantitative MICROALBUMIN: CREATININE RATIO (76398) AND (19779) [facility]; [facility] Work Phone: Start: 03-11-2023 Procedure Education Eprescribed prescriptions (G8553) [facility]; [facility] Work Phone: Start: 11-09-2022 MMR Vaccines (1 of 1 - Standard series) MMR Vaccines (1 of 1 - Standard series) [facility] Start: 2022 RSV High Risk: (Elderly (60+) or Population) (1 - Risk 60-74 years 1-dose series) RSV High Risk: (Elderly (60+) or Population) (1 - Risk 60-74 years 1-dose series) [facility] Start: 2022 RSV Immunization aged 60 or older (1 - 1-dose 60+ series) RSV Immunization aged 60 or older (1 - 1-dose 60+ series) [facility] Start: 2022 RSV Immunization for Adults (1 - Risk 60-74 years 1-dose series) RSV Immunization for Adults (1 - Risk 60-74 years 1-dose series) [facility] Start: 2022 RSV VACCINE (1 - 1-dose 60+ series) RSV VACCINE (1 - 1-dose 60+ series) [facility] Start: 09-10-2022 Procedure Education Eprescribed prescriptions (G8553) [facility]; [facility] Work Phone: Start: 09-03-2022 Assay of blood/uric acid URIC ACID BLOOD (63388) [facility]; [facility] Work Phone: Start: 09-03-2022 Assay of prostate specific antigen total PSA (PROSTATE SPECIFIC ANTIGEN) (98699) [facility]; [facility] Work Phone: Start: 09-03-2022 Blood count complete auto&auto difrntl wbc CBC W/AUTO DIFF WBC (93631) [facility]; [facility] Work Phone: Start: 09-03-2022 Comprehensive metabolic panel METABOLIC PANEL, COMPREHENSIVE (60016) [facility]; [facility] Work Phone: Start: 09-03-2022 Hemoglobin glycosylated a1c HGB A1C (09047) [facility]; [facility] Work Phone: Start: 09-03-2022 Hepatic function panel HEPATIC FUNCTION PANEL (07226) [facility]; [facility] Work Phone: Start: 09-03-2022 Lipid panel LIPID PANEL (36270) [facility]; [facility] Work Phone: Start: 06-17-2022 Assay of gammaglobulin iga igd igg igm each IMMUNOFIXATION, SERUM (71833) [facility]; [facility] Work Phone: Start: 06-17-2022 Assay of nephelometry each analyte ananth Serum Free Light Chains (83132) [facility]; [facility] Work Phone: Start: 06-10-2022 Assay of nephelometry each analyte ananth Serum Free Light Chains (27595) [facility]; [facility] Work Phone: Comment on above: recheck in 8 weeks Start: 06-03-2022 Lipid panel LIPID PANEL (17184) [facility]; [facility] Work Phone: Start: 05-15-2022 Zoster Vaccines (2 of 2) Zoster Vaccines (2 of 2) [facility] Start: 04-04-2022 Prostate specific antigen measurement PROSTATE CANCER SCREENING DISCUSSION [facility] Start: 03-21-2022 Hepatic function panel HEPATIC FUNCTION PANEL (59902) [facility]; [facility] Work Phone: Start: 03-21-2022 Lipoprotein blood kenisha numbers & subclasses NMR Profile (35239) [facility]; [facility] Work Phone: Start: 03-12-2022 Assay of nephelometry each analyte ananth Serum Free Light Chains (52711) [facility]; [facility] Work Phone: Start: 03-12-2022 Protein electrophoretic fractj&quantj serum SPEP (90757) [facility]; [facility] Work Phone: Start: 03-12-2022 Procedure Education Eprescribed prescriptions (G8553) [facility]; [facility] Work Phone: Start: 03-11-2022 [facility] Work Phone: Start: 12-11-2021 Hemoglobin glycosylated a1c HGB A1C (62070) [facility]; [facility] Work Phone: Start: 12-11-2021 Urine albumin quantitative MICROALBUMIN: CREATININE RATIO (92567) AND (79762) [facility]; [facility] Work Phone: Start: 12-11-2021 Comprehensive metabolic panel METABOLIC PANEL, COMPREHENSIVE (83417) [facility]; [facility] Work Phone: Start: 12-11-2021 Assay of blood/uric acid URIC ACID BLOOD (93402) [facility]; [facility] Work Phone: Start: 12-11-2021 Lipoprotein blood kenisha numbers & subclasses NMR Profile (90710) [facility]; [facility] Work Phone: Start: 10-26-2021 Hemoglobin glycosylated a1c HGB A1C (64101) [facility]; [facility] Work Phone: Start: 10-26-2021 Assay of blood/uric acid URIC ACID BLOOD (67574) [facility]; [facility] Work Phone: Start: 08-23-2021 Diabetic retinal exam Diabetic retinal exam [place] Start: 05-28-2021 Lipid panel Lipid Panel (86869) [facility]; [facility] Work Phone: Start: 12-22-2020 Procedure Education Eprescribed prescriptions (G8553) [facility]; [facility] Work Phone: Start: 12-22-2020 Provider Instructions for Treatment Reviewed Lab [facility]; [facility] Work Phone: Start: 12-22-2020 PSA TOTAL +%FREE 718975 (70903) PSA TOTAL +%FREE 880629 (62625) [facility]; [facility] Work Phone: Start: 12-22-2020 Hepatic function panel HEPATIC FUNCTION PANEL (42415) [facility]; [facility] Work Phone: Start: 12-22-2020 Assay of blood/uric acid URIC ACID BLOOD (03162) [facility]; [facility] Work Phone: Start: 11-18-2020 Creatinine measurement Creatinine monitoring [place], [place] Start: 11-18-2020 HbA1c (Bld) [Mass fraction] A1C test (Diabetic or Prediabetic) [place], [place] Start: 11-18-2020 Lipid panel Lipid screen [place], [place] Start: 11-18-2020 Potassium monitoring Potassium monitoring [place], [place] Start: 06-14-2020 Assay of blood/uric acid URIC ACID BLOOD (29411) [facility] Work Phone: Comment on above: do in 6mo -11/2020 now Start: 06-14-2020 Assay of prostate specific antigen total PSA (PROSTATE SPECIFIC ANTIGEN) (V76.44) [facility] Work Phone: Start: 06-14-2020 Lipid panel LIPID PANEL (33927) [facility] Work Phone: Start: 06-14-2020 Assay of magnesium MAGNESIUM (26518) [facility]; [facility] Work Phone: Start: 06-14-2020 Magnesium [Mass/Vol] MAGNESIUM (04002) [facility] Work Phone: Start: 06-14-2020 Comprehensive metabolic panel METABOLIC PANEL, COMPREHENSIVE (15625) [facility] Work Phone: Start: 06-14-2020 Blood count manual cell count each CBC with auto diff (97715) [facility] Work Phone: Start: 06-14-2020 Cobalamin (Vitamin B12) [Mass/Vol] VITAMIN B-12 (CYANOCOBALAMIN) (33885) [facility] Work Phone: Start: 06-14-2020 Cyanocobalamin vitamin b-12 VITAMIN B-12 (CYANOCOBALAMIN) (96343) [facility]; [facility] Work Phone: Start: 06-14-2020 HbA1c (Bld) [Mass fraction] HGB A1C (87970) [facility] Work Phone: Start: 06-14-2020 Hemoglobin glycosylated a1c HGB A1C (89980) [facility]; [facility] Work Phone: Start: 06-14-2020 Procedure Education Eprescribed prescriptions (G8553) [facility] Work Phone: Start: 06-14-2020 Provider Instructions for Treatment [facility] Work Phone: Start: 05-01-2020 End: 05-01-2020 Office Visit 05/01/2020 Office Visit Endocrinology Richi Hairston MD [address], [place] [phone] [facility] Start: 05-01-2020 Creatine kinase isoenzymes CPK MM FRACTION (90691) [facility] Work Phone: Start: 05-01-2020 Assay of testosterone total TESTOSTERONE TOTAL (85621) [facility]; [facility] Work Phone: Start: 05-01-2020 Testosterone [Mass/Vol] TESTOSTERONE TOTAL (82039) [facility] Work Phone: Start: 05-01-2020 Assay of testosterone free TESTOSTERONE FREE (03120) [facility] Work Phone: Start: 04-25-2020 Lipid panel LIPID PANEL (65752) [facility] Work Phone: Start: 04-25-2020 Hepatic function panel HEPATIC FUNCTION PANEL (89780) [facility] Work Phone: Start: 04-25-2020 Blood count complete automated CBC & PLATELETS (AUTO) (87731) [facility] Work Phone: Start: 04-25-2020 Basic metabolic panel calcium total METABOLIC PANEL, BASIC (54610) [facility] Work Phone: Start: 04-25-2020 Assay of testosterone free TESTOSTERONE ,TOT/FREE 70491 (18533) [facility] Work Phone: Start: 04-25-2020 HbA1c (Bld) [Mass fraction] HGB A1C (28078) [facility] Medicine Work Phone: Start: 04-25-2020 Hemoglobin glycosylated a1c HGB A1C (06446) [facility]; [facility] Work Phone: Start: 03-14-2020 Influenza vaccination Flu vaccine (Season Ended) [place], [place] Start: 11-17-2019 Assay of prostate specific antigen total PSA (PROSTATE SPECIFIC ANTIGEN) (36466) [facility] Work Phone: Start: 11-17-2019 Lipid panel LIPID PANEL (26324) [facility] Work Phone: Start: 11-17-2019 Immunoassay analyte quant radioimmunoassay Glutamic Acid Decarboxylase (COLEMAN) Autoantibody (71037) [facility] Work Phone: Start: 11-17-2019 HbA1c (Bld) [Mass fraction] HGB A1C (91908) [facility] Work Phone: Start: 11-17-2019 Hemoglobin glycosylated a1c HGB A1C (16699) [facility]; [facility] Work Phone: Start: 11-17-2019 Assay of free thyroxine T4, FREE (THYROXINE) (93478) [facility]; [facility] Work Phone: Start: 11-17-2019 Free T4 [Mass/Vol] T4, FREE (THYROXINE) (04788) [facility] Work Phone: Start: 11-17-2019 Assay of thyroid stimulating hormone tsh TSH (THYROID STIMULATING HORMONE) (07960) [facility]; [facility] Work Phone: Start: 11-17-2019 TSH Qn TSH (THYROID STIMULATING HORMONE) (47375) [facility] Work Phone: Start: 11-17-2019 Assay of magnesium MAGNESIUM (20460) [facility]; [facility] Work Phone: Start: 11-17-2019 Magnesium [Mass/Vol] MAGNESIUM (80443) [facility] Work Phone: Start: 11-17-2019 Comprehensive metabolic panel METABOLIC PANEL, COMPREHENSIVE (32682) [facility] Work Phone: Start: 11-17-2019 Blood count complete auto&auto difrntl wbc CBC W/AUTO DIFF WBC (59275) [facility] Work Phone: Start: 11-17-2019 Assay of testosterone total TESTOSTERONE TOTAL (24946) [facility]; [facility] Work Phone: Start: 11-17-2019 Testosterone [Mass/Vol] TESTOSTERONE TOTAL (27209) [facility] Work Phone: Start: 11-17-2019 Assay of testosterone free TESTOSTERONE FREE (69868) [facility] Work Phone: Start: 11-17-2019 25 hydroxy includes fractions if performed CALCIFEDIOL (85435) [facility] Work Phone: Start: 11-17-2019 Assay of blood/uric acid URIC ACID BLOOD (34763) [facility] Work Phone: Start: 08-11-2019 HbA1c (Bld) [Mass fraction] A1C test (Diabetic or Prediabetic) [place], [place] Start: 08-09-2019 Assay of blood/uric acid URIC ACID BLOOD (54212) [facility] Work Phone: Start: 07-20-2019 Urinalysis qual/semiquant except immunoassays URINALYSIS (33241) [facility] Work Phone: Start: 06-23-2019 Urnls dip stick/tablet reagent auto microscopy URINALYSIS, W/ MICRO (48177) [facility] Work Phone: Start: 06-22-2019 Basic metabolic panel calcium total Metabolic Panel, Basic (22540) [facility] Work Phone: Start: 05-12-2019 Creatinine measurement Creatinine monitoring [place], [place] Start: 05-12-2019 Lipid panel Lipid screen [place], [place] Start: 05-12-2019 Potassium monitoring Potassium monitoring [place], [place] Start: 05-05-2019 25 hydroxy includes fractions if performed CALCIFEDIOL (41583) [facility] Work Phone: Start: 05-05-2019 Cobalamin (Vitamin B12) [Mass/Vol] VITAMIN B-12 (CYANOCOBALAMIN) (41784) [facility] Work Phone: Start: 05-05-2019 Cyanocobalamin vitamin b-12 VITAMIN B-12 (CYANOCOBALAMIN) (79297) [facility]; [facility] Work Phone: Start: 05-05-2019 Basic metabolic panel calcium total Metabolic Panel, Basic (58881) [facility] Work Phone: Start: 05-05-2019 Procedure Education Eprescribed prescriptions (G8553) [facility] Work Phone: Start: 05-05-2019 Provider Instructions for Treatment [facility] Work Phone: Start: 04-23-2019 Assay of magnesium MAGNESIUM (92249) [facility]; [facility] Work Phone: Start: 04-23-2019 Magnesium [Mass/Vol] MAGNESIUM (50637) [facility] Work Phone: Start: 04-23-2019 Lipid panel Lipid Panel (26317) [facility] Work Phone: Start: 04-23-2019 Hepatic function panel HEPATIC FUNCTION PANEL (21267) [facility] Work Phone: Start: 04-23-2019 Blood count manual cell count each CBC WITH MANUAL DIFF (32414) [facility] Work Phone: Start: 04-23-2019 Comprehensive metabolic panel Metabolic Panel, Comprehensive (77433) [facility] Work Phone: Start: 04-23-2019 Assay of prostate specific antigen total PSA (PROSTATE SPECIFIC ANTIGEN) (23206) [facility] Work Phone: Start: 04-23-2019 Assay of testosterone free TESTOSTERONE ,TOT/FREE 36168 (69821) [facility] Work Phone: Start: 04-09-2019 Lipoprotein blood kenisha numbers & subclasses NMR Profile (77331) [facility] Work Phone: Start: 04-09-2019 Assay of thyroid stimulating hormone tsh TSH (THYROID STIMULATING HORMONE) (82913) [facility]; [facility] Work Phone: Start: 04-09-2019 TSH Qn TSH (THYROID STIMULATING HORMONE) (30755) [facility] Work Phone: Start: 04-09-2019 HbA1c (Bld) [Mass fraction] HGB A1C (83833) [facility] Work Phone: Start: 04-09-2019 Hemoglobin glycosylated a1c HGB A1C (91116) [facility]; [facility] Work Phone: Start: 04-09-2019 Assay of magnesium MAGNESIUM (07792) [facility]; [facility] Work Phone: Start: 04-09-2019 Magnesium [Mass/Vol] MAGNESIUM (82799) [facility] Work Phone: Start: 04-09-2019 Comprehensive metabolic panel Metabolic Panel, Comprehensive (50579) [facility] Work Phone: Start: 04-09-2019 CBC, PLATELETS & MANUAL DIFF (02182) CBC, PLATELETS & MANUAL DIFF (50518) [facility] Work Phone: Start: 04-09-2019 Assay of testosterone free TESTOSTERONE ,TOT/FREE 93771 (46828) [facility] Work Phone: Start: 04-09-2019 Assay of prostate specific antigen total PSA (PROSTATE SPECIFIC ANTIGEN) (62967) [facility] Work Phone: Start: 08-10-2018 Hemoglobin A1c/Hemoglobin.total mass fraction (Bld) [facility] Work Phone: Start: 05-07-2018 Assay of testosterone total TESTOSTERONE TOTAL (15303) [facility]; [facility] Work Phone: Start: 05-07-2018 Testosterone mass conc TESTOSTERONE TOTAL (45277) [facility] Work Phone: Start: 05-07-2018 Assay of prostate specific antigen total PSA (PROSTATE SPECIFIC ANTIGEN) (11610) [facility] Work Phone: Start: 05-07-2018 Protein mass conc PSA (PROSTATE SPECIFIC ANTIGEN) (66536) [facility] Work Phone: Start: 05-07-2018 Assay of thyroxine total T4, TOTAL (85877) [facility] Work Phone: Start: 05-07-2018 Assay of thyroid stimulating hormone tsh TSH (92095) [facility]; [facility] Work Phone: Start: 05-07-2018 Thyrotropin Qn TSH (31843) [facility] Work Phone: Start: 05-07-2018 Lipid panel LIPID PANEL (88093) [facility] Work Phone: Start: 05-07-2018 Hepatic function panel HEPATIC FUNCTION PANEL (57349) [facility] Work Phone: Start: 05-07-2018 Blood count complete auto&auto difrntl wbc CBC, PLATELETS & AUT DIFF (57378) [facility] Work Phone: Start: 05-07-2018 Assay of magnesium MAGNESIUM (15599) [facility]; [facility] Work Phone: Start: 05-07-2018 Magnesium mass conc MAGNESIUM (64804) [facility] Work Phone: Start: 05-07-2018 Basic metabolic panel calcium total Metabolic Panel, Basic (31025) [facility] Work Phone: Start: 03-06-2018 Provider Instructions for Treatment [facility] Work Phone: Start: 09-17-2017 Assay of prostate specific antigen total PSA (PROSTATE SPECIFIC ANTIGEN) (53976) [facility] Work Phone: Start: 09-17-2017 Protein mass conc PSA (PROSTATE SPECIFIC ANTIGEN) (57741) [facility] Work Phone: Start: 09-17-2017 Hemoglobin A1c/Hemoglobin.total mass fraction (Bld) HGB A1C (94848) [facility] Work Phone: Start: 09-17-2017 Hemoglobin glycosylated a1c HGB A1C (42036) [facility]; [facility] Work Phone: Start: 09-17-2017 Blood count complete auto&auto difrntl wbc CBC, Platelets & Auto Diff (30470) [facility] Work Phone: Start: 09-17-2017 Assay of magnesium MAGNESIUM (75830) [facility]; [facility] Work Phone: Start: 09-17-2017 Magnesium mass conc MAGNESIUM (28907) [facility] Work Phone: Start: 09-17-2017 Basic metabolic panel calcium total Metabolic Panel, Basic (51282) [facility] Work Phone: Start: 09-17-2017 Assay of testosterone total TESTOSTERONE TOTAL (65642) [facility]; [facility] Work Phone: Start: 09-17-2017 Testosterone mass conc TESTOSTERONE TOTAL (72239) [facility] Work Phone: Start: 09-17-2017 Lipid panel Lipid Panel (69295) [facility] Work Phone: Start: 09-17-2017 Hepatic function panel HEPATIC FUNCTION PANEL (41951) [facility] Work Phone: Start: 04-16-2017 Provider Instructions for Treatment [facility] Work Phone: Start: 12-04-2016 Procedure Education Eprescribed prescriptions (G8553) [facility] Work Phone: Start: 12-04-2016 Provider Instructions for Treatment [facility] Work Phone: Start: 07-03-2016 Assay of prostate specific antigen total PSA (PROSTATE SPECIFIC ANTIGEN) (85516) [facility] Work Phone: Start: 07-03-2016 Protein mass conc PSA (PROSTATE SPECIFIC ANTIGEN) (00107) [facility] Work Phone: Start: 07-03-2016 Lipid panel LIPID PANEL (42407) [facility] Work Phone: Start: 07-03-2016 Blood count complete auto&auto difrntl wbc CBC W/AUTO DIFF WBC (55013) [facility] Work Phone: Start: 07-03-2016 Comprehensive metabolic panel METABOLIC PANEL, COMPREHENSIVE (10075) [facility] Work Phone: Start: 07-03-2016 Procedure Education Eprescribed prescriptions (G8553) [facility] Work Phone: Start: 07-03-2016 Provider Instructions for Treatment [facility] Work Phone: Start: 11-13-2015 Procedure Education Eprescribed prescriptions (G8553) [facility] Work Phone: Start: 11-01-2014 Blood count complete auto&auto difrntl wbc CBC, PLATELETS & AUT DIFF (96845) [facility] Work Phone: Start: 11-01-2014 Assay of testosterone total TESTOSTERONE TOTAL (08099) [facility]; [facility] Work Phone: Start: 11-01-2014 Testosterone mass conc TESTOSTERONE TOTAL (36447) [facility] Work Phone: Start: 11-01-2014 Assay of prostate specific antigen total PSA (Prostate Specific Antigen), Screening (74468) [facility] Work Phone: Start: 11-01-2014 Protein mass conc PSA (Prostate Specific Antigen), Screening (65814) [facility] Work Phone: Start: 11-01-2014 Hemoglobin A1c/Hemoglobin.total mass fraction (Bld) Hemoglobin Glyclated (HGB A1C) (55156) [facility] Work Phone: Start: 11-01-2014 Hemoglobin glycosylated a1c Hemoglobin Glyclated (HGB A1C) (60334) [facility]; [facility] Work Phone: Start: 11-01-2014 Comprehensive metabolic panel METABOLIC PANEL, COMPREHENSIVE (80707) [facility] Work Phone: Start: 11-01-2014 Lipid panel LIPID PANEL (36049) [facility] Work Phone: Start: 10-19-2014 Assay of thyroxine total T4, TOTAL (01272) [facility] Work Phone: Start: 10-19-2014 Hemoglobin A1c/Hemoglobin.total mass fraction (Bld) HEMOGLOBIN GLYCLATED (HGB A1C) (66974) [facility] Work Phone: Start: 10-19-2014 Hemoglobin glycosylated a1c HEMOGLOBIN GLYCLATED (HGB A1C) (26660) [facility]; [facility] Work Phone: Start: 10-19-2014 Assay of thyroid stimulating hormone tsh TSH (15620) [facility]; [facility] Work Phone: Start: 10-19-2014 Thyrotropin Qn TSH (96762) [facility] Work Phone: Start: 10-19-2014 Assay of triiodothyronine t3 free T3, FREE (TRIDOTHYRONINE) (79159) [facility]; [facility] Work Phone: Start: 10-19-2014 T3 free mass conc T3, FREE (TRIDOTHYRONINE) (99001) [facility] Work Phone: Start: 09-30-2014 Blood count manual cell count each CBC WITH MANUAL DIFF (83738) [facility] Work Phone: Start: 09-30-2014 Comprehensive metabolic panel METABOLIC PANEL, COMPREHENSIVE (06766) [facility] Work Phone: Start: 09-30-2014 Lipid panel LIPID PANEL (98880) [facility] Work Phone: Start: 09-30-2014 Assay of prostate specific antigen total PSA (PROSTATE SPECIFIC ANTIGEN) (22545) [facility] Work Phone: Start: 09-30-2014 Protein mass conc PSA (PROSTATE SPECIFIC ANTIGEN) (27578) [facility] Work Phone: Start: 09-30-2014 Assay of testosterone total TESTOSTERONE TOTAL (19981) [facility]; [facility] Work Phone: Start: 09-30-2014 Testosterone mass conc TESTOSTERONE TOTAL (89690) [facility] Work Phone: Start: 09-29-2014 Comprehensive metabolic panel METABOLIC PANEL, COMPREHENSIVE (46608) [facility] Work Phone: Start: 09-29-2014 Lipid panel LIPID PANEL (44435) [facility] Work Phone: Start: 09-29-2014 Blood count manual cell count each CBC with auto diff (06982) [facility] Work Phone: Start: 09-07-2013 Assay of testosterone free TESTOSTERONE FREE (02997) [facility] Work Phone: Start: 09-07-2013 Blood count complete automated CBC (Auto) (49664) [facility] Work Phone: Start: 09-07-2013 Comprehensive metabolic panel METABOLIC PANEL, COMPREHENSIVE (23643) [facility] Work Phone: Start: 09-07-2013 Lipid panel LIPID PANEL (93373) [facility] Work Phone: Start: 09-07-2013 Gluc bld gluc mntr dev cleared fda spec home use Blood Glucose , Office (49915) [facility]; [facility] Work Phone: Start: 09-07-2013 Glucose mass conc Blood Glucose , Office (19045) [facility] Work Phone: Start: 09-07-2013 Hemoglobin A1c/Hemoglobin.total mass fraction (Bld) HgA1C , Office (61993) [facility] Work Phone: Start: 09-07-2013 Hemoglobin glycosylated a1c HgA1C , Office (86441) [facility]; [facility] Work Phone: Start: 2012 Screening for malignant neoplasm of colon Colon cancer screen colonoscopy [place], [place] Start: 2012 Shingles Vaccine (1 of 2) Shingles Vaccine (1 of 2) [place], [place] Start: 07-22-2012 Urnls dip stick/tablet reagent auto microscopy URINALYSIS, W/ MICRO (59101) [facility] Work Phone: Start: 05-19-2012 Lipid panel Lipid Panel (61292) [facility] Work Phone: Start: 05-19-2012 Hemoglobin A1c/Hemoglobin.total mass fraction (Bld) Hemoglobin Glyclated (HGB A1C) (66625) [facility] Work Phone: Start: 05-19-2012 Hemoglobin glycosylated a1c Hemoglobin Glyclated (HGB A1C) (06237) [facility]; [facility] Work Phone: Start: 05-19-2012 Hepatic function panel HEPATIC FUNCTION PANEL (85034) [facility] Work Phone: Start: 05-19-2012 Basic metabolic panel calcium total Metabolic Panel, Basic (30293) [facility] Work Phone: Start: 05-19-2012 Gonadotropin follicle stimulating hormone FSH AND LH (54923) [facility] Work Phone: Comment on above: Dr. radha hairston endocrinology Start: 05-19-2012 Assay of thyroid stimulating hormone tsh TSH (67961) [facility]; [facility] Work Phone: Start: 05-19-2012 Thyrotropin Qn TSH (35226) [facility] Work Phone: Start: 05-19-2012 Assay of testosterone free TESTOSTERONE FREE (45051) [facility] Work Phone: Start: 05-19-2012 Assay of prolactin PROLACTIN (10880) [facility] Work Phone: Start: 05-19-2012 Protein mass conc PROLACTIN (48533) [facility] Work Phone: Start: 07-23-2011 Hemoglobin A1c/Hemoglobin.total mass fraction (Bld) Hemoglobin Glyclated (HGB A1C) (69176) [facility] Work Phone: Start: 07-23-2011 Hemoglobin glycosylated a1c Hemoglobin Glyclated (HGB A1C) (34292) [facility]; [facility] Work Phone: Start: 07-23-2011 Comprehensive metabolic panel Metabolic Panel, Comprehensive (89222) [facility] Work Phone: Start: 07-23-2011 Lipid panel Lipid Panel (11128) [facility] Work Phone: Start: 06-26-2011 Glucose mass conc Glucose, PP/2 Hour (19797) [facility] Work Phone: Comment on above: 75gr Start: 06-26-2011 Glucose quantitative blood xcpt reagent strip Glucose, PP/2 Hour (12305) [facility]; [facility] Work Phone: Comment on above: 75gr Start: 06-21-2011 Cortisol total Cortisol (49468) [facility] Work Phone: Start: 06-21-2011 Hemoglobin A1c/Hemoglobin.total mass fraction (Bld) HEMOGLOBIN GLYCLATED (HGB A1C) (65017) [facility] Work Phone: Start: 06-21-2011 Hemoglobin glycosylated a1c HEMOGLOBIN GLYCLATED (HGB A1C) (70529) [facility]; [facility] Work Phone: Start: 06-21-2011 Lipid panel Lipid Panel (41023) [facility] Work Phone: Start: 06-21-2011 Basic metabolic panel calcium total Metabolic Panel, Basic (67116) [facility] Work Phone: Start: 11-14-2009 Provider Instructions for Treatment [facility] Work Phone: Start: 11-14-2009 Assay of prostate specific antigen total PSA (PROSTATE SPECIFIC ANTIGEN) (V76.44) [facility] Work Phone: Start: 11-14-2009 Protein mass conc PSA (PROSTATE SPECIFIC ANTIGEN) (V76.44) [facility] Work Phone: Start: 11-14-2009 Urnls dip stick/tablet reagent auto microscopy URINALYSIS, W/ MICRO (97421) [facility] Work Phone: Start: 11-14-2009 Assay of thyroid stimulating hormone tsh TSH (83400) [facility]; [facility] Work Phone: Start: 11-14-2009 Thyrotropin Qn TSH (26642) [facility] Work Phone: Start: 11-14-2009 Urine albumin quantitative MICROALBUMIN: CREATININE RATIO (04615) AND (31575) [facility] Work Phone: Start: 11-14-2009 Comprehensive metabolic panel METABOLIC PANEL, COMPREHENSIVE (16860) [facility] Work Phone: Start: 11-14-2009 Lipid panel LIPID PANEL (94486) [facility] Work Phone: Start: 11-14-2009 Blood count manual cell count each CBC WITH MANUAL DIFF (25613) [facility] Work Phone: Start: 05-05-2009 Blood count complete automated CBC (Auto) (44048) [facility] Work Phone: Start: 05-05-2009 Basic metabolic panel calcium total Metabolic Panel, Basic (80710) [facility] Work Phone: Start: 05-05-2009 Hepatic function panel HEPATIC FUNCTION PANEL (76985) [facility] Work Phone: Start: 05-05-2009 Lipid panel LIPID PANEL (33495) [facility] Work Phone: Comment on above: in three months (approximately) Start: 08-23-2008 Urinalysis qual/semiquant except immunoassays URINALYSIS (88398) [facility] Work Phone: Start: 08-23-2008 Assay of prostate specific antigen total PSA (PROSTATE SPECIFIC ANTIGEN) (V76.44) [facility] Work Phone: Start: 08-23-2008 Protein mass conc PSA (PROSTATE SPECIFIC ANTIGEN) (V76.44) [facility] Work Phone: Start: 08-23-2008 Assay of thyroid stimulating hormone tsh TSH (30775) [facility]; [facility] Work Phone: Start: 08-23-2008 Thyrotropin Qn TSH (44173) [facility] Work Phone: Start: 08-23-2008 Blood count complete auto&auto difrntl wbc CBC, Platelets & Auto Diff (50589) [facility] Work Phone: Start: 08-23-2008 Comprehensive metabolic panel Metabolic Panel, Comprehensive (99574) [facility] Work Phone: Start: 08-23-2008 Lipid panel Lipid Panel (41666) [facility] Work Phone: Start: 10-21-2007 Screening for malignant neoplasm of colon COLORECTAL CANCER SCREENING DISCUSSION [facility] Start: 02-24-2007 Glucose mass conc Glucose, PP/2 Hour (31509) [facility] Work Phone: Comment on above: 75 gm Start: 02-24-2007 Glucose quantitative blood xcpt reagent strip Glucose, PP/2 Hour (84167) [facility]; [facility] Work Phone: Comment on above: 75 gm Start: 02-24-2007 Comprehensive metabolic panel Metabolic Panel, Comprehensive (30177) [facility] Work Phone: Start: 02-24-2007 Lipid panel Lipid Panel (46775) [facility] Work Phone: Start: 2002 Lipid panel LIPID SCREENING [facility] Start: 1981 Hepatitis B vaccine (1 of 3 - Risk 3-dose series) Hepatitis B vaccine (1 of 3 - Risk 3-dose series) [place], [place] Start: 1981 Pneumococcal Vaccine: 50+ Years (1 of 2 - PCV) Pneumococcal Vaccine: 50+ Years (1 of 2 - PCV) [facility] Start: 1980 Diabetes: Estimated Glomerular Filtration Rate for Kidney Health Diabetes: Estimated Glomerular Filtration Rate for Kidney Health [facility] Start: 1980 Diabetes: Urine Albumin-Creatinine Ratio for Kidney Health Diabetes: Urine Albumin-Creatinine Ratio for Kidney Health [facility] Start: 1980 Diabetic microalbuminuria test Diabetic microalbuminuria test [place], [place] Start: 1980 Hepatitis C screening Hepatitis C Screening [facility] Start: 1977 HIV screening [facility] Start: 1974 Depression Screening Depression Screening [facility] Start: 1972 Diabetic foot examination [facility] Start: 1972 Preventive dental service Diabetes: Dental Exam [facility] Start: 1968 Pneumococcal 0-64 years Vaccine (1 of 1 - PPSV23) Pneumococcal 0-64 years Vaccine (1 of 1 - PPSV23) [place], [place] Start: 1968 Pneumococcal Vaccine: Pediatrics (0 to 5 Years) and At-Risk Patients (6 to 64 Years) (1 of 2 - PCV) Pneumococcal Vaccine: Pediatrics (0 to 5 Years) and At-Risk Patients (6 to 64 Years) (1 of 2 - PCV) [facility] Start: 10-21-1963 MMR Vaccines (1 of 1 - Standard series) MMR Vaccines (1 of 1 - Standard series) [facility] Start: 1962 Hepatitis C screening [facility] Start: 1962 HIV screening HIV Screening [facility] Start: 1962 Screening for malignant neoplasm of colon [facility] Start: 1962 Yearly Adult Physical Yearly Adult Physical [facility] Beta lipoprotein subparticle measurement [facility] Work Phone: Cholesterol [Mass/volume] in Serum or Plasma [facility] Work Phone: Cholesterol in HDL [Mass/volume] in Serum or Plasma [facility] Work Phone: End: 04-28-2024 CT for calcium scoring WO contrast and CTA W contrast IV Heart and coronary arteries [facility] Service Area Work Phone: Comment on above: Once for 1 Occurrences starting 04/28/20 24 until 04/28/2024 Lipoprotein.alpha [Moles/volume] in Serum or Plasma [facility] Work Phone: Lipoprotein.beta.sub part icle.small [Moles/volume] in Serum or Plasma [facility] Work Phone: End: 12-29-2019 MRI ABDOMEN WO CONTRAST MRI ABDOMEN WO CONTRAST Imaging Routine Once for 1 Occurrences starting 12/29/2019 until 12/29/2019 [place], [place] Comment on above: Once for 1 Occurrences starting 12/29/19 20 until 12/29/2019 MRI ABDOMEN WO CONTRAST MRI ABDO MEN WO CONTRAST Imaging Routine 12/29/2019 4:52 PM EDT [facility] [place], [place] Tissue exam Tissue exam Path ology and Cytology Routine Change in multiple pigmented skin lesions 03/01/2025 12:00 PM EDT [facility] [facility] Work Phone: Triglyceride [Mass/volume] in Serum or Plasma [facility] Work Phone: [facility] Work Phone: [facility] Work Phone: [facility] Work Phone: [facility] Work Phone: [facility] Work Phone: [facility] Work Phone: [facility] Work Phone: Immunizations Immunization Date Immunization Notes Care Provider Ata art 10-12-2022 zoster vaccine, live Yoko harvey MD Work Phone: [facility] Work Phone: Comment on above: not have exact dates but had both vaccines six months apart at [facility] 09-09-2022 rabies immune globulin [facility] 09-09-2022 rabies vaccine, for intramuscular injection [facility] 09-07-2022 rabies vaccine, unspecified formulation Yoko Hammonds MD Work Phone: [facility]; [facility] Work Phone: Comment on above: i will give the oscar ent orders for follow up vaccinations 03-20-2022 zoster vaccine recombinant Richi Hairston MD Work Phone: [facility] 11-01-2014 tetanus toxoid, reduced diphtheria toxoid, and acellular pertussis vaccine, adsorbed Mel Esquivel [facility] Work Phone: Comment on above: Site: Deltoid (Left) documented in immuni zations Payers Date Payer Category Payer Self-pay [id number] 2023 [employer] [place] Managed Care [facility] [id number] 2023 Blue Cross Blue Shie ld [facility] Care - [facility] ANTHEM BLUE CROSS [id number] 2023 Unknown [id number] 2021 Private Health Insurance [id number] 2019 Unknown 2019 Unknown [id number] 2018 Unknown BCBS [place] - [place] P PO xxxxxxxxxxxx 2018-Present [address] [place] [address] xxxxxxxxxxxx [id number] 2018 Unknown [id number] 2016 Unknown [id number] 2015 Unknown [id number] 2013 Unknown [id number] 1962 Unknown [id number] 1962 Unknown [id number] 1962 Unknown [id number] 1962 Unknown [id number] Unknown [id number] Unknown [id number] Unknown [id number] Social History Date Type Detail Facility Start: 07-02-2022 End: 03-17-2025 Alcohol Use Unknown if ever smoked [facility] Work Phone: Comment on above: Occasional alcohol u se, Drinks wine, rare occassional Full-time, 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[employer] , Lives with spouse , 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, 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 Start: 06-17-2016 End: 06-28-2019 Tobacco smoking status NHIS Never smoker [place], [place] Start: 06-28-2019 End: 03-17-2025 Alcohol intake Current drinker of alcohol (finding) [place], [place] Start: 1960 Sex Assigned At Not on file M [place], [place] Alcohol Use: Alcohol Use: [facility]; [facility] Work Phone: Comment on above: 2 to 3 glasses of re d wine per week Start: 1960 Sex Assigned At Male [facility] Start: 07-02-2022 End: 03-17-2025 Tobacco use panel [facility] Tobacco smoking stat us SCIS Tobacco smoking consumption unknown [facility] Work Phone: Start: 04-18-2024 End: 04-28-2024 Exposure to SARS-CoV-2 (event) Not sure [facility] Start: 06-17-2016 Tobacco use and exposure Smokeless tobacco non-user [facility] Adolescent depressio n screening assessment 0 [facility] Start: 02-11-2022 End: 11-08-2024 Sex Male (finding) [facility] Medical Equipment Procedure Code Equipment Code Equipment Origin al Text Equipment Identifier Dates use 1 TEST STRIP to TEST BLOOD SUGAR three times a day [id number] Start: 11-16-2021 Mental Status Date Assessment Result Facility 09-09-2022 Cognitive function Voice/Name [facility] Work Phone: Clinical Notes 08-05-2023 to 03-17-2025 Jean-Paul Gerard MD - 03/17/2025 2:00 PM EDTTelephone Encounter - Zuleima Gamble PA-C - 03/09/2025 1:29 PM EDTTelephone Encounter - Zuleima Gamble PA-C - 03/09/2025 1:29 PM EDT Note Date & Type Note Facility 03-17-2025 History of Presen t illness Narrative [facility] RECONSTRUCTIVE SURGERY 03/17/2025 2:05 PM Reason for consult/Chief complaint: Referral for dysplastic compound nevi of trunk History of Present Illness: Marcella Yanes is a 64 y.o. male, Past medical history significant for GERD, hypertension, hyperlipidemia, androgen deficiency; past surgical history significant for appendectomy, cholecystectomy, hernia repair, who presents for evaluation of a biopsy-proven high-grade dysplastic compound nevus of the back. He reports the lesion being discovered by his and eventual workup led to the biopsy yielding the following results: SKIN, LEFT MID LOW BACK, PUNCH: - MODERATE TO SEVERELY (HIGH-GRADE) DYSPLASTIC COMPOUND NEVUS Open to another has been no treatment for the lesion. He otherwise reports being in good health and denies fever, chills, unintentional weight changes, generalized weakness, vision change, headache, tinnitus, chest pain, dyspnea, coughing, wheezing, sputum, hemoptysis, nausea, vomiting, hematemesis, abdominal pain, diarrhea, constipation, hematochezia, melena, dysuria, frequency, urgency, hematuria, bleeding. Patient denies being on antiplatelets or anticoagulation. Patient can climb 2 flights of stairs without shortness of breath and is able to perform activities of daily living's without issue. -Tobacco: Denies -Alcohol: Occasional -Recreational drug use: Denies Past Medical History: Medical History[1] Past Surgical History: Surgical History[2] Medications: Current Medications[3] Allergies: Allergies[4] Family History: family history is not on file. Social History Social History Socioeconomic History Marital status: Spouse name: Not on file Number of children: Not on file Years of education: Not on file Highest education level: Not on file Occupational History Not on file Tobacco Use Smoking status: Never Smokeless tobacco: Never Substance and Sexual Activity Alcohol use: Yes Drug use: No Sexual activity: Not on file Other Topics Concern Not on file Social History Narrative Not on file Social Drivers of Health Financial Resource Strain: Not on file Food Insecurity: Not on file Transportation Needs: Not on file Physical Activity: Not on file Stress: Not on file Social Connections: Not on file Intimate Partner Violence: Not on file Housing Stability: Not on file REVIEW OF SYSTEMS: An organ system review of symptoms was conducted and was otherwise negative than those symptoms reported in the history of present illness Constitutional: Negative for chills and fever. HENT: Negative for congestion, facial swelling, and voice change. Eyes: Negative for photophobia and visual disturbance. Respiratory: Negative for apnea, cough, chest tightness and shortness of breath. Cardiovascular: Negative for chest pain and palpitations. Gastrointestinal: Negative for dysphagia and early satiety. Genitourinary: Negative for difficulty urinating, dysuria, flank pain, frequency and hematuria. Musculoskeletal: Negative for new gait problem, joint swelling and myalgias. Skin: Negative for color change, pallor and rash. Endocrine: negative for tremors, temperature intolerance or polydipsia. Allergic/Immunologic: Negative for new environmental or food allergies. Neurological: Negative for dizziness, seizures, speech difficulty, numbness. Hematological: Negative for adenopathy. Psychiatric/Behavioral: Negative for agitation and confusion. Physical Exam: Vitals: 03/17/25 1344 BP: 123/78 Pulse: 78 GEN: AAOx3, NAD HEENT: NCAT, PERRLA, EOMI, no scleral icterus, mucosa moist, neck midline and supple P: Normal effort, CTABL, no wheezes/rales/rhonchi CV: RRR, nl S1/S2, no S3/S4, no MRG GI: S/NT/ND; -guarding, -rebound : Normal external genitalia MSK/SKIN: No CCE; +2 peripheral pulses BL 1 cm x 1 cm mid left back pigmented lesion without malignant features. No lymphadenopathy of the neck axilla or groin. N: Motor and sensation grossly intact. CN 2-12 grossly intact Assessment and Plan: Marcella Yanes is 64 y.o. yo male with noncontributory past medical past surgical history with biopsy-proven high-grade dysplastic compound nevus of the mid back (ICD 10 D36.7). I discussed with the patient the nature of his diagnosis. My recommendation and subsequent discussion with him is to proceed with surgical excision of benign skin lesion with 0.5 mm margin (CPT 57509). My goal is for complete excision of the lesion with negative margin, without significant cosmetic or functional compromise. Given the size and location I anticipate that the defect would be amenable to complex closure in layers - CPT 17538. We will plan on performing the procedure under local in the office. I discussed with the patient risk, benefits, and alternatives of the procedure to include bleeding, infection, wound healing issues, scarring, need for reexcision of margins are positive, and recurrence. The patient understands and agrees to proceed. Jean-Paul Gerard MD Plastic & Reconstructive Surgery [1] Past Medical History: Diagnosis Date Androgen deficiency Michael's esophageal ulceration GERD (gastroesophageal reflux disease) HTN (hypertension) Hyperlipemia Hypogonadism in male [2] Past Surgical History: Procedure Laterality Date APPENDECTOMY CHOLECYSTECTOMY FINGER AMPUTATION HERNIA REPAIR right SEPTOPLASTY TONSILLECTOMY AND ADENOIDECTOMY (HISTORICAL) [3] Current Outpatient Medications: acetaZOLAMIDE (Diamox) 250 MG tablet, TAKE 1/2 TABLET BY MOUTH TWICE DAILY NEEDED FOR hundsfescht lasting longer THAN FOUR hours, Disp: , Rfl: allopurinol (Zyloprim) 100 MG tablet, Take 100 mg by mouth daily., Disp: , Rfl: amLODIPine (Norvasc) 5 MG tablet, Take 10 mg by mouth daily., Disp: , Rfl: aspirin (ASPIR) 81 MG EC tablet, Take 81 mg by mouth daily., Disp: , Rfl: Continuous Glucose Sensor (FreeStyle Demetrice 2 Sensor) [facility], As directed, Disp: , Rfl: empagliflozin (Jardiance) 25 MG, Take 1 tablet (25 mg) by mouth daily., Disp: 90 tablet, Rfl: 3 FREESTYLE LITE test strip, use 1 TEST STRIP to TEST BLOOD SUGAR three times a day, Disp: , Rfl: glimepiride (Amaryl) 1 MG tablet, Take 1 mg by mouth., Disp: , Rfl: lisinopril 40 MG tablet, Take 40 mg by mouth daily., Disp: , Rfl: metoprolol succinate XL (Toprol-XL) 100 MG 24 hr tablet, Take 100 mg by mouth daily., Disp: , Rfl: metroNIDAZOLE (Flagyl) 500 MG tablet, Take 500 mg by mouth. PRN, Disp: , Rfl: Multiple Vitamins-Minerals (CENTRUM MINIS ADULTS 50+ PO), Take by mouth., Disp: , Rfl: pantoprazole (ProtoNix) 40 MG EC tablet, Take 40 mg by mouth in the morning and 40 mg in the evening., Disp: , Rfl: rosuvastatin (Crestor) 5 MG tablet, Take 40 mg by mouth daily., Disp: , Rfl: [4] Allergies Allergen Reactions Penicillins Hives Cerner Allergy Text Annotation: penicillin Ciprofloxacin Hives Cerner Allergy Text Annotation: ciprofloxacin Sulfa Antibiotics Hives Cerner Allergy Text Annotation: sulfa drugs documented in this encounter [facility] 03-15-2025 Note An incomplete referr al has been received in Endocrinology and is being processed. It is missing necessary documents that would enable a productive appointment with the patient. A request for records will be sent to the referring provider's office. We are waiting on the receipt of these documents prior to finishing the referral and scheduling the patient. Missing dx. [facility] 03-09-2025 Note Case# Procedure: EXCISION BIOPSY PROVEN HIGH-GRADE DYSPLASTIC COMPOUND NEVUS OF THE LEFT LOW BACK WITH LAYERED VERSUS COMPLEX CLOSURE Sx Date: 05/03/25 @ 7:30 am Time: 1 HOUR Location: [facility] Anesthesia: LOCAL CPT: 47417, 02059, 07261, 88504, 12073 ICD-10: L81.9 Special Equipment: PAT: Video PAT AUTH: Donte Approved [id number] and Bubba [id number] 03/15/25-05/13/25 [facility] 03-09-2025 Telephone encounter Note Called and spoke with patient regarding biopsy results. He had already reached out to our retired partner, Dr. Ruvalcaba, who advised excision with Dr. Gerard in April when he returns from travel. Results can be found below. Our office to coordinate surgery. Final Diagnosis A. SKIN, RIGHT SUPRACLAVICULAR, PUNCH: - CONSISTENT WITH PORTION OF SEBORRHEIC KERATOSIS B. SKIN, LEFT MID LOW BACK, PUNCH: - MODERATE TO SEVERELY (HIGH-GRADE) DYSPLASTIC COMPOUND NEVUS Comment: An excision is needed to ensure complete removal. Ancillary studies: SOX10: Positive PRAME: Positive Zuleima Gamble PA-C [facility] 03-09-2025 Miscellaneous Notes Called and spoke with patient regarding biopsy results. He had already reached out to our retired partner, Dr. Ruvalcaba, who advised excision with Dr. Gerard in April when he returns from travel. Results can be found below. Our office to coordinate surgery. Final Diagnosis A. SKIN, RIGHT SUPRACLAVICULAR, PUNCH: - CONSISTENT WITH PORTION OF SEBORRHEIC KERATOSIS B. SKIN, LEFT MID LOW BACK, PUNCH: - MODERATE TO SEVERELY (HIGH-GRADE) DYSPLASTIC COMPOUND NEVUS Comment: An excision is needed to ensure complete removal. Ancillary studies: SOX10: Positive PRAME: Positive Zuleima Gamble PA-C documented in this encounter [facility] 03-01-2025 History of Presen t illness Narrative Plastic Sugery Consultation CC: Chief Complaint Patient presents with New Patient HPI: Marcella Yanes is a 64 y.o. male with past medical history significant for hypertension, hyperlipidemia, and GERD who presents for evaluation of skin lesions x 2. Patient notes a lesion of the right supraclavicular region and the left mid lower back. Both lesions have appeared within the last several years. He is not sure if the lesion of the lower back has changed in size or color as it is in an area he cannot see easily. Neither lesion is tender or painful. They have never bled or had any discharge. He has never had them biopsied or removed previously. He denies personal history of skin cancer. He does take a daily baby aspirin, otherwise denies use of anticoagulants. He does not smoke. Medical History[1] Surgical History[2] Family History[3] Social History Socioeconomic History Marital status: Spouse name: Not on file Number of children: Not on file Years of education: Not on file Highest education level: Not on file Occupational History Not on file Tobacco Use Smoking status: Never Smokeless tobacco: Never Substance and Sexual Activity Alcohol use: Yes Drug use: No Sexual activity: Not on file Other Topics Concern Not on file Social History Narrative Not on file Social Drivers of Health Financial Resource Strain: Not on file Food Insecurity: Not on file Transportation Needs: Not on file Physical Activity: Not on file Stress: Not on file Social Connections: Not on file Intimate Partner Violence: Not on file Housing Stability: Not on file Patient Active Problem List Diagnosis Date Noted Mitral leaflet abnormality 06/18/2022 Androgen deficiency 05/16/2015 BPH (benign prostatic hyperplasia) 05/16/2015 Hypercalcemia 05/16/2015 Current Outpatient Medications Medication Instructions acetaZOLAMIDE (Diamox) 250 MG tablet TAKE 1/2 TABLET BY MOUTH TWICE DAILY NEEDED FOR hundsfescht lasting longer THAN FOUR hours allopurinol (ZYLOPRIM) 100 mg, Daily amLODIPine (NORVASC) 10 mg, Daily aspirin (ASPIR) 81 mg, Daily Continuous Glucose Sensor (FreeStyle Demetrice 2 Sensor) [facility] As directed empagliflozin (JARDIANCE) 25 mg, Oral, Daily FREESTYLE LITE test strip use 1 TEST STRIP to TEST BLOOD SUGAR three times a day glimepiride (AMARYL) 1 mg lisinopril 40 mg, Daily metoprolol succinate XL (TOPROL-XL) 100 mg, Daily metroNIDAZOLE (FLAGYL) 500 mg Multiple Vitamins-Minerals (CENTRUM MINIS ADULTS 50+ PO) Take by mouth. pantoprazole (PROTONIX) 40 mg, 2 time daily rosuvastatin (CRESTOR) 40 mg, Daily Review of Systems Constitutional: Negative for fatigue, acute illness Eyes: Negative for vision restriction or changes Ears, nose, mouth, throat, and face: Negative for any hearing change, oral lesion, or other facial lesions Respiratory: Negative for shortness of breath or cough Cardiovascular: Negative for coronary artery disease and angina Gastrointestinal: Negative for change in bowel habits, hematochezia Genitourinary: Negative for hematuria or urinary retention Integument/breast: Negative for skin changes or masses Hematologic/lymphatic: negative for anemia or other lymphatic issues Musculoskeletal: Negative for muscle fatigue or muscle atrophy Neurological: Negative for focal neurologic deficits, negative for neuropathy Behavioral/Psych: Negative for behavioral psychiatric events Endocrine: Negative for any new endocrine changes Allergic/Immunologic: No immunologic diseases or new ALLERGIES Objective: Vitals: 03/01/25 1024 BP: 131/85 Pulse: 71 Body mass index is 22.24 kg/m . General: alert, no acute distress, cooperative Face: Normocephalic, atraumatic Eyes: Extraocular muscles intact. Vision grossly intact. Pupils symmetric. Conjunctiva within normal limits Lip/Mouth: Moist mucous membranes, no intraoral or vermilion lesions Neck: Supple, No thyromegaly Lymph Nodes: No lymphadenopathy Lungs: Non labored Heart: HR Regular, BP Stable Abdomen: Soft, NT, ND, No Hernia noted Skin: 2 mm x 2 mm brown-navarro lesion of the right supraclavicular region at the base of the lateral neck, round and regular borders 4 mm x 5 mm dark brown patient of the left mid lower back, round and regular borders, slightly raised Extremities: extremities normal, strength wnl, no cyanosis or edema Neurologic: Cranial nerves intact, No defect. Psychiatric: Oriented to person, place, and time. Pleasant mood Assessment: Patient is a 64 y.o. male with lesions of the right supraclavicular skin and left mid lower back Plan: -Due to the unknown etiology of the lesions, we will plan to obtain punch biopsies to rule out any atypical or malignant processes. -PROCEDURE: -We will plan to proceed and have the lesions of the right supraclavicular skin and right mid lower back biopsied. -The risks, benefits and options were discussed with the pt. The risks included but not limited to pain, bleeding, infection, heavy scarring, damage to surrounding structures, fluid collections, asymmetry, and need for further procedures. All of His questions were answered to their satisfaction and He agrees to proceed with the procedure. -After consent was obtained, the area was cleansed with an alcohol swab. Local anesthesia consisting of 1% lidocaine with 1:100,000 epinepherine was injected surrounding the area. The local was allowed to work. Using a 3 mm punch the lesion of the right supraclavicular region was biopsied, hemostasis was obtained by placing a single simple interrupted suture using 5-0 chromic. This procedure was then repeated for the lesion of the left mid lower back using a 5 mm punch biopsy and stasis was obtained by placing 2 simple interrupted sutures with 5-0 chromic. The procedure was performed by myself. The patient was educated to keep the bandage in place and apply bacitracin to the wound site BID. OK to shower at this time. Advised the patient that they can allow soap and water to rinse of the wound site while showering. Once they are done in the shower they are to pat dry the incision site with a clean paper towel. No baths, hot tubs or soaking of the wound site at this time. Pt voices understanding. Photos obtained. -Follow-up in 2 weeks to discuss pathology. Zuleima Gamble PA-C [1] Past Medical History: Diagnosis Date Androgen deficiency Michael's esophageal ulceration GERD (gastroesophageal reflux disease) HTN (hypertension) Hyperlipemia Hypogonadism in male [2] Past Surgical History: Procedure Laterality Date APPENDECTOMY CHOLECYSTECTOMY FINGER AMPUTATION HERNIA REPAIR right SEPTOPLASTY TONSILLECTOMY AND ADENOIDECTOMY (HISTORICAL) [3] No family history on file. documented in this encounter [facility] 03-01-2025 Note Plastic Sugery Consu ltation CC: Chief Complaint Patient presents with New Patient HPI: Marcella Yanes is a 64 y.o. male with past medical history significant for hypertension, hyperlipidemia, and GERD who presents for evaluation of skin lesions x 2. Patient notes a lesion of the right supraclavicular region and the left mid lower back. Both lesions have appeared within the last several years. He is not sure if the lesion of the lower back has changed in size or color as it is in an area he cannot see easily. Neither lesion is tender or painful. They have never bled or had any discharge. He has never had them biopsied or removed previously. He denies personal history of skin cancer. He does take a daily baby aspirin, otherwise denies use of anticoagulants. He does not smoke. Medical History[1] Surgical History[2] Family History[3] Social History Socioeconomic History Marital status: Spouse name: Not on file Number of children: Not on file Years of education: Not on file Highest education level: Not on file Occupational History Not on file Tobacco Use Smoking status: Never Smokeless tobacco: Never Substance and Sexual Activity Alcohol use: Yes Drug use: No Sexual activity: Not on file Other Topics Concern Not on file Social History Narrative Not on file Social Drivers of Health Financial Resource Strain: Not on file Food Insecurity: Not on file Transportation Needs: Not on file Physical Activity: Not on file Stress: Not on file Social Connections: Not on file Intimate Partner Violence: Not on file Housing Stability: Not on file Patient Active Problem List Diagnosis Date Noted Mitral leaflet abnormality 06/18/2022 Androgen deficiency 05/16/2015 BPH (benign prostatic hyperplasia) 05/16/2015 Hypercalcemia 05/16/2015 Current Outpatient Medications Medication Instructions acetaZOLAMIDE (Diamox) 250 MG tablet TAKE 1/2 TABLET BY MOUTH TWICE DAILY NEEDED FOR hundsfescht lasting longer THAN FOUR hours allopurinol (ZYLOPRIM) 100 mg, Daily amLODIPine (NORVASC) 10 mg, Daily aspirin (ASPIR) 81 mg, Daily Continuous Glucose Sensor (FreeStyle Demetrice 2 Sensor) misc As directed empagliflozin (JARDIANCE) 25 mg, Oral, Daily FREESTYLE LITE test strip use 1 TEST STRIP to TEST BLOOD SUGAR three times a day glimepiride (AMARYL) 1 mg lisinopril 40 mg, Daily metoprolol succinate XL (TOPROL-XL) 100 mg, Daily metroNIDAZOLE (FLAGYL) 500 mg Multiple Vitamins-Minerals (CENTRUM MINIS ADULTS 50+ PO) Take by mouth. pantoprazole (PROTONIX) 40 mg, 2 time daily rosuvastatin (CRESTOR) 40 mg, Daily Review of Systems Constitutional: Negative for fatigue, acute illness Eyes: Negative for vision restriction or changes Ears, nose, mouth, throat, and face: Negative for any hearing change, oral lesion, or other facial lesions Respiratory: Negative for shortness of breath or cough Cardiovascular: Negative for coronary artery disease and angina Gastrointestinal: Negative for change in bowel habits, hematochezia Genitourinary: Negative for hematuria or urinary retention Integument/breast: Negative for skin changes or masses Hematologic/lymphatic: negative for anemia or other lymphatic issues Musculoskeletal: Negative for muscle fatigue or muscle atrophy Neurological: Negative for focal neurologic deficits, negative for neuropathy Behavioral/Psych: Negative for behavioral psychiatric events Endocrine: Negative for any new endocrine changes Allergic/Immunologic: No immunologic diseases or new ALLERGIES Objective: Vitals: 03/01/25 1024 BP: 131/85 Pulse: 71 Body mass index is 22.24 kg/m?. General: alert, no acute distress, cooperative Face: Normocephalic, atraumatic Eyes: Extraocular muscles intact. Vision grossly intact. Pupils symmetric. Conjunctiva within normal limits Lip/Mouth: Moist mucous membranes, no intraoral or vermilion lesions Neck: Supple, No thyromegaly Lymph Nodes: No lymphadenopathy Lungs: Non labored Heart: HR Regular, BP Stable Abdomen: Soft, NT, ND, No Hernia noted Skin: 2 mm x 2 mm brown-navarro lesion of the right supraclavicular region at the base of the lateral neck, round and regular borders 4 mm x 5 mm dark brown patient of the left mid lower back, round and regular borders, slightly raised Extremities: extremities normal, strength wnl, no cyanosis or edema Neurologic: Cranial nerves intact, No defect. Psychiatric: Oriented to person, place, and time. Pleasant mood Assessment: Patient is a 64 y.o. male with lesions of the right supraclavicular skin and left mid lower back Plan: -Due to the unknown etiology of the lesions, we will plan to obtain punch biopsies to rule out any atypical or malignant processes. -PROCEDURE: -We will plan to proceed and have the lesions of the right supraclavicular skin and right mid lower back biopsied. -The risks, benefits and options were discussed with (more content not included)... [facility] 08-05-2023 History of Presen t illness Narrative . [facility] [address] [address] Dept: [phone] Dept Visit type: Established patient Reason for Visit: Follow-up and Diabetes (DM2) Assessment and Plan 1. Type 2 diabetes mellitus with hyperglycemia, without long-term current use of insulin (HCC) - Comprehensive metabolic panel - Hepatic function panel - Hemoglobin A1c 2. Mixed hyperlipidemia - Lipid panel - Lipid panel 3. Primary hypertension Follow up in about 6 months (around 02/03/2024). Discussed with patient -increase crestor to 20 mg daily went over se Discussed with patient detection, monitoring, management, and prevention of hypoglycemia Discussed with patient eye care and importance of follow with diabetes Discussed with patient diet modification and approach to diabetes management Discussed with patient exercise as relates to glucose reduction, insulin sensitivity, and diabetes management Discussed with patient lipid goals and guidelines in diabetes care Discussed with patient exercise as relates to glucose reduction, insulin sensitivity, and diabetes management Subjective Diabetes Pertinent negatives for hypoglycemia include no headaches or tremors. Pertinent negatives for diabetes include no chest pain and no fatigue. Follow-up appointment for dm2 Diet 3 meals good quality overall Exercise walks frequently Hgm average low 100's Hypoglycemia none feels weak if hypoglycemic Meds for dm jardiance 25 mg glimepiride 1 daily Eye care due will make an appt nohemy A1c goal 7 Onset dm 2019 Hyperlipidemia: taking crestor tolerates well takes crestor 10 mg daily stable Vitamin d deficiency taking 2000 iu daily tolerates well stable Prostate has had elevated psa in past returned to rechecking to follow Review of Systems Constitutional: Negative for fatigue. HENT: Negative for trouble swallowing and voice change. Respiratory: Negative for shortness of breath and wheezing. Cardiovascular: Negative for chest pain and palpitations. Gastrointestinal: Negative for nausea and vomiting. Endocrine: Negative for cold intolerance and heat intolerance. Genitourinary: Negative for dysuria and hematuria. Skin: Negative for rash. Neurological: Negative for tremors and headaches. Psychiatric/Behavioral: Negative for sleep disturbance. Allergies Allergen Reactions Penicillins Hives Cerner Allergy Text Annotation: penicillin Ciprofloxacin Hives Cerner Allergy Text Annotation: ciprofloxacin Sulfa Antibiotics Hives Cerner Allergy Text Annotation: sulfa drugs Outpatient Medications Prior to Visit Medication Sig Dispense Refill acetaZOLAMIDE (Diamox) 250 MG tablet TAKE 1/2 TABLET BY MOUTH TWICE DAILY NEEDED FOR hundsfescht lasting longer THAN FOUR hours allopurinol (Zyloprim) 100 MG tablet Take 100 mg by mouth daily. amLODIPine (Norvasc) 5 MG tablet Take 5 mg by mouth daily. aspirin (ASPIR) 81 MG EC tablet Take 81 mg by mouth daily. empagliflozin (Jardiance) 25 MG Take 1 tablet (25 mg) by mouth daily. 90 tablet 3 FREESTYLE LITE test strip use 1 TEST STRIP to TEST BLOOD SUGAR three times a day glimepiride (Amaryl) 1 MG tablet Take 1 mg by mouth. lisinopril 40 MG tablet Take 40 mg by mouth daily. metoprolol succinate XL (Toprol-XL) 100 MG 24 hr tablet Take 100 mg by mouth daily. metroNIDAZOLE (Flagyl) 500 MG tablet Take 500 mg by mouth. PRN Multiple Vitamins-Minerals (CENTRUM MINIS ADULTS 50+ PO) Take by mouth. pantoprazole (ProtoNix) 40 MG EC tablet Take 40 mg by mouth in the morning and 40 mg in the evening. rosuvastatin (Crestor) 5 MG tablet Take 10 mg by mouth daily. No facility-administered medications prior to visit. Past Medical History: Diagnosis Date Androgen deficiency Michael's esophageal ulceration GERD (gastroesophageal reflux disease) HTN (hypertension) Hyperlipemia Hypogonadism in male Social History Tobacco Use Smoking status: Never Smokeless tobacco: Never Substance Use Topics Alcohol use: Yes Past Surgical History: Procedure Laterality Date APPENDECTOMY CHOLECYSTECTOMY FINGER AMPUTATION HERNIA REPAIR right SEPTOPLASTY TONSILLECTOMY AND ADENOIDECTOMY (HISTORICAL) No family history on file. Objective BP 132/88 (BP Location: Left arm, Patient Position: Sitting, BP Cuff Size: Large adult) Pulse 77 Ht 6' (1.829 m) Wt 167 lb (75.8 kg) BMI 22.65 kg/m Physical Exam Vitals reviewed. Constitutional: General: He is not in acute distress. Appearance: Normal appearance. He is not ill-appearing. Cardiovascular: Rate and Rhythm: Normal rate and regular rhythm. Pulses: Normal pulses. Heart sounds: Normal heart sounds. No murmur heard. No friction rub. Pulmonary: Effort: Pulmonary effort is normal. No respiratory distress. Breath sounds: Normal breath sounds. No stridor. No wheezing or rhonchi. Musculoskeletal: Cervical back: Normal range of motion and neck supple. No rigidity or tenderness. Skin: General: Skin is warm and dry. Coloration: Skin is not jaundiced or pale. Comments: Feet 4/4 pulses no lesions, sl dry Neurological: General: No focal deficit present. Mental Status: He is alert and oriented to person, place, and time. Cranial Nerves: No cranial nerve deficit. Sensory: No sensory deficit. Psychiatric: Mood and Affect: Mood normal. Behavior: Behavior normal. Data Reviewed and Summarized Labs: THYROID STIMULATING HORMONE Date Value Ref Range Status 08/02/2023 1.870 0.465 - 4.680 uIU/mL Final No results found for: WBC, HGB, HCT, PLT, MCV No results found for: NA, K, CL, CO2, BUN, CREATININE, GLUCOSE, CALCIUM, MG, PHOS No results found for: AST, ALT, PROT, BILITOT, ALKPHOS, INR, APTT, LIPASE CHOLESTEROL Date Value Ref Range Status 08/05/2023 145 200 mg/dL Final TRIGLYCERIDE Date Value Ref Range Status 08/05/2023 85 150 mg/dL Final HDL CHOLESTEROL Date Value Ref Range Status 08/05/2023 39 (A) 40 - 60 mg/dL Final HEMOGLOBIN A1C Date Value Ref Range Status 08/02/2023 6.1 (A) 5.7 % Final Imaging/Testing: Richi Hairston MD documented in this encounter [facility] Evaluation note No assessment inform ation available [facility] Work Phone: Evaluation note Diagnosis Type 2 diabetes mellitus with hyperglycemia, without long-term current use of insulin (HCC)- Primary Mixed hyperlipidemia Primary hypertension Unspecified essential hypertension documented in this encounter [facility]Evaluation note* Diagnosis Pure hypercholesterolemia, unspecified documented in this encounter [facility] Work Phone: Evaluation note* Diagnosis SOB (shortness of breath) Shortness of breath [facility] Change in multiple pigmented skin lesions- Primary documented in this encounter [facility] note* Diagnosis Benign neoplasm of trunk- Primary Benign neoplasm of other specified sites [facility] Name Dates Details How to access [employer] online Indication:Nonsmoker Start:14-Jun-2020 Instruction Type:Patient Education How to access [employer] online - Detail Indication:Nonsmoker Start:14-Jun-2020 Instruction Type:Patient [...] Informa tion Online using Patient Portal and [employer] Apps Indication:Nonsmoker Start:22-Dec-2020 Instruction Type:Patient Education Patient [...] Informa tion Online using Patient Portal and [employer] Apps Indication:Nonsmoker Start:22-Dec-2020 Instruction Type:Patient Education Patient [...] Informa tion Online using Patient Portal and [employer] Apps Indication:Nonsmoker Start:22-Dec-2020 Instruction Type:Patient Education Patient [...] tion Online using Patient Portal and [employer] Apps Indication:Nonsmoker Start:22-Dec-2020 Instruction Type:Patient Education Patient [...] Informa tion Online using Patient Portal and [employer] Apps Indication:Encounter for well adult exam with abnormal findings (Renamed from Encounter for general adult medical examination with abnormal findings) Start:11-Dec-2021 Instruction Type:Patient Education How to Access Health Informa tion Online using Patient Portal and [employer] Apps Indication:Nonsmoker Start:22-Dec-2020 Instruction Type:Patient Education Patient [...] Informa tion Online using Patient Portal and [employer] Apps Indication:Encounter for well adult exam with abnormal findings (Renamed from Encounter for general adult medical examination with abnormal findings) Start:11-Dec-2021 Instruction Type:Patient Education How to Access Health Informa tion Online using Patient Portal and [employer] Apps Indication:Nonsmoker Start:22-Dec-2020 Instruction Type:Patient Education Patient [...] Informa tion Online using Patient Portal and [employer] Apps Indication:Encounter for well adult exam with abnormal findings (Renamed from Encounter for general adult medical examination with abnormal findings) Start:11-Dec-2021 Instruction Type:Patient Education How to Access Health Informa tion Online using Patient Portal and [employer] Apps Indication:Nonsmoker Start:22-Dec-2020 Instruction Type:Patient Education Patient [...] tion Online using Patient Portal and [employer] Apps Indication:Nonsmoker Start:12-Mar-2022 Instruction Type:Patient Education Patient Instructions Indication:Encounter for well adult exam with abnormal findings (Renamed from Encounter for general adult medical examination with abnormal findings) Start:11-Dec-2021 Instruction Type:Provider Instructions for Treatment How to Access Health Informa tion Online using Patient Portal and [employer] Apps Indication:Encounter for well adult exam with abnormal findings (Renamed from Encounter for general adult medical examination with abnormal findings) Start:11-Dec-2021 Instruction Type:Patient Education How to Access Health Informa tion Online using Patient Portal and [employer] Apps Indication:Nonsmoker Start:22-Dec-2020 Instruction Type:Patient Education Patient [...] tion Online using Patient Portal and [employer] Apps Indication:Nonsmoker Start:12-Mar-2022 Instruction Type:Patient Education Patient Instructions Indication:Encounter for well adult exam with abnormal findings (Renamed from Encounter for general adult medical examination with abnormal findings) Start:11-Dec-2021 Instruction Type:Provider Instructions for Treatment How to Access Health Informa tion Online using Patient Portal and [employer] Apps Indication:Encounter for well adult exam with abnormal findings (Renamed from Encounter for general adult medical examination with abnormal findings) Start:11-Dec-2021 Instruction Type:Patient Education How to Access Health Informa tion Online using Patient Portal and [employer] Indication:Nonsmoker Start:22-Dec-2020 Instruction Type:Patient Education Patient [...] tion Online using Patient Portal and [employer] Indication:Nonsmoker Start:12-Mar-2022 Instruction Type:Patient Education Patient Instructions Indication:Encounter for well adult exam with abnormal findings (Renamed from Encounter for general adult medical examination with abnormal findings) Start:11-Dec-2021 Instruction Type:Provider Instructions for Treatment How to Access Health Informa tion Online using Patient Portal and [employer] Apps Indication:Encounter for well adult exam with abnormal findings (Renamed from Encounter for general adult medical examination with abnormal findings) Start:11-Dec-2021 Instruction Type:Patient Education How to Access Health Informa tion Online using Patient Portal and [employer] Apps Indication:Nonsmoker Start:22-Dec-2020 Instruction Type:Patient Education Patient [...] Informa tion Online using Patient Portal and [employer] Apps Indication:Nonsmoker Start:12-Mar-2022 Instruction Type:Patient Education Patient Instructions Indication:Encounter for well adult exam with abnormal findings (Renamed from Encounter for general adult medical examination with abnormal findings) Start:11-Dec-2021 Instruction Type:Provider Instructions for Treatment How to Access Health Informa tion Online using Patient Portal and [employer] Apps Indication:Encounter for well adult exam with abnormal findings (Renamed from Encounter for general adult medical examination with abnormal findings) Start:11-Dec-2021 Instruction Type:Patient Education How to Access Health Informa tion Online using Patient Portal and [employer] Apps Indication:Nonsmoker Start:22-Dec-2020 Instruction Type:Patient Education Patient [...] tion Online using Patient Portal and [employer] Indication:Nonsmoker Start:12-Mar-2022 Instruction Type:Patient Education Patient Instructions Indication:Encounter for well adult exam with abnormal findings (Renamed from Encounter for general adult medical examination with abnormal findings) Start:11-Dec-2021 Instruction Type:Provider Instructions for Treatment How to Access Health Informa tion Online using Patient Portal and [employer] Apps Indication:Encounter for well adult exam with abnormal findings (Renamed from Encounter for general adult medical examination with abnormal findings) Start:11-Dec-2021 Instruction Type:Patient Education How to Access Health Informa tion Online using Patient Portal and [employer] Apps Indication:Nonsmoker Start:22-Dec-2020 Instruction Type:Patient Education Patient [...] tion Online using Patient Portal and [employer] Apps Indication:BMI 22.0-22.9, adult Start:10-Sep-2022 Instruction Type:Patient Education Patient Instructions Indication:Nonsmoker Start:12-Mar-2022 Instruction Type:Provider Instructions for Treatment How to Access Health Informa tion Online using Patient Portal and [employer] Indication:Nonsmoker Start:12-Mar-2022 Instruction Type:Patient Education Patient Instructions Indication:Encounter for well adult exam with abnormal findings (Renamed from Encounter for general adult medical examination with abnormal findings) Start:11-Dec-2021 Instruction Type:Provider Instructions for Treatment How to Access Health Informa tion Online using Patient Portal and [employer] Apps Indication:Encounter for well adult exam with abnormal findings (Renamed from Encounter for general adult medical examination with abnormal findings) Start:11-Dec-2021 Instruction Type:Patient Education How to Access Health Informa tion Online using Patient Portal and [employer] Apps Indication:Nonsmoker Start:22-Dec-2020 Instruction Type:Patient Education Patient [...] tion Online using Patient Portal and [employer] Apps Indication:BMI 22.0-22.9, adult Start:10-Sep-2022 Instruction Type:Patient Education Patient Instructions Indication:Nonsmoker Start:12-Mar-2022 Instruction Type:Provider Instructions for Treatment How to Access Health Informa tion Online using Patient Portal and [employer] Indication:Nonsmoker Start:12-Mar-2022 Instruction Type:Patient Education Patient Instructions Indication:Encounter for well adult exam with abnormal findings (Renamed from Encounter for general adult medical examination with abnormal findings) Start:11-Dec-2021 Instruction Type:Provider Instructions for Treatment How to Access Health Informa tion Online using Patient Portal and [employer] Apps Indication:Encounter for well adult exam with abnormal findings (Renamed from Encounter for general adult medical examination with abnormal findings) Start:11-Dec-2021 Instruction Type:Patient Education How to Access Health Informa tion Online using Patient Portal and [employer] Apps Indication:Nonsmoker Start:22-Dec-2020 Instruction Type:Patient Education Patient [...] tion Online using Patient Portal and [employer] Apps Indication:Nonsmoker Start:11-Mar-2023 Instruction Type:Patient Education Patient Instructions Indication:BMI 22.0-22.9, adult Start:10-Sep-2022 Instruction Type:Provider Instructions for Treatment How to Access Health Informa tion Online using Patient Portal and [employer] Apps Indication:BMI 22.0-22.9, adult Start:10-Sep-2022 Instruction Type:Patient Education Patient Instructions Indication:Nonsmoker Start:12-Mar-2022 Instruction Type:Provider Instructions for Treatment How to Access Health Informa tion Online using Patient Portal and [employer] Indication:Nonsmoker Start:12-Mar-2022 Instruction Type:Patient Education Patient Instructions Indication:Encounter for well adult exam with abnormal findings (Renamed from Encounter for general adult medical examination with abnormal findings) Start:11-Dec-2021 Instruction Type:Provider Instructions for Treatment How to Access Health Informa tion Online using Patient Portal and [employer] Indication:Encounter for well adult exam with abnormal findings (Renamed from Encounter for general adult medical examination with abnormal findings) Start:11-Dec-2021 Instruction Type:Patient Education How to Access Health Informa tion Online using Patient Portal and [employer] Apps Indication:Nonsmoker Start:22-Dec-2020 Instruction Type:Patient Education Patient [...] tion Online using Patient Portal and [employer] Indication:Nonsmoker Start:11-Mar-2023 Instruction Type:Patient Education Patient Instructions Indication:BMI 22.0-22.9, adult Start:10-Sep-2022 Instruction Type:Provider Instructions for Treatment How to Access Health Informa tion Online using Patient Portal and [employer] Apps Indication:BMI 22.0-22.9, adult Start:10-Sep-2022 Instruction Type:Patient Education Patient Instructions Indication:Nonsmoker Start:12-Mar-2022 Instruction Type:Provider Instructions for Treatment How to Access Health Informa tion Online using Patient Portal and [employer] Apps Indication:Nonsmoker Start:12-Mar-2022 Instruction Type:Patient Education Patient Instructions Indication:Encounter for well adult exam with abnormal findings (Renamed from Encounter for general adult medical examination with abnormal findings) Start:11-Dec-2021 Instruction Type:Provider Instructions for Treatment How to Access Health Informa tion Online using Patient Portal and [employer] Apps Indication:Encounter for well adult exam with abnormal findings (Renamed from Encounter for general adult medical examination with abnormal findings) Start:11-Dec-2021 Instruction Type:Patient Education How to Access Health Informa tion Online using Patient Portal and [employer] Indication:Nonsmoker Start:22-Dec-2020 Instruction Type:Patient Education Patient [...] tion Online using Patient Portal and [employer] Indication:Nonsmoker Start:11-Mar-2023 Instruction Type:Patient Education Patient Instructions Indication:BMI 22.0-22.9, adult Start:10-Sep-2022 Instruction Type:Provider Instructions for Treatment How to Access Health Informa tion Online using Patient Portal and [employer] Apps Indication:BMI 22.0-22.9, adult Start:10-Sep-2022 Instruction Type:Patient Education Patient Instructions Indication:Nonsmoker Start:12-Mar-2022 Instruction Type:Provider Instructions for Treatment How to Access Health Informa tion Online using Patient Portal and [employer] Apps Indication:Nonsmoker Start:12-Mar-2022 Instruction Type:Patient Education Patient Instructions Indication:Encounter for well adult exam with abnormal findings (Renamed from Encounter for general adult medical examination with abnormal findings) Start:11-Dec-2021 Instruction Type:Provider Instructions for Treatment How to Access Health Informa tion Online using Patient Portal and [employer] Apps Indication:Encounter for well adult exam with abnormal findings (Renamed from Encounter for general adult medical examination with abnormal findings) Start:11-Dec-2021 Instruction Type:Patient Education How to Access Health Informa tion Online using Patient Portal and [employer] Apps Indication:Nonsmoker Start:22-Dec-2020 Instruction Type:Patient Education Patient [...] Internal Medicine; [facility] Work Phone: reason for referral (narrative)No reason for referral information [facility] Work Phone: Reason for visit Narrative* Imaging (Routine) - Pending Review Specialty Diagnoses / Procedures Referred By Darline t Referred To Contact Radiology Diagnoses Pure hypercholesterolemia, unspecified Procedures CT cardiac scoring wo IV contrast Yoko Hammonds MD [address] [address] Phone: tel: fax: Referral ID Status Reason Start Date Expiration Date Visits Requested Visits Authorized [id number] Pending Review Perform Procedure 03/24/2024 03/24/2025 1 1 [facility] Work Phone: Family History Unknown Family Member [...] Dates Details How to access health informa [employer] online Indication:Elevated blood pressure reading Start:05-May-2019 Instruction [...] Documents on File Type Date 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 Expiration date unspecified Effective:11-Mar-2023 Name Dates Details Immunization Registry [place] - Effective on 03/11/2023. Expiration date unspecified Effective:11-Mar-2023 Summary Purpose Chief Complaint and Reason for Visit Chief Complaint RABIES VACCINE Chief Complaint JUST LIPID AND HEPAT IC PANEL Chief Complaint Admit Date 2 PAGES November 02, 2024 7:0 5am Reason for Referral Specialty Diagnoses / Procedures Referred By Contac t Referred To Contact Diagnoses SOB (shortness of breath) Procedures NUC MYOCARD PERF STRESS MIBI EXERCISE CHG MYOCARDIAL SPECT MULTIPLE STUDIES AR CV STRS TST XERS&/OR RX CONT ECG TRCG ONLY Yoko Hammonds MD [address] [facility] [address] [place] [address] [facility] [address] [place] [address] Referral ID Status Reason Start Date Expiration Date Visits Re quested Visits Authorized [id number] Closed 06/16/2024 07/11/2025 1 1 Additional Source Comments (unrecognized sect ion and content) No Status Records FoundNo Status Records FoundNo Status Records FoundNo Status Records FoundNo Status Records FoundNo Status Records FoundNo Status Records FoundNo Status Records Found INFORMATION SOURCE (unrecogn ized section and content) DATE CREATED AUTHOR 12/16/2019 [facility] DATE CREATED AUTHOR AUTHOR'S ORGANIZ ATION 01/04/2020 [facility] DATE CREATED AUTHOR AUTHOR'S ORGANIZ ATION 11/21/2022 [facility] DATE CREATED AUTHOR AUTHOR'S ORGANIZ ATION 05/05/2024 [facility] DATE CREATED AUTHOR AUTHOR'S ORGANIZ ATION 06/26/2024 [facility] DATE CREATED AUTHOR AUTHOR'S ORGANIZ ATION 06/29/2024 [facility] DATE CREATED AUTHOR AUTHOR'S ORGANIZ ATION 01/03/2025 [facility] DATE CREATED AUTHOR AUTHOR'S ORGANIZ ATION 03/16/2025 [facility] Source Comments (unrecognize d section and content) In the event this informatio n is protected by the Federal Confidentiality of Alcohol and Drug Abuse Patient Records regulations: The Federal rules restrict any use of the information to criminally investigate or prosecute any alcohol or drug abuse patient.[facility] Goals (unrecognized section and content) Goals may be documented in a n alternate sectionGoals may be documented in an alternate sectionGoals may be documented in an alternate sectionGoals may be documented in an alternate sectionGoals may be documented in an alternate section Care Teams (unrecognized sec tion and content) Team Status: Active Member Role Status Dates Dr. Mel Esquivel DO Family Provider Active Dr. Yoko Hammonds MD Primary Care Provider Active Team Status: Inactive Member Role Status Dates Dr. Yoko Hammonds MD Primary Care Provi edwin, Attending Provider, Referring Provider Active Dr. Richi Hairston MD Other Provider Active Team Status: Inactive Member Role Status Dates Dr. Yoko Hammonds MD Primary Care Provi ed[place], Attending Provider, Referring Provider Active Quality Coordinator Relationship Specialty Start Date End Date Mel Esquivel DO [address] [place] [phone] PCP - General 10/07/17 Team Status: Inactive Member Role Status Dates Dr. Yoko Hammonds MD Primary Care Provider Active Dr. Richi Hairston MD Attending Provider, Referring Pro vider Active Quality Coordinator Relationship Specialty [place] [address] [place] [address] [address] [place] [phone] PCP - General Internal Medicine 06/17/16 Richi Hairston MD [address] [place] [address] [address] [place] [phone] Endocrinology, Diabetes & Metabolism 02/16/20 Carlos Berman MD [facility] [address] [place] [address] Gastroenterology 02/16/20 Team Status: Active Member Role Status Dates Dr. Yoko Hammonds MD Primary Care Provider Active Team Status: Inactive Member Role Status Dates Dr. Yoko Hammonds MD Primary Care Provider Active Start: November 02, 2024 End: November 02, 2024 Dr. Yoko Hammonds MD Attending Provider Active Start: November 02, 2024 End: November 02, 2024 Dr. Yoko Hammonds MD Referring Provider Active Start: November 02, 2024 End: November 02, 2024 Quality Coordinator Relationship Specialty Start Date End Date Mel Esquivel DO [address] [place] [address] PCP - General 10/07/17 Quality Coordinator Relationship Specialty Start Date End Date Mel Esquivel DO [address] [place] [address] PCP - General 10/07/17 Quality Coordinator Relationship Specialty Start Date End Date Mel Esquivel DO [address] [place] [address] PCP - General 10/07/17 Reason for Visit (unrecogniz ed section and content) Reason Comments Follow-up Diabetes DM2 Specialty Diagnoses / Procedures Referred By Contac t Referred To Contact Diagnoses SOB (shortness of breath) Procedures NUC MYOCARD PERF STRESS MIBI EXERCISE CHG MYOCARDIAL SPECT MULTIPLE STUDIES AR CV STRS TST XERS&/OR RX CONT ECG TRCG ONLY Yoko Hammonds MD [address] [place] [address] [facility] [address] [place] [address] Referral ID Status Reason Start Date Expiration Date Visits Re quested Visits Authorized [id number] Closed 06/16/2024 07/11/2025 1 1 Reason Comments New Patient Reason Comments Consult FOR RECORDS PERTAINING TO PATIENTS WHO ARE [...] BE BASED ON THE PRIMARY CLINICAL RECORDS. [facility]. provides no warranty or guarantee of the accuracy or completeness of information in this document.
[2025-03-19 08:41] LABS: CORTISOL AM 0.95 ug/dL (6.02-18.40)
== END 2025-03-19 23:59 | disposition home or self-care (01) ==
PROVIDERS: PCP Internal Medicine; Referring Provider Internal Medicine; Visit Provider Internal Medicine
DX: Z00.00 Encounter for general adult medical examination without abnormal findings (principal)
CPT/HCPCS: 36415; 82533